=== PATIENT | female | born 1990 | race Caucasian/White ===

== ENCOUNTER 2017-08-15 10:12 | Emergency (ER) | payer OTHER ==
[2017-08-15 10:48] LABS: Urine Blood TRACE (NEG); Urine Glucose NEGATIVE (NEG); Urine Protein NEGATIVE (NEG)
[2017-08-15] MEDS ORDERED: NA CHLORIDE 0.9% 1,000 ML ONE (10:49)
[2017-08-15 10:51] LABS: Absolute Lymphocytes (CBC) 2.3 K/uL (0.7-4.9); Absolute Monocytes 0.6 K/uL (0.1-1.3); Absolute Neutrophil 8.7 K/uL (1.8-8.0); Basophils % 0.6 % (0-1.3); Eosinophils % 0.6 % (0-4.4); Hematocrit 40.7 % (36.0-45.0); Lymphocytes % 19.5 % (15.3-44.8); MCH 27.3 pg (27.0-35.0); MCV 81.9 fL (80-100); MPV 8.6 fL (7.6-11.3); RBC Red Blood Cell Count 4.97 M/uL (3.86-4.86)
[2017-08-15 11:17] LABS: Urine Bacteria <20 /HPF (<20); Urine Culture Reflex Order NOT NEEDED; Urine RBC <5 /HPF (NONE SEEN)
[2017-08-15 11:39] LABS: Bicarbonate 23 mEq/L (21-31); Potassium 3.6 mEq/L (3.6-5.0); Sodium Level 133 mEq/L (135-145)
[2017-08-15 11:47] LABS: BUN Blood Urea Nitrogen 11 mg/dL (6-20); Glucose Level 70 mg/dL (65-120)
--- NOTE | 2017-08-15 12:53 | RAD REPORT ---
EXAM DESCRIPTION: US - Transvaginal OB - 08/15/2017 12:46 pm CLINICAL HISTORY: Pelvic pain, vaginal bleeding. COMPARISON: None. FINDINGS: A single gestational sac is seen within the uterus. Decidual reaction is present. Mean sac diameter is 24 mm correlate is 7 weeks 2 days gestational age. No yolk sac or pole seen. Several small subchorionic bleeds are present around the sac. Both ovaries are normal in size, shape and echotexture. Normal Doppler blood flow is seen bilaterally . IMPRESSION: Gestational sac is seen within the uterus without evidence of yolk sac or pole.The findings favor blighted ovum. However, it is recommended the patient undergo a followup ultrasound 7 days for confirmation. Correlation with serial HCG levels would also be helpful.
--- NOTE | 2017-08-15 13:00 | ER ---
Nurse's Notes [facility] Name: Bree Farnsworth Age: 26 yrs Sex: Female : 1990 Arrival Date: 08/15/2017 Time: 10:15 Bed 16 Private MD: Diagnosis: Threatened Presentation: 08/15 10:16 Presenting complaint: Patient states: Abd cramping and spotting since this morning, pt la1 of Dr. Fernandez, LMP 06/10/2017. Transition of care: patient was not received from another setting of care. Onset of symptoms was August 15, 2017. Care prior to arrival: None. 10:16 Method Of Arrival: Ambulatory la1 10:16 Acuity: CLAUDIA 3 la1 Triage Assessment: 10:45 General: Appears in no apparent distress. Behavior is calm, cooperative. Pain: ae1 Complains of pain in suprapubic area, right lower quadrant and left lower quadrant. Pain: Quality of pain is described as crampy. EENT: No signs and/or symptoms were reported regarding the EENT system. Neuro: Level of Consciousness is awake, alert, obeys commands, Oriented to person, place, time, situation. Cardiovascular: Heart tones S1 S2 present Patient's skin is warm and dry. Respiratory: Airway is patent Respiratory effort is even, unlabored, Respiratory pattern is regular, symmetrical, Breath sounds are clear bilaterally. GI: Abdomen is round Bowel sounds present X 4 quads. GI: Reports lower abdominal pain, nausea. : No signs and/or symptoms were reported regarding the genitourinary system. : Reports vaginal bleeding that is bright red, spotty. Derm: Skin is pink, warm \T\ dry. Musculoskeletal: No signs and/or symptoms reported regarding the musculoskeletal system. FINISHER SPECIAL STOCKS: 10:17 LMP 06/10/2017 la1 10:18 3, Full Term 2, Living 2, LMP 06/10/2017, Verified, EDC 03/17/2018, rh1 Gestational age from LMP: 9 weeks 3 days Historical: - Allergies: 10:17 No Known Allergies; la1 - PMHx: 10:17 None; la1 - Immunization history:: Adult Immunizations up to date. - Social history:: Smoking status: Patient/guardian denies using tobacco. Screenin:44 Abuse screen: Denies threats or abuse. Nutritional screening: No deficits noted. ae1 Tuberculosis screening: No symptoms or risk factors identified. Fall Risk None identified. Assessment: 11:20 Reassessment: Patient appears in no apparent distress at this time. No changes from ae1 previously documented assessment. See full triage assessment. Patient updated on wait time for lab results. 12:02 Reassessment: communication technician at bedside. ae1 13:17 GI: Abd is soft. ae1 Vital Signs: 10:17 BP 134 / 83; Pulse 101; Resp 16; Temp 98.7(O); Pulse Ox 100% on R/A; Weight 77.11 kg; la1 Height 5 ft. 3 in. (160.02 cm); 11:01 BP 112 / 69; Pulse 77; Resp 15; Pulse Ox 100% on R/A; mh5 12:03 BP 111 / 75; Pulse 80; Resp 17; Pulse Ox 100% on R/A; ae1 10:17 Body Mass Index 30.11 (77.11 kg, 160.02 cm) la1 ED Course: 10:15 Patient arrived in ED. mr 10:16 Esme Pickard, BIA is PHCP. rh1 10:16 Man Escalante MD is Attending Physician. rh1 10:17 Triage completed. la1 10:18 Arm band placed on right wrist. la1 10:26 Loco Knight, CORY is Primary Nurse. ae1 10:29 Urine collected: clean catch specimen, clear. mh5 10:32 Urine Microscopic Only Sent. mh5 10:43 Inserted saline lock: 20 gauge in left antecubital area, using aseptic technique. Blood ae1 collected. 10:44 Placed in gown. Bed in low position. Call light in reach. Side rails up X 1. Pulse ox ae1 on. NIBP on. Warm blanket given. 12:39 Note: us completed. done bedside/portable. aa4 12:46 US Transvaginal Ob In Process Unspecified. EDMS 12:59 Rylan Fournier MD is Referral Physician. rh1 13:16 No provider procedures requiring assistance completed. IV discontinued, intact, ae1 bleeding controlled, No redness/swelling at site. Pressure dressing applied. Administered Medications: 10:55 Drug: NS 0.9% 1000 ml Route: IV; Rate: 1000 ml; Site: left antecubital; ae1 11:46 Follow up: IV Status: Completed infusion ae1 Outcome: 12:59 Discharge ordered by . rh1 13:16 Discharged to home ambulatory, with significant other. ae1 13:16 Condition: stable 13:16 Discharge instructions given to patient, Instructed on discharge instructions, follow up and referral plans. Demonstrated understanding of instructions. 13:18 Patient left the ED. ae1 Signatures: Dispatcher [employer] Maral Wolff RobleroKimmie navarro aa4 Bo Patterson RN RN la1 Esme Pickard NP REFUGE WORKER 1 Loco Knight RN RN ae1 Maral Clay [facility] Corrections: (The following items were deleted from the chart) 11:21 10:47 GI: Abd is soft ae1 ae1
--- NOTE | 2017-08-15 13:01 | EDPHYS ---
Physician Documentation [facility] Name: Bree Farnsworth Age: 26 yrs Sex: Female : 1990 Arrival Date: 08/15/2017 Time: 10:15 Bed 16 Private MD: ED Physician Man Escalante HPI: 08/15 10:18 This 26 yrs old Female presents to ER via Ambulatory with complaints of rh1 Abdominal Pain, 9 Wks . 10:18 The patient presents to the emergency department with abdominal pain, of the left upper rh1 quadrant and left lower quadrant, that started this morning, described as constant, sharp, vaginal bleeding, described as spotting. The estimated gestational age is 9 weeks. course: care: private OB physician, Dr. Fournier, Ultrasound: the patient has not had an ultrasound. Associated signs and symptoms: Pertinent positives: abdominal pain, vaginal bleeding, Pertinent negatives: chest pain, dysuria, fever, frequency, shortness of breath, vaginal discharge, vomiting. The patient has not experienced similar symptoms in the past. Pt. reports she awoke this am with left sided abdominal pain primarily lower left, with vaginal spotting with wiping.. 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 - Social history:: Smoking status: Patient/guardian denies using tobacco. ROS: 10:18 Constitutional: Negative for fever, chills rh1 10:18 Cardiovascular: Negative for chest pain, edema. 10:18 Respiratory: Negative for cough, shortness of breath. 10:18 Abdomen/GI: Positive for abdominal pain, Negative for vomiting, diarrhea. 10:18 Back: Negative for decreased range of motion, pain at rest, pain with movement, radiated pain. 10:18 : Positive for vaginal bleeding, Negative for urinary symptoms, small amounts. 10:18 Skin: Negative for rash. 10:18 Neuro: Negative for altered mental status, dizziness, headache. 10:18 All other systems are negative. Exam: 10:18 Constitutional: This is a well developed, well nourished patient who is awake, alert, rh1 and in no acute distress. Head/Face: Normocephalic, atraumatic. Neck: Trachea midline, and no cervical lymphadenopathy. Supple, full range of motion without nuchal rigidity. No Meningismus. Chest/axilla: Normal chest wall appearance and motion. Nontender with no deformity. No lesions are appreciated. Cardiovascular: Regular rate and rhythm with a normal S1 and S2. No gallops, murmurs, or rubs. No JVD. No pulse deficits. Respiratory: Lungs have equal breath sounds bilaterally, clear to auscultation. No rales, rhonchi or wheezes noted. No increased work of breathing. 10:18 Back: No spinal tenderness. No costovertebral tenderness. Full range of motion. Skin: Warm, dry with normal turgor. Normal color with no rashes, no lesions, and no evidence of cellulitis. 10:18 Abdomen/GI: Inspection: abdomen appears normal, bruising, is not seen, distension, is not seen, Bowel sounds: normal, in all quadrants, active, all quadrants, Palpation: soft, in all quadrants, moderate abdominal tenderness, in the left upper quadrant and left lower quadrant, rebound tenderness, is not appreciated, involuntary guarding, is not appreciated, Indicators: McBurney's point is not tender, Gordon's sign is negative, Rovsing's sign is negative, Liver: no appreciated palpable abnormalities. 10:18 Neuro: Orientation: is normal, to person, place \T\ time. Mentation: is normal, lucid, able to follow commands, Motor: is normal, moves all fours, Sensation: is normal, no obvious gross deficits, Gait: is steady, at a normal pace, without difficulty. Vital Signs: 10:17 BP 134 / 83; Pulse 101; Resp 16; Temp 98.7(O); Pulse Ox 100% on R/A; Weight 77.11 kg; la1 Height 5 ft. 3 in. (160.02 cm); 11:01 BP 112 / 69; Pulse 77; Resp 15; Pulse Ox 100% on R/A; mh5 12:03 BP 111 / 75; Pulse 80; Resp 17; Pulse Ox 100% on R/A; ae1 10:17 Body Mass Index 30.11 (77.11 kg, 160.02 cm) la1 MDM: 10:18 Patient medically screened. rh1 12:28 Data reviewed: vital signs, nurses notes, lab test result(s), radiologic studies, rh1 ultrasound, and as a result, I will discharge patient. Data interpreted: Pulse oximetry: on room air is 100 %. Interpretation: normal. Counseling: I had a detailed discussion with the patient and/or guardian regarding: the historical points, exam findings, and any diagnostic results supporting the discharge/admit diagnosis, lab results, radiology results, the need for outpatient follow up, an OB/Gyne specialist, to return to the emergency department if symptoms worsen or persist or if there are any questions or concerns that arise at home. 08/15 10:27 Order name: Quantitative Hcg; Complete Time: 12:02 08/15 10:27 Order name: Abo/rh Typing; Complete Time: 11:18 08/15 10:27 Order name: Basic Metabolic Panel; Complete Time: 12:02 08/15 10:27 Order name: CBC with Diff; Complete Time: 11:18 08/15 10:27 Order name: Urine Microscopic Only; Complete Time: 11:18 08/15 10:39 Order name: Urine Dipstick--Ancillary (enter results); Complete Time: 10:49 ag 08/15 10:27 Order name: Urine Test (obtain specimen); Complete Time: 10:32 08/15 10:27 Order name: IV Saline Lock; Complete Time: 10:43 08/15 10:27 Order name: Labs collected and sent; Complete Time: 10:43 08/15 10:27 Order name: NPO; Complete Time: 10:43 08/15 10:27 Order name: Urine Dipstick-Ancillary (obtain specimen); Complete Time: 10:32 08/15 10:27 Order name: US Transvaginal Ob; Complete Time: 12:55 08/15 10:39 Order name: Urine --Ancillary (enter results); Complete Time: 10:49 ag Administered Medications: 10:55 Drug: NS 0.9% 1000 ml Route: IV; Rate: 1000 ml; Site: left antecubital; ae1 11:46 Follow up: IV Status: Completed infusion ae1 Disposition: 15:33 Co-signature as Attending Physician, Man Escalante MD I agree with the assessment and wa plan of care. Disposition: 08/15/17 12:59 Discharged to Home. Impression: Threatened . - Condition is Stable. - Discharge Instructions: Threatened Miscarriage, Pelvic Rest. - Medication Reconciliation Form, Thank You Letter, Antibiotic Education, Prescription Opioid Use form. - Follow up: Rylan Fournier MD; When: 1 - 2 days; Reason: Further diagnostic work-up, Recheck today's complaints, Continuance of care, Re-evaluation by your physician. Follow up: Emergency Department; When: As needed; Reason: Fever > 102 F, If symptoms return, Trouble breathing, Worsening of condition. - Problem is new. - Symptoms are unchanged. - Notes: 1. Follow up with Dr. Fournier for repeat US and Hcg. Signatures: Dispatcher [employer] EDMS Bo Patterson RN RN la1 Esme Pickard NP ONLINE FACILITATOR rh1 Loco Knight RN RN ae1 Man Escalante MD MD [place] Corrections: (The following items were deleted from the chart) 10:40 10:18 Pt. reports she awoke this am with left sided abdominal pain, with vaginal rh1 spotting with wiping.. rh1
== END 2017-08-15 13:18 | disposition home or self-care (01) ==
LOC: ER 10:12
DX: O20.0 Threatened abortion (principal); Z3A.09 9 weeks gestation of pregnancy
CPT/HCPCS: 36415; 76817; 80048; 81003; 81015; 81025; 84702; 85025; 86900; 86901; 96360; 99284; J7030

== ENCOUNTER 2017-08-27 10:26 | Day surgery (SDC) | payer OTHER ==
[2017-08-27 09:14] LABS: Absolute Lymphocytes (CBC) 2.2 K/uL (0.7-4.9); Absolute Monocytes 0.8 K/uL (0.1-1.3); Absolute Neutrophil 8.8 K/uL (1.8-8.0); Basophils % 0.4 % (0-1.3); Eosinophils % 1.1 % (0-4.4); Hematocrit 40.2 % (36.0-45.0); Lymphocytes % 18.7 % (15.3-44.8); MCH 27.9 pg (27.0-35.0); MCV 82.3 fL (80-100); MPV 8.9 fL (7.6-11.3); Monocytes % 6.5 % (3.3-12.3); RBC Red Blood Cell Count 4.89 M/uL (3.86-4.86)
[2017-08-27 09:18] LABS: Protime INR 1.04
[2017-08-27 09:42] LABS: Urine Appearance CLEAR; Urine Bilirubin NEGATIVE (NEG); Urine Blood 2+ (NEG); Urine Color YELLOW; Urine Glucose NEGATIVE (NEG); Urine Protein NEGATIVE (NEG); Urine Specific Gravity >=1.030 (1.005-1.030); Urine Urobilinogen 0.2 mg/dL (0.2-1.0)
[2017-08-27 09:48] LABS: Urine Microscopic Reflex ORDER UMIC
[~2017-08-27 10:26] MED LIST: OXYTOCIN/LR 20 UNIT/1,000 ML BAG IV SCH
[2017-08-27 10:35] LABS: Urine Amorphous Sediment 1+ /HPF (NONE SEEN); Urine Bacteria <20 /HPF (<20); Urine Culture Reflex Order REFLEXED; Urine Mucus 1+ /HPF (NONE SEEN)
[2017-08-27] MEDS ORDERED: CEFAZOLIN/SWI 1gm 1 GM/10 ML SYR ONE (11:35)
[2017-08-27] MEDS ORDERED: Ringers Lactate 0 ML IV ONE (11:35)
[2017-08-27] MEDS ORDERED: OXYTOCIN 10 UNIT/ML ML IV ONE (12:08)
[2017-08-27] MEDS ORDERED: SILVER NITRATE 1 APPL TOP ONE (12:09)
[2017-08-27] MEDS ORDERED: METHYLERGONOVINE 0.2MG/ML AMP IM ONE (12:10)
[2017-08-27] MEDS ORDERED: PROPOFOL 200 MG/20 ML VIAL IV ONE (12:20)
[2017-08-27] MEDS ORDERED: MIDAZOLAM HCL 2 MG/2 ML INJ ONE (12:21)
[2017-08-27] MEDS ORDERED: LIDOCAINE 1% MPF 5 ML VIAL ONE (12:21)
[2017-08-27] MEDS ORDERED: FENTANYL CITR 100 MCG/2 ML ONE (12:22)
[2017-08-27] MEDS ORDERED: ONDANSETRON 4 MG/2 ML VIAL ONE (12:22)
[2017-08-27] MEDS ORDERED: KETOROLAC 30 MG/ML INJ ONE (13:41)
--- NOTE | 2017-08-28 00:25 | OP ---
Surgeon: Rylan Fournier MD A 26-year-old female, first trimester, missed AB, Rh positive, therefore no RhoGAM needed. Full preo perative counseling concerning procedure and possible complications including infection, blood loss, anesthetic complications, injury to bladder, bowel, ureter, postoperative complications, clots in leg s, and pneumonia. The patient knows fully well this does not constitute all the possible problems th at could occur during or following surgery. She was also offered expectant management and in fact bennett s been waiting for 2-3 weeks for spontaneous AB to take place and it has not occurred. General anest hesia endotracheal intubation. Time-out performed. The laminaria tent and packs placed the evening prior were removed. Thorough prep with Betadine was performed. The patient had been given 1 g of An cef prior to the procedure. IV drip Pitocin. Ring clamp was placed on the anterior cervical lip. T he largest dilator was admitted easily. At this point, a 10 mm curved suction curette was used to ev acuate the obviously necrotic intrauterine contents. A suction curettement was performed, followed b y sharp curettement, a second suction curettement and a second sharp curettement. Mild hypotonus was noted. 0.2 mg of Methergine IM. Total blood loss during the procedure 100 cc approximately. Uteru s contracted down well. Silver nitrate was used at 1 spot on the cervix for mild bleeding. No furth er significant bleeding was seen and the procedure was discontinued. The patient was sent to the rec overy room in good condition. Final Diagnoses: First trimester, missed , suction curettage for uterine evacuation, general anesthesia. SERGO/SAVANNAH Voice ID: [id number] Report ID: [id number]
--- NOTE | 2017-08-28 00:31 | DS ---
Date of Discharge: 08/27/2017 The patient is 26-year-old, who underwent first trimester suction curettage and sharp curettement for missed . Rh positive, therefore no RhoGAM needed. General anesthesia, endotracheal intubat ion. 100 cc estimated blood loss. At the time of surgery, the patient was given 0.2 mg of Methergin e as well as IV drip Pitocin. She will be observed for the next 1-1/2 to 2 hours, then dismissed. S he has doxycycline at home to be taken twice a day for 3 days. Cytotec to be taken 100 mcg 1 every 6 hours for 6 doses. She is to report any temperature elevation of 100 degrees or greater, severe dianne n, heavy bleeding, or any other type of abnormalities, to follow up with me next week in the office a nd if she has any problems over the weekend, she knows that I will be out of town and she should cont act my office if it is during the day and they will give her instructions or go to the emergency room if there are any problems over the weekend. Final Diagnoses: First trimester, missed , suction curettage for uterine evacuation. SERGO/SAVANNAH Voice ID: [id number] Report ID: [id number]
--- NOTE | 2017-08-28 11:27 | PREOPHP ---
Date of Admission: 08/27/2017 History: A 26-year-old 3, para 2, first trimester missed . The patient has had 3 ul trasounds, none showing any progress, and no heart beat, and quantitative hCGs has been progressively dropping. She has been given the option of expectant management, but wishes to proceed with suction curettage for uterine evacuation. No family history is contributory. She has had her gallbladder r emoved. She has no allergies. She is known on no medicines at this point. Social History: Does not smoke. Physical Examination: HEENT: Clear. Pupils equal, round, reactive to light and accommodation. Conjunctivae well perfused . No oral, lingual, or buccal lesions. Chest: Clear. Lungs: Clear. Heart: Without murmurs, thrills, heaves, or rubs. Breasts: Not examined. Abdomen: Clear. The uterus is 9-10 weeks size. Soft. Nontender. Both adnexa clear. Extremities: Clear without edema, cyanosis, or clubbing. Cervix cleaned with Betadine, laminaria tent inserted and packing placed. She is Rh positive, theref ore we will not need RhoGAM. We will proceed with suction, curettage, evacuation of the uterus tomorrow. We will phone in for dox ycycline and Cytotec to be taken in the postop time. SERGO/SAVANNAH Voice ID: [id number]
== END 2017-08-27 14:40 | disposition home or self-care (01) ==
LOC: OR 10:26
PROVIDERS: ATTEND Specialist
PROC: 10D17ZZ Extraction of Products of Conception, Retained, Via Natural or Artificial Opening (ICD-10-PCS; principal; 2017-08-27 12:30)
DX: O02.1 Missed abortion (principal)
CPT/HCPCS: 36415; 81003; 81015; 85025; 85610; 85730; 86850; 86900; 86901; 87077; 87086; 87088; 87186; 88305; J0690; J2210; J2250; J2405; J2590; J3010

== ENCOUNTER 2018-03-02 10:51 | Emergency (ER) | payer OTHER ==
[2018-03-02] MEDS ORDERED: ONDANSETRON 4 MG/2 ML VIAL ONE (12:02)
[2018-03-02] MEDS ORDERED: NA CHLORIDE 0.9% 1,000 ML ONE (12:02)
[2018-03-02 12:27] LABS: Absolute Lymphocytes (CBC) 2.1 K/uL (0.7-4.9); Absolute Monocytes 0.6 K/uL (0.1-1.3); Absolute Neutrophil 8.2 K/uL (1.8-8.0); Basophils % 0.3 % (0-1.3); Eosinophils % 0.5 % (0-4.4); Hematocrit 39.4 % (36.0-45.0); Lymphocytes % 18.7 % (15.3-44.8); MCH 28.3 pg (27.0-35.0); MCV 81.6 fL (80-100); MPV 9.2 fL (7.6-11.3); Monocytes % 5.4 % (3.3-12.3); RBC Red Blood Cell Count 4.83 M/uL (3.86-4.86)
[2018-03-02 12:57] LABS: ALT/SGPT 18 U/L (12-78); AST/SGOT 10 U/L (15-37); Albumin 3.7 g/dL (3.4-5.0); Alkaline Phosphatase 92 U/L (45-117); BUN Blood Urea Nitrogen 8 mg/dL (7-18); Bicarbonate 24 mmol/L (21-32); Bilirubin Direct 0.3 mg/dL (0-0.2); Bilirubin Total 1.2 mg/dL (0.2-1.0); Glucose Level 79 mg/dL (74-106); HCG, Quantitative 102956 mIU/mL (1-3); Lipase 109 U/L (73-393); Potassium 3.8 mmol/L (3.5-5.1); Protein, Total 7.7 g/dL (6.4-8.2); Sodium Level 137 mmol/L (136-145)
[2018-03-02 13:35] LABS: Urine Blood TRACE (NEG); Urine Glucose NEGATIVE (NEG); Urine Protein NEGATIVE (NEG); Urine Specific Gravity 1.015 (1.005-1.030)
--- NOTE | 2018-03-02 13:52 | EDPHYS ---
Physician Documentation [facility] Name: Bree Farnsworth Age: 27 yrs Sex: Female : 1990 Arrival Date: 03/02/2018 Time: 10:52 Bed 15 Private MD: ED Physician Alli Farooq HPI: 03/02 18:12 This 27 yrs old Female presents to ER via Ambulatory with complaints of gs Vomiting/Diarrhea. 18:12 The patient presents to the emergency department with nausea, diarrhea. Onset: The gs symptoms/episode began/occurred 2 day(s) ago. Possible causes: unknown. The symptoms are aggravated by nothing. The symptoms are alleviated by nothing. Associated signs and symptoms: Pertinent negatives: dysuria, fever, GI bleeding. Severity of symptoms: At their worst the symptoms were moderate in the emergency department the symptoms are unchanged. The patient has not recently seen a physician. 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 - Social history:: Smoking status: Patient/guardian denies using tobacco. - Ebola Screening: : No symptoms or risks identified at this time. ROS: 18:12 All other systems are negative. gs Exam: 18:12 Head/Face: Normocephalic, atraumatic. Eyes: Pupils equal round and reactive to light, gs extra-ocular motions intact. Lids and lashes normal. Conjunctiva and sclera are non-icteric and not injected. Cornea within normal limits. Periorbital areas with no swelling, redness, or edema. ENT: Nares patent. No nasal discharge, no septal abnormalities noted. Tympanic membranes are normal and external auditory canals are clear. Oropharynx with no redness, swelling, or masses, exudates, or evidence of obstruction, uvula midline. Mucous membranes moist. Neck: Trachea midline, no thyromegaly or masses palpated, and no cervical lymphadenopathy. Supple, full range of motion without nuchal rigidity, or vertebral point tenderness. No Meningismus. Chest/axilla: Normal chest wall appearance and motion. Nontender with no deformity. No lesions are appreciated. Cardiovascular: Regular rate and rhythm with a normal S1 and S2. No gallops, murmurs, or rubs. Normal PMI, no JVD. No pulse deficits. Respiratory: Lungs have equal breath sounds bilaterally, clear to auscultation and percussion. No rales, rhonchi or wheezes noted. No increased work of breathing, no retractions or nasal flaring. Abdomen/GI: Soft, non-tender, with normal bowel sounds. No distension or tympany. No guarding or rebound. No evidence of tenderness throughout. Back: No spinal tenderness. No costovertebral tenderness. Full range of motion. MS/ Extremity: Pulses equal, no cyanosis. Neurovascular intact. Full, normal range of motion. Neuro: Awake and alert, GCS 15, oriented to person, place, time, and situation. Cranial nerves II-XII grossly intact. Motor strength 5/5 in all extremities. Sensory grossly intact. Cerebellar exam normal. Normal gait. 18:12 Constitutional: The patient appears alert, awake. 18:12 Skin: rash can be described as nonspecific. Vital Signs: 11:05 BP 124 / 78; Pulse 86; Resp 18; Temp 97.8; Pulse Ox 100% on R/A; Weight 75.75 kg; ph Height 5 ft. 3 in. (160.02 cm); Pain 7/10; 12:00 BP 122 / 76; Pulse 81; Resp 15; Pulse Ox 100% on R/A; hb 13:30 BP 126 / 64; Pulse 86; Resp 16; Pulse Ox 100% on R/A; hb 14:08 BP 119 / 78; Pulse 80; Resp 16; Temp 98.0; Pulse Ox 99% on R/A; Pain 0/10; ls4 11:05 Body Mass Index 29.58 (75.75 kg, 160.02 cm) ph MDM: 11:51 Patient medically screened. gs 18:12 Differential diagnosis: viral gastroenteritis, gastroenteritis. Data reviewed: vital gs signs, nurses notes. Counseling: I had a detailed discussion with the patient and/or guardian regarding: the historical points, exam findings, and any diagnostic results supporting the discharge/admit diagnosis, the need for outpatient follow up. Response to treatment: the patient's symptoms have markedly improved after treatment, patient is well hydrated. and as a result, I will discharge patient. 03/02 11:51 Order name: Basic Metabolic Panel; Complete Time: 13:42 gs 03/02 11:51 Order name: CBC with Diff; Complete Time: 12:50 gs 03/02 11:51 Order name: Hepatic Function; Complete Time: 13:42 gs 03/02 11:51 Order name: Lipase; Complete Time: 13:42 gs 03/02 11:51 Order name: Quantitative Hcg; Complete Time: 13:42 gs 03/02 11:52 Order name: Urine Dipstick--Ancillary (enter results); Complete Time: 13:42 bd 03/02 11:51 Order name: IV Saline Lock; Complete Time: 12:19 gs 03/02 11:51 Order name: Labs collected and sent; Complete Time: 12:19 gs 03/02 11:52 Order name: Urine --Ancillary (enter results); Complete Time: 13:42 bd Administered Medications: 12:10 Drug: NS 0.9% 1000 ml Route: IV; Rate: 1 bolus; Site: left antecubital; ls4 14:09 Follow up: IV Status: Completed infusion; IV Intake: 1000ml ls4 12:10 Drug: Zofran 4 mg Route: IVP; Site: left antecubital; ls4 12:40 Follow up: Response: No adverse reaction ls4 Disposition: 03/02/18 13:51 Discharged to Home. Impression: Vomiting, Diarrhea, unspecified, related conditions, unspecified, first trimester. - Condition is Stable. - Discharge Instructions: Diarrhea, Adult, Nausea and Vomiting, Adult, First Trimester of . - Prescriptions for Vitamin 27- 0.8 mg Oral Tablet - take 1 tablet by ORAL route once daily; 30 tablet. Zofran 4 mg Oral Tablet - take 1 tablet by ORAL route every 12 hours As needed; 6 tablet. - Medication Reconciliation Form, Thank You Letter, Antibiotic Education, Prescription Opioid Use form. - Follow up: Private Physician; When: 2 - 3 days; Reason: Re-evaluation by your physician. Signatures: Dispatcher [employer] Eva Antonio RN RN Jeanette Juarez RN RN hb Starr, Gregory, MD MD gs Stewart, Lisa, RN RN ls4 Corrections: (The following items were deleted from the chart) 14:17 13:51 03/02/2018 13:51 Discharged to Home. Impression: Vomiting; Diarrhea, unspecified; ls4 related conditions, unspecified, first trimester. Condition is Stable. Forms are Medication Reconciliation Form, Thank You Letter, Antibiotic Education, Prescription Opioid Use. Follow up: Private Physician; When: 2 - 3 days; Reason: Re-evaluation by your physician. gs
--- NOTE | 2018-03-02 13:52 | ER ---
Nurse's Notes [facility] Name: Bree Farnsworth Age: 27 yrs Sex: Female : 1990 Arrival Date: 03/02/2018 Time: 10:52 Bed 15 Private MD: Diagnosis: Vomiting;Diarrhea, unspecified; related conditions, unspecified, first trimester Presentation: 03/02 11:01 Presenting complaint: Patient states: R side pain, N/V/D since Friday, and fine, red ph rash to pedro arms since this morning, denies fever or urinary symptoms. Transition of care: patient was not received from another setting of care. Onset of symptoms was March 02, 2018. Risk Assessment: Do you want to hurt yourself or someone else? Patient reports no desire to harm self or others. Initial Sepsis Screen: Does the patient meet any 2 criteria?. Care prior to arrival: None. 11:01 Method Of Arrival: Ambulatory ph 11:01 Acuity: CLAUDIA 3 ph 14:16 Initial Sepsis Screen: Does the patient have a suspected source of infection? Yes:. 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 - Social history:: Smoking status: Patient/guardian denies using tobacco. - Ebola Screening: : No symptoms or risks identified at this time. Screenin:10 Abuse screen: Denies threats or abuse. Nutritional screening: No deficits noted. ls4 Tuberculosis screening: No symptoms or risk factors identified. Fall Risk None identified. Assessment: 11:30 General: Appears in no apparent distress. Behavior is calm, cooperative. Pain: Denies hb pain. Neuro: Level of Consciousness is awake, alert, obeys commands, Oriented to person, place, time, situation. Cardiovascular: Capillary refill < 3 seconds Patient's skin is warm and dry. Respiratory: Airway is patent Trachea midline Respiratory effort is even, unlabored, Respiratory pattern is regular, symmetrical, Breath sounds are clear bilaterally. GI: Abdomen is non-distended, Bowel sounds present X 4 quads. Abd is soft and non tender X 4 quads. Reports diarrhea, nausea, vomiting. : No signs and/or symptoms were reported regarding the genitourinary system. EENT: No signs and/or symptoms were reported regarding the EENT system. Derm: No signs and/or symptoms reported regarding the dermatologic system. Skin is intact, is healthy with good turgor, Skin is pink, warm \T\ dry. Musculoskeletal: No signs and/or symptoms reported regarding the musculoskeletal system. 12:23 General: Appears in no apparent distress. comfortable, Behavior is calm, cooperative. ls4 Pain: Denies pain. Neuro: No deficits noted. Cardiovascular: No deficits noted. Respiratory: No deficits noted. GI: No deficits noted. Abdomen is non-distended, Bowel sounds present X 4 quads. Reports vomiting, since 3 days. : No deficits noted. 13:28 Reassessment: Patient appears in no apparent distress at this time. No changes from hb previously documented assessment. Patient and/or family updated on plan of care and expected duration. Pain level reassessed. Patient is alert, oriented x 3, equal unlabored respirations, skin warm/dry/pink. Vital Signs: 11:05 BP 124 / 78; Pulse 86; Resp 18; Temp 97.8; Pulse Ox 100% on R/A; Weight 75.75 kg; ph Height 5 ft. 3 in. (160.02 cm); Pain 7/10; 12:00 BP 122 / 76; Pulse 81; Resp 15; Pulse Ox 100% on R/A; hb 13:30 BP 126 / 64; Pulse 86; Resp 16; Pulse Ox 100% on R/A; hb 14:08 BP 119 / 78; Pulse 80; Resp 16; Temp 98.0; Pulse Ox 99% on R/A; Pain 0/10; ls4 11:05 Body Mass Index 29.58 (75.75 kg, 160.02 cm) ph ED Course: 10:52 Patient arrived in ED. as 11:04 Triage completed. ph 11:05 Arm band placed on Patient placed in waiting room, Patient notified of wait time. ph 11:10 Patient has correct armband on for positive identification. Placed in gown. Bed in low ls4 position. Side rails up X2. 11:41 Alli Farooq MD is Attending Physician. gs 12:10 Inserted saline lock: 18 gauge in left antecubital area, using aseptic technique. Blood ls4 collected. 12:10 Initial lab(s) drawn, by me, sent to lab. Urine collected: clean catch specimen. ls4 12:14 Jeanette Juarez, RN is Primary Nurse. 14:10 IV discontinued, intact, bleeding controlled, No redness/swelling at site. Pressure ls4 dressing applied. 14:14 No provider procedures requiring assistance completed. ls4 Administered Medications: 12:10 Drug: NS 0.9% 1000 ml Route: IV; Rate: 1 bolus; Site: left antecubital; ls4 14:09 Follow up: IV Status: Completed infusion; IV Intake: 1000ml ls4 12:10 Drug: Zofran 4 mg Route: IVP; Site: left antecubital; ls4 12:40 Follow up: Response: No adverse reaction ls4 Intake: 14:09 IV: 1000ml; Total: 1000ml. ls4 Outcome: 13:51 Discharge ordered by . 14:14 Discharged to home ambulatory. ls4 14:14 Condition: good 14:14 Discharge instructions given to patient, family, Instructed on discharge instructions, follow up and referral plans. no drinking with medication, no driving heavy equipment, medication usage, safety practices, Demonstrated understanding of instructions, follow-up care, medications, Prescriptions given X 2. 14:17 Patient left the ED. ls4 Signatures: Barbara Clay Patricia, RN RN Jeanette Juarez, RN RN Alli Farooq MD MD Debra Reyes RN RN ls4
== END 2018-03-02 14:17 | disposition home or self-care (01) ==
LOC: ER 10:51
DX: O21.9 Vomiting of pregnancy, unspecified (principal); Z3A.00 Weeks of gestation of pregnancy not specified; O26.899 Other specified pregnancy related conditions, unspecified trimester; R19.7 Diarrhea, unspecified
CPT/HCPCS: 36415; 80048; 80076; 81003; 81025; 83690; 84702; 85025; 96361; 96374; 99284; J2405; J7030

== ENCOUNTER 2018-03-07 12:49 | Emergency (ER) | payer OTHER ==
[2018-03-07 13:28] LABS: Urine Blood NEGATIVE (NEG); Urine Glucose NEGATIVE (NEG); Urine Protein NEGATIVE (NEG)
[2018-03-07 14:16] LABS: Absolute Lymphocytes (CBC) 2.1 K/uL (0.7-4.9); Absolute Monocytes 0.8 K/uL (0.1-1.3); Absolute Neutrophil 9.6 K/uL (1.8-8.0); Basophils % 0.3 % (0-1.3); Eosinophils % 0.8 % (0-4.4); Hematocrit 38.7 % (36.0-45.0); Lymphocytes % 16.8 % (15.3-44.8); MCH 28.5 pg (27.0-35.0); MCV 81.9 fL (80-100); MPV 9.5 fL (7.6-11.3); Monocytes % 6.6 % (3.3-12.3); RBC Red Blood Cell Count 4.73 M/uL (3.86-4.86)
[2018-03-07 14:45] LABS: Potassium 3.8 mmol/L (3.5-5.1)
--- NOTE | 2018-03-07 15:05 | RAD REPORT ---
EXAM DESCRIPTION: US - Renal Ultrasound-Complete - 03/07/2018 2:48 pm CLINICAL HISTORY: . Abdominal COMPARISON: None. FINDINGS: The right kidney measures 11 cm with a normal echotexture. The left kidney measures 11 cm with a normal echotexture. Hydronephrosis is not seen. Bladder volume 290 cc IMPRESSION: Unremarkable renal ultrasound.
--- NOTE | 2018-03-07 15:09 | RAD REPORT ---
EXAM DESCRIPTION: US - Transvaginal OB - 03/07/2018 2:49 pm CLINICAL HISTORY: with vaginal bleeding FINDINGS: The uterus measures 11 x 6 x 7 centimeters. A gestational sac is present within the endom etrium. Within this is a yolk sac and pole with a crown-rump length 2.1 centimeters. Cardiac ac tivity 162 beats per minute 18 millimeter subchorionic bleed is seen Evaluation of the right and left adnexa is unremarkable. No significant free fluid is seen. IMPRESSION: Single live intrauterine with an estimated gestational age 8 weeks 3 days WALI 10/14/2018 Small subchorionic bleed
--- NOTE | 2018-03-07 15:47 | EDPHYS ---
Physician Documentation [facility] Name: Bree Farnsworth Age: 27 yrs Sex: Female : 1990 Arrival Date: 03/07/2018 Time: 12:51 Bed 17 Private MD: MART SALAZAR ED Physician Quincy Hsu HPI: 03/07 13:14 This 27 yrs old Female presents to ER via Ambulatory with complaints of rh1 Vaginal Bleeding, + Preg <12wks. 13:14 The patient complains of pain in the right mid back. The pain radiates to the posterior rh1 aspect of right lateral abdomen, anterior aspect of right lateral abdomen and right upper quadrant. Onset: The symptoms/episode began/occurred last night. Modifying factors: The symptoms are alleviated by nothing. the symptoms are aggravated by palpation/percussion. Associated signs and symptoms: Pertinent positives: blood with wiping, Pertinent negatives: diarrhea, dysuria, fever, nausea, vomiting. Severity of pain: At its worst the pain was moderate in the emergency department the pain is unchanged. The patient has not experienced similar symptoms in the past. The patient has been recently seen at the [facility] Emergency Department. She began with right flank and abdominal pain last night, that has been getting worse throughout the day today. Pain radiates from right flank into abdomen. She had small amount of blood on tissue with wiping this am, is 4 week . Denies any urinary symptoms, no fever, no N/V/D. She was seen here on 03/02 for N/V/D and reports those symptoms have resolved. She had a follow up appointment with Dr. Fournier, denies previous US.. 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 - Social history:: Smoking status: Patient/guardian denies using tobacco. - Ebola Screening: : No symptoms or risks identified at this time. - : The history from the nurse's notes was reviewed. ROS: 13:14 Constitutional: Negative for fever, chills rh1 13:14 Cardiovascular: Negative for chest pain, palpitations. 13:14 Respiratory: Negative for cough, shortness of breath, wheezing. 13:14 Abdomen/GI: Positive for abdominal pain, Negative for nausea, vomiting, and diarrhea. 13:14 Back: Positive for flank pain, radiated pain, Negative for decreased range of motion. 13:14 : Positive for vaginal bleeding, Negative for urinary frequency, small amounts, burning with urination, vaginal discharge, vaginal itching. 13:14 MS/extremity: Negative for decreased range of motion, pain, paresthesias. 13:14 Neuro: Negative for altered mental status, dizziness, numbness, syncope, near syncope, tingling. 13:14 All other systems are negative. Exam: 13:14 Constitutional: This is a well developed, well nourished patient who is awake, alert, rh1 and in no acute distress. Head/Face: Normocephalic, atraumatic. Neck: Trachea midline, and no cervical lymphadenopathy. Supple, full range of motion without nuchal rigidity. No Meningismus. Chest/axilla: Normal chest wall appearance and motion. Nontender with no deformity. No lesions are appreciated. Cardiovascular: Regular rate and rhythm with a normal S1 and S2. No gallops, murmurs, or rubs. No JVD. No pulse deficits. Respiratory: Lungs have equal breath sounds bilaterally, clear to auscultation. No rales, rhonchi or wheezes noted. No increased work of breathing. 13:14 Skin: Warm, dry with normal turgor. Normal color with no rashes, no lesions, and no evidence of cellulitis. MS/ Extremity: Pulses equal, no cyanosis. Neurovascular intact. Full, normal range of motion. 13:14 Abdomen/GI: Inspection: abdomen appears normal, bruising, is not seen, distension, is not seen, Bowel sounds: normal, in all quadrants, active, all quadrants, Palpation: soft, in all quadrants, moderate abdominal tenderness, in the posterior aspect of right lateral abdomen, anterior aspect of right lateral abdomen, right upper quadrant and right lower quadrant, rebound tenderness, is not appreciated, involuntary guarding, is not appreciated, Indicators: McBurney's point is not tender, Gordon's sign is negative, Rovsing's sign is negative. 13:14 Back: CVA tenderness, that is mild, is noted on the right. 13:14 Neuro: Orientation: is normal, to person, place \T\ time. Mentation: is normal, lucid, able to follow commands, Motor: is normal, moves all fours, strength is 5/5 in all extremities, Sensation: is normal, no obvious gross deficits, numbness, is not appreciated, tingling, is not appreciated, Gait: is steady, at a normal pace, without difficulty. 13:39 : Pelvic Exam: External exam: is normal, no appreciated Bartholin's cyst, no rh1 erythema, not excoriated, no lesions, no ulcerations, Speculum exam: no bleeding is noted, no cervicitis, os that is closed, no tissue in cervix is seen, bimanual exam reveals no cervical motion tenderness, no uterine tenderness, no adnexal tenderness on left, right adnexal tenderness, discharge, white, the nurse was present for the exam. 15:42 Constitutional: This is a well developed, well nourished patient who is awake, alert, rh1 and in no acute distress. 15:42 Abdomen/GI: Inspection: abdomen appears normal, distension, is not seen, Palpation: soft, in all quadrants, nontender, in the suprapubic area and right lower quadrant, mild abdominal tenderness, in the anterior aspect of right lateral abdomen, rebound tenderness, is not appreciated, involuntary guarding, is not appreciated, Indicators: McBurney's point is not tender, Rovsing's sign is negative. Vital Signs: 12:55 BP 138 / 72; Pulse 82; Resp 16; Temp 97.9; Pulse Ox 98% on R/A; Weight 66.22 kg; Height la1 5 ft. 7 in. (170.18 cm); 13:26 BP 125 / 79; Pulse 78; Resp 18; Pulse Ox 99% on R/A; Pain 0/10; em 14:16 BP 125 / 94; Pulse 90; Resp 16; Pulse Ox 99% on R/A; em 15:23 BP 125 / 95; Pulse 77; Pulse Ox 99% ; ds4 16:09 BP 124 / 76; Pulse 77; Resp 17; Pulse Ox 99% on R/A; Pain 0/10; em 12:55 Body Mass Index 22.87 (66.22 kg, 170.18 cm) la1 MDM: 13:14 Patient medically screened. rh1 15:43 Data reviewed: vital signs, nurses notes, old medical records, lab test result(s), rh1 radiologic studies, ultrasound, and as a result, I will discharge patient. Data interpreted: Pulse oximetry: on room air is 99 %. Interpretation: normal. Counseling: I had a detailed discussion with the patient and/or guardian regarding: the historical points, exam findings, and any diagnostic results supporting the discharge/admit diagnosis, lab results, radiology results, the need for outpatient follow up, an OB/Gyne specialist, to return to the emergency department if symptoms worsen or persist or if there are any questions or concerns that arise at home, Overall pain has improved, abd. non - tender at this time, UA without evidence of hematuria or infection, US with IUP. Discussed to return to ER with continued abdominal pain, N/V, fever/chills, urinary symptoms. Special discussion: Based on the patient's Hx, exam, and Dx evaluation, there is no indication for emergent surgery or inpatient Tx. It is understood by the patient/guardian that if the Sx's persist or worsen they need to return immediately for re-evaluation. ED course: Reports pain improved, intermittent will have right flank pain, denies any continued abdominal pain. 03/07 13:13 Order name: Urine Dipstick--Ancillary (enter results); Complete Time: 13:35 4 03/07 13:13 Order name: Urine --Ancillary (enter results); Complete Time: 13:35 ds4 03/07 13:37 Order name: Quantitative Hcg; Complete Time: 14:54 1 03/07 13:37 Order name: Abo/rh Typing; Complete Time: 15:14 1 03/07 13:37 Order name: Basic Metabolic Panel; Complete Time: 14:54 1 03/07 13:37 Order name: CBC with Diff; Complete Time: 14:34 1 03/07 13:14 Order name: Pelvic Exam Setup; Complete Time: 13:23 [facility] 03/07 13:37 Order name: IV Saline Lock; Complete Time: 13:40 1 03/07 13:37 Order name: Labs collected and sent; Complete Time: 13:54 rh1 03/07 13:37 Order name: NPO; Complete Time: 13:41 rh1 03/07 13:37 Order name: Urine Dipstick-Ancillary (obtain specimen); Complete Time: 13:41 rh1 03/07 13:37 Order name: US Rp Exam Complete; Complete Time: 15:14 rh1 03/07 13:37 Order name: US Transvaginal Ob; Complete Time: 15:14 rh1 Administered Medications: No medications were administered Disposition: 16:51 Co-signature as Attending Physician, Quincy Hsu MD I agree with the assessment and kdr plan of care. Disposition: 03/07/18 15:46 Discharged to Home. Impression: right flank pain, Other abdominal pain, 8 weeks gestation of . - Condition is Stable. - Discharge Instructions: Abdominal Pain, Adult, Flank Pain, Adult, First Trimester of . - Medication Reconciliation Form, Thank You Letter, Antibiotic Education, Prescription Opioid Use form. - Follow up: MART SALAZAR; When: 1 - 2 days; Reason: Recheck today's complaints, Continuance of care, Re-evaluation by your physician. Follow up: Rylan Fournier MD; When: 1 - 2 days; Reason: Further diagnostic work-up, Recheck today's complaints, Continuance of care. Follow up: Emergency Department; When: As needed; Reason: Fever > 102 F, If symptoms return, Trouble breathing, Worsening of condition. - Problem is new. - Symptoms have improved. Signatures: Dispatcher [employer] EDNE Quincy Hsu MD MD kdr Munoz, Edgar, PROMOTIONS REPRESENTATIVE PROMOTIONS REPRESENTATIVE Bo Whitney RN RN la1 Esme Pickard, STEAMFITTER SUPERVISOR STEAMFITTER SUPERVISOR rh1 Corrections: (The following items were deleted from the chart) 13:48 13:39 : Pelvic Exam: External exam: is normal, no appreciated Bartholin's cyst, no rh1 erythema, not excoriated, no lesions, no ulcerations, Speculum exam: no bleeding is noted, no cervicitis, os that is closed, no tissue in cervix is seen, bimanual exam reveals no cervical motion tenderness, no uterine tenderness, no adnexal tenderness on left, right adnexal tenderness, discharge, white, the nurse was present for the exam, rh1 13:48 13:14 She began with right flank and abdominal pain last night, that has been getting rh1 worse throughout the day today. She had small amount of blood on tissue with wiping this am, is 4 week . Denies any urinary symptoms, no fever, no N/V/D.. rh1 13:49 13:14 The history from the nurse's notes was reviewed. rh1 rh1 13:49 13:14 She began with right flank and abdominal pain last night, that has been getting rh1 worse throughout the day today. Pain radiates from right flank into abdomen. She had small amount of blood on tissue with wiping this am, is 4 week . Denies any urinary symptoms, no fever, no N/V/D.. rh1 15:49 15:43 Counseling: I had a detailed discussion with the patient and/or guardian rh1 regarding: the historical points, exam findings, and any diagnostic results supporting the discharge/admit diagnosis, lab results, radiology results, the need for outpatient follow up, an OB/Gyne specialist, to return to the emergency department if symptoms worsen or persist or if there are any questions or concerns that arise at home, Discussed to return to ER with continued abdominal pain, N/V, fever/chills, urinary symptoms, rh1 16:11 15:46 03/07/2018 15:46 Discharged to Home. Impression: right flank pain; Other em abdominal pain; 8 weeks gestation of . Condition is Stable. Forms are Medication Reconciliation Form, Thank You Letter, Antibiotic Education, Prescription Opioid Use. Follow up: MART SALAZAR; When: 1 - 2 days; Reason: Recheck today's complaints, Continuance of care, Re-evaluation by your physician. Follow up: Rylan Fournier; When: 1 - 2 days; Reason: Further diagnostic work-up, Recheck today's complaints, Continuance of care. Follow up: Emergency Department; When: As needed; Reason: Fever > 102 F, If symptoms return, Trouble breathing, Worsening of condition. Problem is new. Symptoms have improved. rh1
--- NOTE | 2018-03-07 15:47 | ER ---
Nurse's Notes [facility] Name: Bree Farnsworth Age: 27 yrs Sex: Female : 1990 Arrival Date: 03/07/2018 Time: 12:51 Bed 17 Private MD: MART SALAZAR Diagnosis: right flank pain;Other abdominal pain;8 weeks gestation of Presentation: 03/07 12:54 Presenting complaint: Patient states: I am about 4 weeks and have been la1 spotting x2 since last night with right sided abd cramping. Transition of care: patient was not received from another setting of care. Onset of symptoms was March 07, 2018. Risk Assessment: Do you want to hurt yourself or someone else? Patient reports no desire to harm self or others. Initial Sepsis Screen: Does the patient meet any 2 criteria? No. Patient's initial sepsis screen is negative. Does the patient have a suspected source of infection? No. Patient's initial sepsis screen is negative. Care prior to arrival: None. 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 - Social history:: Smoking status: Patient/guardian denies using tobacco. - Ebola Screening: : No symptoms or risks identified at this time. - : The history from the nurse's notes was reviewed. Screenin:26 Abuse screen: Denies threats or abuse. Nutritional screening: No deficits noted. em Tuberculosis screening: No symptoms or risk factors identified. Fall Risk None identified. Assessment: 13:26 General: Appears in no apparent distress. Behavior is calm, cooperative, Denies fever. em Pain: Complains of pain in right lower quadrant Pain currently is 0 out of 10 on a pain scale. at worst was 10 out of 10 on a pain scale. Is intermittent. Neuro: Level of Consciousness is awake, alert, obeys commands, Oriented to person, place, time, situation. Cardiovascular: Capillary refill < 3 seconds Patient's skin is warm and dry. Respiratory: Airway is patent Respiratory effort is even, unlabored, Respiratory pattern is regular, symmetrical. GI: Abdomen is flat, Bowel sounds present X 4 quads. Abd is soft in right upper quadrant and right lower quadrant Reports nausea, Patient currently denies vomiting. : Reports vaginal bleeding that is Denies burning with urination, discharge. EENT: No signs and/or symptoms were reported regarding the EENT system. Derm: Skin is intact, Skin is pink, warm \T\ dry. Musculoskeletal: Range of motion: intact in all extremities. 14:45 Reassessment: Patient appears in no apparent distress at this time. Patient and/or em family updated on plan of care and expected duration. Pain level reassessed. Patient is alert, oriented x 3, equal unlabored respirations, skin warm/dry/pink. 15:25 Reassessment: Patient appears in no apparent distress at this time. Patient and/or em family updated on plan of care and expected duration. Pain level reassessed. Patient is alert, oriented x 3, equal unlabored respirations, skin warm/dry/pink. 16:10 Reassessment: Patient appears in no apparent distress at this time. Patient and/or em family updated on plan of care and expected duration. Pain level reassessed. Patient is alert, oriented x 3, equal unlabored respirations, skin warm/dry/pink. Patient denies pain at this time. 16:15 Reassessment: I agree with above assessments. la1 Vital Signs: 12:55 BP 138 / 72; Pulse 82; Resp 16; Temp 97.9; Pulse Ox 98% on R/A; Weight 66.22 kg; Height la1 5 ft. 7 in. (170.18 cm); 13:26 BP 125 / 79; Pulse 78; Resp 18; Pulse Ox 99% on R/A; Pain 0/10; em 14:16 BP 125 / 94; Pulse 90; Resp 16; Pulse Ox 99% on R/A; em 15:23 BP 125 / 95; Pulse 77; Pulse Ox 99% ; ds4 16:09 BP 124 / 76; Pulse 77; Resp 17; Pulse Ox 99% on R/A; Pain 0/10; em 12:55 Body Mass Index 22.87 (66.22 kg, 170.18 cm) la1 ED Course: 12:51 Patient arrived in ED. sb2 12:52 MART SALAZAR is Private Physician. sb2 12:55 Triage completed. la1 12:55 Arm band placed on left wrist. la1 13:01 Esme Pickard NP is PHCP. rh1 13:01 Quincy Hsu MD is Attending Physician. rh1 13:15 Derrell Burnette LVN is Primary Nurse. em 13:26 Patient has correct armband on for positive identification. Placed in gown. Bed in low em position. Call light in reach. Adult w/ patient. 13:39 Radiology exam delayed due to test not completed at this time. sg3 13:54 Quantitative Hcg Sent. ds4 13:54 Abo/rh Typing Sent. ds4 13:54 Basic Metabolic Panel Sent. ds4 13:54 CBC with Diff Sent. ds4 13:54 Inserted saline lock: 20 gauge in left antecubital area, using aseptic technique. Blood ds4 collected. 14:49 US Rp Exam Complete In Process Unspecified. EDMS 14:49 US Transvaginal Ob In Process Unspecified. EDMS 14:50 Ultrasound completed. Patient tolerated well. sg3 15:45 MART SALAZAR is Referral Physician. rh1 15:45 Rylan Fournier MD is Referral Physician. rh1 16:10 No provider procedures requiring assistance completed. IV discontinued, intact, em bleeding controlled, No redness/swelling at site. Pressure dressing applied. Administered Medications: No medications were administered Outcome: 15:46 Discharge ordered by MD. rh1 16:10 Discharged to home ambulatory, with family. em 16:10 Condition: good 16:10 Discharge instructions given to patient, Instructed on discharge instructions, follow up and referral plans. Demonstrated understanding of instructions, follow-up care. 16:11 Patient left the ED. em Signatures: Dispatcher [employer] EDMS Derrell Burnette LVN TINNING EQUIPMENT TENDER em Vel Luu ds4 Bo Patterson RN RN la1 Esme Pickard NP RURAL SERVICE ENGINEER rh1 Keke Foote sg3 Nita Wilkins sb2 Corrections: (The following items were deleted from the chart) 13:49 13:14 The history from the nurse's notes was reviewed. rh1 rh1
== END 2018-03-07 16:11 | disposition home or self-care (01) ==
LOC: ER 12:49
DX: R10.9 Unspecified abdominal pain (principal); Z3A.01 Less than 8 weeks gestation of pregnancy
CPT/HCPCS: 36415; 76770; 76817; 80048; 81003; 81025; 84702; 85025; 86900; 86901; 99284

== ENCOUNTER 2018-08-11 20:31 | Emergency (ER) | payer OTHER ==
--- OUTSIDE RECORDS SUMMARY | 2018-08-11 20:34 | XMS REPORT ---
:1990 [facility] Address [address] Gardiner [address] [place] [id number] Care Team Providers Name Role Phone Unavailable Unavailable Unavailable Problems This patient has no known problems. Allergies, Adverse Reactions, Alerts This patient has no known allergies or adverse reactions. Medications This patient has no known medications.
--- NOTE | 2018-08-11 22:03 | ER ---
Nurse's Notes [facility] Name: Bree Farnsworth Age: 27 yrs Sex: Female : 1990 Arrival Date: 08/11/2018 Time: 20:32 Bed 27 Private MD: Isabelle Lange C Diagnosis: Cough Presentation: 08/11 20:55 Presenting complaint: Patient states: "I was having bad pains in my right side and jd3 lower back. I was also having a cough and Dr. Fournier wanted me to make sure I didn't have pneumonia. I am also 30 weeks .". Transition of care: patient was not received from another setting of care. Onset of symptoms was August 09, 2018. Risk Assessment: Do you want to hurt yourself or someone else? Patient reports no desire to harm self or others. Initial Sepsis Screen: Does the patient meet any 2 criteria? No. Patient's initial sepsis screen is negative. Does the patient have a suspected source of infection? No. Patient's initial sepsis screen is negative. Care prior to arrival: None. 20:55 Method Of Arrival: Ambulatory jd3 20:55 Acuity: CLAUDIA 3 jd3 [facility] ATTENDANT: 20:58 LMP N/A - currently jd3 Historical: - Allergies: 20:58 No Known Allergies; jd3 - Home Meds: 20:58 Vitamin Oral [Active]; jd3 - PMHx: 20:58 None; jd3 - PSHx: 20:58 Cholecystectomy; jd3 - Immunization history:: Adult Immunizations up to date. - Social history:: Smoking status: Patient/guardian denies using tobacco. - Ebola Screening: : Patient negative for fever greater than or equal to 101.5 degrees Fahrenheit, and additional compatible Ebola Virus Disease symptoms. Screenin:09 Abuse screen: Denies threats or abuse. Denies injuries from another. Nutritional ed1 screening: No deficits noted. Tuberculosis screening: No symptoms or risk factors identified. Fall Risk None identified. Assessment: 21:09 General: Appears in no apparent distress. Behavior is calm, cooperative. Pain: ed1 Complains of pain in low back area Pain does not radiate. Pain currently is 4 out of 10 on a pain scale. Quality of pain is described as aching, Pain began about 1 week ago Is continuous. Neuro: Level of Consciousness is awake, alert, obeys commands, Oriented to person, place, time, situation. Cardiovascular: Denies chest pain, Heart tones S1 S2 present. Respiratory: Reports cough that is dry, hacking, persistent. GI: Abdomen is round Bowel sounds present X 4 quads. Abd is soft and non tender X 4 quads. Patient currently denies diarrhea, nausea, vomiting. : Denies burning with urination, cramping vaginal bleeding. EENT: No signs and/or symptoms were reported regarding the EENT system. Derm: Skin is intact, is healthy with good turgor, Skin is pink, warm \\T\\ dry. Musculoskeletal: Circulation, motion, and sensation intact. Range of motion: intact in all extremities. 22:02 Reassessment: Pt refused chest x-ray. States "I am just going to follow up with my ed1 doctor tomorrow.". Vital Signs: 20:58 BP 124 / 79; Pulse 100; Resp 16 S; Temp 98.9(TE); Pulse Ox 100% on R/A; Weight 79.83 kg jd3 (R); Height 5 ft. 3 in. (160.02 cm) (R); Pain 4/10; 20:58 Body Mass Index 31.18 (79.83 kg, 160.02 cm) jd3 ED Course: 20:32 Patient arrived in ED. am2 20:32 Isabelle Lange FNP is Private Physician. am2 20:39 Elisha Cooper FNP-Nancy is [facility]. kb 20:39 Jonny Segura MD is Attending Physician. kb 20:57 Triage completed. jd3 20:59 Arm band placed on. jd3 21:09 Shayna Barreto, CORY is Primary Nurse. ed1 21:09 Patient has correct armband on for positive identification. Placed in gown. Bed in low ed1 position. Call light in reach. Side rails up X 1. Pulse ox on. NIBP on. 22:08 No provider procedures requiring assistance completed. Patient did not have IV access ed1 during this emergency room visit. Administered Medications: No medications were administered Outcome: 22:02 Discharge ordered by . daniel 22:08 Discharged to home ambulatory. ed1 22:08 Condition: good 22:08 Discharge instructions given to patient, Instructed on discharge instructions, follow up and referral plans. Demonstrated understanding of instructions, follow-up care. 22:08 Patient left the ED. ed1 Signatures: Elisha Cooper, EDE IGNACIO-Shayna Duran RN RN ed1 Kimmie Britt am2 Alex Villalobos RN RN jd3
--- NOTE | 2018-08-11 22:03 | EDPHYS ---
Physician Documentation [facility] Name: Bree Farnsworth Age: 27 yrs Sex: Female : 1990 Arrival Date: 08/11/2018 Time: 20:32 Bed 27 Private MD: Isabelle Lange C ED Physician Jonny Segura HPI: 08/11 22:09 This 27 yrs old Female presents to ER via Ambulatory with complaints of Flank kb Pain, Cough. 22:09 The patient or guardian reports cough, that is intermittent, described as mild, kb described as moderate, with no sputum. Onset: The symptoms/episode began/occurred 1 week(s) ago. Severity of symptoms: At their worst the symptoms were moderate, in the emergency department the symptoms are unchanged. Modifying factors: The symptoms are alleviated by nothing, the symptoms are aggravated by nothing. Associated signs and symptoms: The patient has no apparent associated signs or symptoms. The patient has not experienced similar symptoms in the past. The patient has not recently seen a physician. 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 - Social history:: Smoking status: Patient/guardian denies using tobacco. - Ebola Screening: : Patient negative for fever greater than or equal to 101.5 degrees Fahrenheit, and additional compatible Ebola Virus Disease symptoms. ROS: 22:08 Constitutional: Negative for fever, chills, and weight loss, ENT: Negative for injury, kb pain, and discharge, Neck: Negative for injury, pain, and swelling, Cardiovascular: Negative for chest pain, palpitations, and edema, Abdomen/GI: Negative for abdominal pain, nausea, vomiting, diarrhea, and constipation, Back: Negative for injury and pain, : Negative for injury, bleeding, discharge, and swelling, MS/Extremity: Negative for injury and deformity, Skin: Negative for injury, rash, and discoloration, Neuro: Negative for headache, weakness, numbness, tingling, and seizure. 22:08 Respiratory: Positive for cough, Negative for dyspnea on exertion, hemoptysis, orthopnea, pleurisy, shortness of breath, sputum production, wheezing. Exam: 22:08 Constitutional: This is a well developed, well nourished patient who is awake, alert, kb and in no acute distress. Head/Face: Normocephalic, atraumatic. Neck: Trachea midline, no thyromegaly or masses palpated, and no cervical lymphadenopathy. Supple, full range of motion without nuchal rigidity, or vertebral point tenderness. No Meningismus. Chest/axilla: Normal chest wall appearance and motion. Nontender with no deformity. No lesions are appreciated. Cardiovascular: Regular rate and rhythm with a normal S1 and S2. No gallops, murmurs, or rubs. Normal PMI, no JVD. No pulse deficits. Respiratory: Lungs have equal breath sounds bilaterally, clear to auscultation and percussion. No rales, rhonchi or wheezes noted. No increased work of breathing, no retractions or nasal flaring. Abdomen/GI: Soft, non-tender, with normal bowel sounds. No distension or tympany. No guarding or rebound. No evidence of tenderness throughout. Skin: Warm, dry with normal turgor. Normal color with no rashes, no lesions, and no evidence of cellulitis. MS/ Extremity: Pulses equal, no cyanosis. Neurovascular intact. Full, normal range of motion. Neuro: Awake and alert, GCS 15, oriented to person, place, time, and situation. Cranial nerves II-XII grossly intact. Motor strength 5/5 in all extremities. Sensory grossly intact. Cerebellar exam normal. Normal gait. 22:08 ENT: External ear(s): are unremarkable, Ear canal(s): are normal, TM's: fluid levels, bilaterally, Nose: is normal, Mouth: is normal. Vital Signs: 20:58 BP 124 / 79; Pulse 100; Resp 16 S; Temp 98.9(TE); Pulse Ox 100% on R/A; Weight 79.83 kg jd3 (R); Height 5 ft. 3 in. (160.02 cm) (R); Pain 4/10; 20:58 Body Mass Index 31.18 (79.83 kg, 160.02 cm) jd3 MDM: 21:02 Patient medically screened. kb 22:01 Data reviewed: vital signs, nurses notes. Data interpreted: Pulse oximetry: on room air kb is 100 %. Interpretation: normal. Counseling: I had a detailed discussion with the patient and/or guardian regarding: the historical points, exam findings, and any diagnostic results supporting the discharge/admit diagnosis, the need for outpatient follow up, a family practitioner, to return to the emergency department if symptoms worsen or persist or if there are any questions or concerns that arise at home. ED course: Pt does not want to have x-ray. Ready to go home. 22:10 ED course: urine obtained and tested in L\T\D. Negative for UTI. kb Administered Medications: No medications were administered Disposition: 08/12 08:53 Co-signature as Attending Physician, Jonny Segura MD I agree with the assessment and miguel plan of care. Disposition: 08/11/18 22:02 Discharged to Home. Impression: Cough. - Condition is Stable. - Discharge Instructions: Cough, Adult, [id number]. - Medication Reconciliation Form, Thank You Letter, Antibiotic Education, Prescription Opioid Use form. - Follow up: Emergency Department; When: As needed; Reason: Worsening of condition. Follow up: Private Physician; When: 2 - 3 days; Reason: Recheck today's complaints, Continuance of care, Re-evaluation by your physician. Signatures: Dispatcher [employer] EDElisha Vickers, HORSEBACK RIDING INSTRUCTOR-C HORSEBACK RIDING INSTRUCTOR-Jonny Lyons MD MD cha Riggs, Erika, RN RN ed1 Alex Villalobos RN RN jd3 Corrections: (The following items were deleted from the chart) 08/11 22:08 22:02 08/11/2018 22:02 Discharged to Home. Impression: Cough. Condition is Stable. ed1 Forms are Medication Reconciliation Form, Thank You Letter, Antibiotic Education, Prescription Opioid Use. Follow up: Emergency Department; When: As needed; Reason: Worsening of condition. Follow up: Private Physician; When: 2 - 3 days; Reason: Recheck today's complaints, Continuance of care, Re-evaluation by your physician. kb
== END 2018-08-11 22:08 | disposition home or self-care (01) ==
LOC: ER 20:31
DX: R05 Cough (principal)
CPT/HCPCS: 99283

== ENCOUNTER 2018-10-06 02:01 | Inpatient (IN) | payer OTHER ==
--- OUTSIDE RECORDS SUMMARY | 2018-10-06 03:23 | XMS REPORT ---
:1990 [facility] Address [address] Gardiner [address] [place] [id number] Care Team Providers Name Role Phone Unavailable Unavailable Unavailable Problems This patient has no known problems. Allergies, Adverse Reactions, Alerts This patient has no known allergies or adverse reactions. Medications This patient has no known medications.
[2018-10-06] MEDS ORDERED: METHYLERGONOVINE 0.2MG/ML AMP IM PRN (03:38)
[2018-10-06] MEDS ORDERED: MIDAZOLAM HCL 2 MG/2 ML INJ IV PRN (03:38)
[2018-10-06] MEDS ORDERED: BUTORPHANOL 1 MG/ML INJ IV PRN (03:38)
[2018-10-06] MEDS ORDERED: CARBOPROST TROME 250 MCG/ML IM PRN (03:38)
[2018-10-06] MEDS ORDERED: Ringers Lactate 1,000 ML IV PRN (03:38)
[2018-10-06] MEDS ORDERED: PROMETHAZINE 25 MG/ML VIAL IM PRN (03:38)
[2018-10-06] MEDS ORDERED: MEPERIDINE HCL 25 MG/0.5 ML IV PRN (03:38)
[2018-10-06] MEDS ORDERED: FENTANYL CITR 100 MCG/2 ML IV ONE (03:41)
[2018-10-06] MEDS ORDERED: ROPIVACAINE HCL 100 ML IV PRN (03:41)
[2018-10-06] MEDS ORDERED: ROPIVACAINE HCL 0.2% 20ML AMP IV ONE (03:42)
[2018-10-06] MEDS ORDERED: Ringers Lactate 1,000 ML IV SCH (04:00)
[2018-10-06] MEDS ORDERED: OXYTOCIN/LR 20 UNIT/1,000 ML BAG IV SCH ×2 (04:00→08:00)
[2018-10-06 04:08] LABS: RPR Titer ND
[2018-10-06 04:14] LABS: Absolute Lymphocytes (CBC) 2.6 K/uL (0.7-4.9); Absolute Monocytes 0.8 K/uL (0.1-1.3); Absolute Neutrophil 10.5 K/uL (1.8-8.0); Basophils % 0.3 % (0-1.3); Eosinophils % 0.5 % (0-4.4); Hematocrit 31.8 % (36.0-45.0); Lymphocytes % 18.7 % (15.3-44.8); MPV 8.8 fL (7.6-11.3); Monocytes % 5.7 % (3.3-12.3); RBC Red Blood Cell Count 4.22 M/uL (3.86-4.86)
[2018-10-06 04:32] LABS: Urine Appearance CLOUDY; Urine Bilirubin NEGATIVE (NEG); Urine Blood 3+ (NEG); Urine Color YELLOW; Urine Glucose NEGATIVE (NEG); Urine Protein NEGATIVE (NEG)
[2018-10-06 04:34] LABS: Urine Microscopic Reflex ORDER UMIC
[2018-10-06 05:16] LABS: Urine Bacteria 20-50 /HPF (<20); Urine Culture Reflex Order REFLEXED
[2018-10-06] MEDS ORDERED: Oxycodone HCl/Acetaminophen 1 TAB TAB PO PRN ×2 (07:36)
[2018-10-06] MEDS ORDERED: BISACODYL 10 MG RECTAL SUPP RECT PRN (07:36)
[2018-10-06] MEDS ORDERED: ACETAMINOPHEN 500 MG TAB PO PRN (07:36)
[2018-10-06] MEDS ORDERED: DIPHENHYDRAMINE 25 MG TAB/CAP PO PRN (07:36)
[2018-10-06] MEDS ORDERED: DOCUSATE NA/SENNA CONC 1 TAB PO PRN (07:36)
--- NOTE | 2018-10-06 08:01 | PREOPHP ---
Date of Admission: 10/06/2018 A 27-year-old female, 4, para 2, at 39 weeks and 2 days, for induction today, but c sarthak in active labor. Noted to be 6 to 6.5 cm on admission. Membranes intact, bart regularly. She is Rh positive, immune to Rubella. Negative beta strep screen. Was admitted. At 7 cm to 8 cm , requested and received epidural anesthesia. She is quite comfortable at this point. Vital signs a re all stable. Baby though does not have significant variability. This was not mentioned on initial report but had ruptured membranes, which were nice and clear. Placed scalp electrode and we should see what the strip looks like. The patient at this point is 100% effaced, 0 to +1 station. I think delivery is imminent, so we should not have to wait too long for the baby. Full admission talk given . SERGO/SAVANNAH Voice ID: [id number]
[2018-10-06] MEDS: IBUPROFEN 200 MG TAB PO PRN ×2 (14:29→21:34)
--- NOTE | 2018-10-06 14:53 | DS ---
Hospital Course: A 27-year-old female, 4, para 2, AB1, 39 weeks 2 days, scheduled for induct ion. Came in active labor, 6-7 cm on admission, received epidural anesthesia at her request. Second stage, approximately 10 minutes or less. Spontaneous vaginal delivery of an estimated 6 pounds plus , female, Apgars 9 and 9. Second-degree laceration over previous laceration sites, repaired with 2-0 chromic. Schultze delivery of the placenta, which inspected and noted to be intact and normal. Les s than 300 cc blood loss. Rh positive, immune to Rubella. Negative beta-strep screen. Tolerated al l procedures well. Final Diagnoses: Term intrauterine , 39 weeks 2 days, spontaneous labor, vaginal delivery, epidural anesthesia. SERGO/SAVANNAH Voice ID: [id number] Report ID: [id number]
--- NOTE | 2018-10-06 15:40 | PN ---
After membrane rupture, scalp electrode was placed. FHTs still do not show extreme variability, but better than before. Fluid was very clear and normal looking. Full discussion with the family. I do not think this indicates any kind of problem at this point. Anticipate delivery relatively so on. SERGO/SAVANNAH Voice ID: [id number] Report ID: [id number]
[2018-10-06 21:10] LABS: RPR (Rapid Plasma Reagin) NON-REACT (NON-REACT)
[2018-10-07 03:38] VITALS: BMI 26.2
[2018-10-07 07:51] VITALS: BP 116/73; TEMP 97.6
--- NOTE | 2018-10-07 18:41 | DS ---
Date of Discharge: 10/07/2018 Hospital Course: A 27-year-old multiparous female, 39 weeks and 2 days. Delivered uneventfully of a 7-pound 4-ounce female. Apgars 9 and 9. Small first-degree laceration repaired with 2-0 chromic. Epidural anesthesia. Schultze delivery of the placenta. A 300 cc or less blood loss. Beta strep ne gative. Rh positive, immune to Rubella. ; afebrile, ambulating and voiding. Lochia is no rmal. No post epidural problems. Will be dismissed later today to report back to my office in [address] [place] [id number] for followup, to report any temperature elevation of 100 degrees or greater, severe pain, heavy bl eeding, or any other type of abnormalities. No post epidural problems. She has had her Tdap immuniz ation. Given tramadol for analgesia, although she may like to take Motrin instead. Final Diagnoses: Intrauterine gestation, 39 weeks 2 days, vaginal delivery, epidural anesthesia. SERGO/SAVANNAH Voice ID: [id number] Report ID: [id number]
[2018-10-09 02:53] LABS: HBsAG Nonreactive (Nonreactive)
--- NOTE | 2018-10-09 08:32 | OP ---
Surgeon: Rylan Fournier MD 27-year-old, multiparous female, 39 weeks 2 days, came in for delivery. First stage of labor, uneven tful. Patient requested and received epidural anesthesia. Second stage of 30 minutes or less. Spon taneous vaginal delivery of 7 pound 4 ounce female. Apgars 9 and 9. Small first-degree laceration, repaired with 2-0 chromic. Schultze delivery of the placenta. 300 cc blood loss. Rh positive, immu ne to Rubella. Negative beta strep screen. Tolerated all procedures well. Final Diagnoses: Term intrauterine , 39 weeks 2 days, vaginal delivery, epidural anesthesia . SERGO/SAVANNAH Voice ID: [id number] Report ID: [id number]
== END 2018-10-07 10:55 | disposition home or self-care (01) | DRG 807 ==
LOC: 2ND-WC 03:21
PROVIDERS: ADMIT Specialist; ATTEND Specialist
PROC: 10E0XZZ Delivery of Products of Conception, External Approach (ICD-10-PCS; principal; 2018-10-06)
PROC: 0HQ9XZZ Repair Perineum Skin, External Approach (ICD-10-PCS; 2018-10-06)
DX: O70.0 First degree perineal laceration during delivery (principal); Z37.0 Single live birth; Z3A.39 39 weeks gestation of pregnancy
CPT/HCPCS: 36415; 81003; 81015; 85025; 86592; 86901; 87086; 87088; 87340; J2590; J2795; J3010

== ENCOUNTER 2020-03-29 15:03 | Emergency (ER) | payer OTHER, SELFPAY ==
--- OUTSIDE RECORDS SUMMARY | 2020-03-29 15:06 | XMS REPORT | Continuity of Care Document ---
:1990 Author Organization [facility] t Address [address] [place] [address] Dr. Gardiner [address] [place] [id number] Care Team Providers Name Role Phone Unavailable Unavailable Unavailable Problems This patient has no known problems. Allergies, Adverse Reactions, Alerts This patient has no known allergies or adverse reactions. Medications This patient has no known medications. Procedures This patient has no known procedures. Results This patient has no known results.
[2020-03-29 15:59] LABS: Absolute Lymphocytes (CBC) 1.4 K/uL (0.7-4.9); Basophils % 0.6 % (0-1.3); Hematocrit 36.3 % (36.0-45.0); Lymphocytes % 28.3 % (15.3-44.8); MPV 9.2 fL (7.6-11.3); RBC Red Blood Cell Count 4.87 M/uL (3.86-4.86)
[2020-03-29 16:20] LABS: Potassium 3.7 mmol/L (3.5-5.1)
[2020-03-29 16:38] LABS: Urine Blood NEGATIVE (NEG); Urine Glucose NEGATIVE (NEG); Urine Protein NEGATIVE (NEG); Urine pH 7.5 (5.0-7.0)
--- NOTE | 2020-03-29 17:00 | RAD REPORT ---
EXAM DESCRIPTION: RAD - Chest Single View - 03/29/2020 4:50 pm CLINICAL HISTORY: COUGH COMPARISON: September 2016 TECHNIQUE: AP portable chest image was obtained 03/29/2020 4:50 pm . FINDINGS: Lungs are clear. Heart and vasculature are normal. No measurable pleural effusion and no p neumothorax. No acute bony abnormality seen. No acute aortic findings suspected. IMPRESSION: No acute cardiopulmonary process. No significant interval change
--- NOTE | 2020-03-29 17:05 | RAD REPORT ---
EXAM DESCRIPTION: CT - Abdomen Pelvis W Contrast - 03/29/2020 4:46 pm CLINICAL HISTORY: ABD PAIN COMPARISON: Abdomen Pelvis W Contrast dated 09/19/2016 TECHNIQUE: Biphasic, helical CT imaging of the abdomen and pelvis was performed following 100 ml non -ionic IV contrast. No oral contrast. All CT scans are performed using dose optimization technique as appropriate and may include automated exposure control or mA/KV adjustment according to patient size. FINDINGS: No suspicious findings in the lung bases. Liver attenuation is borderline fatty infiltrated. Focal liver lesion. Portal vein abnormality identi fied. Spleen and pancreas show no suspicious findings. Cholecystectomy clips are present. No biliary tree dilatation. Symmetric renal function is seen with no hydronephrosis or suspicious renal mass. No obstructing or n onobstructing calculi. No pyelonephritis or acute parenchymal process. No bladder abnormalities. No a drenal abnormalities. No dilated bowel loops or bowel wall thickening. Retrocecal appendix is normal. No active GI process seen. No free air, free fluid or inflammatory stranding. No hernia, mass or bulky lymphadenopathy. Uterus and ovaries show no emergent findings. There is a 15-18 mm involuting right ovarian cyst or fo llicle. No suspicious bony findings. IMPRESSION: As detailed above, CT study shows no acute or emergent finding. No worrisome change from 2017.
[2020-03-29] MEDS ORDERED: KETOROLAC 30 MG/ML INJ ONE (17:37)
--- NOTE | 2020-03-29 17:43 | EDPHYS ---
Physician Documentation [facility] Name: Bree Farnsworth Age: 29 yrs Sex: Female : 1990 Arrival Date: 03/29/2020 Time: 15:06 Bed 2 Private MD: ED Physician Mickey Palacios HPI: 03/29 16:56 This 29 yrs old Female presents to ER via Ambulatory with complaints of Chest kb Pain, Back Pain, Abdominal Pain. 16:56 The patient complains of pain in the left flank. The pain radiates to the left upper kb quadrant and left lower quadrant. Onset: The symptoms/episode began/occurred 4 day(s) ago, and became worse this morning. Modifying factors: The symptoms are alleviated by nothing. the symptoms are aggravated by palpation/percussion. Associated signs and symptoms: Pertinent positives: diarrhea, fever, Pertinent negatives: dizziness, dysuria, urinary frequency, headache, hematuria, nausea, pain radiating to the lower extremities, vomiting. Severity of pain: At its worst the pain was moderate in the emergency department the pain is unchanged. The patient has not experienced similar symptoms in the past. The patient has not recently seen a physician. Pt reports left flank pain that radiates to left abd. Also reports low grade fever of 100, cough, chest pain with cough and deep breath, diarrhea.. 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 - Social history:: Smoking status: Patient denies any tobacco usage or history of. ROS: 16:26 MS/Extremity: Negative for injury and deformity, Skin: Negative for injury, rash, and kb discoloration, Neuro: Negative for headache, weakness, numbness, tingling, and seizure. 16:26 Constitutional: Positive for fever. 16:26 Cardiovascular: Positive for chest pain, with cough. 16:26 Respiratory: Positive for cough. 16:26 Abdomen/GI: Positive for abdominal pain, diarrhea. 16:26 : Positive for flank pain. Exam: 15:25 Constitutional: This is a well developed, well nourished patient who is awake, alert, kb and in no acute distress. Head/Face: Normocephalic, atraumatic. Cardiovascular: Regular rate and rhythm with a normal S1 and S2. No gallops, murmurs, or rubs. Normal PMI, no JVD. No pulse deficits. Respiratory: Lungs have equal breath sounds bilaterally, clear to auscultation and percussion. No rales, rhonchi or wheezes noted. No increased work of breathing, no retractions or nasal flaring. Skin: Warm, dry with normal turgor. Normal color with no rashes, no lesions, and no evidence of cellulitis. MS/ Extremity: Pulses equal, no cyanosis. Neurovascular intact. Full, normal range of motion. Neuro: Awake and alert, GCS 15, oriented to person, place, time, and situation. Cranial nerves II-XII grossly intact. Motor strength 5/5 in all extremities. Sensory grossly intact. Cerebellar exam normal. Normal gait. 15:25 Chest/axilla: Inspection: normal, Palpation: tenderness, that is moderate, of the anterior aspect of left upper chest, that totally reproduces the patient's complaints. 15:25 Abdomen/GI: Inspection: abdomen appears normal, Bowel sounds: normal, in all quadrants, Palpation: soft, in all quadrants, mild abdominal tenderness, in the left upper quadrant, moderate abdominal tenderness, in the left lower quadrant. 15:25 Back: CVA tenderness, that is moderate, is noted on the left. Vital Signs: 15:09 BP 127 / 70; Pulse 93; Resp 18; Temp 98.3; Pulse Ox 100% ; Weight 71.67 kg; Height 5 ll1 ft. 3 in. (160.02 cm); Pain 8/10; 15:30 BP 112 / 79; Pulse 87; Resp 19; Pulse Ox 100% ; bp 16:30 BP 103 / 60; Pulse 85; Resp 20; Pulse Ox 100% ; bp 17:27 BP 109 / 65; Pulse 82; Resp 15; Temp 98.5; Pulse Ox 100% ; bp 15:09 Body Mass Index 27.99 (71.67 kg, 160.02 cm) ll1 MDM: 15:15 Patient medically screened. kb 16:24 Data reviewed: vital signs, nurses notes. Data interpreted: Pulse oximetry: on room air kb is 100 %. Interpretation: normal. 17:13 Counseling: I had a detailed discussion with the patient and/or guardian regarding: the kb historical points, exam findings, and any diagnostic results supporting the discharge/admit diagnosis, lab results, radiology results, the need for outpatient follow up, a family practitioner, to return to the emergency department if symptoms worsen or persist or if there are any questions or concerns that arise at home. 03/29 15:21 Order name: Basic Metabolic Panel; Complete Time: 16:22 kb 03/29 15:21 Order name: CBC with Diff; Complete Time: 16:01 kb 03/29 15:55 Order name: Flu; Complete Time: 17:13 kb 03/29 16:30 Order name: Urine Dipstick--Ancillary (enter results); Complete Time: 16:40 sp 03/29 16:30 Order name: Test Urine - POC; Complete Time: 16:40 sp 03/29 16:32 Order name: COVID-19 sv 03/29 15:21 Order name: IV Saline Lock; Complete Time: 16:32 kb 03/29 15:21 Order name: Labs collected and sent; Complete Time: 16:32 kb 03/29 15:21 Order name: Chest Single View XRAY; Complete Time: 17:04 kb 03/29 15:21 Order name: EKG; Complete Time: 15:23 kb 03/29 15:21 Order name: EKG - Nurse/Tech; Complete Time: 15:47 kb 03/29 15:21 Order name: CT Abd/Pelvis - IV Contrast Only; Complete Time: 17:07 kb 03/29 15:21 Order name: Urine Dipstick-Ancillary (obtain specimen); Complete Time: 16:32 kb Administered Medications: 17:20 Drug: TORadol 30 mg Route: IVP; Site: left antecubital; bp Disposition: 03/29/20 17:42 Discharged to Home. Impression: Lower abdominal pain, unspecified, Acute upper respiratory infection, unspecified. - Condition is Stable. - Discharge Instructions: Viral Respiratory Infection, Ugqu-Hh-Kvgs, Flank Pain, Nein-ol-Upio, COVID-19. - Prescriptions for Diclofenac Sodium 75 mg Oral Tablet, Delayed Release (E.C.) - take 1 tablet by ORAL route 2 times per day As needed; 30 tablet. - Medication Reconciliation Form, Thank You Letter, Antibiotic Education, Prescription Opioid Use form. - Follow up: Emergency Department; When: As needed; Reason: Worsening of condition. Follow up: Private Physician; When: 2 - 3 days; Reason: Recheck today's complaints, Continuance of care, Re-evaluation by your physician. Addendum: 03/31/2020 11:05 Co-signature as Attending Physician, Mickey Palacios MD. m a2 Signatures: Dispatcher [employer] EDMS Elisha Cooper, SANDEE-C PILE DRIVING SUPERVISOR-Jesus Miller, RN RN bp Mickey Palacios MD MD ma2 Hannah Chamberlain RN RN vg1 Nidhi Louise RN RN ll1 Corrections: (The following items were deleted from the chart) 03/29 16:58 16:26 Abdomen/GI: Positive for abdominal pain, daniel sanchez 18:06 17:42 03/29/2020 17:42 Discharged to Home. Impression: Lower abdominal pain, vg1 unspecified; Acute upper respiratory infection, unspecified. Condition is Stable. Forms are Medication Reconciliation Form, Thank You Letter, Antibiotic Education, Prescription Opioid Use. Follow up: Emergency Department; When: As needed; Reason: Worsening of condition. Follow up: Private Physician; When: 2 - 3 days; Reason: Recheck today's complaints, Continuance of care, Re-evaluation by your physician. kb
--- NOTE | 2020-03-29 17:43 | ER ---
Nurse's Notes [facility] Name: Bree Farnsworth Age: 29 yrs Sex: Female : 1990 Arrival Date: 03/29/2020 Time: 15:06 Bed 2 Private MD: Diagnosis: Lower abdominal pain, unspecified;Acute upper respiratory infection, unspecified Presentation: 03/29 15:09 Chief complaint: Patient states: Low back pain for 2 days. Today pain wraps around into ll1 lower abdomen and chest. + slight cough and SOB. 4 diarrhea stools today. No fever. Coronavirus screen: Client denies travel out of the [place] in the last 14 days. cough unrelated to allergies, diarrhea, shortness of breath, Client presents with at least one sign or symptom that may indicate coronavirus-19. Standard/surgical mask placed on the client. Ebola Screen: Patient denies travel to an Ebola-affected area in the 21 days before illness onset. Initial Sepsis Screen: Does the patient meet any 2 criteria? HR > 90 bpm. No. Patient's initial sepsis screen is negative. Does the patient have a suspected source of infection? No. Patient's initial sepsis screen is negative. Risk Assessment: Do you want to hurt yourself or someone else? Patient reports no desire to harm self or others. Onset of symptoms was March 28, 2020. 15:09 Method Of Arrival: Ambulatory 1 15:09 Acuity: CLAUDIA 3 ll1 Triage Assessment: 15:10 General: Appears in no apparent distress. uncomfortable, Behavior is cooperative, bp appropriate for age, anxious. Pain: Complains of pain in back. EENT: No deficits noted. Neuro: No deficits noted. Cardiovascular: Rhythm is sinus rhythm. Respiratory: No deficits noted. GI: Reports upper abdominal pain. : No signs and/or symptoms were reported regarding the genitourinary system. Derm: No deficits noted. Musculoskeletal: No deficits noted. 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 - Social history:: Smoking status: Patient denies any tobacco usage or history of. Screenin:30 Abuse screen: Denies threats or abuse. Nutritional screening: No deficits noted. vg1 Tuberculosis screening: No symptoms or risk factors identified. Fall Risk No fall in past 12 months (0 pts). No secondary diagnosis (0 pts). IV access (20 points). Ambulatory Aid- None/Bed Rest/Nurse Assist (0 pts). Gait- Normal/Bed Rest/Wheelchair (0 pts) Mental Status- Overestimates/Forgets Limitations (15 pts.). Total [place] Fall Scale indicates No Risk (0-24 pts). Assessment: 15:30 General: Appears in no apparent distress. Behavior is calm, cooperative. Pain: vg1 Complains of pain in Chest pain, back pain, and ABD pain Pain currently is 8 out of 10 on a pain scale. Pain began this morning. Neuro: Level of Consciousness is awake, alert, obeys commands, Oriented to person, place, time, situation. Cardiovascular: Capillary refill < 3 seconds Patient's skin is warm and dry. Respiratory: Reports cough that is non-productive, Airway is patent Respiratory effort is even, unlabored, Respiratory pattern is regular, symmetrical. GI: Reports diarrhea, since this morning. : No signs and/or symptoms were reported regarding the genitourinary system. EENT: No signs and/or symptoms were reported regarding the EENT system. Derm: Skin is pink, warm \T\ dry. Musculoskeletal: Range of motion: intact in all extremities. 16:30 Reassessment: No changes from previously documented assessment. Patient and/or family bp updated on plan of care and expected duration. Pain level reassessed. Patient is alert, oriented x 3, equal unlabored respirations, skin warm/dry/pink. 17:30 Reassessment: Patient appears in no apparent distress at this time. No changes from vg1 previously documented assessment. Patient and/or family updated on plan of care and expected duration. Pain level reassessed. Vital Signs: 15:09 BP 127 / 70; Pulse 93; Resp 18; Temp 98.3; Pulse Ox 100% ; Weight 71.67 kg; Height 5 ll1 ft. 3 in. (160.02 cm); Pain 8/10; 15:30 BP 112 / 79; Pulse 87; Resp 19; Pulse Ox 100% ; bp 16:30 BP 103 / 60; Pulse 85; Resp 20; Pulse Ox 100% ; bp 17:27 BP 109 / 65; Pulse 82; Resp 15; Temp 98.5; Pulse Ox 100% ; bp 15:09 Body Mass Index 27.99 (71.67 kg, 160.02 cm) ll1 ED Course: 15:06 Patient arrived in ED. as 15:09 Elisha Cooper FNP-C is PHCP. daniel 15:09 Mickey Palacios MD is Attending Physician. kb 15:11 Triage completed. ll1 15:12 Arm band placed on Patient placed in an exam room, on a stretcher. ll1 15:26 Hannah Chamberlain, RN is Primary Nurse. vg1 15:30 Patient has correct armband on for positive identification. Placed in gown. Bed in low vg1 position. Call light in reach. Side rails up X 1. client services account manager on. Pulse ox on. NIBP on. 15:44 Initial lab(s) drawn, by nh, sent to lab. Inserted saline lock: 20 gauge in left vg1 antecubital area, using aseptic technique. 16:26 Radiology exam delayed due to test not completed at this time. 2 16:33 COVID-19 Sent. sv 16:46 Chest Single View XRAY In Process Unspecified. EDMS 16:46 CT Abd/Pelvis - IV Contrast Only In Process Unspecified. EDMS 18:00 No provider procedures requiring assistance completed. IV discontinued, intact, vg1 bleeding controlled, No redness/swelling at site. Pressure dressing applied. Patient maintains SpO2 saturation greater than 95% on room air. Administered Medications: 17:20 Drug: TORadol 30 mg Route: IVP; Site: left antecubital; bp Outcome: 17:42 Discharge ordered by . kb 18:00 Discharged to home ambulatory. vg1 18:00 Condition: stable 18:00 Discharge instructions given to patient, Instructed on discharge instructions, follow up and referral plans. medication usage, Demonstrated understanding of instructions, follow-up care, medications, Prescriptions given X 1. 18:06 Patient left the ED. 1 Signatures: Dispatcher [employer] EDMO Elisha Cooper FNP-C FNP-Ckb Verde, Stephanie, RN RN sv Martinez, Amelia as McGuire, Victoria 2 Jesus Sin RN RN bp Garcia, Victoria, RN RN vg1 Nidhi Louise RN RN ll1 Corrections: (The following items were deleted from the chart) 15:51 15:50 Dr Carrasquillo at bedside. vg1 vg1
[2020-03-29 21:36] VITALS: O2SAT 100
[2020-03-29 21:47] VITALS: BP 109/65; TEMP 98.5
== END 2020-03-29 18:06 | disposition home or self-care (01) ==
LOC: ER 15:03
DX: U07.1 COVID-19 (principal); J06.9 Acute upper respiratory infection, unspecified
CPT/HCPCS: 36415; 71045; 74177; 80048; 81003; 81025; 85025; 87804; 93005; 96374; 99285; Q9967; U0002

== ENCOUNTER 2020-06-19 10:08 | Emergency (ER) | payer SELFPAY ==
--- NOTE | 2020-06-19 11:19 | RAD REPORT ---
EXAM DESCRIPTION: RAD - Wrist Right 3 View - 06/19/2020 11:06 am CLINICAL HISTORY: PAIN, fall COMPARISON: No comparisons FINDINGS: Sagittally oriented lucent lines are present in the distal radius near the articulation wi th the distal ulna. There is a faint transverse lucent line in the metaphyseal portion as well. No di straction or angulation deformity. Distal ulna is intact. Carpal bones are intact and no metacarpal f racture seen. No foreign body or other soft tissue abnormality. IMPRESSION: Distal right radius fracture without distraction or angulation component.
--- NOTE | 2020-06-19 11:24 | EDPHYS ---
Physician Documentation [facility] Name: Bree Farnsworth Age: 29 yrs Sex: Female : 1990 Arrival Date: 06/19/2020 Time: 10:11 Bed 2 Private MD: ED Physician Jorge Tran HPI: 06/19 10:49 This 29 yrs old Female presents to ER via Ambulatory with complaints of Fall jr8 Injury, Wrist Injury, Hand Injury. 10:49 Details of fall: The patient fell from an upright position, while standing. Onset: The jr8 symptoms/episode began/occurred acutely, just prior to arrival, today. Associated injuries: The patient sustained right wrist. Severity of symptoms: At their worst the symptoms were mild, in the emergency department the symptoms are unchanged. The patient has not experienced similar symptoms in the past. The patient has not recently seen a physician. Patient stated that she slipped on ice outside landing on an out stretched hand on right side. Pain with swelling since incident . POST CLOSER: 10:31 LMP 06/05/2020 aa5 Historical: - Allergies: 10:30 No Known Allergies; aa5 - PMHx: 10:30 None; aa5 - PSHx: 10:30 Cholecystectomy; aa5 - Immunization history:: Adult Immunizations unknown. - Social history:: Smoking status: Patient denies any tobacco usage or history of. ROS: 10:49 Constitutional: Negative for fever, chills, and weight loss. jr8 10:49 MS/extremity: Positive for decreased range of motion, ecchymosis, pain, swelling, tenderness, of the right wrist. 10:49 All other systems are negative. Exam: 10:49 Constitutional: This is a well developed, well nourished patient who is awake, alert, jr8 and in no acute distress. Head/Face: Normocephalic, atraumatic. Neck: Trachea midline, no thyromegaly or masses palpated, and no cervical lymphadenopathy. Supple, full range of motion without nuchal rigidity, or vertebral point tenderness. No Meningismus. Cardiovascular: Regular rate and rhythm with a normal S1 and S2. No gallops, murmurs, or rubs. Normal PMI, no JVD. No pulse deficits. Respiratory: Lungs have equal breath sounds bilaterally, clear to auscultation and percussion. No rales, rhonchi or wheezes noted. No increased work of breathing, no retractions or nasal flaring. Abdomen/GI: Soft, non-tender, with normal bowel sounds. No distension or tympany. No guarding or rebound. No evidence of tenderness throughout. Back: No spinal tenderness. No costovertebral tenderness. Full range of motion. Skin: Warm, dry with normal turgor. Normal color with no rashes, no lesions, and no evidence of cellulitis. Neuro: Awake and alert, GCS 15, oriented to person, place, time, and situation. Cranial nerves II-XII grossly intact. Motor strength 5/5 in all extremities. Sensory grossly intact. Cerebellar exam normal. Normal gait. 10:49 Musculoskeletal/extremity: Extremities: grossly normal except: noted in the right wrist: Patient has swelling with tenderness to the dorsal radial prominence. Pain with ROM with flexion and extension. Decreased passive motion secondary to pain, Pulses: noted to be 2+ in the right radial artery and left radial artery, Sensation intact. Vital Signs: 10:29 BP 111 / 69; Pulse 75; Resp 16; Temp 97.6; Pulse Ox 100% ; sv 10:31 Weight 66.22 kg (R); Height 5 ft. 4 in. (162.56 cm) (R); Pain 8/10; aa5 11:22 BP 121 / 75; Pulse 82; Resp 16; Temp 97.8; Pulse Ox 100% ; sv 10:31 Body Mass Index 25.06 (66.22 kg, 162.56 cm) aa5 [place] Coma Score: 10:29 Eye Response: spontaneous(4). Verbal Response: oriented(5). Motor Response: obeys sv commands(6). Total: 15. Trauma Score (Adult): 10:29 Eye Response: spontaneous(1); Verbal Response: oriented(1); Motor Response: obeys sv commands(2); Systolic BP: > 89 mm Hg(4); Respiratory Rate: 10 to 29 per min(4); [place] Score: 15; Trauma Score: 12 Procedures: 11:21 Splinting: Splint applied to right wrist using Orthoglass splint, applied by tech. bagley Examined by me, post splint application: neurovascular intact, 2+ distal pulses palpable, brisk capillary refill noted, Patient tolerated well. MDM: 10:41 Patient medically screened. jr8 11:21 Data reviewed: vital signs, nurses notes, radiologic studies, plain films. Data jr8 interpreted: Pulse oximetry: on room air is 100 %. Interpretation: normal. Counseling: I had a detailed discussion with the patient and/or guardian regarding: the historical points, exam findings, and any diagnostic results supporting the discharge/admit diagnosis, radiology results, the need for outpatient follow up, a orthopedic surgeon, to return to the emergency department if symptoms worsen or persist or if there are any questions or concerns that arise at home. 06/19 10:42 Order name: Wrist Right 3 View XRAY; Complete Time: 11:20 sv 06/19 11:38 Order name: Sugar Tong Forearm Splint; Complete Time: 11:38 mh5 06/19 11:39 Order name: Sling; Complete Time: 11:39 mh5 Administered Medications: No medications were administered Disposition: 06/19/20 11:22 Discharged to Home. Impression: Right distal radius fracture . - Condition is Stable. - Discharge Instructions: Wrist Fracture Treated With Immobilization. - Prescriptions for Ibuprofen 800 mg Oral Tablet - take 1 tablet by ORAL route every 8 hours As needed take with food; 30 tablet. - Medication Reconciliation Form, Thank You Letter, Antibiotic Education, Prescription Opioid Use form. - Follow up: Joaquin Williamson MD; When: 5 - 6 days; Reason: Recheck today's complaints, Continuance of care, Re-evaluation by your physician. - Problem is new. - Symptoms have improved. Addendum: 06/23/2020 19:25 Co-signature as Attending Physician, Jorge Tran MD I agree with the assessment and t w4 plan of care. Signatures: Dispatcher [employer] Ayaka Landaverde RN RN sv Calderon, Audri, RN RN aa5 Yakov Gray PA PA [facility] Maral Clay [facility] Jorge Tran MD MD tw4 Corrections: (The following items were deleted from the chart) 06/19 11:57 11:22 06/19/2020 11:22 Discharged to Home. Impression: Right distal radius fracture . sv Condition is Stable. Forms are Medication Reconciliation Form, Thank You Letter, Antibiotic Education, Prescription Opioid Use. Follow up: Joaquin Williamson; When: 5 - 6 days; Reason: Recheck today's complaints, Continuance of care, Re-evaluation by your physician. Problem is new. Symptoms have improved. jr8
--- NOTE | 2020-06-19 11:24 | ER ---
Nurse's Notes [facility] Name: Bree Farnsworth Age: 29 yrs Sex: Female : 1990 Arrival Date: 06/19/2020 Time: 10:11 Bed 2 Private MD: Diagnosis: Right distal radius fracture Presentation: 06/19 10:28 Chief complaint: Patient states: slipped and fell onto right wrist. Pt c/o right wrist aa5 pain. 10:28 Onset of symptoms was June 19, 2020. aa5 10:28 Acuity: CLAUDIA 4 aa5 10:28 Method Of Arrival: Ambulatory aa5 11:24 Coronavirus screen: Client denies travel out of the [place] in the last 14 days. At this sv time, the client does not indicate any symptoms associated with coronavirus-19. Ebola Screen: No symptoms or risks identified at this time. Initial Sepsis Screen: Does the patient meet any 2 criteria? No. Patient's initial sepsis screen is negative. Does the patient have a suspected source of infection? No. Patient's initial sepsis screen is negative. Risk Assessment: Do you want to hurt yourself or someone else? Patient reports no desire to harm self or others. Triage Assessment: 10:29 General: Appears in no apparent distress. uncomfortable, well developed, Behavior is sv calm, cooperative, appropriate for age. Pain: Complains of pain in right wrist and right hand Pain currently is 8 out of 10 on a pain scale. Quality of pain is described as tender, throbbing, Is continuous, Aggravated by increased activity. Neuro: Level of Consciousness is awake, alert, obeys commands, Oriented to person, place, time, situation, Moves all extremities. Full function Gait is steady. Respiratory: Airway is patent Respiratory effort is even, unlabored, Respiratory pattern is regular, symmetrical. Derm: Skin is intact, Skin is pink, warm \T\ dry. Musculoskeletal: Circulation, motion, and sensation intact. Range of motion: limited in right wrist Swelling present in dorsum of right hand and dorsal aspect of right wrist. 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 - Social history:: Smoking status: Patient denies any tobacco usage or history of. Screenin:29 Abuse screen: Denies threats or abuse. Denies injuries from another. Nutritional sv screening: No deficits noted. Tuberculosis screening: No symptoms or risk factors identified. Fall Risk None identified. Assessment: 10:42 Reassessment: Received VO from Yakov PAULINO for xray. sv 11:24 Reassessment: Pt needs a sugar tong splint placed prior to discharge. sv 11:57 Reassessment: Patient appears in no apparent distress at this time. Patient and/or sv family updated on plan of care and expected duration. Pain level reassessed. Patient is alert, oriented x 3, equal unlabored respirations, skin warm/dry/pink. Patient states feeling better. Patient states symptoms have improved. Vital Signs: 10:29 BP 111 / 69; Pulse 75; Resp 16; Temp 97.6; Pulse Ox 100% ; sv 10:31 Weight 66.22 kg (R); Height 5 ft. 4 in. (162.56 cm) (R); Pain 8/10; aa5 11:22 BP 121 / 75; Pulse 82; Resp 16; Temp 97.8; Pulse Ox 100% ; sv 10:31 Body Mass Index 25.06 (66.22 kg, 162.56 cm) aa5 Mod[place] Coma Score: 10:29 Eye Response: spontaneous(4). Verbal Response: oriented(5). Motor Response: obeys sv commands(6). Total: 15. Trauma Score (Adult): 10:29 Eye Response: spontaneous(1); Verbal Response: oriented(1); Motor Response: obeys sv commands(2); Systolic BP: > 89 mm Hg(4); Respiratory Rate: 10 to 29 per min(4); Catherine Score: 15; Trauma Score: 12 ED Course: 10:11 Patient arrived in ED. mr 10:28 Arm band placed on. aa5 10:29 Ayaka Higuera RN is Primary Nurse. sv 10:29 Patient has correct armband on for positive identification. Bed in low position. Call sv light in reach. Pulse ox on. NIBP on. Door closed. Warm blanket given. Head of bed elevated. 10:30 Triage completed. aa5 10:41 Yakov Gray PA is PHCP. jr8 10:41 Jorge Tran MD is Attending Physician. jr8 10:43 Nurse Practitioner and/or Physician Material Planner to see patient. sv 10:52 X-ray(s) taken. sv 10:53 Wrist Right 3 View XRAY Sent. sv 11:06 Wrist Right 3 View XRAY In Process Unspecified. EDMS 11:20 Orthoglass splint: Sugar tong splint applied on left arm. 5 11:22 Joaquin Williamson MD is Referral Physician. jr8 11:40 Sling applied to right arm. mh5 11:57 No provider procedures requiring assistance completed. Patient did not have IV access sv during this emergency room visit. Administered Medications: No medications were administered Intake: 10:29 PO: 0ml; Total: 0ml. sv Output: 10:29 Urine: 0ml; Total: 0ml. sv Outcome: 11:22 Discharge ordered by MD. jr8 11:57 Patient left the ED. sv 11:57 Discharged to home ambulatory. sv 11:57 Condition: stable 11:57 Discharge instructions given to patient, Instructed on discharge instructions, follow up and referral plans. medication usage, splint care Demonstrated understanding of instructions, follow-up care, medications, splint care, Prescriptions given X 1. Signatures: Dispatcher [employer] Ayaka Landaverde, Jana Green RN mr CooperMary, RN RN aaYakov Benjamin PA PA Maral Noriega [facility]
[2020-06-19 12:01] VITALS: O2SAT 100
[2020-06-19 12:03] VITALS: BP 121/75; TEMP 97.8
== END 2020-06-19 11:57 | disposition home or self-care (01) ==
LOC: ER 10:08
PROC: 2W3CX1Z Immobilization of Right Lower Arm using Splint (ICD-10-PCS; principal; 2020-06-19)
DX: S52.591A Other fractures of lower end of right radius, initial encounter for closed fracture (principal); W00.0XXA Fall on same level due to ice and snow, initial encounter; Y93.89 Activity, other specified; Y92.89 Other specified places as the place of occurrence of the external cause
CPT/HCPCS: 99284

== ENCOUNTER 2020-08-21 23:43 | Inpatient (IN) | payer OTHER, SELFPAY ==
--- OUTSIDE RECORDS SUMMARY | 2020-08-21 23:46 | XMS REPORT | Continuity of Care Document ---
:[address] [facility] t Address [address] [place] [id number] Care Team Providers Name Role Phone Latosha Silva Attending Clinician Doctor Unassigned, Name Attending Clinician Unavailable Donald IGNACIO Attending Clinician Problems This patient has no known problems. Allergies, Adverse Reactions, Alerts This patient has no known allergies or adverse reactions. Medications This patient has no known medications. Procedures This patient has no known procedures. Encounters Start End Encounter Admission Attending Care Care Encounter Source Date/Time Date/Time Type Type Clinicians Facility Department ID 2020-08-21 2020-08-21 Emergency [facility] [id number] 16:53:00 18:31:[address] [id number] [place] [id number] [place] [id number] 2020-08-21 2020-08-21 Orders Doctor JODI [id number] 00:00:00 00:00:00 Only UnassignedTOM [id number] Baron [facility] [id number] 2020-04-03 2020-04-03 Emergency [facility] [id number] 16:07:00 19:36:[address] [id number] [place] [id number] [place] [id number] Results This patient has no known results.
[2020-08-22 00:30] LABS: Basophils % 0.5 % (0-1.3); Hematocrit 35.6 % (36.0-45.0); Lymphocytes % 28.4 % (15.3-44.8)
[2020-08-22 00:45] LABS: ALT/SGPT 19 U/L (12-78); AST/SGOT 16 U/L (15-37); Albumin 4.2 g/dL (3.4-5.0); Alkaline Phosphatase 96 U/L (45-117); BUN Blood Urea Nitrogen 10 mg/dL (7-18); Bicarbonate 23 mmol/L (21-32); Bilirubin Direct 0.4 mg/dL (0-0.2); Glucose Level 99 mg/dL (74-106); Magnesium 2.3 mg/dL (1.8-2.4); NT PRO-BNP 24 pg/mL (<125); Potassium 3.4 mmol/L (3.5-5.1); Protein, Total 7.8 g/dL (6.4-8.2); Sodium Level 140 mmol/L (136-145); Troponin (Emerg Dept Use Only) < 0.02 ng/mL (0.0-0.045)
[2020-08-22] MEDS ORDERED: NA CHLORIDE 0.9% 1,000 ML ONE ×2 (01:31→08:36)
[2020-08-22] MEDS ORDERED: POTASSIUM 25 MEQ EFFERV TAB ONE (01:31)
[2020-08-22] MEDS ORDERED: ASPIRIN 81 MG CHEWABLE TABLET ONE (02:03)
--- NOTE | 2020-08-22 02:03 | ER ---
Nurse's Notes [facility] Name: Bree Farnsworth Age: 29 yrs Sex: Female : 1990 Arrival Date: 08/21/2020 Time: 23:45 Bed 7 Private MD: Diagnosis: Chest pain, unspecified;Dyspnea;Urinary tract infection, site not specified;Hypokalemia;Oncovirus as the cause of diseases classified elsewhere-Covid 19 positive Presentation: 08/21 23:55 Chief complaint: Patient states: i have chest pain since 6 pm tonight, sore throat mg2 feels like my throat is closing up and my whole face is numb with tingling sensation. Coronavirus screen: Client denies travel out of the [place] in the last 14 days. At this time, the client does not indicate any symptoms associated with coronavirus-19. Ebola Screen: No symptoms or risks identified at this time. Initial Sepsis Screen: Does the patient meet any 2 criteria? No. Patient's initial sepsis screen is negative. Does the patient have a suspected source of infection? No. Patient's initial sepsis screen is negative. Risk Assessment: Do you want to hurt yourself or someone else? Patient reports no desire to harm self or others. Onset of symptoms was August 21, 2020. 23:55 Acuity: CLAUDIA 3 mg2 Triage Assessment: 08/22 00:08 General: Appears in no apparent distress. comfortable, Behavior is calm, cooperative. mg2 Pain: Complains of pain in chest Pain radiates to neck. EENT: Reports keeos on swallowing saliva. Neuro: Level of Consciousness is awake, alert, obeys commands, Oriented to person, place, time, situation. Cardiovascular: Capillary refill < 3 seconds Patient's skin is warm and dry. Respiratory: Reports shortness of breath Airway is patent Onset: The symptoms/episode began/occurred gradually, the patient has mild shortness of breath. GI: No signs and/or symptoms were reported involving the gastrointestinal system. : No signs and/or symptoms were reported regarding the genitourinary system. Derm: No deficits noted. Musculoskeletal: Circulation, motion, and sensation intact. Capillary refill. Historical: - Allergies: 08/21 23:58 No Known Allergies; mg2 - PMHx: 23:58 None; mg2 - PSHx: 23:58 Cholecystectomy; mg2 - Immunization history:: Client reports receiving the 1st dose of the Covid vaccine, Flu vaccine is up to date. - Social history:: Smoking status: Patient denies any tobacco usage or history of. Screenin/20 00:10 Abuse screen: Denies threats or abuse. Denies injuries from another. Nutritional mg2 screening: No deficits noted. Tuberculosis screening: No symptoms or risk factors identified. Fall Risk IV access (20 points). Assessment: 00:09 General: see triage note. mg2 00:10 Cardiovascular: Rhythm is sinus rhythm. Respiratory: Airway is compromised Respiratory mg2 effort is even, unlabored, Breath sounds are clear. 02:28 Reassessment: Patient appears in no apparent distress at this time. Patient and/or family updated on plan of care and expected duration. Pain level reassessed. Patient is alert, oriented x 3, equal unlabored respirations, skin warm/dry/pink. Explained POC need for admit. Vital Signs: 08/21 23:55 BP 127 / 78; Pulse 108; Resp 18; Temp 97.9; Pulse Ox 100% on R/A; Weight 71.21 kg; mg2 Height 5 ft. 5 in. (165.10 cm); 08/22 01:11 BP 110 / 76; Pulse 97; Resp 18; Pulse Ox 100% on R/A; mg2 02:29 BP 115 / 83; Pulse 87; Resp 18; Pulse Ox 100% on R/A; 08/21 23:55 Body Mass Index 26.13 (71.21 kg, 165.10 cm) mg2 ED Course: 08/21 23:45 Patient arrived in ED. cf2 23:48 Twan Marin, RN is Primary Nurse. mg2 23:57 Triage completed. mg2 23:58 Arm band placed on. mg2 08/22 00:08 Jonny Segura MD is Attending Physician. miguel 00:10 Patient has correct armband on for positive identification. security monitor on. Pulse mg2 ox on. NIBP on. Door closed. Warm blanket given. 00:10 No provider procedures requiring assistance completed. EKG done, by ED staff, reviewed mg2 by Jonny Segura MD. 00:18 Inserted saline lock: 20 gauge in left antecubital area, using aseptic technique. Blood mg2 collected. 00:23 XRAY Chest (1 view) In Process Unspecified. EDMS 02:02 Mickey Gomes MD is Hospitalizing Provider. miguel 02:54 CT Chest For PE Angio In Process Unspecified. EDMS 03:51 Notified ED physician of a critical lab result(s). pt is COVID positive. Dr Colton henderson notified. 07:40 Primary Nurse role handed off by Twan Marin RN bd Administered Medications: 00:18 Drug: NS 0.9% 1000 ml Route: IV; Rate: 125 ml/hr; Site: left antecubital; mg2 01:17 Drug: Potassium Effervescent Tablet 25 mEq Route: PO; mg2 03:57 Follow up: Response: No adverse reaction mg2 01:48 Drug: Aspirin Chewable Tablet 324 mg Route: PO; 03:57 Follow up: Response: No adverse reaction mg2 02:19 Drug: Lovenox (enoxaparin) 70 mg Route: Sub-Q; Site: right lower abdomen; 03:57 Follow up: Response: No adverse reaction mg2 02:37 Drug: Rocephin - (cefTRIAXone) 1 grams Route: IVPB; Infused Over: 30 mins; Site: left mg2 antecubital; 03:57 Follow up: Response: No adverse reaction; IV Status: Completed infusion mg2 04:48 Drug: Decadron - Dexamethasone 10 mg Route: IVP; Site: left antecubital; Outcome: 02:02 Decision to Hospitalize by Provider. miguel 11:15 Patient left the ED. sv Signatures: Dispatcher [employer] EDMS Roxanna Mock Stephanie, RN RN sv Anderson, Corey, MD MD cha Ballard, Brenda, RN Janis Malhotra RN RN Twan Marin RN RN [facility] Kwasi Roblero 2
--- NOTE | 2020-08-22 02:03 | EDPHYS ---
Physician Documentation [facility] Name: Bree Farnsworth Age: 29 yrs Sex: Female : 1990 Arrival Date: 08/21/2020 Time: 23:45 Bed 7 Private MD: ED Physician Jonny Segura HPI: 08/22 00:38 This 29 yrs old Female presents to ER via Unassigned with complaints of miguel Breathing Difficulty, FEELS LIKE THROAT IS CLOSING, FACIAL NUMBNESS. 00:38 The patient has shortness of breath at rest. Onset: The symptoms/episode began/occurred miguel yesterday, last night. Duration: The symptoms are continuous, and are unchanged since they started. The patient's shortness of breath is aggravated by nothing, is alleviated by nothing. Associated signs and symptoms: The patient has no apparent associated signs or symptoms. Severity of symptoms: At their worst the symptoms were mild in the emergency department the symptoms are unchanged. The patient has not experienced similar symptoms in the past. Historical: - Allergies: 08/21 23:58 No Known Allergies; mg2 - PMHx: 23:58 None; mg2 - PSHx: 23:58 Cholecystectomy; mg2 - Immunization history:: Client reports receiving the 1st dose of the Covid vaccine, Flu vaccine is up to date. - Social history:: Smoking status: Patient denies any tobacco usage or history of. ROS: 08/22 00:39 Constitutional: Negative for fever, chills, and weight loss, Eyes: Negative for injury, miguel pain, redness, and discharge, ENT: Negative for injury, pain, and discharge, Neck: Negative for injury, pain, and swelling, Abdomen/GI: Negative for abdominal pain, nausea, vomiting, diarrhea, and constipation, Back: Negative for injury and pain, : Negative for injury, bleeding, discharge, and swelling, MS/Extremity: Negative for injury and deformity, Skin: Negative for injury, rash, and discoloration, Neuro: Negative for headache, weakness, numbness, tingling, and seizure, Psych: Negative for depression, anxiety, suicide ideation, homicidal ideation, and hallucinations, Allergy/Immunology: Negative for hives, rash, and allergies, Endocrine: Negative for neck swelling, polydipsia, polyuria, polyphagia, and marked weight changes, Hematologic/Lymphatic: Negative for swollen nodes, abnormal bleeding, and unusual bruising. Cardiovascular: Positive for chest pain, with cough. Respiratory: Positive for cough, shortness of breath, at rest. Exam: 00:39 Constitutional: This is a well developed, well nourished patient who is awake, alert, miguel and in no acute distress. Head/Face: Normocephalic, atraumatic. Eyes: Pupils equal round and reactive to light, extra-ocular motions intact. Lids and lashes normal. Conjunctiva and sclera are non-icteric and not injected. Cornea within normal limits. Periorbital areas with no swelling, redness, or edema. ENT: Nares patent. No nasal discharge, no septal abnormalities noted. Tympanic membranes are normal and external auditory canals are clear. Oropharynx with no redness, swelling, or masses, exudates, or evidence of obstruction, uvula midline. Mucous membranes moist. Neck: Trachea midline, no thyromegaly or masses palpated, and no cervical lymphadenopathy. Supple, full range of motion without nuchal rigidity, or vertebral point tenderness. No Meningismus. Chest/axilla: Normal chest wall appearance and motion. Nontender with no deformity. No lesions are appreciated. Abdomen/GI: Soft, non-tender, with normal bowel sounds. No distension or tympany. No guarding or rebound. No evidence of tenderness throughout. Back: No spinal tenderness. No costovertebral tenderness. Full range of motion. Skin: Warm, dry with normal turgor. Normal color with no rashes, no lesions, and no evidence of cellulitis. MS/ Extremity: Pulses equal, no cyanosis. Neurovascular intact. Full, normal range of motion. Neuro: Awake and alert, GCS 15, oriented to person, place, time, and situation. Cranial nerves II-XII grossly intact. Motor strength 5/5 in all extremities. Sensory grossly intact. Cerebellar exam normal. Normal gait. Psych: Awake, alert, with orientation to person, place and time. Behavior, mood, and affect are within normal limits. 00:39 Cardiovascular: Rate: tachycardic, Rhythm: regular, Pulses: Pulses are 4+ in bilateral radial, brachial, femoral, popliteal, posterior tibial and and dorsalis pedis arteries.. Heart sounds: normal, normal S1and S2, no S3 or S4, no murmur, no rub, no gallop, Edema: is not appreciated, JVD: is not appreciated. 00:39 Musculoskeletal/extremity: DVT Exam: No signs of deep vein thrombosis. no pain, no swelling, no tenderness, negative Homans' sign noted on exam, no appreciated bluish discoloration, no erythema, no increased warmth. 00:42 ECG was reviewed by the Attending Physician. miguel 02:49 ECG was reviewed by the Attending Physician. [facility] Vital Signs: 08/21 23:55 BP 127 / 78; Pulse 108; Resp 18; Temp 97.9; Pulse Ox 100% on R/A; Weight 71.21 kg; mg2 Height 5 ft. 5 in. (165.10 cm); 08/22 01:11 BP 110 / 76; Pulse 97; Resp 18; Pulse Ox 100% on R/A; mg2 02:29 BP 115 / 83; Pulse 87; Resp 18; Pulse Ox 100% on R/A; wh 08/21 23:55 Body Mass Index 26.13 (71.21 kg, 165.10 cm) mg2 MDM: 00:11 Patient medically screened. miguel 00:43 Differential diagnosis: Anemia Anxiety Reaction Bronchitis CHF exacerbation, Myocardial miguel Infarction pneumonia, pulmonary edema, Pulmonary Embolism reactive airway disease, Unstable Angina. Antibiotic administration: Not indicated, the patient does not have an appreciated infiltrate. The patient's Wells Deep Vein Thrombosis Score was calculated as follows: Heart Rate >100 BPM (1.5 Pts) Total Score: 0-2 Pts- Low Risk. The patient's pulmonary embolism risk score was calculated as follows: Total Score: 0-2 points. This patient was found to be at low risk for a pulmonary embolism by using the Well's assessment criteria. Immunization status:. Data reviewed: vital signs, nurses notes, lab test result(s), EKG, radiologic studies, plain films. Data interpreted: ekg monitor tech: rate is 108 beats/min, rhythm is regular, Pulse oximetry: on room air is 100 %. Test interpretation: by ED physician or midlevel provider: ECG, plain radiologic studies. Counseling: I had a detailed discussion with the patient and/or guardian regarding: the historical points, exam findings, and any diagnostic results supporting the discharge/admit diagnosis, lab results, radiology results, the need for outpatient follow up. 08/22 00:09 Order name: Basic Metabolic Panel; Complete Time: 01:04 [facility] 08/22 00:09 Order name: CBC with Diff; Complete Time: 00:42 [facility] 08/22 00:09 Order name: LFT's; Complete Time: 01:04 [facility] 08/22 00:09 Order name: Magnesium; Complete Time: 01:04 [facility] 08/22 00:09 Order name: NT PRO-BNP; Complete Time: 01:04 [facility] 08/22 00:09 Order name: Troponin (emerg Dept Use Only); Complete Time: 01:04 [facility] 08/22 00:09 Order name: D-Dimer; Complete Time: 00:42 [facility] 08/22 01:31 Order name: Troponin (emerg Dept Use Only): 2 am [facility] 08/22 02:10 Order name: Urine Culture [facility] 08/22 02:10 Order name: Urine Dipstick-Ancillary [facility] 08/22 02:11 Order name: Urine --Ancillary (enter results) [facility] 08/22 03:47 Order name: Urine Culture [facility] 08/22 03:50 Order name: SARS-COV-2 RT PCR; Complete Time: 04:30 [facility] 08/22 00:09 Order name: XRAY Chest (1 view) [facility] 08/22 01:26 Order name: CT Chest For PE Angio [facility] 08/22 04:30 Order name: Ferritin [facility] 08/22 04:30 Order name: CRP [facility] 08/22 05:04 Order name: C-Reactive Protein [facility] 08/22 05:04 Order name: Ferritin [facility] 08/22 08:22 Order name: Troponin I [facility] 08/22 08:22 Order name: T4 Free [facility] 08/22 08:22 Order name: Thyroid Stimulating Hormone [facility] 08/22 08:22 Order name: Transferrin Sat/Iron Binding [facility] 08/22 00:09 Order name: EKG; Complete Time: 00:11 [facility] 08/22 00:09 Order name: Cardiac monitoring; Complete Time: 00:17 [facility] 08/22 00:09 Order name: EKG - Nurse/Tech; Complete Time: 00:17 [facility] 08/22 00:09 Order name: IV Saline Lock; Complete Time: 00:17 [facility] 08/22 00:09 Order name: Labs collected and sent; Complete Time: 00:17 [facility] 08/22 00:09 Order name: O2 Per Protocol; Complete Time: 00:17 [facility] 08/22 00:09 Order name: O2 Sat Monitoring; Complete Time: 00:18 [facility] 08/22 00:09 Order name: Urine Dipstick-Ancillary (obtain specimen); Complete Time: 02:10 [facility] 08/22 00:09 Order name: Urine Test (obtain specimen); Complete Time: 02:10 [facility] 08/22 00:41 Order name: EKG; Complete Time: 00:42 [facility] 08/22 00:41 Order name: EKG - Nurse/Tech; Complete Time: 01:05 [facility] EC:42 Rate is 92 beats/min. Rhythm is regular. QRS [place] is Normal. [place] interval is normal. QRS miguel interval is normal. QT interval is normal. No Q waves. T waves are Normal. ST Segment is depressed in leads II, III, aVF. Clinical impression: NSR w/ Non-specific ST/T Changes. Interpreted by me. Reviewed by me. 02:49 Rate is 99 beats/min. Rhythm is regular. QRS [place] is Normal. [place] interval is normal. QRS miguel interval is normal. QT interval is normal. No Q waves. T waves are Normal. ST Segment is depressed in leads II, III, aVF, V4, V5, V6. Administered Medications: 00:18 Drug: NS 0.9% 1000 ml Route: IV; Rate: 125 ml/hr; Site: left antecubital; mg2 01:17 Drug: Potassium Effervescent Tablet 25 mEq Route: PO; mg2 03:57 Follow up: Response: No adverse reaction mg2 01:48 Drug: Aspirin Chewable Tablet 324 mg Route: PO; wh 03:57 Follow up: Response: No adverse reaction mg2 02:19 Drug: Lovenox (enoxaparin) 70 mg Route: Sub-Q; Site: right lower abdomen; 03:57 Follow up: Response: No adverse reaction mg2 02:37 Drug: Rocephin - (cefTRIAXone) 1 grams Route: IVPB; Infused Over: 30 mins; Site: left mg2 antecubital; 03:57 Follow up: Response: No adverse reaction; IV Status: Completed infusion mg2 04:48 Drug: Decadron - Dexamethasone 10 mg Route: IVP; Site: left antecubital; Disposition: 08/22/20 02:02 Hospitalization ordered by Mickey Gomes for Observation. Preliminary diagnosis are Chest pain, unspecified, Dyspnea, Urinary tract infection, site not specified, Hypokalemia, Oncovirus as the cause of diseases classified elsewhere - Covid 19 positive. - Bed requested for [facility] ER HOLD. - Status is Observation. sv - Condition is Fair. - Problem is new. - Symptoms have improved. Signatures: Dispatcher [employer] EDNV Ayaka Higuera RN RN sv Anderson, Corey, MD MD cha Lasagna, Tonya, RN RN tl1 Janis Jeronimo RN RN Twan Marin RN RN mg2 Corrections: (The following items were deleted from the chart) 02:10 02:02 Hospitalization Ordered by Mickey Gomes MD for Observation. Preliminary miguel diagnosis is Chest pain, unspecified; Dyspnea. Bed requested for Telemetry/MedSurg (observation). Status is Observation. Condition is Fair. Problem is new. Symptoms have improved. miguel 02:29 02:04 CORONAVIRUS+MR.LAB.BRZ ordered. [facility] EDMS 03:27 02:10 08/22/2020 02:02 Hospitalization Ordered by Mickey Gomes MD for Observation. miguel Preliminary diagnosis is Chest pain, unspecified; Dyspnea; Urinary tract infection, site not specified. Bed requested for Telemetry/MedSurg (observation). Status is Observation. Condition is Fair. Problem is new. Symptoms have improved. miguel 04:31 03:27 08/22/2020 02:02 Hospitalization Ordered by Mickey Gomes MD for Observation. miguel Preliminary diagnosis is Chest pain, unspecified; Dyspnea; Urinary tract infection, site not specified; Hypokalemia. Bed requested for Telemetry/MedSurg (observation). Status is Observation. Condition is Fair. Problem is new. Symptoms have improved. miguel 05:07 04:31 08/22/2020 02:02 Hospitalization Ordered by Mickey Gomes MD for Observation. tl1 Preliminary diagnosis is Chest pain, unspecified; Dyspnea; Urinary tract infection, site not specified; Hypokalemia; Oncovirus as the cause of diseases classified elsewhere - Covid 19 positive. Bed requested for Telemetry/MedSurg (observation). Status is Observation. Condition is Fair. Problem is new. Symptoms have improved. miguel 11:15 05:07 08/22/2020 02:02 Hospitalization Ordered by Mickey Gomes MD for Observation. sv Preliminary diagnosis is Chest pain, unspecified; Dyspnea; Urinary tract infection, site not specified; Hypokalemia; Oncovirus as the cause of diseases classified elsewhere - Covid 19 positive. Bed requested for [facility] ER HOLD. Status is Observation. Condition is Fair. Problem is new. Symptoms have improved. tl1
[2020-08-22 02:10] LABS: Urine Blood 3+ (Negative); Urine Glucose Negative (Negative); Urine Protein Negative (Negative); Urine pH 6.5 (5.0-7.0)
[2020-08-22 02:24] LABS: Troponin (Emerg Dept Use Only) < 0.02 ng/mL (0.0-0.045)
[2020-08-22] MEDS ORDERED: ENOXAPARIN 80 MG/0.8 ML SQ ONE (02:31)
[2020-08-22] MEDS ORDERED: CEFTRIAXONE/SWI 1gm 1 GM/10 ML SYR ONE (02:53)
--- NOTE | 2020-08-22 04:56 | P.HP ---
Certification for Inpatient Patient admitted to: Observation With expected LOS: <2 Midnights Patient will require the following post-hospital care: None Practitioner: I am a practitioner with admitting privileges, knowledge of patient current condition, hospital course, and medical plan of care. Services: Services provided to patient in accordance with Admission requirements found in Title 42 Section 412.3 of the Code of Federal Regulations Patient History Date of Service: 08/22/20 Primary Care Provider: Nazario Reason for admission: chest tightness History of Present Illness: Ms. Farnsworth is a 29 yo F who presents with chest tightness beginning at 6pm last night. She says the chest tightness was accompanied by SOB, pain with deep breaths, and facial numbness. She reports her throat felt tight and it became difficult to breathe. Symptoms worse with laying flat. She reports no new foods, no known allergies. She reports belching, vomiting, dizziness, polyuria. Denies pruritus, cough, nausea, chills, night sweats, dysuria, nocturia. K 3.4. GFR 74. CRP 10.4. urine with 1+ ketones, 1+ leukocyte esterase. COVID +. CT Chest wnl. Allergies No Known Allergies Allergy (Verified 08/27/17 07:57) Home Medications: Vit,Calc76/Iron/Folic [Prenatabs Rx Tablet] 1 each PO DAILY 08/27/17 Tramadol HCl [Ultram] 50 mg PO Q6HR #15 tablet 10/07/18 - Past Medical/Surgical History Has patient received pneumonia vaccine in the past: No Diabetic: No Past Medical History: Patient denies medical history -: NVD 05/2007 -: NVD 11/2011 -: Gallbladder removal 2016 -: DNC 08/2017 - Social History Smoking Status: Never smoker Alcohol use: No CD- Drugs: No Caffeine use: Yes Place of Residence: Home Review of Systems General: Unremarkable Eyes: Unremarkable ENT: Unremarkable Respiratory: Shortness of Breath, As per HPI Cardiovascular: Chest Pain, As per HPI Gastrointestinal: Vomiting, As per HPI Genitourinary: Unremarkable Musculoskeletal: Unremarkable Integumentary: Unremarkable Neurological: Numbness, As per HPI Lymphatics: Unremarkable Physical Examination - Physical Exam General: Alert, In no apparent distress, Oriented x3, Cooperative, Other (belching, stomach upset) HEENT: Atraumatic, Normocephalic, PERRLA, Mucous membr. moist/pink, EOMI, Sclerae nonicteric Neck: Supple, 2+ carotid pulse no bruit, JVD not distended, No Thyromegaly, No LAD Respiratory: Clear to auscultation bilaterally, Normal air movement Cardiovascular: No edema, Normal pulses, Regular rate/rhythm, Normal S1 S2, No gallops, No rubs, No murmurs Capillary refill: <2 Seconds Gastrointestinal: Normal bowel sounds, Soft and benign, Non-distended, No ascites, No tenderness, No masses, No rebound, No guarding Musculoskeletal: No clubbing, No swelling, No contractures, No erythema, No tenderness, No warmth Integumentary: No rashes, No breakdown, No significant lesion, No tenderness/swelling, No erythema, No warmth, No cyanosis Neurological: Normal speech, Normal strength at 5/5 x4 extr, Normal tone, Sensation intact, Cranial nerves 3-12 intact, Normal affect Lymphatics: No axilla or inguinal lymphadenopathy - Studies Laboratory Data (last 24 hrs) 08/22/20 00:10: WBC 10.40, Hgb 12.0, Hct 35.6 L, Plt Count 284 08/22/20 00:10: Sodium 140, Potassium 3.4 L, BUN 10, Creatinine 0.90, Glucose 99, Magnesium 2.3, Total Bilirubin 2.0 H, AST 16, ALT 19, Alkaline Phosphatase 96 Assessment and Plan - Problems (Diagnosis) (1) COVID-19 Current Visit: Yes Status: Acute (2) Chest pain Current Visit: Yes Status: Acute Qualifiers: Chest pain type: unspecified Qualified Code(s): R07.9 - Chest pain, unspecified (3) Throat tightness Current Visit: Yes Status: Acute - Plan found to be incidentally COVID+, symptoms could be related to this trend troponins and EKG, lipid panel and TSH/T4 pending given benadryl for possible allergic reaction, given pepcid for possible GERD continue with IVF urine sherine and urine culture pending, UDS pending iron panel pending potassium replacement Discharge Plan: Home Plan to discharge in: 24 Hours - Advance Directives Does patient have a Living Will: No Does patient have a Durable POA for Healthcare: No - Code Status/Comfort Care Code Status Assessed: Yes (full code) Critical Care: No Time Spent Managing Pts Care (In Minutes): 70
[2020-08-22] MEDS ORDERED: dexAMETHasone 10 MG/ML VIAL ONE (05:01)
[2020-08-22 06:39] VITALS: BMI 26.1
[2020-08-22] MEDS ORDERED: NA CHLORIDE 0.9% 1,000 ML IV SCH (06:41)
[2020-08-22] MEDS ORDERED: ACETAMINOPHEN 500 MG TAB PO PRN (06:41)
[2020-08-22] MEDS ORDERED: ONDANSETRON 4 MG/2 ML VIAL IV PRN (06:41)
[2020-08-22] MEDS ORDERED: DIPHENHYDRAMINE 25 MG TAB/CAP PO ONE (06:41)
--- NOTE | 2020-08-22 08:15 | RAD REPORT ---
EXAM DESCRIPTION: RAD - Chest Single View - 08/22/2020 12:23 am CLINICAL HISTORY: CHEST PAIN COMPARISON: Portable March 2020 TECHNIQUE: AP portable chest image was obtained 08/22/2020 12:23 am . FINDINGS: Lungs are clear. Interstitial pattern matches comparison. Heart and vasculature are normal . No measurable pleural effusion and no pneumothorax. No acute bony abnormality seen. No acute aortic findings suspected. IMPRESSION: No acute cardiopulmonary process. No significant change from comparison study.
[2020-08-22 08:21] LABS: Transferrin 321 mg/dL (200-360); Troponin I < 0.02 ng/mL (0.0-0.045)
[2020-08-22] MEDS ORDERED: FAMOTIDINE 20 MG TAB ONE (08:36)
[2020-08-22] MEDS ORDERED: ENOXAPARIN 40 MG/0.4 ML SQ ONE (08:36)
[2020-08-22] MEDS ORDERED: ENOXAPARIN 40 MG/0.4 ML SQ SCH (09:00)
[2020-08-22] MEDS ORDERED: FAMOTIDINE 20 MG TAB PO SCH (09:00)
[2020-08-22 09:08] VITALS: BP 137/70; TEMP 98.8
--- NOTE | 2020-08-22 09:33 | P.DS ---
Admission Date: 08/22/20 Discharge Date: 08/22/20 Primary Care Provider: Fabio Salazar NP Disposition: ROUTINE DISCHARGE Discharge Condition: GOOD Reason for Admission: chest tightness Consultations: none Procedures: COVID: Positive CT Scan: No acute pulmonary embolism. Medical problem list: Dyspnea secondary to COVID-19 pneumonia without hypoxia Mild hyperbilirubinemia Brief History of Present Illness: 29-year-old female patient with history of Covid in the distant past. She has not received her Covid vaccine. Patient was seen in the emergency room. CT scan unremarkable. Ferritin level unremarkable. CRP slightly elevated. Patient was admitted for further evaluation and treatment. Hospital Course: Patient presented in the emergency room dyspnea and chest tightness. Patient with history of Covid pneumonia in the past. Patient was found to be positive for Covid. Inflammatory markers not significantly elevated. D-dimer negative. White count within normal range. CT scan shows no evidence of pulmonary embolism. Patient was admitted for further observation and treatment. Patient has improved. No significant shortness of breath at this time. Patient does not smoke. Patient has not received her COVID-19 vaccine. Patient appropriate for discharge. No need for further inpatient treatment. At discharge patient will continue with prednisone 20 mg 1 pill twice daily for 7 days then 1 pill once daily for 7 days. Patient will also be provided albuterol inhaler 2 puffs 3 times a day as needed for shortness of breath. Patient will continue with vitamin supplementation including vitamin C 500 mg 3 times a day, vitamin D 2000 units daily, thiamine 100 mg 1 pill twice daily, and zinc 220 mg daily. Patient will continue with CDC guidelines on isolation. Patient will continue with incentive spirometer at home, proning, handwashing, facemask use, and social distancing. Patient may buy a pulse oximeter and monitor her oxygen saturations. Maintain oxygen above 93%. Recommend follow-up with her PCP in 1 week to follow-up hospitalization. If symptoms persist or worsen recommend to follow-up with her PCP or come to the emergency room. Total bilirubin slightly. This has been elevated in the past. No evidence of right upper quadrant abdominal pain. Recommend to recheck labCMP in 1 week to monitor her progress. If this remains elevated consider right upper quadrant abdominal ultrasound as an outpatient to further evaluate. This can be done with the help of her PCP. Vital Signs/Physical Exam: Temp Pulse Resp BP Pulse Ox 98.8 F 103 H 18 137/70 100 08/22/20 08:00 08/22/20 08:00 08/22/20 08:00 08/22/20 08:00 08/22/20 08:00 General: Alert, In no apparent distress, Oriented x3, Cooperative HEENT: Atraumatic Neck: Supple Respiratory: Clear to auscultation bilaterally Cardiovascular: Normal pulses, Regular rate/rhythm Gastrointestinal: Normal bowel sounds, No tenderness, No masses, No rebound, No guarding Musculoskeletal: No erythema, No tenderness, No warmth Integumentary: No tenderness/swelling Neurological: Normal speech, Normal strength at 5/5 x4 extr, Normal tone, Normal affect Laboratory Data at Discharge: WBC 10.40 K/uL (4.3-10.9) 08/22/20 00:10 Hgb 12.0 g/dL (12.0-15.0) 08/22/20 00:10 Hct 35.6 % (36.0-45.0) L 08/22/20 00:10 Plt Count 284 K/uL (152-406) 08/22/20 00:10 Sodium 140 mmol/L (136-145) 08/22/20 00:10 Potassium 3.4 mmol/L (3.5-5.1) L 08/22/20 00:10 BUN 10 mg/dL (7-18) 08/22/20 00:10 Creatinine 0.90 mg/dL (0.55-1.3) 08/22/20 00:10 Glucose 99 mg/dL (74-106) 08/22/20 00:10 Magnesium 2.3 mg/dL (1.8-2.4) 08/22/20 00:10 Total Bilirubin 2.0 mg/dL (0.2-1.0) H 08/22/20 00:10 AST 16 U/L (15-37) 08/22/20 00:10 ALT 19 U/L (12-78) 08/22/20 00:10 Alkaline Phosphatase 96 U/L (45-117) 08/22/20 00:10 Troponin I < 0.02 ng/mL (0.0-0.045) 08/22/20 07:39 Home Medications: Vit,Calc76/Iron/Folic [Prenatabs Rx Tablet] 1 each PO DAILY 08/27/17 Albuterol Inhaler [Ventolin Inhaler*] 2 puff IH TID PRN #1 hfa.aer.ad 08/22/20 Ascorbic Acid [Vitamin C] 500 mg PO TID #90 tablet.er 08/22/20 Cholecalciferol (Vitamin D3) [Vitamin D 1000 Iu Tab] 2,000 unit PO DAILY #60 tab 08/22/20 Thiamine HCl 100 mg PO BID #60 tablet 08/22/20 Zinc Sulfate [Zinc Sulfate*] 220 mg PO DAILY #90 cap 08/22/20 predniSONE [Prednisone*] 20 mg PO SEECOM #21 tab 08/22/20 New Medications: predniSONE [Prednisone*] 20 mg PO SEECOM #21 tab Thiamine HCl 100 mg PO BID #60 tablet Albuterol Inhaler [Ventolin Inhaler*] 2 puff IH TID PRN #1 hfa.aer.ad PRN Reason: Shortness Of Breath Ascorbic Acid [Vitamin C] 500 mg PO TID #90 tablet.er Cholecalciferol (Vitamin D3) [Vitamin D 1000 Iu Tab] 2,000 unit PO DAILY #60 tab Zinc Sulfate [Zinc Sulfate*] 220 mg PO DAILY #90 cap Physician Discharge Instructions: Patient presented in the emergency room dyspnea and chest tightness. Patient with history of Covid pneumonia in the past. Patient was found to be positive for Covid. Inflammatory markers not significantly elevated. D-dimer negative. White count within normal range. CT scan shows no evidence of pulmonary embolism. Patient was admitted for further observation and treatment. Patient has improved. No significant shortness of breath at this time. Patient does not smoke. Patient has not received her COVID-19 vaccine. Patient appropriate for discharge. No need for further inpatient treatment. At discharge patient will continue with prednisone 20 mg 1 pill twice daily for 7 days then 1 pill once daily for 7 days. Patient will also be provided albuterol inhaler 2 puffs 3 times a day as needed for shortness of breath. Patient will continue with vitamin supplementation including vitamin C 500 mg 3 times a day, vitamin D 2000 units daily, thiamine 100 mg 1 pill twice daily, and zinc 220 mg daily. Patient will continue with CDC guidelines on isolation. Patient will continue with incentive spirometer at home, proning, handwashing, facemask use, and social distancing. Patient may buy a pulse oximeter and monitor her oxygen saturations. Maintain oxygen above 93%. Recommend follow-up with her PCP in 1 week to follow-up hospitalization. If symptoms persist or worsen recommend to follow-up with her PCP or come to the emergency room. Total bilirubin slightly. This has been elevated in the past. No evidence of right upper quadrant abdominal pain. Recommend to recheck labCMP in 1 week to monitor her progress. If this remains elevated consider right upper quadrant abdominal ultrasound as an outpatient to further evaluate. This can be done with the help of her PCP. Diet: AHA Activity: Ad homero Followup: MART SALAZAR [Primary Care Provider] - Time spent managing pt's care (in minutes): 55
[2020-08-22 10:01] VITALS: O2SAT 99
--- NOTE | 2020-08-22 12:13 | EKG ---
Test Date: 2020-08-22 Test Time: 01:01:06 Cartography Technician: MEASUREMENT RESULTS: Intervals: Rate: 99 OR: 166 QRSD: 82 QT: 376 QTc: 482 [place]: P: 77 OR: 166 QRS: 84 T: -38 INTERPRETIVE STATEMENTS: Normal sinus rhythm Cannot rule out Anterior infarct, age undetermined T wave abnormality, consider inferior ischemia Abnormal ECG Compared to ECG 08/22/2020 00:04:56 Myocardial infarct finding now present T-wave abnormality still present Possible ischemia still present Electronically Signed On 08-22-20 12:13:15 CDT by Rod Castorena
--- NOTE | 2020-08-22 12:14 | EKG ---
Test Date: 2020-08-22 Test Time: 00:04:56 Civil Engineer In Training: MEASUREMENT RESULTS: Intervals: Rate: 92 ME: 154 QRSD: 82 QT: 386 QTc: 477 [place]: P: 73 ME: 154 QRS: 84 T: 264 INTERPRETIVE STATEMENTS: Normal sinus rhythm T wave abnormality, consider inferior ischemia Abnormal ECG Compared to ECG 03/29/2020 15:19:35 T-wave abnormality now present Possible ischemia now present Electronically Signed On 08-22-20 12:13:17 CDT by Rod Castorena
--- NOTE | 2020-08-22 14:40 | RAD REPORT ---
EXAM DESCRIPTION: CT - Chest For Pe Angio - 08/22/2020 7:04 am CLINICAL HISTORY: The patient is 29 years old and is Female; Chest pain;Dyspnea TECHNIQUE: Axial computed tomographic angiography images of the chest with intravenous contrast. S agittal and coronal reformatted images were created and reviewed. This CT exam was performed using one or more of the following dose reduction techniques: automated exposure control, adjustment of t he mA and/or kV according to patient size, and/or use of iterative reconstruction technique. MIP reconstructed images were created and reviewed. COMPARISON: No relevant prior studies available. FINDINGS: ARTIFACTS: The exam is suboptimal secondary to motion artifact. PULMONARY ARTERIES: There are no obvious filling defects identified within the pulmonary arteries to suggest pulmonary embolism. AORTA: No acute findings. No thoracic aortic aneurysm. LUNGS: Unremarkable. No mass. No consolidation. PLEURAL SPACE: Unremarkable. No significant effusion. No pneumothorax. HEART: Unremarkable. No cardiomegaly. No significant pericardial effusion. No evidence of R V dysfunction. BONES/JOINTS: No acute fracture. No dislocation. SOFT TISSUES: Unremarkable. LYMPH NODES: Unremarkable. No enlarged lymph nodes. IMPRESSION: No evidence of pulmonary embolism. Electronically signed by: Linn Mancera MD 08/22/2020 3:36 AM CDT Due to temporary technical issues with the PACS/Fluency reporting system, reports are being signed by the in house radiologists without review as a courtesy to insure prompt reporting. The interpreting radiologist is fully responsible for the content of the report.
== END 2020-08-22 11:20 | disposition home or self-care (01) | DRG 177 ==
LOC: ER 23:43 → ERHOLD 08-22 04:52 → OBSVTOIN 08-22 08:06 → INTOOBSV 08-22 08:06
PROVIDERS: ADMIT Hospitalist; ATTEND Hospitalist
DX: U07.1 COVID-19 (principal); J12.82 Pneumonia due to coronavirus disease 2019; Z90.49 Acquired absence of other specified parts of digestive tract; Z79.899 Other long term (current) drug therapy; Z79.52 Long term (current) use of systemic steroids
CPT/HCPCS: 36415; 71045; 71275; 80048; 80076; 81003; 81025; 82728; 83540; 83735; 83880; 84439; 84443; 84466; 84484; 85025; 85379; 86140; 87086; 87088; 93005; 94760; 96365; 96372; 96375; 99284; J0696; J1100; J1650; J7030; Q9967; U0003

== ENCOUNTER 2020-10-09 11:06 | Day surgery (SDC) | payer OTHER ==
[2020-10-09] MEDS ORDERED: Ringers Lactate 1,000 ML IV ONE (11:35)
[2020-10-09 11:36] LABS: Specific Gravity 1.015 (1.005-1.030)
[2020-10-09] MEDS ORDERED: propofoL 200 MG/20 ML VIAL IV ONE ×2 (14:00→14:01)
[2020-10-09] MEDS ORDERED: MIDAZOLAM HCL 2 MG/2 ML INJ ONE (14:01)
[2020-10-09] MEDS ORDERED: LIDOCAINE 1% MPF 5 ML VIAL ONE (14:01)
--- NOTE | 2020-10-09 14:08 | ENDO RPT ---
[address], [address] EGD PROCEDURE REPORT EXAM DATE: 10/09/2020 PATIENT NAME: Bree Farnsworth MR#: [id number] BIRTHDATE: 1990 ATTENDING: Henrry Payan DR STATUS: outpatient REFINING ENGINEER: Lori MENA, Zee Thomas RN, and Jaylyn Jacobs CST INDICATIONS: The patient is a 30 yr old Female here for an EGD due to bloating and epigastric pain PROCEDURE PERFORMED: EGD with biopsy for H. pylori MEDICATIONS: Per Anesthesia. TOPICAL ANESTHETIC: none CONSENT: The patient understands the risks and benefits of the procedure and understands that these risks include, but are not limited to: sedation, allergic reaction, infection, perforation and/or bleeding. Alternative means of evaluation and treatment include, among others: physical exam, x-rays, and/or surgical intervention. The patient elects to proceed with this endoscopic procedure. DESCRIPTION OF PROCEDURE: During intra-op preparation period all mechanical medical equipment was checked for proper function. Hand hygiene and appropriate measures for infection prevention was taken. Procedure, possible complications, and alternatives including but not limited to the possibility of bleeding, perforation, tear, infection, sepsis, need for surgery, need for blood transfusion, and anesthesia related complications were explained to the patient. After the risks, benefits and alternatives of the procedure were thoroughly explained, Informed consent was verified, confirmed and timeout was successfully executed by the treatment team. The patient was placed in the left lateral position. The patient was anesthetized with topical anesthesia. Through the anesthetized oropharyngeal area, the scope was passed without any difficulty. The EC-3890Li ([id number]) and [id number] ([id number]) endoscope was introduced through the mouth and advanced to the second portion of the duodenum. Retroflexed views revealed a small hiatal hernia. The gastroscope was then slowly withdrawn and removed. Multiple erosions were found in the fundus. A biopsy for H. pylori was taken. Mild gastritis was found at the pylorus. A biopsy for H. pylori was taken. ADVERSE EVENTS: There were no complications. IMPRESSIONS: 1. Multiple erosions were found in the fundus 2. Mild gastritis was found at the pylorus RECOMMENDATIONS: 1. acid suppression therapy 2. anti-reflux regimen 3. await biopsy results 4. follow-up: office 2 week(s) 5. avoid NSAIDS 6. follow-up of helicobacter pylori status, treat if indicated REPEAT EXAM: Henrry Payan DR eSigned: Henrry Payan DR 10/09/2020 2:08 PM cc: CPT CODES: ICD9 CODES: PATIENT NAME: Bree FarnsworthVick MR#: [id number]
--- NOTE | 2020-10-09 14:10 | ENDO RPT ---
[address], [address] COLONOSCOPY PROCEDURE REPORT EXAM DATE: 10/09/2020 PATIENT NAME: Bree Farnsworth MR #: [id number] BIRTHDATE: 1990 ATTENDING: Henrry Payan DR STATUS: outpatient CARGO INSPECTOR: Zee Thomas RN, Lori MENA, and Jaylyn Jacobs CST INDICATIONS: The patient is a 30 yr old Female here for a colonoscopy due to abdominal pain and rectal bleeding PROCEDURE PERFORMED: Colonoscopy MEDICATIONS: Per Anesthesia. ESTIMATED BLOOD LOSS: None CONSENT: The patient understands the risks and benefits of the procedure and understands that these risks include, but are not limited to: sedation, allergic reaction, infection, perforation and/or bleeding. Alternative means of evaluation and treatment include, among others: physical exam, x-rays, and/or surgical intervention. The patient elects to proceed with this endoscopic procedure. DESCRIPTION OF PROCEDURE: During intra-op preparation period all mechanical medical equipment was checked for proper function. Hand hygiene and appropriate measures for infection prevention was taken. Procedure, possible complications, alternatives including, but not limited to possibility of bleeding, perforation, tear, infection, sepsis, need for surgery, need for blood transfusion, were explained to the patient. After the risks, benefits and alternatives of the procedure were thoroughly explained, Informed consent was verified, confirmed and timeout was successfully executed by the treatment team. The patient was placed in the left lateral position. A digital rectal exam was performed and revealed internal hemorrhoids. After appropriate level of anesthesia, the scope was passed. The EC-[id number] ([id number]) and [id number] ([id number]) endoscope was introduced through the anus and advanced to the cecum. The quality of the prep was inadequate. The instrument was then slowly withdrawn as the colon was fully examined. Scope withdrawal time was 5 minutes. Inadequate prep COLON FINDINGS: Inadequate prep. Retroflexed views revealed no abnormalities. The scope was then completely withdrawn from the patient and the procedure terminated. ADVERSE EVENTS: There were no complications. IMPRESSIONS: Inadequate prep RECOMMENDATIONS: follow-up: office 2 week(s) RECALL: Return in 2 week(s) for Colonoscopy. Inadequate prep Henrry Payan DR eSigned: Henrry Payan DR 10/09/2020 2:10 PM cc: CPT CODES: ICD9 CODES:
[2020-10-09 14:57] VITALS: BP 115/66; TEMP 98.1; O2SAT 100
== END 2020-10-09 14:54 | disposition home or self-care (01) ==
LOC: OR 11:06
PROVIDERS: ATTEND Surgery
PROC: 0DB68ZX Excision of Stomach, Via Natural or Artificial Opening Endoscopic, Diagnostic (ICD-10-PCS; 2020-10-09)
PROC: 0DB48ZX Excision of Esophagogastric Junction, Via Natural or Artificial Opening Endoscopic, Diagnostic (ICD-10-PCS; 2020-10-09)
PROC: 0DB98ZX Excision of Duodenum, Via Natural or Artificial Opening Endoscopic, Diagnostic (ICD-10-PCS; principal; 2020-10-09 13:00)
PROC: 0DB78ZX Excision of Stomach, Pylorus, Via Natural or Artificial Opening Endoscopic, Diagnostic (ICD-10-PCS; 2020-10-09 13:00)
DX: K20.90 Esophagitis, unspecified without bleeding (principal); K62.5 Hemorrhage of anus and rectum; K29.80 Duodenitis without bleeding; K29.50 Unspecified chronic gastritis without bleeding; K29.70 Gastritis, unspecified, without bleeding; R14.0 Abdominal distension (gaseous); R10.13 Epigastric pain; K64.8 Other hemorrhoids; K44.9 Diaphragmatic hernia without obstruction or gangrene
CPT/HCPCS: 88312; 81025; 88305; 43239; U0003; J2704 ×2; J2250; J7120

== ENCOUNTER 2020-10-20 06:37 | Day surgery (SDC) | payer OTHER ==
[2020-10-20] MEDS: Ringers Lactate 1,000 ML IV ONE ×2 (07:00→08:02)
[2020-10-20 07:58] LABS: Specific Gravity >= 1.030 (1.005-1.030)
[2020-10-20] MEDS ORDERED: LIDOCAINE 1% MPF 5 ML VIAL ONE (08:21)
[2020-10-20] MEDS ORDERED: propofoL 200 MG/20 ML VIAL IV ONE (08:21)
--- NOTE | 2020-10-20 08:31 | ENDO RPT ---
[address], [address] COLONOSCOPY PROCEDURE REPORT EXAM DATE: 10/20/2020 PATIENT NAME: Bree Farnsworth MR #: [id number] BIRTHDATE: 1990 ATTENDING: Henrry Payan DR STATUS: outpatient SUPERINTENDENT POWER: Zee Thomas RN and Jaylyn Jacobs CST INDICATIONS: The patient is a 30 yr old Female here for a colonoscopy due to abdominal pain PROCEDURE PERFORMED: Screening Colonoscopy and Colonoscopy MEDICATIONS: Per Anesthesia. ESTIMATED BLOOD LOSS: None CONSENT: The patient understands the risks and benefits of the procedure and understands that these risks include, but are not limited to: sedation, allergic reaction, infection, perforation and/or bleeding. Alternative means of evaluation and treatment include, among others: physical exam, x-rays, and/or surgical intervention. The patient elects to proceed with this endoscopic procedure. DESCRIPTION OF PROCEDURE: During intra-op preparation period all mechanical medical equipment was checked for proper function. Hand hygiene and appropriate measures for infection prevention was taken. Procedure, possible complications, alternatives including, but not limited to possibility of bleeding, perforation, tear, infection, sepsis, need for surgery, need for blood transfusion, were explained to the patient. After the risks, benefits and alternatives of the procedure were thoroughly explained, Informed consent was verified, confirmed and timeout was successfully executed by the treatment team. The patient was placed in the left lateral position. A digital rectal exam was performed and revealed internal hemorrhoids. After appropriate level of anesthesia, the scope was passed. The EC-[id number] ([id number]) endoscope was introduced through the anus and advanced to the cecum, which was identified by both the appendix and ileocecal valve. The quality of the prep was fair. The instrument was then slowly withdrawn as the colon was fully examined. Scope withdrawal time was 7 minutes. COLON FINDINGS: A normal appearing cecum, ileocecal valve, and appendiceal orifice were identified. the ascending, transverse, descending, sigmoid colon, and rectum appeared unremarkable. Retroflexed views revealed no abnormalities. The scope was then completely withdrawn from the patient and the procedure terminated. ADVERSE EVENTS: There were no complications. IMPRESSIONS: A normal appearing cecum, ileocecal valve, and appendiceal orifice were identified. the ascending, transverse, descending, sigmoid colon, and rectum appeared unremarkable RECOMMENDATIONS: 1. follow-up: office 2 week(s) 2. Monitor for any evidence of rectal bleeding. 3. fiber rich diet 4. avoid NSAIDS for 2 weeks 5. yearly hemoccult starting in 4 years 6. hemorrhoidal hygiene RECALL: Return in 10 year(s) for Colonoscopy. Henrry Payan DR eSigned: Henrry Payan DR 10/20/2020 8:31 AM cc: CPT CODES: ICD9 CODES: PATIENT NAME: Bree Farnsworth MR#: [id number]
[2020-10-20 08:55] VITALS: TEMP 97; O2SAT 100
[2020-10-20 09:03] VITALS: BP 112/70
== END 2020-10-20 08:57 | disposition home or self-care (01) ==
LOC: OR 06:37
PROVIDERS: ATTEND Surgery
PROC: 0DJD8ZZ Inspection of Lower Intestinal Tract, Via Natural or Artificial Opening Endoscopic (ICD-10-PCS; principal; 2020-10-20 08:00)
DX: R10.9 Unspecified abdominal pain (principal); K21.9 Gastro-esophageal reflux disease without esophagitis; R10.13 Epigastric pain; D64.9 Anemia, unspecified; K52.9 Noninfective gastroenteritis and colitis, unspecified; K64.8 Other hemorrhoids
CPT/HCPCS: 81025; 45378; J2704; J7120

== ENCOUNTER 2021-06-02 09:22 | Emergency (ER) | payer OTHER ==
--- OUTSIDE RECORDS SUMMARY | 2021-06-02 09:25 | XMS REPORT | Continuity of Care Document ---
:1990 Author Organization [facility] t Address [address] [place] [address] Care Team Providers Name Role Phone Nancy SALAZAR Primary Care Physician Unavailable Only, Adult [facility] Test Attending Clinician Unavailable Eduard Hickman Attending Clinician Eduard PARKER Attending Clinician Unavailable Doctor Unassigned, Name Attending Clinician Unavailable Latosha Silva Attending Clinician Donald IGNACIO Attending Clinician Payers Payer Name Policy Type Policy Number Effective Date Expiration Date [facility] [id number] 2017 [facility] MEDICAID 00:00:00 Problems Condition Condition Condition Status Onset Resolution Last Treating Co mments Source Name Details Category Date Date Treatment Clinician Date Multigravi Multigravi Disease Active U nivers da, da, 3-16 ity of [place] [facility] Obesity in Obesity in Disease Active U nivers , , 3-16 it y of antepartum antepartum 00:[place]: [place] [facility] High risk High risk Disease Active Uni vers , , 3-16 [place] of [place] [facility] Allergies, Adverse Reactions, Alerts Allergy Allergy Status Severity Reaction(s) Onset Inactive Treating Comm ents Source Name Type Date Date Clinician NO KNOWN Drug Active Univers ALLERGIE Class ity of S [facility] Social History Social Habit Start Date Stop Date Quantity Comments Source Exposure to Not sure [facility] SARS-CoV-2 [place] [facility] (event) Branch Alcohol intake 2020-08-21 2020-08-21 Current University 00:00:00 00:00:00 non-drinker of [facility] alcohol Branch (finding) Tobacco use and 2017-07-18 2017-07-18 Never used Universit y of exposure 00:00:00 00:00:00 [facility] Sex Assigned At [birth year] Universit y of 00:00:00 00:00:00 [facility] Smoking Status Start Date Stop Date Source Never smoker [facility] xas [facility] Medications Ordered Filled Start Stop Current Ordering Indication Dosage Frequency Signature Comments Components Source Medication Medication Date Date Medication? Clinician (SIG) Name Name diphenhydrA No 50mg 50 mg, Uni vers MINE 08-21 Intramuscu ity of (BENADRYL) 23:30: 22:28 lar, ONCE, [place] injection 00 :00 1 dose, Medical 50 mg [facility] 08/21/20 at 1830, STAT albuterol 2019-05 2020- No 2{puff} 2 Puff, U nivers (VENTOLIN) 06-05 Inhalation it y of inhaler 2 00:45: 23:41 , ONCE, 1 [place] Puff 00 :00 dose, [facility] 04/03/20 Branch at 1845, DEB
Is this order for a patient with suspected or confirmed COVID-19 infection? Yes ketorolac 2019-05- No 30mg 30 mg, Unive rs (TORADOL) 06-05 Slow IV ity of injection 00:30: 23:31 Push, [place] 30 mg 00 :00 ONCE, 1 Medical dose, [facility] 04/03/20 at 1830, DEB
Fa culty member approving Restricted medication : EMERGENCY ROOM, aspirin 2019-05- No 325mg 325 mg, Unive rs tablet 325 06-03 Oral, ity of mg 22:30: 23:09 ONCE, 1 [place] 00 :00 dose, [facility] 04/03/20 Branch at 1630, STAT albuterol 2019-05 Yes [id number] 2{puff} Inhale 2 Univers 90 1-30 Puffs ity of mcg/actuati 00:00: every 4 [place] as on inhaler 00 (four) Medical hours as Branch needed for Wheezing or Shortness of Breath. benzonatate 2019-05 Yes [id number] 100mg Take 1 Univers 100 mg 1-30 capsule by ity of capsule 00:00: mouth 3 [place] 00 (three) Medical times Branch daily as needed for Cough. acetaminoph 2019-05 Yes [id number] 1{tbl} Take 1 Un angelo en-codeine 1-30 tablet by ity of 300-30 mg 00:00: mouth [place] tablet 00 every 6 Medical (six) Branch hours as needed for Pain (scale 1-3). Indication s: acute pain albuterol 2019-05 Yes [id number] 2{puff} Inhale 2 Univers 90 1-30 Puffs ity of mcg/actuati 00:00: every 4 [place] as on inhaler 00 (four) Medical hours as Branch needed for Wheezing or Shortness of Breath. benzonatate 2019-05 Yes [id number] 100mg Take 1 Univers 100 mg 1-30 capsule by ity of capsule 00:00: mouth 3 [place] 00 (three) Medical times Branch daily as needed for Cough. acetaminoph 2019-05 Yes [id number] 1{tbl} Take 1 Un angelo en-codeine 1-30 tablet by ity of 300-30 mg 00:00: mouth [place] tablet 00 every 6 Medical (six) Branch hours as needed for Pain (scale 1-3). Indication s: acute pain albuterol 2019-05 Yes [id number] 2{puff} Inhale 2 Univers 90 1-30 Puffs ity of mcg/actuati 00:00: every 4 [place] as on inhaler 00 (four) Medical hours as Branch needed for Wheezing or Shortness of Breath. benzonatate 2019-05 Yes [id number] 100mg Take 1 Univers 100 mg 1-30 capsule by ity of capsule 00:00: mouth 3 [place] 00 (three) Medical times Branch daily as needed for Cough. acetaminoph 2019-05 Yes [id number] 1{tbl} Take 1 Un angelo en-codeine 1-30 tablet by ity of 300-30 mg 00:00: mouth [place] tablet 00 every 6 Medical (six) Branch hours as needed for Pain (scale 1-3). Indication s: acute pain albuterol 2019-05 Yes [id number] 2{puff} Inhale 2 Univers 90 1-30 Puffs ity of mcg/actuati 00:00: every 4 [place] on inhaler 00 (four) Medical hours as Branch needed for Wheezing or Shortness of Breath. benzonatate 2019-05 Yes [id number] 100mg Take 1 Univers 100 mg 1-30 capsule by ity of capsule 00:00: mouth 3 [place] 00 (three) Medical times Branch daily as needed for Cough. acetaminoph 2019-05 Yes [id number] 1{tbl} Take 1 Un angelo en-codeine 1-30 tablet by ity of 300-30 mg 00:00: mouth [place] tablet 00 every 6 Medical (six) Branch hours as needed for Pain (scale 1-3). Indication s: acute pain albuterol 2019-05 Yes [id number] 2{puff} Inhale 2 Univers 90 1-30 Puffs ity of mcg/actuati 00:00: every 4 [place] as on inhaler 00 (four) Medical hours as Branch needed for Wheezing or Shortness of Breath. benzonatate 2019-05 Yes [id number] 100mg Take 1 Univers 100 mg 1-30 capsule by ity of capsule 00:00: mouth 3 [place] 00 (three) Medical times Branch daily as needed for Cough. acetaminoph 2019-05 Yes [id number] 1{tbl} Take 1 Un angelo en-codeine 1-30 tablet by ity of 300-30 mg 00:00: mouth [place] tablet 00 every 6 Medical (six) Branch hours as needed for Pain (scale 1-3). Indication s: acute pain albuterol 2019-05- No [id number] 2{puff} Inhale 2 Univers 90 1-30 11-30 Puffs ity of mcg/actuati 00:00: 00:00 every 4 [place] inhaler 00 :00 (four) Medical hours as Branch needed for Wheezing or Shortness of Breath. acetaminoph 2019-05- No [id number] 1{tbl} Take 1 U nivers en-codeine 1-30 11-30 tablet by ity of 300-30 mg 00:00: 00:00 mouth [place] tablet 00 :00 every 6 Medical (six) Branch hours as needed for Pain (scale 1-3) for up to 7 days. Indication s: acute pain albuterol 2019-05- No [id number] 2{puff} Inhale 2 Univers 90 1-30 11-30 Puffs ity of mcg/actuati 00:00: 00:00 every 4 [place] inhaler 00 :00 (four) Medical hours as Branch needed for Wheezing or Shortness of Breath. albuterol 2019-05- No [id number] 2{puff} Inhale 2 Univers 90 1-30 11-30 Puffs ity of mcg/actuati 00:00: 00:00 every 4 [place] inhaler 00 :00 (four) Medical hours as Branch needed for Wheezing or Shortness of Breath. albuterol 2019-05- No [id number] 2{puff} Inhale 2 Univers 90 1-30 11-30 Puffs ity of mcg/actuati 00:00: 00:00 every 4 [place] inhaler 00 :00 (four) Medical hours as Branch needed for Wheezing or Shortness of Breath. predniSONE Yes Take one Uni vers 20 mg 9-24 tablet by ity of tablet 00:00: mouth [place] 00 daily till Medical all gone Branch butalbital- Yes 1{tbl} Take 1 Un angelo acetaminoph 9-24 tablet by ity of en-caff 00:00: mouth [place] 50-325-40 00 every 6 Medical mg tablet (six) Branch hours as needed for Headache (Headache) . predniSONE Yes Take one Uni vers 20 mg 9-24 tablet by ity of tablet 00:00: mouth [place] 00 daily till Medical all gone Branch butalbital- Yes 1{tbl} Take 1 Un angelo acetaminoph 9-24 tablet by ity of en-caff 00:00: mouth [place] 50-325-40 00 every 6 Medical mg tablet (six) Branch hours as needed for Headache (Headache) . predniSONE Yes Take one Uni vers 20 mg 9-24 tablet by ity of tablet 00:00: mouth [place] 00 daily till Medical all gone Branch butalbital- Yes 1{tbl} Take 1 Un angelo acetaminoph 9-24 tablet by ity of en-caff 00:00: mouth [place] 50-325-40 00 every 6 Medical mg tablet (six) Branch hours as needed for Headache (Headache) . predniSONE Yes Take one Uni vers 20 mg 9-24 tablet by ity of tablet 00:00: mouth [place] 00 daily till Medical all gone Branch butalbital- Yes 1{tbl} Take 1 Un angelo acetaminoph 9-24 tablet by ity of en-caff 00:00: mouth [place] 50-325-40 00 every 6 Medical mg tablet (six) Branch hours as needed for Headache (Headache) . predniSONE Yes Take one Uni vers 20 mg 9-24 tablet by ity of tablet 00:00: mouth [place] 00 daily till Medical all gone Branch butalbital- Yes 1{tbl} Take 1 Un angelo acetaminoph 9-24 tablet by ity of en-caff 00:00: mouth [place] 50-325-40 00 every 6 Medical mg tablet (six) Branch hours as needed for Headache (Headache) . Yes [id number] 1{packe Take 1 Univers vit 4-20 t} Packet by ity of 33-iron-fol 00:00: mouth [place] ic-dha 00 daily. Medical (SELECT-OB Branch + DHA) 29 mg iron-1 mg -250 mg combo pack Yes [id number] 1{packe Take 1 Univers vit 4-20 t} Packet by ity of 33-iron-fol 00:00: mouth [place] ic-dha daily. Medical (SELECT-OB Branch + DHA) 29 mg iron-1 mg -250 mg combo pack Yes [id number] 1{packe Take 1 Univers vit 4-20 t} Packet by ity of 33-iron-fol 00:00: mouth [place] ic-dha daily. Medical (SELECT-OB Branch + DHA) 29 mg iron-1 mg -250 mg combo pack Yes [id number] 1{packe Take 1 Univers vit 4-20 t} Packet by ity of 33-iron-fol 00:00: mouth [place] ic-dha 00 daily. Medical (SELECT-OB Branch + DHA) 29 mg iron-1 mg -250 mg combo pack Yes [id number] 1{packe Take 1 Univers vit 4-20 t} Packet by ity of 33-iron-fol 00:00: mouth [place] ic-dha 00 daily. Medical (SELECT-OB Branch + DHA) 29 mg iron-1 mg -250 mg combo pack Vital Signs Vital Name Observation Time Observation Value Comments Source Systolic blood 2020-08-21 23:25:00 128 mm[Hg] Univer sity of pressure [place] [facility] Diastolic blood 2020-08-21 23:25:00 80 mm[Hg] Unive rsity of pressure [place] [facility] Heart rate 2020-08-21 23:25:00 88 /min Universi ty of [place] [facility] Respiratory rate 2020-08-21 23:25:00 18 /min Univ ersity of [place] [facility] Oxygen saturation in 2020-08-21 23:25:00 100 /min University of Arterial blood by [place] Syrmo estrellita Pulse oximetry Branch Body temperature 2020-08-21 21:51:00 36.61 Brenda Univ ersity of [place] [facility] Body weight 2020-08-21 21:51:00 71.215 kg Universi ty of [facility] Branch BMI 2020-08-21 21:51:00 27.81 kg/m2 Universi ty of [place] [facility] Systolic blood 2020-08-21 23:25:00 128 mm[Hg] Univer sity of pressure [place] [facility] Diastolic blood 2020-08-21 23:25:00 80 mm[Hg] Unive rsity of pressure [place] [facility] Heart rate 2020-08-21 23:25:00 88 /min Universi ty of [place] [facility] Respiratory rate 2020-08-21 23:25:00 18 /min Univ ersity of [place] [facility] Oxygen saturation in 2020-08-21 23:25:00 100 /min University of Arterial blood by [place] Syrmo estrellita Pulse oximetry Branch Body temperature 2020-08-21 21:51:00 36.61 Brenda Univ ersity of [place] [facility] Body weight 2020-08-21 21:51:00 71.215 kg Universi ty of [place] [facility] BMI 2020-08-21 21:51:00 27.81 kg/m2 Universi ty of [facility] Branch Systolic blood 2020-04-04 01:01:00 114 mm[Hg] Univer sity of pressure [place] [facility] Diastolic blood 2020-04-04 01:01:00 79 mm[Hg] Unive rsity of pressure [place] [facility] Heart rate 2020-04-04 01:01:00 80 /min Universi ty of [facility] Respiratory rate 2020-04-04 01:01:00 18 /min Univ ersity of [facility] Oxygen saturation in 2020-04-04 01:01:00 99 /min University of Arterial blood by [facility] Pulse oximetry Branch Body temperature 2020-04-03 22:14:00 36.44 Brenda Univ ersity of [facility] Body weight 2020-04-03 22:14:00 67.132 kg Universi ty of [facility] BMI 2020-04-03 22:14:00 26.22 kg/m2 Universi ty of [facility] Systolic blood 2020-04-04 01:01:00 114 mm[Hg] Univer sity of pressure [facility] Diastolic blood 2020-04-04 01:01:00 79 mm[Hg] Unive rsity of pressure [facility] Heart rate 2020-04-04 01:01:00 80 /min Universi ty of [facility] Respiratory rate 2020-04-04 01:01:00 18 /min Univ ersity of [facility] Oxygen saturation in 2020-04-04 01:01:00 99 /min University of Arterial blood by [facility] Pulse oximetry Branch Body temperature 2020-04-03 22:14:00 36.44 Brenda [facility] [place] [facility] ersity of [facility] Body weight 2020-04-03 22:14:00 67.132 kg Universi ty [facility] BMI 2020-04-03 22:14:00 26.22 kg/m2 Universi [facility] Procedures Procedure Date / Time Performed Performing Clinician [facility] e NOTICE OF PRIVACY 2021-05-04 20:29:05 Doctor Unassigned, No Univ ersity [facility] Medical Branch NOTICE OF PRIVACY 2020-08-21 21:44:50 Doctor Unassigned, No Univ ersity [facility] CONSENT/REFUSAL FOR 2020-08-21 21:44:32 [facility]igned, [facility] Medical [place] TREATMENT XR CHEST 1 VW 2020-04-04 00:41:21 Stephanie Bennett [facility] TEST, SERUM 2020-04-03 22:56:[address] [facility] TROPONIN I 2020-04-03 22:56:00 Stephanie Bennett [facility] HEPATIC FUNCTION PANEL 2020-04-03 22:56:00 [id number] (ALB,T.PRO,BILI T,BU/BC,ALT,AST,ALK PHOS) BASIC METABOLIC PANEL 2020-04-03 22:56:00 BennettStephanie herrera [facility] (NA, K, CL, CO2, Medical Branch GLUCOSE, BUN, CREATININE, CA) CBC WITH DIFF 2020-04-03 22:56:00 [facility] D-DIMER 2020-04-03 22:56:00 [facility] URINALYSIS 2020-04-03 22:56:00 [facility] N-TERMINAL PRO-BNP 2020-04-03 22:56:00 [facility] Encounters Start End Encounter Admission Attending Care Care Encounter Source Date/Time Date/Time Type Type Clinicians Facility Department ID 2021-03-04 Emergency [facility] [id number] Univers 13:55:32 ity [facility] 2021-03-03 Emergency [facility] [id number] [facility] 2021-05-04 Laboratory Only, Gal Adult Uc Test [facility] [id number] Univers 14:30:00 14:45:00 Only David Parker [facility] [id number] ity of PEDIATRIC 4.2.7.2.686 Te [facility] [id number] [address] 2021-05-04 2021-05-04 Outpatient R JOHN [facility] [id number] Univers 14:30:00 14:30:00 [facility] 2021-05-04 2021-05-04 Outpatient R [facility] [id number] Univers 13:30:00 13:30:00 [id number] ity [facility] 2021-05-04 2021-05-04 Orders Doctor ZAPATA [id number] Univers 00:00:00 00:00:00 Only UnassignedTOM [id number] ity of [facility] 4.2.7.2.686 [place] as [id number] [place] [address] Branch 2020-08-21 2020-08-21 Emergency [facility] [id number] 16:53:00 18:31:00 Taina R Juliaetta [id number] [place] 4.2.7.2.686 [place] [id number] 2020-08-21 2020-08-21 Emergency [place], [facility] [id number] [facility] 16:53:00 18:31:00 Taina R Juliaetta 350.1.13.10 i ty of [place] 4.2.7.2.686 [facility] [id number] [place] [address] Branch 2020-08-21 2020-08-21 Orders Doctor JODI 1.2.840.114 [id number] 00:00:00 00:00:00 Only Unassigned, TOM 350.1.13.10 [facility] 4.2.7.2.686 [id number] 2020-08-21 2020-08-21 Orders Doctor JODI [id number] Univers 00:00:00 00:00:00 Only Unassigned, TOM 350.1.13.10 ity of [facility] 4.2.7.2.686 [place] as [id number] [place] [address] Branch 2020-04-03 2020-04-[address] [facility], [facility] 1.2.840.114 [id number] 16:07:00 19:36:00 Stephanie Juliaetta 350.1.13.10 [place] 4.2.7.2.686 [place] [id number] 2020-04-03 2020-04-[address] [facility], [facility] [id number] Univers 16:07:00 19:36:00 Stephanie Juliaetta 350.1.13.10 i ty of [place] 4.2.7.2.686 [facility] [id number] [address] Results Test Description Test Time Test Comments Results Result [facility] e Comments Chest 1 View No acute University o f [address] [facility] ica 00:51:13 abnormality. Branch Preliminary Report Dictated by Resident: Ambrose Cevallos MD., have reviewed this study and agree with theabove report.XR CHEST 1 VW HISTORY: COVID, SOB COMPARISON: None TECHNIQUE: AP radiograph of the chest was performed. FINDINGS: The lungs are clear. No focal consolidation, pneumothorax or pleuraleffusion is seen. The cardiomediastinal silhouette is normal. No acute osseous abnormality. [facility], Radiant Results Inft User - 04/03/2020 6:52 PM CSTXR CHEST 1 VWHISTORY: COVID, SOB COMPARISON: NoneTECHNIQUE: AP radiograph of the chest was performed.FINDINGS:Th e lungs are clear. No focal consolidation, pneumothorax or pleuraleffusion is seen.The cardiomediastinal silhouette is normal.No acute osseous abnormality.IMPRESSIO NNo acute cardiopulmonary abnormality. Preliminary Report Dictated by Resident: Ambrose Lenz MD., have reviewed this study and agree with theabove report. Test, Serum 2020-04-04 00:07:00 Test Item Value Reference Range Interpretation Comme nts PREG SERUM (test code = 4051431671) Negative LOLITA (test code = LOLITA) Less than 10 IU/L. ?If low titer or ectopic is suspected, resubmit specimen in 48-72 hours. [facility] Center[facility] [id number] 23:31:00 Test Item Value Reference Range Interpretation Comments TROPONIN I (test <0.012 See_Comment [Automated code = 1612821412) message] The system which generated this result transmitted reference range : <=0.034 ng/mL. The reference range was not used to interpr et this result as normal/abnormal . LOLITA (test code = Equal or Less than LOLITA) 0.034 ng/ml---Normal ?Note: Cardiac troponin begins to rise 3-4 hours after the onset of ischemia. Repeat in 4-6 hours if the sample was drawn within 3-4 hours of the onset of the symptom and found normal. Between 0.035 and 0.120 ng/mL--- Borderline. Questionable myocardial injury or necrosis ? ?Note: Serial measurement may be necessary to confirm or exclude the diagnosis of myocardial injury or necrosis; Clinical correlation (symptoms, EKGs, imaging studies, and others) required; Repeat in 4-6 hours if clinically indicated. ? Equal or Higher than 0.121 ng/mL---Abnormal. Myocardial Injury or Necrosis Likely ? Biotin has been reported to cause a negative bias, interpret results relative to patient's use of biotin. ? Lab Interpretation Normal (test code = 79774-7) [facility] Center[facility]inalysis2020-11-30 23:30:00 Test Item Value Reference Range Interpretation Comments APPEARANCE (test code = Clear Clear 0057386143) COLOR (test code = Yellow Yellow 7663141556) PH (test code = 4.8-8.0 1281247749) SP GRAVITY (test code = 1.003-1.030 8701183529) GLU U QUAL (test code = Negative Negative 3888237415) BLOOD (test code = Negative Negative 1787686412) KETONES (test code = Negative Negative 1913437476) PROTEIN (test code = Negative Negative 2887-8) UROBILIN (test code = 0.2 mg/dL See_Comment [Auto mated message] 0574800853) The system [employer] generated this result transmit felipe reference range : 0-1.0 mg/dL. Th e reference range was not used to interpret this result as normal/abnormal . BILIRUBIN (test code = Negative Negative 3260278076) NITRITE (test code = Negative Negative 5834282851) LEUK MIKE (test code = Negative Negative 4980849196) RBC/HPF (test code = <1 See_Comment [Autom ated message] 4873026391) The system [employer] generated this result transmit felipe reference range : 0 - 3 HPF. The refe rence range was not u sed to interpret th is result as normal/abnormal . WBC/HPF (test code = See_Comment [Autom ated message] 5468529652) The system [employer] generated this result transmit felipe reference range : 0 - 5 HPF. The refe rence range was not u sed to interpret th is result as normal/abnormal . BACTERIA (test code = Negative Negative 3741175449) MUCOUS (test code = Slight Negative LPF A 0804500570) SQ EPITH (test code = HPF 2588705233) Lab Interpretation (test Abnormal code = 10719-6) [facility] Center[facility]MINAL [id number] 23:28:00 Test Item Value Reference Range Interpretation Comments NT-proBNP (test code 28 pg/mL See_Comment [Autom ated = 6655236509) message] The system which generated this result transmitted reference range : <=125. The reference range was not used to interpret this result as normal/abnormal . LOLITA (test code = LOLITA) Biotin has been reported to cause a negative bias, interpret results relative to patient's use of biotin. Lab Interpretation Normal (test code = 57730-0) [facility] [id number] 23:26:00 Test Item Value Reference Interpretation Comments Range D-DIMER (test code = <0.27 See_Comment [Autom ated 9687694722) message] The system which generated this result transmitted reference range : <0.41 ?g/mL (FEU). The reference range was not used to interpret this result as normal/abnormal . LOLITA (test code = This test may be LOLITA) used in conjunction with a clinical pretest probability (PTP) assessment model to exclude venous thromboembolism (VTE) in patients suspected of deep venous thrombosis (DVT) and pulmonary embolism (PE) A D-Dimer value less than 0.50 ?g/ml (FEU) has a negative predicative value of 96 to 100% (95% CI)and 97 to 100% (95% CI) as an aid in the diagnosis of deep vein thrombosis (DVT) and pulmonary embolism when there is low or moderate pretest probability of PE or DVT. D-Dimer values are expressed in initial fibrinogen equivalent units (FEU)" The assay results should be used with other information, including the clinical context, in forming a diagnosis. Lab Interpretation Normal (test code = 44756-2) [facility] Center[facility] Metabolic Panel (NA, K, CL, CO2, GLUCOSE, BUN, CREATININE, CA)2020-04-03 23:20:00 Test Item Value Reference Range Interpretation Comments NA (test code = 139 mmol/L 135-145 4360197425) K (test code = 3.9 mmol/L 3.5-5 9502902501) CL (test code = 103 mmol/L 98-108 5057571810) CO2 TOTAL (test code = 28 mmol/L 23-31 6989895582) AGAP (test code = 2-16 9077036013) BUN (test code = 12 mg/dL 7-23 0560731662) GLUCOSE (test code = 109 mg/dL 70-110 9276116227) CREATININE (test code 0.64 mg/dL 0.5-1.04 = 5440665266) CALCIUM (test code = 9.3 mg/dL 8.6-10.6 2814013804) eGFR Calculation mL/min/1.73m2 (Non-) (test code = 9099895999) eGFR Calculation mL/min/1.73m2 () (test code = 6189056329) LOLITA (test code = LOLITA) Association of Glomerular Filtration Rate (GFR) and Staging of Kidney Disease* + -+ + ---+| GFR (mL/min/1.73 m2) ?| With Kidney Damage ?| ?Without Kidney Damage+ -------+ ------+ ---------+| ?>90 ?| ?Stage one ?| ? Normal ?+ --+ -+ ----+| ?60-89 ?| ?Stage two ?| ? Decreased GFR ? + -+ + ---+| ?30-59 ?| ?Stage three ?| ? Stage three ? + -+ + ---+| ?15-29 ?| ?Stage four ? | ? Stage four ?+ --+ -+ ----+| ?<15 (or dialysis) ? ?| ?Stage five ? | ? Stage five ?+ --+ -+ ----+ *Each stage assumes the associated GFR level has been in effect for at least three months. ?Stages 1 to 5, with or without kidney disease, indicate chronic kidney disease. Notes: Determination of stages one and two (with eGFR >59mL/min/1.73 m2) requires estimation of kidney damage for at least three months as defined by structural or functional abnormalities of the kidney, manifested by either:Pathological abnormalities or Markers of kidney damage (including abnormalities in the composition of the blood or urine or abnormalities in imaging tests). [facility] (ALB, T.PRO, BILI T, BU/BC, ALT, AST, ALK PHOS)2020-04-03 23:19:00 Test Item Value Reference Range Interpretation Comments TOTAL BILI (test code = 7688777926) 0.7 mg/dL 0.1-1.1 BILI UNCON (test code = 2985892872) 0.7 mg/dL 0.1-1.1 BILI CONJ (test code = 7989561841) 0.0 mg/dL 0-0.3 T PROTEIN (test code = 3581868757) 7.7 g/dL 6.3-8.2 ALBUMIN (test code = 7747551683) 4.5 g/dL 3.5-5 ALK PHOS (test code = 9901082499) 67 U/L 34-122 ALTv (test code = 1742-6) 18 U/L 5-35 AST(SGOT) (test code = 6698859106) 21 U/L 13-40 Lab Interpretation (test code = Normal 49063-2) [facility] [id number] 23:15:00 Test Item Value Reference Range Interpretation Comments WBC (test code = See_Comment [Automated 9890-2) message] The sy stem which generated this result transmitted reference range : 4.30 - 11.10 10*3/?L. The reference range was not used to interpret this result as normal/abnormal . RBC (test code = See_Comment [Automated 189-8) message] The sy stem which generated this result transmitted reference range : 3.93 - 5.25 10*6/?L. The reference range was not used to interpret this result as normal/abnormal . HGB (test code = 11.9 g/dL 11.6-15 718-7) HCT (test code = 37.6 % 35.7-45.2 4544-3) MCV (test code = 75.2 fL 80.6-95.5 L 787-2) MCH (test code = 23.8 pg 25.9-32.8 L 785-6) MCHC (test code = 31.6 g/dL 31.6-35.1 786-4) RDW-SD (test code = 40.0 fL 39-49.9 28123-6) RDW-CV (test code = 14.6 % 12-15.5 788-0) PLT (test code = See_Comment [Automated 777-3) message] The sy stem which generated this result transmitted reference range : 166 - 358 10*3/ ?L. The reference r nini was not used to interpret this result as normal/abnormal . MPV (test code = 10.9 fL 9.5-12.9 68001-8) NRBC/100 WBC (test See_Comment [Automat ed code = 6068397707) message] The system which generated this result transmitted reference range : 0.0 - 10.0 /100 WBCs. The refer ence range was not u sed to interpret th is result as normal/abnormal . NRBC x10^3 (test code <0.01 See_Comment [Auto mated = 7877807975) message] The s ystem which generated this result transmitted reference range : 10*3/?L. The reference range was not used to interpret this result as normal/abnormal . GRAN MAT (NEUT) % 58.2 % (test code = 770-8) IMM GRAN % (test code 0.40 % = 9055146178) LYMPH % (test code = 33.4 % 736-9) MONO % (test code = 6.3 % 5905-5) EOS % (test code = 1.3 % 713-8) BASO % (test code = 0.4 % 706-2) GRAN MAT x10^3(ANC) 4.82 10*3/uL 1.88-7.09 (test code = 8826350795) IMM GRAN x10^3 (test 0.03 10*3/uL 0-0.06 code = 4299778650) LYMPH x10^3 (test code 2.76 10*3/uL 1.32-3.29 = 731-0) MONO x10^3 (test code 0.52 10*3/uL 0.33-0.92 = 742-7) EOS x10^3 (test code = 0.11 10*3/uL 0.03-0.39 711-2) BASO x10^3 (test code 0.03 10*3/uL 0.01-0.07 = 704-7) Lab Interpretation Abnormal (test code = 81465-9) [facility]
[2021-06-02 09:45] LABS: Urine Blood 3+ (Negative); Urine Glucose Negative (Negative); Urine Protein 2+ (Negative); Urine pH 6.5 (5.0-7.0)
--- NOTE | 2021-06-02 10:14 | RAD REPORT ---
EXAM DESCRIPTION: CT - Stone Protocol - 06/02/2021 9:51 am CLINICAL HISTORY: Abdominal pain. Flank pain COMPARISON: 2019 TECHNIQUE: Computed axial tomography of the abdomen pelvis was obtained without oral or IV contrast. Lack of IV and oral contrast limits evaluation of solid organs, bowel, and vessels. Coronal reformat felipe images were obtained and reviewed. All CT scans are performed using dose optimization technique as appropriate and may include automated exposure control or mA/KV adjustment according to patient size. FINDINGS: 1 millimeter calculus right kidney. No hydronephrosis A left renal calculus is not seen. An ureteral calculus is not noted. A bladder calculus is not prese nt. The liver, spleen, pancreas and adrenals appear grossly normal There is no evidence of diverticulitis. The appendix appears normal No adnexal mass IMPRESSION: 1 millimeter nonobstructing right renal calculus
[2021-06-02] MEDS ORDERED: KETOROLAC 30 MG/ML INJ ONE (10:22)
[2021-06-02 10:46] LABS: Urine Bacteria 20-50 /HPF (<20); Urine RBC 20-50 /HPF (NONE SEEN)
--- NOTE | 2021-06-02 10:52 | ER ---
Nurse's Notes [facility] Name: Bree Farnsworth Age: 30 yrs Sex: Female : 1990 Arrival Date: 06/02/2021 Time: 09:23 Bed 12 Private MD: Diagnosis: UTI/ Urinary tract infection, site not specified Presentation: 06/02 09:30 Chief complaint: Patient states: yesterday had RLQ pain that radiated to the right side vg1 of flank; denies NVD or burning upon urination. Coronavirus screen: Vaccine status: Patient reports receiving the 2nd dose of the covid vaccine. Client denies travel out of the [place] in the last 14 days. Ebola Screen: Patient negative for fever greater than or equal to 101.5 degrees Fahrenheit, and additional compatible Ebola Virus Disease symptoms. Initial Sepsis Screen: Does the patient meet any 2 criteria? Yes Does the patient have a suspected source of infection? No. Patient's initial sepsis screen is negative. Risk Assessment: Do you want to hurt yourself or someone else? Patient reports no desire to harm self or others. Onset of symptoms was December 30, 2021. 09:30 Method Of Arrival: Ambulatory vg1 09:30 Acuity: CLAUDIA 4 vg1 Triage Assessment: 09:32 General: Appears uncomfortable, Behavior is calm, cooperative. Pain: Complains of pain vg1 in posterior aspect of right lateral abdomen and right lower quadrant Pain currently is 8 out of 10 on a pain scale. GI: Patient currently denies diarrhea, nausea, vomiting. : Denies burning with urination. 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 - Social history:: Smoking status: Patient denies any tobacco usage or history of. Screenin:11 Abuse screen: Denies threats or abuse. Nutritional screening: No deficits noted. ll1 Tuberculosis screening: No symptoms or risk factors identified. Fall Risk Total Otero Fall Scale indicates No Risk (0-24 pts). Assessment: 10:30 Reassessment: No changes from previously documented assessment. Patient and/or family ll1 updated on plan of care and expected duration. Pain level reassessed. Patient is alert, oriented x 3, equal unlabored respirations, skin warm/dry/pink. 11:11 Reassessment: No changes from previously documented assessment. Patient and/or family ll1 updated on plan of care and expected duration. Pain level reassessed. Patient is alert, oriented x 3, equal unlabored respirations, skin warm/dry/pink. Vital Signs: 09:30 BP 123 / 75; Pulse 90; Resp 16; Temp 98.2; Pulse Ox 98% ; Weight 66.22 kg; Height 5 ft. vg1 3 in. (160.02 cm); Pain 8/10; 11:10 BP 129 / 67; Pulse 86; Resp 16; ll1 09:30 Body Mass Index 25.86 (66.22 kg, 160.02 cm) vg1 ED Course: 09:23 Patient arrived in ED. rg4 09:26 Elisha Cooper FNP-C is [facility]. kb 09:26 Jonny Segura MD is Attending Physician. kb 09:32 Triage completed. vg1 09:32 Arm band placed on. vg1 09:32 Patient has correct armband on for positive identification. Call light in reach. Side ll1 rails up X 1. Cardiac monitoring not applicable on this patient. 09:34 Nidhi Louise, RN is Primary Nurse. ll1 09:46 Urine Microscopic Only Sent. ll1 09:50 CT Stone Protocol In Process Unspecified. EDMS 11:11 No provider procedures requiring assistance completed. Patient did not have IV access ll1 during this emergency room visit. Administered Medications: 10:23 Drug: Ketorolac 30 mg Route: IM; Site: left deltoid; vg1 11:10 Follow up: Response: No adverse reaction ll1 Outcome: 10:52 Discharge ordered by . kb 11:11 Discharged to home ambulatory. ll1 11:11 Condition: stable 11:11 Discharge instructions given to patient, Instructed on discharge instructions, follow up and referral plans. medication usage, Demonstrated understanding of instructions, follow-up care, medications, Prescriptions given X 2. 11:12 Patient left the ED. ll1 Addendum: 06/05/2021 09:18 Addendum: Culture Results: Positive urine culture. No further action required. Bacteria s s sensitive to prescribed antibiotic. Signatures: Dispatcher [employer] Elisha Cotter, MANAGER POST-C MANAGER POST-Brandi Beasley, RN RN ss Aleyda Chamberlain4 Hannha Chamberlain RN RN vg1 Nidhi Louise, RN RN ll1
--- NOTE | 2021-06-02 10:52 | EDPHYS ---
Physician Documentation [facility] Name: Bree Farnsworth Age: 30 yrs Sex: Female : 1990 Arrival Date: 06/02/2021 Time: 09:23 Bed 12 Private MD: ED Physician Jonny Segura HPI: 06/02 10:17 This 30 yrs old Female presents to ER via Ambulatory with complaints of Low Back Pain, kb Flank Pain. 10:17 The patient has not experienced similar symptoms in the past. kb 10:17 The patient complains of pain in the right flank. The pain radiates to the right lower kb quadrant. Severity of pain: At its worst the pain was moderate in the emergency department the pain is unchanged. The patient has not recently seen a physician. 10:17 Onset: The symptoms/episode began/occurred yesterday. Modifying factors: The symptoms kb are alleviated by nothing. the symptoms are aggravated by nothing. Associated signs and symptoms: The patient has no apparent associated signs or symptoms. 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 - Social history:: Smoking status: Patient denies any tobacco usage or history of. ROS: 10:16 Constitutional: Negative for fever, chills, and weight loss. kb 10:16 Back: Positive for flank pain, on the right. 10:16 All other systems are negative. Exam: 10:16 Constitutional: This is a well developed, well nourished patient who is awake, alert, kb and in no acute distress. Head/Face: Normocephalic, atraumatic. ENT: Moist Mucous membranes Cardiovascular: Regular rate and rhythm with a normal S1 and S2. No gallops, murmurs, or rubs. No pulse deficits. Respiratory: Respirations even and unlabored. No increased work of breathing. Talking in full sentences Skin: Warm, dry with normal turgor. Normal color. MS/ Extremity: Pulses equal, no cyanosis. Neurovascular intact. Full, normal range of motion. Neuro: Awake and alert, GCS 15, oriented to person, place, time, and situation. Moves all extremities. Normal gait. 10:16 Abdomen/GI: Inspection: abdomen appears normal, Bowel sounds: normal, Palpation: soft, in all quadrants, mild abdominal tenderness, in the right lower quadrant. 10:16 Back: CVA tenderness, that is moderate, is noted on the right. Vital Signs: 09:30 BP 123 / 75; Pulse 90; Resp 16; Temp 98.2; Pulse Ox 98% ; Weight 66.22 kg; Height 5 ft. vg1 3 in. (160.02 cm); Pain 8/10; 11:10 BP 129 / 67; Pulse 86; Resp 16; ll1 09:30 Body Mass Index 25.86 (66.22 kg, 160.02 cm) vg1 MDM: 09:28 Patient medically screened. kb 10:16 Data reviewed: vital signs, nurses notes. Data interpreted: Pulse oximetry: on room air kb is 98 %. Interpretation: normal. Counseling: I had a detailed discussion with the patient and/or guardian regarding: the historical points, exam findings, and any diagnostic results supporting the discharge/admit diagnosis, lab results, radiology results, the need for outpatient follow up, a family practitioner, to return to the emergency department if symptoms worsen or persist or if there are any questions or concerns that arise at home. 06/02 09:32 Order name: Urine Microscopic Only; Complete Time: 10:47 kb 06/02 09:45 Order name: Urine Dipstick-Ancillary; Complete Time: 09:46 EDAK 06/02 09:32 Order name: CT Stone Protocol; Complete Time: 10:15 kb 06/02 09:50 Order name: Urine --Ancillary (enter results); Complete Time: 10:47 eb 06/02 10:48 Order name: Urine Culture EDAK 06/02 09:32 Order name: Urine Dipstick-Ancillary (obtain specimen); Complete Time: 09:46 kb 06/02 09:32 Order name: Urine Test (obtain specimen); Complete Time: 09:46 kb Administered Medications: 10:23 Drug: Ketorolac 30 mg Route: IM; Site: left deltoid; vg1 11:10 Follow up: Response: No adverse reaction ll1 Disposition Summary: 06/02/21 10:52 Discharge Ordered Location: Home kb Condition: Stable kb Diagnosis - UTI/ Urinary tract infection, site not specified kb Followup: kb - With: Emergency Department - When: As needed - Reason: Worsening of condition Followup: kb - With: Private Physician - When: 2 - 3 days - Reason: Recheck today's complaints, Continuance of care, Re-evaluation by your physician Discharge Instructions: - Discharge Summary Sheet kb - Urinary Tract Infection, Adult, [id number] kb Forms: - Medication Reconciliation Form kb - Thank You Letter kb - Antibiotic Education kb - Prescription Opioid Use kb - Work release form eb Prescriptions: - Macrobid 100 mg Oral Capsule - take 1 capsule by ORAL route every 12 hours for 10 days; 20 capsule; Refills: kb 0, Product Selection Permitted - Diclofenac Sodium 75 mg Oral tablet,delayed release (DR/EC) - take 1 tablet by ORAL route 2 times per day As needed; 30 tablet; Refills: 0, kb Product Selection Permitted Addendum: 06/03/2021 13:21 Co-signature as Attending Physician, Jonny Segura MD I agree with the assessment and c bennett plan of care. Signatures: Dispatcher [employer] Elisha Cotter, CRATER AND PACKER-C CRATER [employer] PACKER-Jonny Lyons MD MD cha Garcia, Victoria, RN RN vg1 Nidhi Louise RN ll1
[2021-06-02 11:15] VITALS: TEMP 98.2; O2SAT 98
[2021-06-02 11:17] VITALS: BP 129/67
== END 2021-06-02 11:12 | disposition home or self-care (01) ==
LOC: ER 09:22
DX: N39.0 Urinary tract infection, site not specified (principal)
CPT/HCPCS: 74176; 76377; 81003; 81015; 81025; 87077; 87086; 87088; 87186; 96372; 99284

== ENCOUNTER 2021-06-04 17:08 | Emergency (ER) | payer OTHER ==
--- OUTSIDE RECORDS SUMMARY | 2021-06-04 17:12 | XMS REPORT | Continuity of Care Document ---
:1990 Author Organization [facility] t Address [address] [place] [address] Care Team Providers Name Role Phone Nancy SALAZAR Primary Care Physician Unavailable Only, Adult [facility] Test Attending Clinician Unavailable Eduard Hickman Attending Clinician Eduard PARKER Attending Clinician Unavailable Doctor Unassigned, Name Attending Clinician Unavailable Latosha Silva Attending Clinician Doanld IGNACIO Attending Clinician Payers Payer Name Policy Type Policy Number Effective Date Expiration Date [facility] [id number] 2017 CHOICE MEDICAID 00:00:00 Problems Condition Condition Condition Status Onset Resolution Last Treating Co mments Source Name Details Category Date Date Treatment Clinician Date Multigravi Multigravi Disease Active 2018 U nivers da, da, 3-16 [place] [facility] Obesity in Obesity in Disease Active 2017- U nivers , , 3-16 it y of [place] [facility] [place] High risk High risk Disease Active Uni vers , , 3-16 it y of ante[place] ante[place] Allergies, Adverse Reactions, Alerts Allergy Allergy Status Severity Reaction(s) Onset Inactive Treating Comm ents Source Name Type Date Date Clinician NO KNOWN Drug Active Univers ALLERGIE Class ity of S [facility] Social History Social Habit Start Date Stop Date Quantity Comments Source Exposure to Not sure University SARS-CoV-2 [place] Medical (event) Branch Alcohol intake 2020-08-21 2020-08-21 Current University of 00:00:00 00:00:00 non-drinker of [facility] alcohol Branch (finding) Tobacco use and 2017-07-18 2017-07-18 Never used Universit y of exposure 00:00:00 00:00:00 [facility] Sex Assigned At [birth year] Universit y of 00:00:00 00:00:00 [facility] Smoking Status Start Date Stop Date Source Never smoker [facility] [place] [facility] [place] Medications Ordered Filled Start Stop Current Ordering Indication Dosage Frequency Signature Comments Components Source Medication Medication Date Date Medication? Clinician (SIG) Name Name diphenhydrA No 50mg 50 mg, Uni vers MINE 08-21 Intramuscu ity of (BENADRYL) 23:30: 22:28 lar, ONCE, [place] injection 00 :00 1 dose, Medical 50 mg [facility] 08/21/20 at 1830, STAT albuterol 2019-05- No 2{puff} 2 Puff, U nivers (VENTOLIN) 06-05 Inhalation it y of inhaler 2 00:45: 23:41 , ONCE, 1 [place] Puff 00 :00 dose, [facility] 04/03/20 Branch at 1845, DEB
Is this order for a patient with suspected or confirmed COVID-19 infection? Yes ketorolac 2019-05- No 30mg 30 mg, Unive rs (TORADOL) 06-05 Slow IV ity of injection 00:30: 23:31 Push, [place] 30 mg 00 :00 ONCE, 1 Medical dose, [facility] 04/03/20 at 1830, DEB
Fa culty member approving Restricted medication : EMERGENCY ROOM, aspirin 2019-05- No 325mg 325 mg, Unive rs tablet 325 06-03 Oral, ity of mg 22:30: 23:09 ONCE, 1 [place] 00 :00 dose, [facility] 04/03/20 Branch at 1630, STAT albuterol 2019-05 Yes [id number] 2{puff} Inhale 2 Univers 90 1-30 Puffs ity of mcg/actuati 00:00: every 4 [place] as on inhaler 00 (four) Medical hours as Branch needed for Wheezing or Shortness of Breath. benzonatate 2019-05 Yes [id number] 100mg Take 1 Univers 100 mg 1-30 [...] Indication s: acute pain albuterol 2019-05 Yes [id number] 2{puff} Inhale 2 Univers 90 1-30 Puffs ity of mcg/actuati 00:00: every 4 [place] on inhaler 00 (four) Medical hours as Branch needed for Wheezing or Shortness of Breath. benzonatate 2019-05 Yes [id number] 100mg Take 1 Univers 100 mg 1-30 [...] Indication s: acute pain albuterol 2019-05 Yes [id number] 2{puff} Inhale 2 Univers 90 1-30 Puffs ity of mcg/actuati 00:00: every 4 [place] on inhaler 00 (four) Medical hours as Branch needed for Wheezing or Shortness of Breath. benzonatate 2019-05 Yes [id number] 100mg Take 1 Univers 100 mg 1-30 [...] Indication s: acute pain albuterol 2019-05 Yes [id number] 2{puff} Inhale 2 Univers 90 1-30 Puffs ity of mcg/actuati 00:00: every 4 [place] on inhaler 00 (four) Medical hours as Branch needed for Wheezing or Shortness of Breath. benzonatate 2019-05 Yes [id number] 100mg Take 1 Univers 100 mg 1-30 [...] Indication s: acute pain albuterol 2019-05 Yes [id number] 2{puff} Inhale 2 Univers 90 1-30 Puffs ity of mcg/actuati 00:00: every 4 [place] on inhaler 00 (four) Medical hours as Branch needed for Wheezing or Shortness of Breath. benzonatate 2019-05 Yes [id number] 100mg Take 1 Univers 100 mg 1-30 [...] 1-3). Indication s: acute pain albuterol 2019-05 2020- No [id number] 2{puff} Inhale 2 Univers 90 1-30 11-30 Puffs ity of mcg/actuati 00:00: 00:00 every 4 [place] inhaler 00 :00 (four) Medical hours as Branch needed for Wheezing or Shortness of Breath. acetaminoph 2019-05 2020- No [id number] 1{tbl} Take 1 U nivers en-codeine 1-30 11-30 tablet by ity of 300-30 mg 00:00: 00:00 mouth [place] tablet 00 :00 every 6 Medical (six) Branch hours as needed for Pain (scale 1-3) for up to 7 days. Indication s: acute pain albuterol 2019-05- No [id number] 2{puff} Inhale 2 Univers 90 1-30 11-30 Puffs ity of mcg/actuati 00:00: 00:00 every 4 [place] inhaler 00 :00 (four) Medical hours as Branch needed for Wheezing or Shortness of Breath. albuterol 2019-05- No [id number] 2{puff} Inhale 2 Univers 90 1-30 11-30 Puffs ity of mcg/actuati 00:00: 00:00 every 4 [place] inhaler 00 :00 (four) Medical hours as Branch needed for Wheezing or Shortness of Breath. albuterol 2019-05- No [id number] 2{puff} Inhale 2 Univers 90 1-30 11-30 [...] as needed for Headache (Headache) . predniSONE 2018-0 Yes Take one Uni vers 20 mg [...] as needed for Headache (Headache) . Yes [id number] 1{packe Take 1 Univers vit 4-20 t} Packet by ity of 33-iron-fol 00:00: mouth [place] ic-dha daily. Medical (SELECT-OB Branch + DHA) 29 mg iron-1 mg -250 mg combo pack Yes [id number] 1{packe Take 1 Univers vit 4-20 t} Packet by ity of 33-iron-fol 00:00: mouth [place] ic-dha daily. Medical (SELECT-OB Branch + DHA) 29 mg iron-1 mg -250 mg combo pack Yes [id number] 1{packe Take 1 Univers vit 4-20 t} Packet by ity of 33-iron-fol 00:00: mouth [place] ic-dha daily. Medical (SELECT-OB Branch + DHA) 29 mg iron-1 mg -250 mg combo pack Yes [id number] 1{packe Take 1 Univers vit 4-20 t} Packet by ity of 33-iron-fol 00:00: mouth [place] ic-dha 00 daily. Medical (SELECT-OB Branch + DHA) 29 mg iron-1 mg -250 mg combo pack Yes [id number] 1{packe Take 1 Univers vit 4-20 t} Packet by ity of 33-iron-fol 00:00: mouth [place] ic-dha daily. Medical (SELECT-OB Branch + DHA) 29 mg iron-1 mg -250 mg combo pack Vital Signs Vital Name Observation Time Observation Value Comments Source Systolic blood 2020-08-21 23:25:00 128 mm[Hg] Univer sity of pressure [place] [facility] Diastolic blood 2020-08-21 23:25:00 80 mm[Hg] Unive rsity of pressure [place] [facility] Heart rate 2020-08-21 23:25:00 88 /min Universi ty of [place] [facility] Respiratory rate 2020-08-21 23:25:00 18 /min Univ ersity of [place] [facility] Oxygen saturation in 2020-08-21 23:25:00 100 /min University of Arterial blood by [place] [email or web address] estrellita Pulse oximetry Branch Body temperature 2020-08-21 21:51:00 36.61 Brenda Univ ersity of [place] [facility] Body weight 2020-08-21 21:51:00 71.215 kg Universi ty of [place] [facility] BMI 2020-08-21 21:51:00 27.81 kg/m2 Universi ty of [place] [facility] Systolic blood 2020-08-21 23:25:00 128 mm[Hg] Univer sity of pressure [place] [facility] Diastolic blood 2020-08-21 23:25:00 80 mm[Hg] Unive rsity of pressure [place] [facility] Heart rate 2020-08-21 23:25:00 88 /min Universi ty of [place] [facility] Respiratory rate 2020-08-21 23:25:00 18 /min Univ ersity of [place] [facility] Oxygen saturation in 2020-08-21 23:25:00 100 /min University of Arterial blood by [place] [email or web address] [place]ita Pulse oximetry Branch Body temperature 2020-08-21 21:51:00 36.61 Brenda Univ ersity of [place] [facility] Body weight 2020-08-21 21:51:00 71.215 kg Universi ty of [place] [facility] BMI 2020-08-21 21:51:00 27.81 kg/m2 Universi ty of [place] [facility] Systolic blood 2020-04-04 01:01:00 114 mm[Hg] Univer sity of pressure [place] [facility] Diastolic blood 2020-04-04 01:01:00 79 mm[Hg] Unive rsity of pressure [place] [facility] Heart rate 2020-04-04 01:01:00 80 /min Universi ty of [place] [facility] Respiratory rate 2020-04-04 01:01:00 18 /min Univ ersity of [facility] Oxygen saturation in 2020-04-04 01:01:00 99 /min University of Arterial blood by [facility] estrellita Pulse oximetry Branch Body temperature 2020-04-03 22:14:00 36.44 Brenda Univ ersity of [facility] Body weight 2020-04-03 22:14:00 67.132 kg Universi ty of [facility] BMI 2020-04-03 22:14:00 26.22 kg/m2 Universi ty of [facility] Systolic blood 2020-04-04 01:01:00 114 mm[Hg] Univer sity of pressure [facility] Diastolic blood 2020-04-04 01:01:00 79 mm[Hg] Unive rsity of pressure [facility] Heart rate 2020-04-04 01:01:00 80 /min Universi ty [facility] Respiratory rate 2020-04-04 01:01:00 18 /min Univ ersity of [facility] Oxygen saturation in 2020-04-04 01:01:00 99 /min University of Arterial blood by [facility] Pulse oximetry Branch Body temperature 2020-04-03 22:14:00 36.44 Brenda Univ ersity of [facility] Body weight 2020-04-03 22:14:00 67.132 kg Universi ty [facility] BMI 2020-04-03 22:14:00 26.22 kg/m2 [facility] Procedures Procedure Date / Time Performed Performing Clinician Sour e NOTICE OF PRIVACY 2021-05-04 20:29:05 Doctor Unassigned, No Univ ersity [facility] Medical Branch NOTICE OF PRIVACY 2020-08-21 21:44:50 Doctor Unassigned, No Univ ersity of [facility] CONSENT/REFUSAL FOR 2020-08-21 21:44:32 Doctor Unassigned, No [facility] AND Name Medical Branch TREATMENT XR CHEST 1 VW 2020-04-04 00:41:21 Stephanie Bennett [facility] TEST, SERUM 2020-04-03 22:56:00 Stephanie Bennett [facility] TROPONIN I 2020-04-03 22:56:00 Stephanie Bennett [facility] HEPATIC FUNCTION PANEL 2020-04-03 22:56:00 [id number] (ALB,T.PRO,BILI T,BU/BC,ALT,AST,ALK PHOS) BASIC METABOLIC PANEL 2020-04-03 22:56:00 Stephanie Bennett [facility] (NA, K, CL, CO2, Medical Branch GLUCOSE, BUN, CREATININE, CA) CBC WITH DIFF 2020-04-03 22:56:00 Bennett, [facility] D-DIMER 2020-04-03 22:56:00 Bennett, [facility] URINALYSIS 2020-04-03 22:56:00 [facility] N-TERMINAL PRO-BNP 2020-04-03 22:56:00 BennettStephanie herrera [facility] Encounters Start End Encounter Admission Attending Care Care Encounter Source Date/Time Date/Time Type Type Clinicians Facility Department ID 2021-03-04 Emergency [facility] [id number] Univers 13:55:32 ity [facility] 2021-03-03 Emergency [facility] [id number] [facility] 2021-05-04 Laboratory Only, Gal Adult Uc Test [facility] [id number] Univers 14:30:00 14:45:00 Only David Parker [facility] [id number] ity of PEDI[place] [phone] [address] 2021-05-04 2021-05-04 Outpatient R JOHN [facility] [id number] Univers 14:30:00 14:30:00 [facility] 2021-05-04 2021-05-04 Outpatient R [facility] [id number] Univers 13:30:00 13:30:00 [id number] [facility] 2021-05-04 2021-05-04 Orders Doctor JODI 1.2.840.114 [id number] Univers 00:00:00 00:00:00 Only Unassigned, TOM 350.1.13.10 ity of [place] [facility] 4.2.7.2.686 [place] [phone] [place] [address] Branch 2020-08-21 2020-08-21 Emergency [place], [facility] [id number] 16:53:00 18:31:[address] [id number] [place] 4.2.7.2.686 [place] [id number] [id number] 2020-08-21 2020-08-21 Emergency [place], [facility] [id number] Univers 16:53:00 18:31:00 Taina R Ariana 350.1.13.10 i ty of [place] 4[place]2.[place] [phone] [place] [address] Branch 2020-08-21 2020-08-21 Orders Doctor JODI 1.2.840.114 [id number] 00:00:00 00:00:00 Only Unassigned, TOM [id number] [place] [facility] 4.2.7.2.686 [phone] [id number] 2020-08-21 2020-08-21 Orders Doctor JODI 1.2.840.114 [id number] Univers 00:00:00 00:00:00 Only Unassigned, TOM 350.1.13.10 ity of [place] [facility] 4.2.7.2.686 [place] [id number] [place] [address] Branch 2020-04-03 2020-04-03 Emergency [facility], [facility] 1.2.840.114 [id number] 16:07:00 19:36:00 Stephanie Clute 350.1.13.10 [place] 4.2.7.2.[phone] [facility] 2020-04-03 2020-04-03 Emergency Bennett, [facility] [id number] Univers 16:07:00 19:36:00 Stephanie [place] 350.1.13.10 i ty [place] [phone] [address] Results Test Description Test Time Test Comments Results Result Sour e Comments Chest 1 View No acute University o f 1 cardiopulmonary [place] Med ical 00:51:13 abnormality. Branch Preliminary Report Dictated by [...] Comme nts PREG SERUM (test code = 8587789049) Negative LOLITA (test code = LOLITA) Less than 10 IU/L. ?If low titer or ectopic is suspected, resubmit specimen in 48-72 hours. [facility] [id number] 23:31:00 Test Item Value Reference Range Interpretation Comments TROPONIN I (test <0.012 See_Comment [Automated code = 9366809979) message] The system which generated this result [...] ? Lab Interpretation Normal (test code = 18873-3) [facility]ysis2020-11-30 23:30:00 Test Item Value Reference Range Interpretation Comments APPEARANCE (test code = Clear Clear 0103990326) COLOR (test code = Yellow Yellow 2248871829) PH (test code = 4.8-8.0 9295842666) SP GRAVITY (test code = 1.003-1.030 8289221225) GLU U QUAL (test code = Negative Negative 3082495603) BLOOD (test code = Negative Negative 9423141197) KETONES (test code = Negative Negative 5795283044) PROTEIN (test code = Negative Negative 2887-8) UROBILIN (test code = 0.2 mg/dL See_Comment [Auto mated message] 6167525704) The system Pazien generated this result transmit felipe reference range : 0-1.0 mg/dL. Th e reference range was not used to interpret this result as normal/abnormal . BILIRUBIN (test code = Negative Negative 1149725936) NITRITE (test code = Negative Negative 9608061148) LEUK MIKE (test code = Negative Negative 3832847997) RBC/HPF (test code = <1 See_Comment [Autom ated message] 9659344091) The system Pazien generated this result transmit felipe reference range : 0 - 3 HPF. The refe rence range was not u sed to interpret th is result as normal/abnormal . WBC/HPF (test code = See_Comment [Autom ated message] 8478811084) The system Pazien generated this result transmit felipe reference range : 0 - 5 HPF. The refe rence range was not u sed to interpret th is result as normal/abnormal . BACTERIA (test code = Negative Negative 3457699097) MUCOUS (test code = Slight Negative LPF A 0680344823) SQ EPITH (test code = HPF 3604662963) Lab Interpretation (test Abnormal code = 02378-8) [facility] [id number] 23:28:00 Test Item Value Reference Range Interpretation Comments NT-proBNP (test code 28 pg/mL See_Comment [Autom ated = 2486227839) message] The system which generated this result transmitted reference range : <=125. The reference range was not used to interpret this result as normal/abnormal . LOLITA (test code = LOLITA) Biotin has been reported to cause a negative bias, interpret results relative to patient's use of biotin. Lab Interpretation Normal (test code = 48636-8) [facility][id number] 23:26:00 Test Item Value Reference Interpretation Comments Range D-DIMER (test code = <0.27 See_Comment [Autom ated 0829901839) message] The system which generated this result [...] diagnosis. Lab Interpretation Normal (test code = 37360-3) [facility] (NA, K, CL, CO2, GLUCOSE, BUN, CREATININE, CA)2020-04-03 23:20:00 Test Item Value Reference Range Interpretation Comments NA (test code = 139 mmol/L 135-145 7840545503) K (test code = 3.9 mmol/L 3.5-5 3557709516) CL (test code = 103 mmol/L 98-108 2860638262) CO2 TOTAL (test code = 28 mmol/L 23-31 1127146485) AGAP (test code = 2-16 4092596158) BUN (test code = 12 mg/dL 7-23 8703207862) GLUCOSE (test code = 109 mg/dL 70-110 2882064656) CREATININE (test code 0.64 mg/dL 0.5-1.04 = 1656790233) CALCIUM (test code = 9.3 mg/dL 8.6-10.6 6818994033) eGFR Calculation mL/min/1.73m2 (Non-) (test code = 9505315847) eGFR Calculation mL/min/1.73m2 () (test code = 5030061728) LOLITA (test code = LOLITA) Association of [...] or urine or abnormalities in imaging tests). [facility] (ALB, T.PRO, BILI T, BU/BC, ALT, AST, ALK PHOS)2020-04-03 23:19:00 Test Item Value Reference Range Interpretation Comments TOTAL BILI (test code = 4931420275) 0.7 mg/dL 0.1-1.1 BILI UNCON (test code = 4307581839) 0.7 mg/dL 0.1-1.1 BILI CONJ (test code = 9625411303) 0.0 mg/dL 0-0.3 T PROTEIN (test code = 8825188756) 7.7 g/dL 6.3-8.2 ALBUMIN (test code = 4558883627) 4.5 g/dL 3.5-5 ALK PHOS (test code = 6671282384) 67 U/L 34-122 ALTv (test code = 1742-6) 18 U/L 5-35 AST(SGOT) (test code = 7253808047) 21 U/L 13-40 Lab Interpretation (test code = Normal 68282-2) [facility] with [id number] 23:15:00 Test Item Value Reference Range Interpretation Comments WBC (test code = See_Comment [Automated 1490-2) message] The sy stem which generated this result transmitted reference range : 4.30 - 11.10 10*3/?L. The reference range was not used to interpret this result as normal/abnormal . RBC (test code = See_Comment [Automated 024-8) message] The sy stem which generated this [...] RDW-SD (test code = 40.0 fL 39-49.9 21869-3) RDW-CV (test code = 14.6 % 12-15.5 788-0) PLT (test code = See_Comment [Automated 777-3) message] The sy stem which generated this result transmitted reference range : 166 - 358 10*3/ ?L. The reference r nini was not used to interpret this result as normal/abnormal . MPV (test code = 10.9 fL 9.5-12.9 88902-6) NRBC/100 WBC (test See_Comment [Automat ed code = 0368051438) message] The system which generated this result transmitted reference range : 0.0 - 10.0 /100 WBCs. The refer ence range was not u sed to interpret th is result as normal/abnormal . NRBC x10^3 (test code <0.01 See_Comment [Auto mated = 3391278672) message] The s ystem which generated this result transmitted reference range : 10*3/?L. The reference range was not used to interpret this result as normal/abnormal . GRAN MAT (NEUT) % 58.2 % (test code = 770-8) IMM GRAN % (test code 0.40 % = 3312818562) LYMPH % (test code = 33.4 % 736-9) MONO % (test code = 6.3 % 5905-5) EOS % (test code = 1.3 % 713-8) BASO % (test code = 0.4 % 706-2) GRAN MAT x10^3(ANC) 4.82 10*3/uL 1.88-7.09 (test code = 6713760831) IMM GRAN x10^3 (test 0.03 10*3/uL 0-0.06 code = 9005989705) LYMPH x10^3 (test code 2.76 10*3/uL 1.32-3.29 = 731-0) MONO x10^3 (test code 0.52 10*3/uL 0.33-0.92 = 742-7) EOS x10^3 (test code = 0.11 10*3/uL 0.03-0.39 711-2) BASO x10^3 (test code 0.03 10*3/uL 0.01-0.07 = 704-7) Lab Interpretation Abnormal (test code = 10972-2) [facility]
[2021-06-04] MEDS ORDERED: KETOROLAC 30 MG/ML INJ ONE (18:00)
[2021-06-04] MEDS ORDERED: ONDANSETRON 4 MG/2 ML VIAL ONE (18:00)
[2021-06-04] MEDS ORDERED: NA CHLORIDE 0.9% 1,000 ML ONE (18:00)
[2021-06-04 18:05] LABS: Urine Blood 2+ (Negative); Urine Glucose Negative (Negative); Urine Protein 1+ (Negative); Urine pH 5.5 (5.0-7.0)
[2021-06-04] MEDS ORDERED: PIPERACIL/TAZO 3.375 GM VIAL IV ONE (18:18)
[2021-06-04] MEDS ORDERED: NA CHLORIDE 0.9% 100 ML ONE (18:18)
[2021-06-04 18:19] LABS: Absolute Lymphocytes (CBC) 2.5 K/uL (0.7-4.9); Hematocrit 40.1 % (36.0-45.0); Lymphocytes % 22.8 % (15.3-44.8); MPV 8.5 fL (7.6-11.3); RBC Red Blood Cell Count 4.88 M/uL (3.86-4.86)
[2021-06-04 18:29] LABS: Urine Bacteria <20 /HPF (<20)
[2021-06-04 18:37] LABS: Albumin 3.7 g/dL (3.4-5.0); Bilirubin Direct 0.3 mg/dL (0-0.2); Bilirubin Total 1.1 mg/dL (0.2-1.0); Potassium 3.5 mmol/L (3.5-5.1); Protein, Total 8.3 g/dL (6.4-8.2)
--- NOTE | 2021-06-04 19:05 | RAD REPORT ---
EXAM DESCRIPTION: US - Renal Ultrasound-Complete - 06/04/2021 7:00 pm CLINICAL HISTORY: flank pain COMPARISON: [place] Protocol dated 06/02/2021 FINDINGS: Both kidneys are normal in size, shape and echotexture. The right kidney measures 11.3 cm. No hydronephrosis, focal mass or perinephric fluid. The left kidney measures 11.2 cm. No hydronephrosis, focal mass or perinephric fluid. IMPRESSION: Unremarkable renal sonogram. No hydronephrosis.
--- NOTE | 2021-06-04 19:44 | ER ---
Nurse's Notes [facility] Name: Bree Farnsworth Age: 30 yrs Sex: Female : 1990 Arrival Date: 06/04/2021 Time: 17:11 Bed 10 Private MD: Diagnosis: Pyelonephritis acute Presentation: 06/04 17:34 Chief complaint: Patient states: uti with worsening s/s. seen 3 days ago and given meds [facility] but states pain to back and lower abd is worse. Coronavirus screen: Vaccine status: Patient reports receiving the 2nd dose of the covid vaccine. Ebola Screen: Patient denies exposure to infectious person. Patient denies travel to an Ebola-affected area in the 21 days before illness onset. Initial Sepsis Screen: Does the patient meet any 2 criteria? No. Patient's initial sepsis screen is negative. Does the patient have a suspected source of infection? No. Patient's initial sepsis screen is negative. Risk Assessment: Do you want to hurt yourself or someone else? Patient reports no desire to harm self or others. Onset of symptoms was June 01, 2021. 17:34 Method Of Arrival: Ambulatory [facility] 17:34 Acuity: CLAUDIA 3 [facility] Triage Assessment: 17:37 General: Appears uncomfortable, well groomed, well developed, well nourished, Behavior [facility] is calm, cooperative. Pain: Denies pain. Complains of pain in left mid back and right mid back Pain radiates to right lower quadrant and left lower quadrant Pain currently is 9 out of 10 on a pain scale. Quality of pain is described as aching, sharp. Musculoskeletal: No deficits noted. Historical: - Allergies: 17:36 No Known Allergies; [facility] - PMHx: 17:36 None; [facility] - Immunization history:: Adult Immunizations up to date, Client reports receiving the 2nd dose of the Covid vaccine. - Social history:: Smoking status: Patient denies any tobacco usage or history of. Screenin:59 Abuse screen: Denies threats or abuse. Denies injuries from another. Nutritional ld1 screening: No deficits noted. Tuberculosis screening: No symptoms or risk factors identified. Fall Risk None identified. Vital Signs: 17:34 BP 132 / 67; Pulse 81; Resp 17; Temp 98.2(O); Pulse Ox 100% ; Weight 66.68 kg; Height 5 [facility] ft. 3 in. (160.02 cm); 17:34 Body Mass Index 26.04 (66.68 kg, 160.02 cm) [facility] ED Course: 17:11 Patient arrived in ED. as 17:36 Triage completed. [facility] 17:43 Jonny Martins PA is PHCP. cp 17:43 Mingo Bullard MD is Attending Physician. cp 18:04 Urine Microscopic Only Sent. ld1 18:31 Brooke Márquez, CORY is Primary Nurse. ld1 18:31 Blood Culture Adult (2) Sent. ld1 18:31 Lactate Sent. ld1 18:31 Procalcitonin Sent. ld1 18:31 Urine Culture Sent. ld1 19:00 US Rp Exam Complete In Process Unspecified. EDMS 19:59 No provider procedures requiring assistance completed. IV discontinued, intact, ld1 bleeding controlled, No redness/swelling at site. 19:59 Arm band placed on left wrist. ld1 Administered Medications: 18:09 Drug: NS 0.9% 1000 ml Route: IV; Rate: 1 bolus; Site: left antecubital; ld1 18:10 Drug: Zofran (Ondansetron) 4 mg Route: IVP; Site: left antecubital; ld1 18:10 Follow up: Response: No adverse reaction ld1 18:10 Drug: Ketorolac 15 mg Route: IVP; Site: left antecubital; ld1 18:10 Follow up: Response: No adverse reaction ld1 18:31 Drug: Zosyn (piperacillin-tazobactam) 3.375 grams Route: IVPB; Infused Over: 60 mins; ld1 Site: left antecubital; Outcome: 19:44 Discharge ordered by . cp 20:00 Discharged to home ambulatory. ld1 20:00 Condition: stable 20:00 Discharge instructions given to patient, Instructed on discharge instructions, follow up and referral plans. medication usage, Demonstrated understanding of instructions, follow-up care, medications, Prescriptions given X 3. 20:00 Patient left the ED. ld1 Signatures: Dispatcher [employer] EDMS Barbara Clay as Jonny Martins PA PA cp Dibbern, Lauren, CORY RAY ld1 Claudia Cole RN RN [facility] Corrections: (The following items were deleted from the chart) 20:00 20:00 PSHx: Cholecystectomy; ld1 ld1
--- NOTE | 2021-06-04 19:45 | EDPHYS ---
Physician Documentation [facility] Name: Bree Farnsworth Age: 30 yrs Sex: Female : 1990 Arrival Date: 06/04/2021 Time: 17:11 Bed 10 Private MD: ED Physician Mingo Bullard HPI: 06/04 18:00 This 30 yrs old Female presents to ER via Ambulatory with complaints of Back Pain, cp Urinary Problem. 18:00 Patient returns to the emergency department with complaints of increasing right lower cp back pain and right flank pain. Patient reports she was seen 2 days ago in the emergency department and prescribed an antibiotic for UTI. Patient reports she was told she had a stone in her kidney. Patient complains of low-grade fever, nausea and vomiting. Review of the records show that patient had a CT stone protocol that showed a right kidney stone but negative ureter stone. Patient was discharged on oral Macrobid.. Historical: - Allergies: 17:36 No Known Allergies; [facility] - PMHx: 17:36 None; [facility] - Immunization history:: Adult Immunizations up to date, Client reports receiving the 2nd dose of the Covid vaccine. - Social history:: Smoking status: Patient denies any tobacco usage or history of. ROS: 18:05 Constitutional: Negative for fever, poor PO intake. cp 18:05 Eyes: Negative for injury, pain, redness, and discharge. cp 18:05 Cardiovascular: Negative for chest pain, palpitations. 18:05 Respiratory: Negative for cough, shortness of breath, wheezing. 18:05 Abdomen/GI: Positive for nausea and vomiting. 18:05 Back: Positive for flank pain, on the right. 18:05 : Positive for urinary symptoms. 18:05 Neuro: Positive for headache, Negative for altered mental status, weakness. 18:05 All other systems are negative. Exam: 18:15 Constitutional: The patient appears in no acute distress, alert, awake, non-toxic, well cp developed, well nourished, uncomfortable. 18:15 Head/Face: Normocephalic, atraumatic. cp 18:15 Eyes: Periorbital structures: appear normal, Conjunctiva: normal, no exudate, no injection, Sclera: no appreciated abnormality, Lids and lashes: appear normal, bilaterally. 18:15 ENT: External ear(s): are unremarkable, Nose: is normal, Mouth: is normal, Posterior pharynx: Airway: no evidence of obstruction, patent. 18:15 Neck: ROM/movement: is normal, is supple, no meningismus, no nuchal rigidity. 18:15 Chest/axilla: Inspection: normal. 18:15 Cardiovascular: Rate: normal, Rhythm: regular. 18:15 Respiratory: the patient does not display signs of respiratory distress, Respirations: normal, no use of accessory muscles, no retractions, labored breathing, is not present, Breath sounds: are clear throughout, no decreased breath sounds, no stridor, no wheezing. 18:15 Abdomen/GI: Inspection: abdomen appears normal, Bowel sounds: active, all quadrants, Palpation: soft, in all quadrants, moderate abdominal tenderness, in the posterior aspect of right lateral abdomen and anterior aspect of right lateral abdomen, rebound tenderness, is not appreciated, involuntary guarding, is not appreciated. 18:15 Neuro: Orientation: is normal, Mentation: is normal, Motor: moves all fours, strength is normal, Gait: is steady, at a normal pace, without difficulty. Vital Signs: 17:34 BP 132 / 67; Pulse 81; Resp 17; Temp 98.2(O); Pulse Ox 100% ; Weight 66.68 kg; Height 5 jh6 ft. 3 in. (160.02 cm); 17:34 Body Mass Index 26.04 (66.68 kg, 160.02 cm) jh6 MDM: 17:45 Patient medically screened. cp 18:05 Differential diagnosis: Pyelonephritis ureteral stone, sepsis, dehydration. cp 19:44 Data reviewed: vital signs, nurses notes, lab test result(s), radiologic studies, cp ultrasound. 19:44 Counseling: I had a detailed discussion with the patient and/or guardian regarding: the cp historical points, exam findings, and any diagnostic results supporting the discharge/admit diagnosis, lab results, radiology results, to return to the emergency department if symptoms worsen or persist or if there are any questions or concerns that arise at home. Response to treatment: the patient's symptoms have markedly improved after treatment. ED course: VSS. Pain and nausea improved with meds. Will discharge to home for continued monitoring. Will start patient on oral Bactrim. 06/04 17:55 Order name: Urine Microscopic Only; Complete Time: 19:33 cp 06/04 19:33 Interpretation: Normal except: UWBC 5-10; URBC 5-10. cp 06/04 17:55 Order name: Basic Metabolic Panel; Complete Time: 19:33 cp 06/04 19:33 Interpretation: Normal except: GFR 74. cp 06/04 17:55 Order name: CBC with Diff; Complete Time: 19:33 cp 06/04 19:33 Interpretation: Normal except: WBC 11.00; RBC 4.88; MCV 82.2. cp 06/04 17:55 Order name: Hepatic Function; Complete Time: 19:33 cp 06/04 19:34 Interpretation: Normal except: AST 11; BILIT 1.1; BILID 0.3; TP 8.3; GLOB 4.6; A/G 0.8. cp 06/04 17:55 Order name: Lipase; Complete Time: 19:33 cp 06/04 18:04 Order name: Urine --Ancillary (enter results); Complete Time: 19:33 06/04 18:04 Order name: Urine Dipstick-Ancillary; Complete Time: 18:07 [facility] 06/04 18:07 Interpretation: Normal except: UBLD 2+; UPROT 1+; UESTR 1+. cp 06/04 18:07 Order name: US Rp Exam Complete; Complete Time: 19:33 06/04 18:10 Order name: Procalcitonin; Complete Time: 19:33 cp 06/04 18:10 Order name: Lactate; Complete Time: 19:33 cp 06/04 18:10 Order name: Blood Culture Adult (2) 06/04 18:30 Order name: Urine Culture [facility] 06/04 17:55 Order name: Urine Test (obtain specimen); Complete Time: 18:04 cp 06/04 17:55 Order name: Urine Dipstick-Ancillary (obtain specimen); Complete Time: 18:04 cp 06/04 17:55 Order name: IV Saline Lock; Complete Time: 18:09 06/04 17:55 Order name: Labs collected and sent; Complete Time: 18:09 cp 06/04 19:38 Order name: PO challenge; Complete Time: 19:39 cp Administered Medications: 18:09 Drug: NS 0.9% 1000 ml Route: IV; Rate: 1 bolus; Site: left antecubital; ld1 18:10 Drug: Zofran (Ondansetron) 4 mg Route: IVP; Site: left antecubital; ld1 18:10 Follow up: Response: No adverse reaction ld1 18:10 Drug: Ketorolac 15 mg Route: IVP; Site: left antecubital; ld1 18:10 Follow up: Response: No adverse reaction ld1 18:31 Drug: Zosyn (piperacillin-tazobactam) 3.375 grams Route: IVPB; Infused Over: 60 mins; ld1 Site: left antecubital; Disposition: 06/05 18:22 Co-signature as Attending Physician, Mingo Bullard MD I agree with the assessment and rn plan of care. Attestation: The patient's history, exam findings, diagnostics, and a summary of any interventions or procedures was reviewed in detail with Jonny PAULINO. Disposition Summary: 06/04/21 19:44 Discharge Ordered Location: Home cp Problem: an ongoing problem cp Symptoms: have improved cp Condition: Stable cp Diagnosis - Pyelonephritis acute cp Followup: cp - With: Private Physician - When: 2 - 3 days - Reason: Worsening of condition Discharge Instructions: - Discharge Summary Sheet cp - Pyelonephritis, Adult cp Forms: - Medication Reconciliation Form cp - Thank You Letter cp - Antibiotic Education cp - Prescription Opioid Use cp Prescriptions: - Ibuprofen 800 mg Oral Tablet - take 1 tablet by ORAL route every 8 hours As needed take with food; 30 tablet; cp Refills: 0, Product Selection Permitted - Zofran 4 mg Oral Tablet - take 1 tablet by ORAL route every 12 hours As needed; 20 tablet; Refills: 0, cp Product Selection Permitted - Bactrim DS 800-160 mg Oral Tablet - take 1 tablet by ORAL route every 12 hours for 10 days; 20 tablet; Refills: 0, cp Product Selection Permitted Signatures: Dispatcher [employer] EDMingo Grey MD MD rn Page, Corey, PA PA cp Brooke Márquez RN RN ld1 Claudia Cole RN RN jh6 Corrections: (The following items were deleted from the chart) 06/04 20:00 20:00 PSHx: Cholecystectomy; ld1 ld1
[2021-06-04 20:12] VITALS: BP 132/67; TEMP 98.2; O2SAT 100
== END 2021-06-04 20:00 | disposition home or self-care (01) ==
LOC: ER 17:08
DX: N10 Acute pyelonephritis (principal)
CPT/HCPCS: 87040 ×2; 87088; 85025; 87086; 80048; 36415; 81025; 80076; 83605; 83690; 84145; 76770; J2543; J7030; J2405; 81003; 81015; 96374; 96375; 99284

== ENCOUNTER 2021-09-07 21:30 | Emergency (ER) | payer OTHER ==
--- OUTSIDE RECORDS SUMMARY | 2021-09-07 21:35 | XMS REPORT | Continuity of Care Document ---
:1990 Author Organization [facility] t Address [facility] [place] [address] Care Team Providers Name Role Phone Nancy SALAZAR Primary Care Physician Unavailable Only, Adult [facility]c Test Attending Clinician Unavailable Eduard Hickman Attending Clinician Eduard PARKER Attending Clinician Unavailable Doctor Unassigned, Name Attending Clinician Unavailable Latosha Silva Attending Clinician Donald IGNACIO Attending Clinician Payers Payer Name Policy Type Policy Number Effective Date Expiration Date [facility] [id number] 2017 [facility] MEDICAID 00:00:00 Problems Condition Condition Condition Status Onset Resolution Last Treating Co mments Source Name Details Category Date Date Treatment Clinician Date Multigravi Multigravi Disease Active N PI:183 da, da, 3-16 [id number] antepartum antepartum 00:00: 00 Obesity in Obesity in Disease Active N PI:183 , , 3-16 13 83088 antepartum antepartum 00:00: 00 High risk High risk Disease Active NPI :183 , , 3-16 13 07981 antepartum antepartum 00:00: 00 Allergies, Adverse Reactions, Alerts Allergy Allergy Status Severity Reaction(s) Onset Inactive Treating Comm ents Source Name Type Date Date Clinician NO KNOWN Drug Active NPI:183 ALLERGIE Class [id number] S Social History Social Habit Start Date Stop Date Quantity Comments Source Exposure to Not sure NPI:[id number] SARS-CoV-2 (event) Alcohol intake 2020-08-21 2020-08-21 Current NPI:[id number] 00:00:00 00:00:00 non-drinker of alcohol (finding) Tobacco use and 2017-07-18 2017-07-18 Never used NPI:[id number] exposure 00:00:00 00:00:00 Sex [birth year] NPI:[id number] 00:00:00 00:00:00 Smoking Status Start Date Stop Date Source Never smoker Medications Ordered Filled Start Stop Current Ordering Indication Dosage Frequency Signature Comments Components Source Medication Medication Date Date Medication? Clinician (SIG) Name Name diphenhydrA No 50mg 50 mg, NPI :183 MINE 08-21 Intramuscu [id number] (BENADRYL) 23:30: 22:28 lar, ONCE, injection 00 :00 1 dose, 50 mg Fri08/21/20 at 1830, STAT albuterol 2019-05 2020- No 2{puff} 2 Puff, N PI:183 (VENTOLIN) 06-05 Inhalation 13 89019 inhaler 2 00:45: 23:41 , ONCE, 1 Puff 00 :00 dose, Fri04/03/20 at 1845, DEB
Is this order for a patient with suspected or confirmed COVID-19 infection? Yes ketorolac 2019-05- No 30mg 30 mg, NPI:1 83 (TORADOL) 06-05 Slow IV [id number] 1 injection 00:30: 23:31 Push, 30 mg 00 :00 ONCE, 1 dose, 04/03/20 at 1830, DEB
Fa culty member approving Restricted medication : EMERGENCY ROOM, aspirin 2019-05- No 325mg 325 mg, NPI:1 83 tablet 325 06-03 Oral, [id number] mg 22:30: 23:09 ONCE, 1 00 :00 dose, 04/03/20 at 1630, STAT albuterol 2019-05 Yes [id number] 2{puff} Inhale 2 NPI:183 90 1-30 Puffs 3201011 mcg/actuati 00:00: every 4 on inhaler 00 (four) hours as needed for Wheezing or Shortness of Breath. benzonatate 2019-05 Yes [id number] 100mg Take 1 NPI:183 100 mg 1-30 capsule by [id number] capsule 00:00: mouth 3 00 (three) times daily as needed for Cough. acetaminoph 2019-05 Yes 4647 1{tbl} Take 1 [employer] I:183 en-codeine 1-30 tablet by 1318 781 300-30 mg 00:00: mouth tablet 00 every 6 (six) hours as needed for Pain (scale 1-3). Indication s: acute pain albuterol 2019-05 Yes [id number] 2{puff} Inhale 2 NPI:183 90 1-30 Puffs [id number] mcg/actuati 00:00: every 4 on inhaler 00 (four) hours as needed for Wheezing or Shortness of Breath. benzonatate 2019-05 Yes [id number] 100mg Take 1 NPI:183 100 mg 1-30 capsule by [id number] capsule 00:00: mouth 3 00 (three) times daily as needed for Cough. acetaminoph 2019-05 Yes 4647 1{tbl} Take 1 [employer] I:183 en-codeine 1-30 tablet by 1318 781 300-30 mg 00:00: mouth tablet 00 every 6 (six) hours as needed for Pain (scale 1-3). Indication s: acute pain albuterol 2019-05 Yes [id number] 2{puff} Inhale 2 NPI:183 90 1-30 Puffs [id number] mcg/actuati 00:00: every 4 on inhaler 00 (four) hours as needed for Wheezing or Shortness of Breath. benzonatate 2019-05 Yes [id number] 100mg Take 1 NPI:183 100 mg 1-30 capsule by [id number] capsule 00:00: mouth 3 00 (three) times daily as needed for Cough. acetaminoph 2019-05 Yes 4647 1{tbl} Take 1 [employer] I:183 en-codeine 1-30 tablet by 1318 781 300-30 mg 00:00: mouth tablet 00 every 6 (six) hours as needed for Pain (scale 1-3). Indication s: acute pain albuterol 2019-05 Yes [id number] 2{puff} Inhale 2 NPI:183 90 1-30 Puffs [id number] mcg/actuati 00:00: every 4 on inhaler 00 (four) hours as needed for Wheezing or Shortness of Breath. benzonatate 2019-05 Yes [id number] 100mg Take 1 NPI:183 100 mg 1-30 capsule by [id number] capsule 00:00: mouth 3 00 (three) times daily as needed for Cough. acetaminoph 2019-05 Yes 4647 1{tbl} Take 1 [employer] I:183 en-codeine 1-30 tablet by 1318 781 300-30 mg 00:00: mouth tablet 00 every 6 (six) hours as needed for Pain (scale 1-3). Indication s: acute pain albuterol 2019-05 Yes [id number] 2{puff} Inhale 2 NPI:183 90 1-30 Puffs [id number] mcg/actuati 00:00: every 4 on inhaler 00 (four) hours as needed for Wheezing or Shortness of Breath. benzonatate 2019-05 Yes [id number] 100mg Take 1 NPI:183 100 mg 1-30 capsule by [id number] capsule 00:00: mouth 3 00 (three) times daily as needed for Cough. acetaminoph 2019-05 Yes 4647 1{tbl} Take 1 [employer] I:183 en-codeine 1-30 tablet by 1318 781 300-30 mg 00:00: mouth tablet 00 every 6 (six) hours as needed for Pain (scale 1-3). Indication s: acute pain albuterol 2019-05 2020- No [id number] 2{puff} Inhale 2 NPI:183 90 1-30 11-30 Puffs [id number] mcg/actuati 00:00: 00:00 every 4 on inhaler 00 :00 (four) hours as needed for Wheezing or Shortness of Breath. acetaminoph 2019-05 2020- No 4647 1{tbl} Take 1 N PI:183 en-codeine 1-30 11-30 tablet by 131 8781 300-30 mg 00:00: 00:00 mouth tablet 00 :00 every 6 (six) hours as needed for Pain (scale 1-3) for up to 7 days. Indication s: acute pain albuterol 2019-05 2020- No [id number] 2{puff} Inhale 2 NPI:183 90 1-30 11-30 Puffs [id number] mcg/actuati 00:00: 00:00 every 4 on inhaler 00 :00 (four) hours as needed for Wheezing or Shortness of Breath. albuterol 2019-05- No [id number] 2{puff} Inhale 2 NPI:183 90 1-30 11-30 Puffs [id number] mcg/actuati 00:00: 00:00 every 4 on inhaler 00 :00 (four) hours as needed for Wheezing or Shortness of Breath. albuterol 2019-05- No [id number] 2{puff} Inhale 2 NPI:183 90 1-30 11-30 Puffs [id number] mcg/actuati 00:00: 00:00 every 4 on inhaler 00 :00 (four) hours as needed for Wheezing or Shortness of Breath. predniSONE Yes Take one NPI :183 20 mg 9-24 tablet by [id number] tablet 00:00: mouth 00 daily till all gone butalbital- 2018-0 Yes 1{tbl} Take 1 [employer] I:183 acetaminoph 9-24 tablet by 131 8781 en-caff 00:00: mouth 50-325-40 00 every 6 mg tablet (six) hours as needed for Headache (Headache) . predniSONE 2017- Yes Take one NPI :183 20 mg 9-24 tablet by [id number] tablet 00:00: mouth 00 daily till all gone butalbital- 2018-0 Yes 1{tbl} Take 1 [employer] I:183 acetaminoph 9-24 tablet by 131 8781 en-caff 00:00: mouth 50-325-40 00 every 6 mg tablet (six) hours as needed for Headache (Headache) . predniSONE 2017-0 Yes Take one NPI :183 20 mg 9-24 tablet by [id number] tablet 00:00: mouth 00 daily till all gone butalbital- 2018-0 Yes 1{tbl} Take 1 [employer] I:183 acetaminoph 9-24 tablet by 131 8781 en-caff 00:00: mouth 50-325-40 00 every 6 mg tablet (six) hours as needed for Headache (Headache) . predniSONE 2017-0 Yes Take one NPI :183 20 mg 9-24 tablet by [id number] tablet 00:00: mouth 00 daily till all gone butalbital- 2018-0 Yes 1{tbl} Take 1 [employer] I:183 acetaminoph 9-24 tablet by 131 8781 en-caff 00:00: mouth 50-325-40 00 every 6 mg tablet (six) hours as needed for Headache (Headache) . predniSONE Yes Take one NPI :183 20 mg 9-24 tablet by [id number] tablet 00:00: mouth 00 daily till all gone butalbital- Yes 1{tbl} Take 1 [employer] I:183 acetaminoph 9-24 tablet by 131 8781 en-caff 00:00: mouth 50-325-40 00 every 6 mg tablet (six) hours as needed for Headache (Headache) . Yes [id number] 1{packe Take 1 NPI:183 vit 4-20 t} Packet by [id number] 33-iron-fol 00:00: mouth ic-dha 00 daily. (SELECT-OB + DHA) 29 mg iron-1 mg -250 mg combo pack Yes [id number] 1{packe Take 1 NPI:183 vit 4-20 t} Packet by [id number] 33-iron-fol 00:00: mouth ic-dha 00 daily. (SELECT-OB + DHA) 29 mg iron-1 mg -250 mg combo pack Yes [id number] 1{packe Take 1 NPI:183 vit 4-20 t} Packet by [id number] 33-iron-fol 00:00: mouth ic-dha 00 daily. (SELECT-OB + DHA) 29 mg iron-1 mg -250 mg combo pack Yes [id number] 1{packe Take 1 NPI:183 vit 4-20 t} Packet by [id number] 33-iron-fol 00:00: mouth ic-dha 00 daily. (SELECT-OB + DHA) 29 mg iron-1 mg -250 mg combo pack Yes [id number] 1{packe Take 1 NPI:183 vit 4-20 t} Packet by [id number] 33-iron-fol 00:00: mouth ic-dha 00 daily. (SELECT-OB + DHA) 29 mg iron-1 mg -250 mg combo pack Vital Signs Vital Name Observation Time Observation Value Comments Source Systolic blood pressure 2020-08-21 23:25:00 128 mm[Hg] Diastolic blood 2020-08-21 23:25:00 80 mm[Hg] NPI:1 [id number] pressure Heart rate 2020-08-21 23:25:00 88 /min NPI:1831 [id number] Respiratory rate 2020-08-21 23:25:00 18 /min Oxygen saturation in 2020-08-21 23:25:00 100 /min Arterial blood by Pulse oximetry Body temperature 2020-08-21 21:51:00 36.61 Brenda Body weight 2020-08-21 21:51:00 71.215 kg NPI:1831 [id number] BMI 2020-08-21 21:51:00 27.81 kg/m2 NPI:1831 [id number] Systolic blood pressure 2020-08-21 23:25:00 128 mm[Hg] Diastolic blood 2020-08-21 23:25:00 80 mm[Hg] NPI:1 [id number] pressure Heart rate 2020-08-21 23:25:00 88 /min NPI:1831 527679 Respiratory rate 2020-08-21 23:25:00 18 /min Oxygen saturation in 2020-08-21 23:25:00 100 /min Arterial blood by Pulse oximetry Body temperature 2020-08-21 21:51:00 36.61 Brenda Body weight 2020-08-21 21:51:00 71.215 kg NPI:1831 237342 BMI 2020-08-21 21:51:00 27.81 kg/m2 NPI:1831 480022 Systolic blood pressure 2020-04-04 01:01:00 114 mm[Hg] Diastolic blood 2020-04-04 01:01:00 79 mm[Hg] NPI:1 [id number] pressure Heart rate 2020-04-04 01:01:00 80 /min NPI:1831 [id number] Respiratory rate 2020-04-04 01:01:00 18 /min Oxygen saturation in 2020-04-04 01:01:00 99 /min Arterial blood by Pulse oximetry Body temperature 2020-04-03 22:14:00 36.44 Brenda Body weight 2020-04-03 22:14:00 67.132 kg NPI:1831 [id number] BMI 2020-04-03 22:14:00 26.22 kg/m2 NPI:1831 [id number] Systolic blood pressure 2020-04-04 01:01:00 114 mm[Hg] Diastolic blood 2020-04-04 01:01:00 79 mm[Hg] NPI:1 [id number] pressure Heart rate 2020-04-04 01:01:00 80 /min NPI:1831 604105 Respiratory rate 2020-04-04 01:01:00 18 /min Oxygen saturation in 2020-04-04 01:01:00 99 /min Arterial blood by Pulse oximetry Body temperature 2020-04-03 22:14:00 36.44 Brenda Body weight 2020-04-03 22:14:00 67.132 kg NPI:1831 [id number] BMI 2020-04-03 22:14:00 26.22 kg/m2 NPI:1831 [id number] Procedures Procedure Date / Time Performed Performing Clinician [facility] marisol NOTICE OF PRIVACY 2021-05-04 20:29:05 Doctor Unassigned, No PRACTICES Name NOTICE OF PRIVACY 2020-08-21 21:44:50 Doctor Unassigned, No PRACTICES Name CONSENT/REFUSAL FOR 2020-08-21 21:44:32 Doctor Unassigned, No [employer] I:[id number] DIAGNOSIS AND TREATMENT Name XR CHEST 1 VW 2020-04-04 00:41:21 Stephanie Bennett NPI:[id number] TEST, SERUM 2020-04-03 22:56:00 Stephanie Bennett NPI:1 [id number] TROPONIN I 2020-04-03 22:56:00 Stephanie Bennett NPI:[id number] HEPATIC FUNCTION PANEL 2020-04-03 22:56:00 Stephanie Bennett ([id number]) (ALB,T.PRO,BILI T,BU/BC,ALT,AST,ALK PHOS) BASIC METABOLIC PANEL 2020-04-03 22:56:00 Stephanie Bennett NPI:1 [id number] (NA, K, CL, CO2, GLUCOSE, BUN, CREATININE, CA) CBC WITH DIFF 2020-04-03 22:56:00 Stephanie Bennett NPI:[id number] 781 D-DIMER 2020-04-03 22:56:00 Stephanie Bennett NPI:[id number] 781 URINALYSIS 2020-04-03 22:56:00 Stephanie Bennett NPI:[id number] 781 N-TERMINAL PRO-BNP 2020-04-03 22:56:00 Stephanie Bennett NPI:1831 [id number] Encounters Start End Encounter Admission Attending Care Care Encounter Source Date/Time Date/Time Type Type Clinicians Facility Department ID 2021-03-04 Emergency [facility] [id number] NPI:183 13:55:32 [id number] 8330-10-30 Emergency [facility] [id number] NPI:183 08:18:11 [id number] 4846-12-31 2021-05-04 Laboratory Only, Gal Adult Uc Test [facility] 1.2.840.114 [id number] NPI:183 14:30:00 14:45:00 Only David Parker 350.1.13.10 [id number] PEDIATRIC 4.2.7.2.686 [place] [id number] 2021-05-04 2021-05-04 Outpatient R [facility] [id number] NPI:183 14:30:00 14:30:00 DAVID [id number] 1 2021-05-04 2021-05-04 Outpatient R [facility] [id number] NPI:183 13:30:00 13:30:00 Critical access hospital [id number] 2021-05-04 2021-05-04 Orders Doctor JODI 1.2.840.114 [id number] NPI:183 00:00:00 00:00:00 Only Unassigned, TOM 350.1.13.10 [id number] [place] [facility] 4.2.7.2.686 [id number] 2020-08-21 2020-08-21 Emergency [facility] [id number] 16:53:00 18:31:00 Taina Latosha Ariana 350.1.13.10 [place] 4.2.7.2.686 [place] [address] [id number] 2020-08-21 2020-08-21 Emergency [facility] [id number] NPI:183 16:53:00 18:31:00 Taina R Ariana 350.1.13.10 1 [id number] [place] 4.2.7.2.686 [place] [address] [id number] 2020-08-21 2020-08-21 Orders Doctor JODI 1.2.840.114 [id number] 00:00:00 00:00:00 Only Unassigned, TOM 350.1.13.10 [place] [address] [id number] 2020-08-21 2020-08-21 Orders Doctor JODI 1.2.840.114 [id number] NPI:183 00:00:00 00:00:00 Only Unassigned, TOM 350.1.13.10 [id number] [place] [address] [id number] 2020-04-03 2020-04-03 [facility] 1.2.840.114 [id number] 16:07:00 19:36:00 Stephanie Ariana 350.1.13.10 [place] 4.2.7.2.686 [place] [address] [id number] 2020-04-03 2020-04-03 [facility] 1.2.840.114 [id number] NPI:183 16:07:00 19:36:00 Stephanie Garcíaton 350.1.13.10 1 [id number] [place] 4.2.7.2.686 [place] [address] [id number] Results Test Description Test Time Test Comments Results Result [facility] e Comments Chest 1 View No acute NPI:[id number] 1 cardiopulmonary 781 00:51:13 abnormality. Preliminary Report Dictated by Resident: Ambrose Cevallos ?MD Wilner., have reviewed this study and agree with [...] NoneTECHNIQUE: AP radiograph of the chest was performed.FINDINGS:The lungs are clear. No focal consolidation, pneumothorax or pleuraleffusion is seen.The cardiomediastinal silhouette is normal.No acute osseous abnormality.IMPRESSION No acute cardiopulmonary abnormality. Preliminary Report Dictated by Resident: Ambrose Lenz MD., have reviewed this study and agree with theabove report. Test, Serum 2020-04-04 00:07:00 Test Item Value Reference Range Interpretation Comme nts PREG SERUM (test code = 2076552394) Negative LOLITA (test code = LOLITA) Less than 10 IU/L. ?If low titer or ectopic is suspected, resubmit specimen in 48-72 hours. NPI:[id number] [id number] 23:31:00 Test Item Value Reference Range Interpretation Comments TROPONIN I (test <0.012 See_Comment [Automated code = 7809607360) message] The system which generated this result [...] ? Lab Interpretation Normal (test code = 60902-6) NPI:[id number] 23:30:00 Test Item Value Reference Range Interpretation Comments APPEARANCE (test code = Clear Clear 9865265012) COLOR (test code = Yellow Yellow 6168180264) PH (test code = 4.8-8.0 8437834293) SP GRAVITY (test code = 1.003-1.030 6933978635) GLU U QUAL (test code = Negative Negative 6065276245) BLOOD (test code = Negative Negative 2170940323) KETONES (test code = Negative Negative 0314559537) PROTEIN (test code = Negative Negative 2887-8) UROBILIN (test code = 0.2 mg/dL See_Comment [Auto mated message] 9576557608) The system [employer] generated this result transmit felipe reference range : 0-1.0 mg/dL. Th e reference range was not used to interpret this result as normal/abnormal . BILIRUBIN (test code = Negative Negative 0682467702) NITRITE (test code = Negative Negative 0655158988) LEUK MIKE (test code = Negative Negative 8753868990) RBC/HPF (test code = <1 See_Comment [Autom ated message] 6890700246) The system [employer] generated this result transmit felipe reference range : 0 - 3 HPF. The refe rence range was not u sed to interpret th is result as normal/abnormal . WBC/HPF (test code = See_Comment [Autom ated message] 0555199692) The system [employer] generated this result transmit felipe reference range : 0 - 5 HPF. The refe rence range was not u sed to interpret th is result as normal/abnormal . BACTERIA (test code = Negative Negative 3649090098) MUCOUS (test code = Slight Negative LPF A 9831903292) SQ EPITH (test code = HPF 5179810968) Lab Interpretation (test Abnormal code = 21305-5) NPI:[id number]-MKWJSMHO [id number]-[id number] 23:28:00 Test Item Value Reference Range Interpretation Comments NT-proBNP (test code 28 pg/mL See_Comment [Autom ated = 0595912082) message] The system which generated this result transmitted reference range : <=125. The reference range was not used to interpret this result as normal/abnormal . LOLITA (test code = LOLITA) Biotin has been reported to cause a negative bias, interpret results relative to patient's use of biotin. Lab Interpretation Normal (test code = 74215-6) NPI:[id number]-[id number] 23:26:00 Test Item Value Reference Interpretation Comments Range D-DIMER (test code = <0.27 See_Comment [Autom ated 5932324946) message] The system which generated this result [...] diagnosis. Lab Interpretation Normal (test code = 17210-7) NPI:[id number] Metabolic Panel (NA, K, CL, CO2, GLUCOSE, BUN, CREATININE, CA)2020-04-03 23:20:00 Test Item Value Reference Range Interpretation Comments NA (test code = 139 mmol/L 135-145 5638716932) K (test code = 3.9 mmol/L 3.5-5 3614237248) CL (test code = 103 mmol/L 98-108 9612970894) CO2 TOTAL (test code = 28 mmol/L 23-31 6670464436) AGAP (test code = 2-16 8163836658) BUN (test code = 12 mg/dL 7-23 0075681023) GLUCOSE (test code = 109 mg/dL 70-110 7482069917) CREATININE (test code 0.64 mg/dL 0.5-1.04 = 4689318842) CALCIUM (test code = 9.3 mg/dL 8.6-10.6 5806379358) eGFR Calculation mL/min/1.73m2 (Non-) (test code = 9836899061) eGFR Calculation mL/min/1.73m2 () (test code = 2328481581) LOLITA (test code = LOLITA) Association of [...] or urine or abnormalities in imaging tests). NPI:[id number] Function Panel (ALB, T.PRO, BILI T, BU/BC, ALT, AST, ALK PHOS)2020-04-03 23:19:00 Test Item Value Reference Range Interpretation Comments TOTAL BILI (test code = 8273226013) 0.7 mg/dL 0.1-1.1 BILI UNCON (test code = 4360557564) 0.7 mg/dL 0.1-1.1 BILI CONJ (test code = 9168746715) 0.0 mg/dL 0-0.3 T PROTEIN (test code = 9933362131) 7.7 g/dL 6.3-8.2 ALBUMIN (test code = 6868910211) 4.5 g/dL 3.5-5 ALK PHOS (test code = 0585919869) 67 U/L 34-122 ALTv (test code = 1742-6) 18 U/L 5-35 AST(SGOT) (test code = 4466351367) 21 U/L 13-40 Lab Interpretation (test code = Normal 97486-9) NPI:[id number] with Waoxvmtfzinm3792-46-00 23:15:00 Test Item Value Reference Range Interpretation Comments WBC (test code = See_Comment [Automated 1590-2) message] The sy stem which generated this result transmitted reference range : 4.30 - 11.10 10*3/?L. The reference range was not used to interpret this result as normal/abnormal . RBC (test code = See_Comment [Automated 019-8) message] The sy stem which generated this [...] RDW-SD (test code = 40.0 fL 39-49.9 21048-4) RDW-CV (test code = 14.6 % 12-15.5 788-0) PLT (test code = See_Comment [Automated 777-3) message] The sy stem which generated this result transmitted reference range : 166 - 358 10*3/ ?L. The reference r nini was not used to interpret this result as normal/abnormal . MPV (test code = 10.9 fL 9.5-12.9 19916-6) NRBC/100 WBC (test See_Comment [Automat ed code = 3490499725) message] The system which generated this result transmitted reference range : 0.0 - 10.0 /100 WBCs. The refer ence range was not u sed to interpret th is result as normal/abnormal . NRBC x10^3 (test code <0.01 See_Comment [Auto mated = 2118167389) message] The s ystem which generated this result transmitted reference range : 10*3/?L. The reference range was not used to interpret this result as normal/abnormal . GRAN MAT (NEUT) % 58.2 % (test code = 770-8) IMM GRAN % (test code 0.40 % = 0850544484) LYMPH % (test code = 33.4 % 736-9) MONO % (test code = 6.3 % 5905-5) EOS % (test code = 1.3 % 713-8) BASO % (test code = 0.4 % 706-2) GRAN MAT x10^3(ANC) 4.82 10*3/uL 1.88-7.09 (test code = 0608120142) IMM GRAN x10^3 (test 0.03 10*3/uL 0-0.06 code = 9305183566) LYMPH x10^3 (test code 2.76 10*3/uL 1.32-3.29 = 731-0) MONO x10^3 (test code 0.52 10*3/uL 0.33-0.92 = 742-7) EOS x10^3 (test code = 0.11 10*3/uL 0.03-0.39 711-2) BASO x10^3 (test code 0.03 10*3/uL 0.01-0.07 = 704-7) Lab Interpretation Abnormal (test code = 21009-8)
[2021-09-07 22:21] LABS: Absolute Lymphocytes (CBC) 2.2 K/uL (0.7-4.9); Hematocrit 38.3 % (36.0-45.0); Lymphocytes % 32.4 % (15.3-44.8); MPV 8.3 fL (7.6-11.3); RBC Red Blood Cell Count 4.76 M/uL (3.86-4.86)
[2021-09-07] MEDS ORDERED: ONDANSETRON 4 MG/2 ML VIAL ONE (22:36)
[2021-09-07] MEDS ORDERED: NA CHLORIDE 0.9% 1,000 ML ONE (22:36)
[2021-09-07] MEDS ORDERED: MORPHINE 2 MG/ML SYR ONE (22:36)
[2021-09-07 22:51] LABS: Urine Blood Trace-lysed (Negative); Urine Glucose Negative (Negative); Urine Protein 1+ (Negative)
[2021-09-07 22:56] LABS: BUN Blood Urea Nitrogen 12 mg/dL (7-18); Bicarbonate 26 mmol/L (21-32); Glucose Level 113 mg/dL (74-106); Potassium 3.4 mmol/L (3.5-5.1); Sodium Level 139 mmol/L (136-145); Troponin High Sensitivity < 3.0 pg/mL (<58.9)
[2021-09-07 23:08] LABS: Barbiturates NEGATIVE (NEGATIVE); Benzodiazepines NEGATIVE (NEGATIVE); Cocaine NEGATIVE (NEGATIVE); METHAMPHETAM POSITIVE (NEGATIVE); Methadone NEGATIVE (NEGATIVE); Opiates NEGATIVE (NEGATIVE); Phencyclidine NEGATIVE (NEGATIVE); THC Cannibis NEGATIVE (NEGATIVE)
[2021-09-07 23:32] LABS: SARS-COV-2 RT PCR NEGATIVE (NEGATIVE)
[2021-09-08] MEDS ORDERED: CEFTRIAXONE 1000 MG/VIAL ONE (00:38)
[2021-09-08] MEDS ORDERED: NA CHLORIDE 0.9% 50 ML ONE (00:38)
[2021-09-08 01:17] LABS: Magnesium 2.1 mg/dL (1.8-2.4); Thyroid Stimulating Hormone 1.64 uIU/mL (0.360-3.740)
[2021-09-08 01:28] LABS: Urine Bacteria 20-50 /HPF (<20); Urine Mucus 1+ /HPF (NONE SEEN); Urine Yeast FEW (NONE SEEN)
--- NOTE | 2021-09-08 02:05 | EDPHYS ---
[facility] Name: Bree Farnsworth Age: 30 yrs Sex: Female : 1990 Arrival Date: 09/07/2021 Time: 21:32 Bed 3 Private MD: ED Physician Tres Ibarra HPI: 09/07 22:24 This 30 yrs old Female presents to ER via Ambulatory with complaints of Chest Pain, mh7 Weakness, Numbness Of Face, Numbness Of Arm. 22:24 The patient or guardian reports chest pain that is located primarily in the substernal mh7 area. The pain radiates to both arms. Associated signs and symptoms: Pertinent positives: dizziness, shortness of breath, generalized fatigue/weakness, Pertinent negatives: abdominal pain, cough, diaphoresis, headache, lower extremity pain, lower extremity swelling, nausea, near syncope, palpitations, recent travel, syncope, vomiting. The chest pain is described as sharp. Duration: The patient or guardian reports multiple episodes, that are intermittent, that wax and wane, with no pattern. Modifying factors: The symptoms are alleviated by nothing. the symptoms are aggravated by nothing. Severity of pain: At its worst the pain was moderate today, in the emergency department the pain has improved moderately. 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 - Social history:: Smoking status: Patient denies any tobacco usage or history of. ROS: 22:24 Constitutional: Negative for fever, chills, and weight loss, Eyes: Negative for injury, mh7 pain, redness, and discharge, ENT: Negative for injury, pain, and discharge, Neck: Negative for injury, pain, and swelling, Abdomen/GI: Negative for abdominal pain, nausea, vomiting, diarrhea, and constipation, Back: Negative for injury and pain, : Negative for injury, bleeding, discharge, and swelling, MS/Extremity: Negative for injury and deformity, Skin: Negative for injury, rash, and discoloration, Psych: Negative for depression, anxiety, suicide ideation, homicidal ideation, and hallucinations, Allergy/Immunology: Negative for hives, rash, and allergies, Endocrine: Negative for neck swelling, polydipsia, polyuria, polyphagia, and marked weight changes, Hematologic/Lymphatic: Negative for swollen nodes, abnormal bleeding, and unusual bruising. Exam: 22:24 Constitutional: This is a well developed, well nourished patient who is awake, alert, mh7 and in no acute distress. Head/Face: Normocephalic, atraumatic. Eyes: Pupils equal round and reactive to light, extra-ocular motions intact. Lids and lashes normal. Conjunctiva and sclera are non-icteric and not injected. Cornea within normal limits. Periorbital areas with no swelling, redness, or edema. Neck: Trachea midline, no thyromegaly or masses palpated, and no cervical lymphadenopathy. Supple, full range of motion without nuchal rigidity, or vertebral point tenderness. No Meningismus. 22:24 Cardiovascular: Regular rate and rhythm with a normal S1 and S2. No gallops, murmurs, or rubs. Normal PMI, no JVD. No pulse deficits. Respiratory: Lungs have equal breath sounds bilaterally, clear to auscultation and percussion. No rales, rhonchi or wheezes noted. No increased work of breathing, no retractions or nasal flaring. Abdomen/GI: Soft, non-tender, with normal bowel sounds. No distension or tympany. No guarding or rebound. No evidence of tenderness throughout. Back: No spinal tenderness. No costovertebral tenderness. Full range of motion. Skin: Warm, dry with normal turgor. Normal color with no rashes, no lesions, and no evidence of cellulitis. MS/ Extremity: Pulses equal, no cyanosis. Neurovascular intact. Full, normal range of motion. Neuro: Awake and alert, GCS 15, oriented to person, place, time, and situation. Cranial nerves II-XII grossly intact. Motor strength 5/5 in all extremities. Sensory grossly intact. Cerebellar exam normal. Normal gait. Psych: Awake, alert, with orientation to person, place and time. Behavior, mood, and affect are within normal limits. 22:24 Chest/axilla: Inspection: normal, Palpation: tenderness, that is moderate, of the mid-sternal area, that totally reproduces the patient's complaints, Axilla: are normal, Lymph nodes: lymphadenopathy is not appreciated. Vital Signs: 21:44 BP 148 / 90; Pulse 105; Resp 20; Temp 98.2; Pulse Ox 100% on R/A; Weight 68.95 kg; ab2 Height 5 ft. 3 in. (160.02 cm); Pain 8/10; 22:09 BP 148 / 90; Pulse 92; Resp 20; Pulse Ox 100% ; tw5 05 00:35 Pain 5/10; tw5 00:39 BP 136 / 81; Pulse 88; Resp 18; Pulse Ox 100% on R/A; tw5 01:16 BP 139 / 66; Pulse 86; Resp 20; Pulse Ox 100% on R/A; sm5 09/07 21:44 Body Mass Index 26.93 (68.95 kg, 160.02 cm) ab2 MDM: 02:00 Differential diagnosis: acute myocardial infarction, acute pericarditis, anxiety, mh7 coronary artery disease chest wall pain, costochondritis, esophagitis, gastritis, gastroesophageal reflux disease (GERD), peptic ulcer disease, pericarditis, pleurisy, pneumonia, pneumothorax, pulmonary embolus. HEART Score: History: Slightly Suspicious (0), ECG: Non specific repolarization disturbance / LBTB / PM (1), Age: < or = 45 years (0), Risk Factors: No Risk Factors Known (0), Troponin: < or = 1 x Normal Limit (0), Total Score = 1. Data reviewed: vital signs, nurses notes, EMS record, lab test result(s), cardiac enzymes, CBC, electrolytes, urinalysis, urine drug screen, UPT: negative EKG, radiologic studies, plain films. Data interpreted: Pulse oximetry: on room air is 100 %. Interpretation: normal. Counseling: I had a detailed discussion with the patient and/or guardian regarding: the historical points, exam findings, and any diagnostic results supporting the discharge/admit diagnosis, the presence of at least one elevated blood pressure reading (>120/80) during this emergency department visit, lab results, radiology results, the need for outpatient follow up, to return to the emergency department if symptoms worsen or persist or if there are any questions or concerns that arise at home. Response to treatment: the patient's symptoms have resolved after treatment, the patient's blood pressure is in an acceptable range, mental status has returned to baseline, the patient no longer shows bradycardia, the patient is not short of breath, the patient is not tachycardic, the patient's pain is gone, the patient's temperature has normalized. 02:04 Patient medically screened. 09/07 21:52 Order name: Basic Metabolic Panel; Complete Time: 00:24 [facility] 09/07 21:52 Order name: CBC with Diff; Complete Time: 00:24 [facility] 09/07 21:52 Order name: Troponin HS; Complete Time: 00:24 [facility] 09/07 22:14 Order name: UDS; Complete Time: 00:24 [facility] 09/07 22:14 Order name: Magnesium; Complete Time: : [facility] 09/07 22:14 Order name: TSH; Complete Time: [facility] 09/07 22:23 Order name: Phosphorus; Complete Time: [facility] 09/07 22:23 Order name: D-Dimer; Complete Time: : [facility] 09/07 22:33 Order name: COVID-19/FLU A+B (Document "Date of Onset" if Symptomatic); Complete Time: [facility] 00:24 09/07 22:51 Order name: Urine Dipstick-Ancillary; Complete Time: 00:24 [facility] 09/07 22:52 Order name: Urine Microscopic Only; Complete Time: [facility] 09/07 22:53 Order name: Urine --Ancillary (enter results); Complete Time: 00:24 09/07 21:52 Order name: EKG; Complete Time: 21:53 [facility] 09/07 21:52 Order name: Cardiac monitoring; Complete Time: 22:07 [facility] 09/07 21:52 Order name: EKG - Nurse/Tech; Complete Time: 22:07 [facility] 09/07 21:52 Order name: IV Saline Lock; Complete Time: 22:13 [facility] 09/07 21:52 Order name: Labs collected and sent; Complete Time: 22:13 [facility] 09/07 21:52 Order name: O2 Per Protocol; Complete Time: 22:07 [facility] 09/07 21:52 Order name: O2 Sat Monitoring; Complete Time: 22:07 [facility] 09/07 22:13 Order name: Chest Single View XRAY [facility] 09/07 22:14 Order name: Urine Dipstick-Ancillary (obtain specimen); Complete Time: 23:39 [facility] 09/07 22:14 Order name: Urine Test (obtain specimen); Complete Time: 23:39 [facility] 09/08 00:30 Order name: CPK; Complete Time: 01:55 [facility] 09/08 01:31 Order name: Urine Culture EDMS Administered Medications: 09/07 22:47 Drug: NS 0.9% 1000 ml Route: IV; Rate: 1000 ml; Site: left antecubital; [facility] 09/08 00:38 Follow up: Response: No adverse reaction; IV Status: Completed infusion; IV Intake: tw5 1000ml 09/07 22:48 Drug: morphine 2 mg Route: IVP; Site: left antecubital; [facility] 09/08 00:35 Follow up: Pain 5/10 Adult; Response: No adverse reaction; Pain is decreased; RASS: 5 Alert and Calm (0) 09/07 22:48 Drug: Zofran (Ondansetron) 4 mg Route: IVP; Site: left antecubital; [facility] 09/08 00:35 Follow up: Response: No adverse reaction [facility] 00:38 Drug: Rocephin (cefTRIAXone) 1 grams Route: IV; Rate: per protocol; Site: left tw5 antecubital; 02:25 Follow up: Response: No adverse reaction; IV Status: Completed infusion; IV Intake: [id number] Disposition Summary: 09/08/21 02:04 Discharge Ordered Location: Home [facility] Problem: new [facility] Symptoms: have improved [facility] Condition: Stable [facility] Diagnosis - Chest pain, unspecified [facility] - Methamphetamine Use 7 - UTI/ Urinary tract infection, site not specified [facility] Followup: [facility] - With: Private Physician - When: 1 - 2 days - Reason: Worsening of condition, Recheck today's complaints, Continuance of care, Re-evaluation by your physician Discharge Instructions: - Discharge Summary Sheet 7 - Urinary Tract Infection, Adult, [id number] mh7 - Nonspecific Chest Pain, Adult, [id number] 7 - Methamphetamines Use Disorder [facility] Forms: - Medication Reconciliation Form [facility] - Thank You Letter [facility] - Antibiotic Education [facility] - Prescription Opioid Use [facility] Prescriptions: - Macrobid 100 mg Oral Capsule - take 1 capsule by ORAL route every 12 hours for 7 days; 14 capsule; Refills: 0, 7 Product Selection Permitted Signatures: Dispatcher [employer] Tres Camacho MD MD 7 Carmen Benitez 5 Keke Ivan RN RN 5 Tyrone Mckee 2 Corrections: (The following items were deleted from the chart) 00:38 09/07 22:14 PROTIME (+INR)+COAG.LAB.BRZ ordered. EDMS EDMS 09/08 00:38 09/07 22:14 PTT, ACTIVATED+COAG.LAB.BRZ ordered. EDMS EDMS
--- NOTE | 2021-09-08 02:05 | ER ---
Nurse's Notes [facility] Name: Bree Farnsworth Age: 30 yrs Sex: Female : 1990 Arrival Date: 09/07/2021 Time: 21:32 Bed 3 Private MD: Diagnosis: Chest pain, unspecified;Methamphetamine Use;UTI/ Urinary tract infection, site not specified Presentation: 09/07 21:44 Chief complaint: Patient states: "I started having chest pain around 10am and then ab2 later through the day I got dizzy and my fingers and face are numb and tingling.". Coronavirus screen: Vaccine status: Patient reports receiving the 2nd dose of the covid vaccine. Client denies travel out of the [place] in the last 14 days. Ebola Screen: Patient negative for fever greater than or equal to 101.5 degrees Fahrenheit, and additional compatible Ebola Virus Disease symptoms Patient denies exposure to infectious person. Patient denies travel to an Ebola-affected area in the 21 days before illness onset. No symptoms or risks identified at this time. Initial Sepsis Screen: Does the patient meet any 2 criteria? No. Patient's initial sepsis screen is negative. Does the patient have a suspected source of infection? No. Patient's initial sepsis screen is negative. Risk Assessment: Do you want to hurt yourself or someone else? Patient reports no desire to harm self or others. Onset of symptoms was September 07, 2021 at 10:00. 21:44 Method Of Arrival: Ambulatory ab2 21:44 Acuity: CLAUDIA 3 ab2 Triage Assessment: 21:46 General: Appears in no apparent distress. uncomfortable, Behavior is calm. Pain: ab2 Complains of pain in chest. Neuro: Level of Consciousness is awake, alert, obeys commands, Oriented to person, place, time, situation, Appropriate for age [place] are equal bilaterally Moves all extremities. Gait is steady, Speech is normal, Facial symmetry appears normal, Intact. Cardiovascular: Reports chest pain, shortness of breath, Heart tones S1 S2 present Patient's skin is warm and dry. Respiratory: Reports shortness of breath Airway is patent Respiratory effort is even, unlabored, Respiratory pattern is regular, symmetrical. GI: No deficits noted. : No deficits noted. Derm: Skin is intact, is healthy with good turgor. Musculoskeletal: No deficits noted. 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 - Social history:: Smoking status: Patient denies any tobacco usage or history of. Screenin:10 Abuse screen: Denies threats or abuse. Denies injuries from another. Nutritional tw5 screening: No deficits noted. Tuberculosis screening: No symptoms or risk factors identified. Fall Risk None identified. Assessment: 22:10 General: Reports "Chest pains, today I got really weak and dizzy and it feels like I tw5 have a lump in my chest.". Pain: Complains of pain in chest Pain does not radiate. Pain currently is 6 out of 10 on a pain scale. Pain began around 2 Pm today. Neuro: No deficits noted. [place] Agitation-Sedation Scale (RASS): 0 - Alert and Calm. Respiratory: Airway is patent Trachea midline Respiratory effort is even, unlabored, Denies shortness of breath at rest, "I am having trouble taking deep breaths.". 22:12 Cardiovascular: Capillary refill < 3 seconds is brisk in bilateral toes. tw5 22:12 Derm: Skin is intact, is healthy with good turgor, Skin is pink, warm \\T\\ dry. tw5 22:36 Reassessment: Patient appears in no apparent distress at this time. No changes from tw5 previously documented assessment. Patient and/or family updated on plan of care and expected duration. Pain level reassessed. Patient is alert, oriented x 3, equal unlabored respirations, skin warm/dry/pink. General: Appears in no apparent distress. Behavior is calm, cooperative, appropriate for age. 09/08 00:39 Reassessment: Patient appears in no apparent distress at this time. No changes from tw5 previously documented assessment. Patient and/or family updated on plan of care and expected duration. Pain level reassessed. Patient is alert, oriented x 3, equal unlabored respirations, skin warm/dry/pink. Pain: Pain currently is 5 out of 10 on a pain scale. 02:23 General: Behavior is agitated. tw5 Vital Signs: 09/07 21:44 BP 148 / 90; Pulse 105; Resp 20; Temp 98.2; Pulse Ox 100% on R/A; Weight 68.95 kg; ab2 Height 5 ft. 3 in. (160.02 cm); Pain 8/10; 22:09 BP 148 / 90; Pulse 92; Resp 20; Pulse Ox 100% ; tw5 09/08 00:35 Pain 5/10; tw5 00:39 BP 136 / 81; Pulse 88; Resp 18; Pulse Ox 100% on R/A; tw5 01:16 BP 139 / 66; Pulse 86; Resp 20; Pulse Ox 100% on R/A; sm5 09/07 21:44 Body Mass Index 26.93 (68.95 kg, 160.02 cm) ab2 ED Course: 09/07 21:32 Patient arrived in ED. ja2 21:41 Carmen Benitez is Primary Nurse. tw5 21:46 Triage completed. ab2 21:47 Arm band placed on right wrist. ab2 21:51 Tres Ibarra MD is Attending Physician. 7 22:10 Awaiting lab results. tw5 22:10 Patient has correct armband on for positive identification. Placed in gown. Bed in low tw5 position. Call light in reach. Side rails up X 1. nuclear monitoring technician on. Pulse ox on. NIBP on. Door closed. Noise minimized. Lights dimmed. Moved to private room. Verbal reassurance given. 22:10 Initial lab(s) drawn, by ED staff, sent to lab. Inserted saline lock: 20 gauge in left tw5 antecubital area, using aseptic technique. Blood collected. started by [employer]. Patient maintains SpO2 saturation greater than 95% on room air. 22:13 Basic Metabolic Panel Sent. tw5 22:13 CBC with Diff Sent. tw5 22:13 Troponin HS Sent. tw5 22:28 D-Dimer Sent. lp1 22:28 Phosphorus Sent. lp1 22:28 Magnesium Sent. lp1 22:28 TSH Sent. lp1 22:36 Assisted to bathroom. tw5 22:41 Chest Single View XRAY In Process Unspecified. EDMS 22:48 COVID-19/FLU A+B (Document "Date of Onset" if Symptomatic) Sent. sm5 22:59 Urine Microscopic Only Sent. [facility] 09/08 02:23 No provider procedures requiring assistance completed. IV discontinued, intact, tw5 bleeding controlled, No redness/swelling at site. Pressure dressing applied. Administered Medications: 09/07 22:47 Drug: NS 0.9% 1000 ml Route: IV; Rate: 1000 ml; Site: left antecubital; [facility] 09/08 00:38 Follow up: Response: No adverse reaction; IV Status: Completed infusion; IV Intake: tw5 1000ml 09/07 22:48 Drug: morphine 2 mg Route: IVP; Site: left antecubital; [facility] 09/08 00:35 Follow up: Pain 5/10 Adult; Response: No adverse reaction; Pain is decreased; RASS: 5 Alert and Calm (0) 09/07 22:48 Drug: Zofran (Ondansetron) 4 mg Route: IVP; Site: left antecubital; [facility] 09/08 00:35 Follow up: Response: No adverse reaction 5 00:38 Drug: Rocephin (cefTRIAXone) 1 grams Route: IV; Rate: per protocol; Site: left [facility] antecubital; 02:25 Follow up: Response: No adverse reaction; IV Status: Completed infusion; IV Intake: [id number] Intake: 00:38 IV: 1000ml; Total: 1000ml. 02:25 IV: 50ml; Total: 1050ml. Outcome: 02:04 Discharge ordered by . Nataliya 02:23 Discharged to home ambulatory. 02:23 Condition: good 02:23 Discharge instructions given to patient, Instructed on discharge instructions, follow up and referral plans. medication usage, quitting methamphetamine Prescriptions given X refused prescription " I am not taking shit from [facility]! I am going to another hospital. I dont do drugs!" 02:26 Patient left the ED. 5 Signatures: Dispatcher [employer] EDMS Ryann Davalos RN RN lp1 Tres Ibarra MD MD 7 Jaylyn Espino Tiffany tw5 Keke Ivan RN RN 5 Tyrone Mckee
[2021-09-08 02:34] VITALS: TEMP 98.2; O2SAT 100
[2021-09-08 03:03] VITALS: BP 139/66
--- NOTE | 2021-09-08 09:22 | EKG ---
Test Date: 2021-09-07 Test Time: 21:46:42 Gasoline Attendant: TIFFANY MEASUREMENT RESULTS: Intervals: Rate: 92 HI: 168 QRSD: 78 QT: 374 QTc: 462 [place]: P: 68 HI: 168 QRS: 77 T: -8 INTERPRETIVE STATEMENTS: Normal sinus rhythm Abnormal QRS-T angle, consider primary T wave abnormality Abnormal ECG Compared to ECG 08/22/2020 01:01:06 Myocardial infarct finding no longer present Possible ischemia no longer present T-wave abnormality still present Electronically Signed On 09-08-21 09:22:08 CDT by Rod Castorena
--- NOTE | 2021-09-10 14:35 | RAD REPORT ---
EXAM DESCRIPTION: RAD - Chest Single View - 09/07/2021 10:39 pm CLINICAL HISTORY: CHEST PAIN TECHNIQUE: Frontal view of the chest. COMPARISON: No relevant prior studies available. FINDINGS: Lungs: Unremarkable. No consolidation. Pleural space: Unremarkable. No pneumothorax. Heart: Unremarkable. No cardiomegaly. Mediastinum: Unremarkable. Bones/joints: Unremarkable. IMPRESSION: No acute disease. Electronically signed by: Anabela Meza MD 09/07/2021 11:16 PM CDT Due to temporary technical issues with the PACS/Fluency reporting system, reports are being signed by the in house radiologist without review as a courtesy to ensure prompt reporting. The interpreting r adiologist is fully responsible for the content of the report.
== END 2021-09-08 02:26 | disposition home or self-care (01) ==
LOC: ER 21:30
DX: R07.9 Chest pain, unspecified (principal); F15.90 Other stimulant use, unspecified, uncomplicated; N39.0 Urinary tract infection, site not specified; Z20.822 Contact with and (suspected) exposure to COVID-19
CPT/HCPCS: 96365; 96361; 93005; 87088; 85025; 87086; 80048; 36415; 83735; 82550; 81025; 84100; 85379; 84443; 84484; 0240U; 80307; 71045; 96375; 99285; 96366; J2270; J7030; J2405; 81003; 81015

== ENCOUNTER 2022-03-31 17:59 | Emergency (ER) | payer OTHER ==
--- OUTSIDE RECORDS SUMMARY | 2022-03-31 18:03 | XMS REPORT | Continuity of Care Document ---
:1990 Author Organization [facility] t Address [address] [place] [address] Care Team Providers Name Role Phone MATHEUS SALAZAR Primary Care Physician Unavailable Only, Gal Adult [facility] Test Attending Clinician Unavailable David Hickman Attending Clinician DAVID PARKER Attending Clinician Unavailable Doctor Unassigned, [place] Attending Clinician Unavailable Taina Silva Attending Clinician Stephanie Shahid Attending Clinician Payers Payer Name Policy Type Policy Number Effective Date Expiration Date Formerly [facility] [id number] 2017 [facility] MEDICAID 00:00:00 Problems Condition Condition Condition Status Onset Resolution Last Treating Co mments Source Name Details Category Date Date Treatment Clinician Date Multigravi Multigravi Disease Active 2018 U nivers da, da, 3-16 [place] [facility] Obesity in Obesity in Disease Active U nivers , , 3-16 [place] [facility] High risk High risk Disease Active 2018 Uni vers , , 3-16 [place] [facility] [place] Allergies, Adverse Reactions, Alerts Allergy Allergy Status Severity Reaction(s) Onset Inactive Treating Comm ents Source Name Type Date Date Clinician NO KNOWN Drug Active Univers ALLERGIE Class ity of S [facility] Social History Social Habit Start Date Stop Date Quantity Comments Source Exposure to Not sure [facility] SARS-CoV-2 [facility] (event) Branch Alcohol intake 2020-08-21 2020-08-21 Current University 00:00:00 00:00:00 non-drinker of [facility] alcohol Branch (finding) Tobacco use and 2017-07-18 2017-07-18 Never used Universit y of exposure 00:00:00 00:00:00 [facility] Sex Assigned At [birth year] Universit y of 00:00:00 00:00:00 [facility] Smoking Status Start Date Stop Date Source Never smoker [facility] Medications Ordered Filled Start Stop Current Ordering Indication Dosage Frequency Signature Comments Components Source Medication Medication Date Date Medication? Clinician (SIG) Name Name diphenhydrA 50mg 50 mg, Uni vers MINE 08-21 Intramuscu ity of (BENADRYL) 23:30: 22:28 lar, ONCE, [place] injection 00 :00 1 dose, Medical 50 mg [facility] 08/21/20 at 1830, STAT albuterol 2019-05 2020- No 2{puff} 2 Puff, U nivers (VENTOLIN) 06-05 Inhalation it y of inhaler 2 00:45: 23:41 , ONCE[place] Puff [place] :00 dose, [facility] 04/03/20 Branch at 1845, DEB
Is this order for a patient with suspected or confirmed COVID-19 infection? Yes ketorolac 2019-05 No 30mg 30 mg, Unive rs (TORADOL) 06-05 Slow IV ity of injection 00:30: 23:31 Push, [place] 30 mg 00 :00 ONCE, 1 Medical dose, [facility] 04/03/20 at 1830, DEB
Fa culty member approving Restricted medication : EMERGENCY ROOM, aspirin 2019-05- No 325mg 325 mg, Unive rs tablet 325 06-03 Oral, ity of mg 22:30: 23:09 ONCE, 1 [place] 00 :00 dose, [facility] 04/03/20 Branch at 1630, STAT albuterol 2019-05 Yes [id number] 2{puff} Inhale 2 Univers 90 1-30 Puffs ity of mcg/actuati 00:00: every 4 [place] as on inhaler 00 (four) Medical hours as Branch needed for Wheezing or Shortness of Breath. benzonatate 2019-05 Yes [id number] 100mg Take 1 Univers 100 mg 1-30 [...] Indication s: acute pain albuterol 2019-05 Yes [id number] 2{puff} Inhale 2 Univers 90 1-30 Puffs ity of mcg/actuati 00:00: every 4 [place] as on inhaler 00 (four) Medical hours as Branch needed for Wheezing or Shortness of Breath. benzonatate 2019-05 Yes [id number] 100mg Take 1 Univers 100 mg 1-30 capsule by ity of capsule 00:00: mouth 3 [place] (three) Medical times Branch daily as needed for Cough. acetaminoph 2019-05 Yes [id number] 1{tbl} Take 1 Un angelo en-codeine 1-30 tablet by ity of 300-30 mg 00:00: mouth [place] tablet 00 every 6 Medical (six) Branch hours as needed for Pain (scale 1-3). Indication s: acute pain albuterol 2019-05 Yes [id number] 2{puff} Inhale 2 Univers 90 1-30 Puffs ity of mcg/actuati 00:00: every 4 [place] as on inhaler 00 (four) Medical hours as Branch needed for Wheezing or Shortness of Breath. benzonatate 2019-05 Yes [id number] 100mg Take 1 Univers 100 mg 1-30 [...] Indication s: acute pain albuterol 2019-05 Yes [id number] 2{puff} Inhale 2 Univers 90 1-30 Puffs ity of mcg/actuati 00:00: every 4 [place] as on inhaler 00 (four) Medical hours as Branch needed for Wheezing or Shortness of Breath. benzonatate 2019-05 Yes [id number] 100mg Take 1 Univers 100 mg 1-30 [...] Indication s: acute pain albuterol 2019-05 Yes [id number] 2{puff} Inhale 2 Univers 90 1-30 Puffs ity of mcg/actuati 00:00: every 4 [place] on inhaler 00 (four) Medical hours as Branch needed for Wheezing or Shortness of Breath. benzonatate 2019-05 Yes [id number] 100mg Take 1 Univers 100 mg 1-30 [...] Indication s: acute pain albuterol 2019-05- No [id number] 2{puff} Inhale 2 Univers 90 1-30 11-30 [...] Indication s: acute pain albuterol 2019-05- No [id number] 2{puff} Inhale 2 Univers 90 1-30 11-30 Puffs ity of mcg/actuati 00:00: 00:00 [place] 4 [place] inhaler 00 :00 (four) Medical hours as Branch needed for Wheezing or Shortness of Breath. albuterol 2019-05- No [id number] 2{puff} Inhale 2 Univers 90 1-30 11-30 Puffs ity of mcg/actuati 00:00: 00:00 every 4 [place] inhaler 00 :00 (four) Medical hours as Branch needed for Wheezing or Shortness of Breath. albuterol 2019-05- No [id number] 2{puff} Inhale 2 Univers 90 1-30 11-30 [...] as needed for Headache (Headache) . Yes [id number] 1{packe Take 1 Univers vit 4-20 t} Packet by ity of 33-iron-fol 00:00: mouth [place] ic-dha 00 daily. Medical (SELECT-OB Branch + DHA) 29 mg iron-1 mg -250 mg combo pack Yes [id number] 1{packe Take 1 Univers vit 4-20 t} Packet by ity of 33-iron-fol 00:00: mouth [place] ic-dha 00 daily. Medical (SELECT-OB Branch + DHA) 29 mg iron-1 mg -250 mg combo pack Yes [id number] 1{packe Take 1 Univers vit 4-20 t} Packet by ity of 33-iron-fol 00:00: mouth [place] ic-dha 00 daily. Medical (SELECT-OB Branch + DHA) 29 mg iron-1 mg -250 mg combo pack Yes [id number] 1{packe Take 1 Univers vit 4-20 t} Packet by ity of 33-iron-fol 00:00: mouth [place] ic-dha 00 daily. Medical (SELECT-OB Branch + DHA) 29 mg iron-1 mg -250 mg combo pack Yes [id number] 1{packe Take 1 Univers vit 4-20 t} Packet by ity of 33-iron-fol 00:00: mouth [place] ic-dha 00 daily. Medical (SELECT-OB Branch + DHA) 29 mg iron-1 mg -250 mg combo pack Vital Signs Vital Name Observation Time Observation Value Comments Source Systolic blood 2020-08-21 23:25:00 128 mm[Hg] Univer sity of pressure [place] [facility] Diastolic blood 2020-08-21 23:25:00 80 mm[Hg] Unive rsity of pressure [place] [facility] Heart rate 2020-08-21 23:25:00 88 /min Universi ty of [place] [facility] Respiratory rate 2020-08-21 23:25:00 18 /min Univ ersity of [place] [facility] Oxygen saturation in 2020-08-21 23:25:00 100 /min University of Arterial blood by [place] [facility]i estrellita Pulse oximetry Branch Body temperature 2020-08-21 21:51:00 36.61 Brenda Univ ersity of [place] [facility] Body weight 2020-08-21 21:51:00 71.215 kg Universi ty of [place] [facility] BMI 2020-08-21 21:51:00 27.81 kg/m2 Universi ty of [place] [facility] Systolic blood 2020-08-21 23:25:00 128 mm[Hg] Univer sity of pressure [place] [facility] Diastolic blood 2020-08-21 23:25:00 80 mm[Hg] Unive rsity of pressure [place] [facility] Heart rate 2020-08-21 23:25:00 88 /min Universi ty of [place] [facility] Respiratory rate 2020-08-21 23:25:00 18 /min Univ ersity of [place] [facility] Oxygen saturation in 2020-08-21 23:25:00 100 /min University of Arterial blood by [facility] [place] [facility] estrellita Pulse oximetry Branch Body temperature 2020-08-21 21:51:00 36.61 Brenda Univ ersity of [place] [facility] Body weight 2020-08-21 21:51:00 71.215 kg Universi ty of [place] [facility] BMI 2020-08-21 21:51:00 27.81 kg/m2 Universi ty of [place] [facility] Systolic blood 2020-04-04 01:01:00 114 mm[Hg] Univer sity of pressure [place] [facility] Diastolic blood 2020-04-04 01:01:00 79 mm[Hg] Unive rsity of pressure [place] [facility] Heart rate 2020-04-04 01:01:00 80 /min Universi ty of [facility] Respiratory rate 2020-04-04 01:01:00 18 /min Univ ersity of [facility] Oxygen saturation in 2020-04-04 01:01:00 99 /min University of Arterial blood by [facility] Pulse oximetry Branch Body temperature 2020-04-03 22:14:00 36.44 Brenda Univ ersity of [facility] Body weight 2020-04-03 22:14:00 67.132 kg Universi ty of [facility] BMI 2020-04-03 22:14:00 26.22 kg/m2 Universi ty of [facility] Systolic blood 2020-04-04 01:01:00 114 mm[Hg] Univer sity of pressure [facility] Diastolic blood 2020-04-04 01:01:00 79 mm[Hg] Unive rsity of pressure [facility] Heart rate 2020-04-04 01:01:00 80 /min Universi ty of [facility] Respiratory rate 2020-04-04 01:01:00 18 /min Univ ersity of [facility] Oxygen saturation in 2020-04-04 01:01:00 99 /min University of Arterial blood by [facility] Pulse oximetry Branch Body temperature 2020-04-03 22:14:00 36.44 Brenda Univ ersity of [facility] Body weight 2020-04-03 22:14:00 67.132 kg Universi ty of [facility] BMI 2020-04-03 22:14:00 26.22 kg/m2 Universi ty [facility] Procedures Procedure Date / Time Performed Performing Clinician Sour e NOTICE OF PRIVACY 2021-05-04 20:29:05 Doctor Unassigned, No Univ ersity of [facility] Medical Branch NOTICE OF PRIVACY 2020-08-21 21:44:50 Doctor Unassigned, No Univ ersity of [facility] CONSENT/REFUSAL FOR 2020-08-21 21:44:32 [facility], [facility] Name Medical [place] TREATMENT XR CHEST 1 VW 2020-04-04 00:41:21 Stephanie Bennett [facility] TEST, SERUM 2020-04-03 22:56:00 [facility] TROPONIN I 2020-04-03 22:56:00 [facility] PANEL 2020-04-03 22:56:00 [facility] [place] [facility] ([id number]) [facility] (ALB,T.PRO,BILI T,BU/BC,ALT,AST,ALK PHOS) BASIC METABOLIC PANEL 2020-04-03 22:56:00 BennettStephanie herrera [facility] (NA, K, CL, CO2, Medical Branch GLUCOSE, BUN, CREATININE, CA) CBC WITH DIFF 2020-04-03 22:56:00 Bennett [facility] D-DIMER 2020-04-03 22:56:[address] [facility] [place] URINALYSIS 2020-04-03 22:56:[address] [facility] [place] N-TERMINAL PRO-BNP 2020-04-03 22:56:00 [facility] Encounters Start End Encounter Admission Attending Care Care Encounter Source Date/Time Date/Time Type Type Clinicians Facility Department ID 2021-03-04 Emergency [facility] [id number] Univers 13:55:32 ity [facility] 2021-03-03 Emergency [facility] [id number] Univers 08:18:11 ity [facility] 2021-05-04 2021-05-04 Laboratory Only, Gal Adult Uc Test [facility] [id number] Univers 14:30:00 14:45:00 Only David Parker [facility] [id number] ity of PEDIAT[place]IC [place].2.[place] [facility] [facility] [id number] [facility] 370 Branch 2021-05-04 2021-05-04 Outpatient R JOHN [facility] [id number] Univers 14:30:00 14:30:[address] [facility] ity [facility] 2021-05-04 2021-05-04 Orders Doctor JODI 1.2.840.114 [id number] Univers 00:00:00 00:00:00 Only Unassigned, TOM 350.1.13.10 ity of [place] [facility] 4.2.7.2.686 [place] as [id number] [facility] 009 Branch 2020-08-21 2020-08-21 Emergency [facility] [id number] 16:53:00 18:31:[address] 350.1.13.10 [employer] 4.2.7.2.686 [place] [id number] 2020-08-21 2020-08-21 Emergency [facility] [id number] [facility] 16:53:00 18:31:[address] 350.1.13.10 i ty of [employer] 4.2.7.2.686 [facility] [id number] [address] 2020-08-21 2020-08-21 Orders Doctor JODI 1.2.840.114 [id number] 00:00:00 00:00:00 Only Unassigned, TOM 350.1.13.10 [place] [facility] 4.2.7.2.68 [id number] 009 2020-08-21 2020-08-21 Orders Doctor JODI 1.2.840.114 [id number] [facility] 00:00:00 00:00:00 Only Unassigned, TOM 350.1.13.10 ity of [place] [facility] 4.2.7.2.686 [facility] [id number] [place] [address] Branch 2020-04-03 2020-04-03 Emergency [facility], [facility] 1.2.840.114 [id number] 16:07:00 19:36:[address] 350.1.13.10 [employer] 4.2.7.2.686 [place] [id number] [facility] 2020-04-03 2020-04-03 Emergency [facility], [facility] 1.2.840.114 [id number] [facility] 16:07:00 19:36:[address] 350[address]1.13.10 i ty of [employer] 4.[address] [place] [id number] Results Test Description Test Time Test Comments Results Result Sour e Comments Chest 1 View No acute University o f 1 cardiopulmonary [place] [facility] ica 00:51:13 abnormality. Branch Preliminary Report Dictated by Resident: Blake JoshuaAmbrose Marcus MD., have reviewed this study and agree [...] Comme nts PREG SERUM (test code = 5175403913) Negative LOLITA (test code = LOLITA) Less than 10 IU/L. ?If low titer or ectopic is suspected, resubmit specimen in 48-72 hours. [facility] [id number] 23:31:00 Test Item Value Reference Range Interpretation Comments TROPONIN I (test <0.012 See_Comment [Automated code = 6251166773) message] The system which generated this result [...] ? Lab Interpretation Normal (test code = 78220-2) [facility] 23:30[facility]00 Test Item Value Reference Range Interpretation Comments APPEARANCE (test code = Clear Clear 7651228725) COLOR (test code = Yellow Yellow 9340042160) PH (test code = 4.8-8.0 7510348700) SP GRAVITY (test code = 1.003-1.030 7270168364) GLU U QUAL (test code = Negative Negative 6338186774) BLOOD (test code = Negative Negative 3349306580) KETONES (test code = Negative Negative 9439805014) PROTEIN (test code = Negative Negative 2887-8) UROBILIN (test code = 0.2 mg/dL See_Comment [Auto mated message] 8397223928) The system [employer] generated this result transmit felipe reference range : 0-1.0 mg/dL. Th e reference range was not used to interpret this result as normal/abnormal . BILIRUBIN (test code = Negative Negative 9987357681) NITRITE (test code = Negative Negative 3386464678) LEUK MIKE (test code = Negative Negative 3730095973) RBC/HPF (test code = <1 See_Comment [Autom ated message] 3177900186) The system [employer] generated this result transmit felipe reference range : 0 - 3 HPF. The refe rence range was not u sed to interpret th is result as normal/abnormal . WBC/HPF (test code = See_Comment [Autom ated message] 8245000727) The system [employer] generated this result transmit felipe reference range : 0 - 5 HPF. The refe rence range was not u sed to interpret th is result as normal/abnormal . BACTERIA (test code = Negative Negative 4078028637) MUCOUS (test code = Slight Negative LPF A 1353645735) SQ EPITH (test code = HPF 9944284596) Lab Interpretation (test Abnormal code = 75676-7) [facility] [id number] 23:28:00 Test Item Value Reference Range Interpretation Comments NT-proBNP (test code 28 pg/mL See_Comment [Autom ated = 3584677874) message] The system which generated this result transmitted reference range : <=125. The reference range was not used to interpret this result as normal/abnormal . LOLITA (test code = LOLITA) Biotin has been reported to cause a negative bias, interpret results relative to patient's use of biotin. Lab Interpretation Normal (test code = 61617-6) [id number] 23:26:00 Test Item Value Reference Interpretation Comments Range D-DIMER (test code = <0.27 See_Comment [Autom ated 2503925703) message] The system which generated this result [...] diagnosis. Lab Interpretation Normal (test code = 03498-1) [facility] (NA, K, CL, CO2, GLUCOSE, BUN, CREATININE, CA)2020-04-03 23:20:00 Test Item Value Reference Range Interpretation Comments NA (test code = 139 mmol/L 135-145 4743686934) K (test code = 3.9 mmol/L 3.5-5 5863270892) CL (test code = 103 mmol/L 98-108 4130610439) CO2 TOTAL (test code = 28 mmol/L 23-31 8172534970) AGAP (test code = 2-16 4212095616) BUN (test code = 12 mg/dL 7-23 8155640865) GLUCOSE (test code = 109 mg/dL 70-110 7905973644) CREATININE (test code 0.64 mg/dL 0.5-1.04 = 2467109011) CALCIUM (test code = 9.3 mg/dL 8.6-10.6 6926770864) eGFR Calculation mL/min/1.73m2 (Non-) (test code = 7028416715) eGFR Calculation mL/min/1.73m2 () (test code = 0326301074) LOLITA (test code = LOLITA) Association of [...] or abnormalities in imaging tests). [facility] (ALB, T.PRO, BILI T, BU/BC, ALT, AST, ALK PHOS)2020-04-03 23:19:00 Test Item Value Reference Range Interpretation Comments TOTAL BILI (test code = 0657508661) 0.7 mg/dL 0.1-1.1 BILI UNCON (test code = 0559367780) 0.7 mg/dL 0.1-1.1 BILI CONJ (test code = 7142731676) 0.0 mg/dL 0-0.3 T PROTEIN (test code = 4136828456) 7.7 g/dL 6.3-8.2 ALBUMIN (test code = 8250602301) 4.5 g/dL 3.5-5 ALK PHOS (test code = 9900742431) 67 U/L 34-122 ALTv (test code = 1742-6) 18 U/L 5-35 AST(SGOT) (test code = 8645944520) 21 U/L 13-40 Lab Interpretation (test code = Normal 79767-8) [facility] with [id number] 23:15:00 Test Item Value Reference Range Interpretation Comments WBC (test code = See_Comment [Automated 1990-2) message] The sy stem which generated this result transmitted reference range : 4.30 - 11.10 10*3/?L. The reference range was not used to interpret this result as normal/abnormal . RBC (test code = See_Comment [Automated 263-8) message] The sy stem which generated this [...] RDW-SD (test code = 40.0 fL 39-49.9 23872-3) RDW-CV (test code = 14.6 % 12-15.5 788-0) PLT (test code = See_Comment [Automated 357-3) message] The sy stem which generated this result transmitted reference range : 166 - 358 10*3/ ?L. The reference r nini was not used to interpret this result as normal/abnormal . MPV (test code = 10.9 fL 9.5-12.9 87999-6) NRBC/100 WBC (test See_Comment [Automat ed code = 5771901473) message] The system which generated this result transmitted reference range : 0.0 - 10.0 /100 WBCs. The refer ence range was not u sed to interpret th is result as normal/abnormal . NRBC x10^3 (test code <0.01 See_Comment [Auto mated = 1814480107) message] The s ystem which generated this result transmitted reference range : 10*3/?L. The reference range was not used to interpret this result as normal/abnormal . GRAN MAT (NEUT) % 58.2 % (test code = 770-8) IMM GRAN % (test code 0.40 % = 3668968333) LYMPH % (test code = 33.4 % 736-9) MONO % (test code = 6.3 % 5905-5) EOS % (test code = 1.3 % 713-8) BASO % (test code = 0.4 % 706-2) GRAN MAT x10^3(ANC) 4.82 10*3/uL 1.88-7.09 (test code = 5877804558) IMM GRAN x10^3 (test 0.03 10*3/uL 0-0.06 code = 7067904014) LYMPH x10^3 (test code 2.76 10*3/uL 1.32-3.29 = 731-0) MONO x10^3 (test code 0.52 10*3/uL 0.33-0.92 = 742-7) EOS x10^3 (test code = 0.11 10*3/uL 0.03-0.39 711-2) BASO x10^3 (test code 0.03 10*3/uL 0.01-0.07 = 704-7) Lab Interpretation Abnormal (test code = 94671-3) [facility]
--- NOTE | 2022-03-31 19:49 | RAD REPORT ---
EXAM DESCRIPTION: USExtremity Venous Uni Ltd03/31/2022 7:23 pm CLINICAL HISTORY: Left arm pain COMPARISON: None FINDINGS: The left internal jugular,subclavian,cephalic, axillary, brachial, basilic, ulnar and ra dial veins are generally compressible and demonstrate augmentation. Doppler demonstrates good flow. Grayscale, color and spectral analysis performed on all vessels IMPRESSION: No evidence of thrombus within the veins of the left upper extremity
--- NOTE | 2022-03-31 19:55 | ER ---
Nurse's Notes [facility] Name: Bree Farnsworth Age: 31 yrs Sex: Female : 1990 Arrival Date: 03/31/2022 Time: 18:04 Bed 9 Private MD: MART SALAZAR Diagnosis: Paresthesia of skin Presentation: 03/31 18:13 Chief complaint: Patient states: Pt reports left forearm pain, tingling, swelling since kb3 this morning. Coronavirus screen: Vaccine status: Patient reports receiving the 2nd dose of the covid vaccine. Client denies travel out of the [place] in the last 14 days. Ebola Screen: Patient negative for fever greater than or equal to 101.5 degrees Fahrenheit, and additional compatible Ebola Virus Disease symptoms Patient denies exposure to infectious person. Patient denies travel to an Ebola-affected area in the 21 days before illness onset. Initial Sepsis Screen: Does the patient meet any 2 criteria? No. Patient's initial sepsis screen is negative. Does the patient have a suspected source of infection? No. Patient's initial sepsis screen is negative. Risk Assessment: Do you want to hurt yourself or someone else? Patient reports no desire to harm self or others. Onset of symptoms was March 31, 2022 at 08:00. 18:13 Method Of Arrival: Ambulatory kb3 18:13 Acuity: CLAUDIA 3 kb3 Triage Assessment: 18:15 General: Appears in no apparent distress. Behavior is calm, cooperative. Pain: kb3 Complains of pain in dorsal aspect of left forearm Pain does not radiate. Pain currently is 5 out of 10 on a pain scale. Quality of pain is described as burning, tingling, Pain began 1 day ago. 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 - Social history:: Smoking status: Patient denies any tobacco usage or history of. Screenin:09 Abuse screen: Denies threats or abuse. Denies injuries from another. Nutritional hb screening: No deficits noted. Tuberculosis screening: No symptoms or risk factors identified. Fall Risk None identified. Assessment: 19:09 General: Appears in no apparent distress. Behavior is calm, cooperative. Pain: Pain hb currently is 5 out of 10 on a pain scale. Neuro: Level of Consciousness is awake, alert, obeys commands, Oriented to person, place, time, situation. Cardiovascular: Patient's skin is warm and dry. Respiratory: Respiratory effort is even, unlabored, Respiratory pattern is regular, symmetrical. GI: No signs and/or symptoms were reported involving the gastrointestinal system. : No signs and/or symptoms were reported regarding the genitourinary system. EENT: No signs and/or symptoms were reported regarding the EENT system. Derm: Skin is pink, warm \T\ dry. Musculoskeletal: Reports left arm pain, swelling, and paresthesia. Vital Signs: 18:13 BP 127 / 88; Pulse 87; Resp 18; Temp 98.8; Pulse Ox 100% ; Weight 67.59 kg; Height 5 kb3 ft. 3 in. (160.02 cm); Pain 5/10; 18:13 Body Mass Index 26.39 (67.59 kg, 160.02 cm) kb3 ED Course: 18:04 Patient arrived in ED. am2 18:04 Giacomo Gonzalez DO is Attending Physician. ms3 18:04 MART SALAZAR is Private Physician. am2 18:15 Triage completed. kb3 18:15 Arm band placed on right wrist. kb3 19:07 Attending Physician role handed off by Giacomo Gonzalez DO ms3 19:07 Stiven Moya MD is Attending Physician. ms3 19:09 Jeanette Juarez RN is Primary Nurse. hb 19:09 Patient has correct armband on for positive identification. hb 19:25 US Extremity Venous Unilateral Ltd In Process Unspecified. EDMS Administered Medications: No medications were administered Medication: 19:09 VIS not applicable for this client. hb Outcome: 19:55 Discharge ordered by . rt 20:05 Patient left the ED. hb Signatures: Dispatcher [employer] EDMS Jeanette Juarez RN RN hb Kimmie Britt am2 Giacomo Gonzalez DO DO ms3 Melva Leigh RN RN [email or web address] Stiven Moya, MD rt
--- NOTE | 2022-03-31 19:55 | EDPHYS ---
Physician Documentation [facility] Name: Bree Farnsworth Age: 31 yrs Sex: Female : 1990 Arrival Date: 03/31/2022 Time: 18:04 Bed 9 Private MD: MART SALAZAR ED Physician Stiven Moya HPI: 03/31 18:16 This 31 yrs old Female presents to ER via Ambulatory with complaints of Numbness Of Arm ms3 - swelling/lump. 18:16 The patient or guardian complains of pain, swelling. The complaints affect the left ms3 tricep and palmar aspect of left forearm. Context: The problem was sustained at home, resulted from possibly from baby sleeping on her arm. Onset: The symptoms/episode began/occurred today. Treatment prior to arrival includes: no previous treatment. Modifying factors: The symptoms are alleviated by nothing. the symptoms are aggravated by nothing. Associated signs and symptoms: The patient has no apparent associated signs or symptoms. Severity of symptoms: At their worst the symptoms were moderate, in the emergency department the symptoms are unchanged, a " 5" out of "10". 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 - Social history:: Smoking status: Patient denies any tobacco usage or history of. ROS: 18:16 Constitutional: Negative for fever, and chills. Neck: Negative for injury, pain, and ms3 swelling, Cardiovascular: Negative for chest pain, and palpitations. Respiratory: Negative for shortness of breath, cough, wheezing, and pleuritic chest pain, Abdomen/GI: Negative for abdominal pain, nausea, vomiting, diarrhea, and constipation, Back: Negative for injury and pain. 18:16 MS/extremity: Positive for pain, swelling, tenderness, of the left arm. 18:16 All other systems are negative. Exam: 18:16 Constitutional: This is a well developed, well nourished patient who is awake, alert, ms3 and in no acute distress. Head/Face: Normocephalic, atraumatic. Neck: Trachea midline, no cervical lymphadenopathy. Supple, full range of motion without nuchal rigidity, or vertebral point tenderness. No Meningismus. Chest/axilla: Normal chest wall appearance and motion. Nontender with no deformity. Cardiovascular: Regular rate and rhythm with a normal S1 and S2. No gallops, murmurs, or rubs. Normal PMI, no JVD. No pulse deficits. Respiratory: Lungs have equal breath sounds bilaterally, clear to auscultation and percussion. No rales, rhonchi or wheezes noted. No increased work of breathing, no retractions or nasal flaring. Abdomen/GI: Soft, non-tender, with normal bowel sounds. No distension or tympany. No guarding or rebound. No evidence of tenderness throughout. Skin: Warm, dry with normal turgor. Normal color with no rashes, no lesions, and no evidence of cellulitis. 18:16 Musculoskeletal/extremity: Extremities: noted in the left arm: ecchymosis, pain, swelling, tenderness. Vital Signs: 18:13 BP 127 / 88; Pulse 87; Resp 18; Temp 98.8; Pulse Ox 100% ; Weight 67.59 kg; Height 5 kb3 ft. 3 in. (160.02 cm); Pain 5/10; 18:13 Body Mass Index 26.39 (67.59 kg, 160.02 cm) kb3 MDM: 18:13 Patient medically screened. ms3 18:16 Differential diagnosis: contusion, DVT. ms3 19:06 Transition of care: After a detail discussion of the patient's case, care is ms3 transferred to Stiven Moya MD. 19:56 Data reviewed: vital signs, nurses notes, radiologic studies. ED course: Patient rt presents to the ED with numbness to the left arm. It is not consistent with a CVA. Is most consistent with a paresthesia. Ultrasound of the arm reveals no evidence of a DVT. No neurovascular compromise. Is stable for outpatient care, return precautions discussed.. 03/31 18:16 Order name: Extremity Venous Unilateral Ltd; Complete Time: 19:52 ms3 Administered Medications: No medications were administered Disposition Summary: 03/31/22 19:55 Discharge Ordered Location: Home rt Problem: new rt Symptoms: are unchanged rt Condition: Stable rt Diagnosis - Paresthesia of skin rt Followup: rt - With: Private Physician - When: 2 - 3 days - Reason: Discharge Instructions: - Discharge Summary Sheet rt - Paresthesia rt Forms: - Medication Reconciliation Form rt - Thank You Letter rt - Antibiotic Education rt - Prescription Opioid Use rt Signatures: Dispatcher [employer] EDGiacomo Chong DO DO ms3 Melva Leigh RN RN kb3 Stiven Moya MD MD rt
[2022-03-31 20:22] VITALS: BP 127/88; TEMP 98.8; O2SAT 100
== END 2022-03-31 20:05 | disposition home or self-care (01) ==
LOC: ER 17:59
DX: R20.2 Paresthesia of skin (principal)
CPT/HCPCS: 93971; 99282

== ENCOUNTER → 2023-05-18 | Emergency (ER) | payer SELFPAY ==
[~2023-05-18] MED LIST changes: +ACETAMINOPHEN 500 MG TAB ONE; +FAMOTIDINE 20 MG TAB ONE; +NA CHLORIDE 0.9% 1,000 ML ONE; +ONDANSETRON 4 MG/2 ML VIAL ONE; -OXYTOCIN/LR 20 UNIT/1,000 ML BAG IV SCH; +PROMETHAZINE 25 MG TABLET ONE
--- OUTSIDE RECORDS SUMMARY | 2023-05-18 10:22 | XMS REPORT | Continuity of Care Document ---
Author Name Unknown Address [address] [facility] [address] [place] [address] [facility] Address [address] [facility] [address] [place] [address] Care Team Providers Care Knot Bumper Name Role Phone MATHEUS SALAZAR Primary Care Physician Unav demetri Only, Gal Adult Uc Test Attending Clinician David Lozoya Attending Clinician DAVID PARKER Attending Clinician Unavailable Doctor Unassigned, Beatty Attending Clinician U navailable Taina Silva Attending Clinician Stephanie Shahid Attending Clinician [phone] Payers Payer Name Policy Type Policy Number Effective Date Expirati on Date Source [facility] MEDICAID [id number] 2017 00:00:00 Problems Condition Name Condition Details Condition Category Status Onset Date Resolution Date Last Treatment Date Treating Clinician Comments Source Multigravi da, antepartum Multigravi da, antepartum Disease Active 07-18 00:00: 00 [facility] Obesity in , antepartum Obesity in , antepartum Disease Active 07-18 00:00: 00 [facility] High risk , antepartum High risk , antepartum Disease Active 07-18 00:00: 00 [facility] Allergies, Adverse Reactions, Alerts Allergy Name Allergy Type Status Severity Reaction(s) Onset Date Inactive Date Treating Clinician Comments Source NO KNOWN ALLERGIE S Drug Class Active [facility] Social History Social Habit Start Date Stop Date Quantity Comments Source Exposure to SARS-CoV-2 (event) Not sure [facility] Alcohol intake 2020-08-21 00:00:00 2020-08-21 00:00:00 Current non-drinker of alcohol (finding) [facility] Tobacco use and exposure 2017-07-18 00:00:00 2017-07-18 00:00:00 Never used [facility] Sex Assigned At 1990 00:00:00 1990 00:00:00 [facility] Smoking Status Start Date Stop Date Source Never smoker [facility] Medications Ordered Medication Name Filled Medication Name Start Date Stop Date Current Medication? Ordering Clinician Indication Dosage Frequency Signature (SIG) Comments Components Source diphenhydrA MINE (BENADRYL) injection 50 mg 08-21 23:30: 00 08-21 22:28 :00 No 50mg 50 mg, Intramuscu lar, ONCE, 1 dose, Fri08/21/20 at 1830, STAT [facility] albuterol (VENTOLIN) inhaler 2 Puff 2019-05 00:45: 00 04-03 23:41 :00 No 2{puff} 2 Puff, Inhalation , ONCE, 1 dose, Fri04/03/20 at 1845, DEB
Is this order for a patient with suspected or confirmed COVID-19 infection? Yes [facility] ketorolac (TORADOL) injection 30 mg 2019-05 00:30: 00 04-03 23:31 :00 No 30mg 30 mg, Slow IV Push, ONCE, 1 dose, Fri04/03/20 at 1830, DEB
Fa culty member approving Restricted medication : EMERGENCY ROOM, [facility] aspirin tablet 325 mg 2019-05 22:30: 00 04-03 23:09 :00 No 325mg 325 mg, Oral, ONCE, 1 dose, Fri04/03/20 at 1630, STAT [facility] acetaminoph en-codeine 300-30 mg tablet 2019-05 00:00: 00 Yes [id number] 1{tbl} Take 1 tablet by mouth every 6 (six) hours as needed for Pain (scale 1-3). Indication s: acute pain [facility] albuterol 90 mcg/actuati on inhaler 2019-05 00:00: 00 Yes [id number] 2{puff} Inhale 2 Puffs every 4 (four) hours as needed for Wheezing or Shortness of Breath. [facility] benzonatate 100 mg capsule 2019-05 00:00: 00 Yes [id number] 100mg Take 1 capsule by mouth 3 (three) times daily as needed for Cough. [facility] acetaminoph en-codeine 300-30 mg tablet 2019-05 00:00: 00 Yes [id number] 1{tbl} Take 1 tablet by mouth every 6 (six) hours as needed for Pain (scale 1-3). Indication s: acute pain [facility] albuterol 90 mcg/actuati on inhaler 2019-05 00:00: 00 Yes [id number] 2{puff} Inhale 2 Puffs every 4 (four) hours as needed for Wheezing or Shortness of Breath. [facility] benzonatate 100 mg capsule 2019-05 00:00: 00 Yes [id number] 100mg Take 1 capsule by mouth 3 (three) times daily as needed for Cough. [facility] acetaminoph en-codeine 300-30 mg tablet 2019-05 00:00: 00 Yes [id number] 1{tbl} Take 1 tablet by mouth every 6 (six) hours as needed for Pain (scale 1-3). Indication s: acute pain [facility] albuterol 90 mcg/actuati on inhaler 2019-05 00:00: 00 Yes [id number] 2{puff} Inhale 2 Puffs every 4 (four) hours as needed for Wheezing or Shortness of Breath. [facility] benzonatate 100 mg capsule 2019-05 00:00: 00 Yes [id number] 100mg Take 1 capsule by mouth 3 (three) times daily as needed for Cough. [facility] acetaminoph en-codeine 300-30 mg tablet 2019-05 00:00: 00 Yes [id number] 1{tbl} Take 1 tablet by mouth every 6 (six) hours as needed for Pain (scale 1-3). Indication s: acute pain [facility] albuterol 90 mcg/actuati on inhaler 2019-05 00:00: 00 Yes [id number] 2{puff} Inhale 2 Puffs every 4 (four) hours as needed for Wheezing or Shortness of Breath. [facility] benzonatate 100 mg capsule 2019-05 00:00: 00 Yes [id number] 100mg Take 1 capsule by mouth 3 (three) times daily as needed for Cough. [facility] acetaminoph en-codeine 300-30 mg tablet 2019-05 00:00: 00 Yes [id number] 1{tbl} Take 1 tablet by mouth every 6 (six) hours as needed for Pain (scale 1-3). Indication s: acute pain [facility] albuterol 90 mcg/actuati on inhaler 2019-05 00:00: 00 Yes [id number] 2{puff} Inhale 2 Puffs every 4 (four) hours as needed for Wheezing or Shortness of Breath. [facility] benzonatate 100 mg capsule 2019-05 00:00: 00 Yes [id number] 100mg Take 1 capsule by mouth 3 (three) times daily as needed for Cough. [facility] albuterol 90 mcg/actuati on inhaler 2019-05 00:00: 00 04-03 00:00 :00 No [id number] 2{puff} Inhale 2 Puffs every 4 (four) hours as needed for Wheezing or Shortness of Breath. [facility] acetaminoph en-codeine 300-30 mg tablet 2019-05 00:00: 00 04-03 00:00 :00 No [id number] 1{tbl} Take 1 tablet by mouth every 6 (six) hours as needed for Pain (scale 1-3) for up to 7 days. Indication s: acute pain [facility] albuterol 90 mcg/actuati on inhaler 2019-05 00:00: 04-03 00:00 :00 No [id number] 2{puff} Inhale 2 Puffs every 4 (four) hours as needed for Wheezing or Shortness of Breath. [facility] albuterol 90 mcg/actuati on inhaler 2019-05 00:00: 04-03 00:00 :00 No [id number] 2{puff} Inhale 2 Puffs every 4 (four) hours as needed for Wheezing or Shortness of Breath. [facility] albuterol 90 mcg/actuati on inhaler 2019-05 00:00: 04-03 00:00 :00 No [id number] 2{puff} Inhale 2 Puffs every 4 (four) hours as needed for Wheezing or Shortness of Breath. [facility] predniSONE 20 mg tablet 01-26 00:00: 00 Yes Take one tablet by mouth daily till all gone [facility] butalbital- acetaminoph en-caff 50-325-40 mg tablet 01-26 00:00: 00 Yes 1{tbl} Take 1 tablet by mouth every 6 (six) hours as needed for Headache (Headache) . [facility] predniSONE 20 mg tablet 01-26 00:00: 00 Yes Take one tablet by mouth daily till all gone [facility] butalbital- acetaminoph en-caff 50-325-40 mg tablet 01-26 00:00: 00 Yes 1{tbl} Take 1 tablet by mouth every 6 (six) hours as needed for Headache (Headache) . [facility] predniSONE 20 mg tablet 01-26 00:00: 00 Yes Take one tablet by mouth daily till all gone [facility] butalbital- acetaminoph en-caff 50-325-40 mg tablet 01-26 00:00: 00 Yes 1{tbl} Take 1 tablet by mouth every 6 (six) hours as needed for Headache (Headache) . [facility] predniSONE 20 mg tablet 01-26 00:00: 00 Yes Take one tablet by mouth daily till all gone [facility] butalbital- acetaminoph en-caff 50-325-40 mg tablet 01-26 00:00: 00 Yes 1{tbl} Take 1 tablet by mouth every 6 (six) hours as needed for Headache (Headache) . [facility] predniSONE 20 mg tablet 01-26 00:00: 00 Yes Take one tablet by mouth daily till all gone [facility] butalbital- acetaminoph en-caff 50-325-40 mg tablet 01-26 00:00: 00 Yes 1{tbl} Take 1 tablet by mouth every 6 (six) hours as needed for Headache (Headache) . [facility] vit 33-iron-fol ic-dha (SELECT-OB + DHA) 29 mg iron-1 mg -250 mg combo pack 08-22 00:00: 00 Yes [id number] 1{packe t} Take 1 Packet by mouth daily. [facility] vit 33-iron-fol ic-dha (SELECT-OB + DHA) 29 mg iron-1 mg -250 mg combo pack 08-22 00:00: 00 Yes [id number] 1{packe t} Take 1 Packet by mouth daily. [facility] vit 33-iron-fol ic-dha (SELECT-OB + DHA) 29 mg iron-1 mg -250 mg combo pack 08-22 00:00: 00 Yes [id number] 1{packe t} Take 1 Packet by mouth daily. [facility] vit 33-iron-fol ic-dha (SELECT-OB + DHA) 29 mg iron-1 mg -250 mg combo pack 08-22 00:00: 00 Yes [id number] 1{packe t} Take 1 Packet by mouth daily. [facility] vit 33-iron-fol ic-dha (SELECT-OB + DHA) 29 mg iron-1 mg -250 mg combo pack 08-22 00:00: 00 Yes [id number] 1{packe t} Take 1 Packet by mouth daily. [facility] Vital Signs Vital Name Observation Time Observation Value Comments S ource Systolic blood pressure 2020-08-21 23:25:00 128 mm[Hg] [facility] Diastolic blood pressure 2020-08-21 23:25:00 80 mm[Hg] [facility] Heart rate 2020-08-21 23:25:00 88 /min [facility] Respiratory rate 2020-08-21 23:25:00 18 /min [facility] Oxygen saturation in Arterial blood by Pulse oximetry 2020-08-21 23:25:00 100 /min [facility] Body temperature 2020-08-21 21:51:00 36.61 Brenda [facility] Body weight 2020-08-21 21:51:00 71.215 kg [facility] BMI 2020-08-21 21:51:00 27.81 kg/m2 [facility] Systolic blood pressure 2020-08-21 23:25:00 128 mm[Hg] [facility] Diastolic blood pressure 2020-08-21 23:25:00 80 mm[Hg] [facility] Heart rate 2020-08-21 23:25:00 88 /min [facility] Respiratory rate 2020-08-21 23:25:00 18 /min [facility] Oxygen saturation in Arterial blood by Pulse oximetry 2020-08-21 23:25:00 100 /min [facility] Body temperature 2020-08-21 21:51:00 36.61 Brenda [facility] Body weight 2020-08-21 21:51:00 71.215 kg [facility] BMI 2020-08-21 21:51:00 27.81 kg/m2 [facility] Systolic blood pressure 2020-04-04 01:01:00 114 mm[Hg] [facility] Diastolic blood pressure 2020-04-04 01:01:00 79 mm[Hg] [facility] Heart rate 2020-04-04 01:01:00 80 /min [facility] Respiratory rate 2020-04-04 01:01:00 18 /min [facility] Oxygen saturation in Arterial blood by Pulse oximetry 2020-04-04 01:01:00 99 /min [facility] Body temperature 2020-04-03 22:14:00 36.44 Brenda [facility] Body weight 2020-04-03 22:14:00 67.132 kg [facility] BMI 2020-04-03 22:14:00 26.22 kg/m2 [facility] Systolic blood pressure 2020-04-04 01:01:00 114 mm[Hg] [facility] Diastolic blood pressure 2020-04-04 01:01:00 79 mm[Hg] [facility] Heart rate 2020-04-04 01:01:00 80 /min [facility] Respiratory rate 2020-04-04 01:01:00 18 /min [facility] Oxygen saturation in Arterial blood by Pulse oximetry 2020-04-04 01:01:00 99 /min [facility] Body temperature 2020-04-03 22:14:00 36.44 Brenda [facility] Body weight 2020-04-03 22:14:00 67.132 kg [facility] BMI 2020-04-03 22:14:00 26.22 kg/m2 [facility] Procedures Procedure Date / Time Performed Performing Clinicia n Source NOTICE OF PRIVACY PRACTICES 2021-05-04 20:29:05 Doctor Unassigned, Beatty [facility] NOTICE OF PRIVACY PRACTICES 2020-08-21 21:44:50 Doctor Unassigned, Beatty [facility] CONSENT/REFUSAL FOR DIAGNOSIS AND TREATMENT 2020-08-21 21:44:32 Doctor Unassigned, Beatty [facility] XR CHEST 1 VW 2020-04-04 00:41:21 Stephanie Bennett [facility] TEST, SERUM 2020-04-03 22:56:00 Lavonne Bennett [facility] TROPONIN I 2020-04-03 22:56:00 Stephanie Bennett [facility] HEPATIC FUNCTION PANEL ([id number]) (ALB,T.PRO,BILI T,BU/BC,ALT,AST,ALK PHOS) 2020-04-03 22:56:00 Stephanie Bennett [facility] BASIC METABOLIC PANEL (NA, K, CL, CO2, GLUCOSE, BUN, CREATININE, CA) 2020-04-03 22:56:00 Stephanie Bennett [facility] CBC WITH DIFF 2020-04-03 22:56:00 [facility] 2020-04-03 22:56:00 Stephanie Bennett [facility] URINALYSIS 2020-04-03 22:56:00 Stephanie Bennett [facility] N-TERMINAL PRO-BNP 2020-04-03 22:56:00 Danielle Bennett [facility] Encounters Start Date/Time End Date/Time Encounter Type Admission Type Attending [facility] Facility Care Department Encounter ID Source 2021-03-04 13:55:32 Emergency [facility] [id number] [facility] 2021-03-03 08:18:11 Emergency [facility] [id number] [facility] 2023-01-10 07:57:34 2023-01-10 07:57:34 Outpatient [facility] [id number] Blake Cook 2022-11-15 13:56:01 2022-11-15 13:56:01 Outpatient [facility] [id number] Blake Cook 2021-05-04 14:30:00 2021-05-04 14:45:00 Laboratory Only Only, Gal Adult Uc Test David Parker ON LICENSE OF [facility] 1..840.114 350.1.13.10 4.2.7.2.686 [id number] [facility] 2021-05-04 14:30:00 2021-05-04 14:30:00 Outpatient DAVID MOSER [facility] [id number] [facility] 2021-05-04 00:00:00 2021-05-04 00:00:00 Orders Only Doctor Unassigned, Beatty [facility] 1.840.114 350.1.13.10 4.2.7.2.686 [id number] [facility] 2020-08-21 16:53:00 2020-08-21 18:31:00 Emergency Taina Mann [facility] 1.2.840.114 350.1.13.10 4.2.7.2.686 [id number] [facility] 2020-08-21 16:53:00 2020-08-21 18:31:00 Emergency MannTaina martinez [facility] 1.2.840.114 350.1.13.10 4.2.7.2.686 [id number] 2020-08-21 00:00:00 2020-08-21 00:00:00 Orders Only Doctor Unassigned, Beatty [facility] 1.2.840.114 350.1.13.10 4.2.7.2.686 [id number] [facility] 2020-08-21 00:00:00 2020-08-21 00:00:00 Orders Only Doctor Unassigned, Beatty [facility] 1.2.840.114 350.1.13.10 4.2.7.2.686 [id number] 2020-04-03 16:07:00 2020-04-03 19:36:00 Emergency [facility] 1.2.840.114 350.1.13.10 4.2.7.2.686 [id number] [facility] 2020-04-03 16:07:00 2020-04-03 19:36:00 Emergency [facility] 1.2.840.114 350.1.13.10 4.2.7.2.686 [id number] Results Test Description Test Time Test Comments Results Resul t Comments Source Chest 1 View 00:51:13 No acute cardiopulmonary abnormality. Preliminary Report Dictated [...] this study and agree with theabove report. [id number] 23:31:00* Test Item Value Reference Range Interpretation Comme nts TROPONIN I (test code = 4217423135) <0.012 See_Comment [Automated message] The system which generated this result transmitted reference range: <=0.034 ng/mL. The reference range was not used to interpret this result as normal/abnormal. LOLITA (test code = LOLITA) Equal or Less than 0.034 ng/ml---Normal ?Note: Cardiac troponin begins to [...] patient's use of biotin. ? Lab Interpretation (test code = 89283-3) Normal [facility] 23:30:00* Test Item Value Reference Range Interpretation Comme nts APPEARANCE (test code = 2913868623) Clear Clear COLOR (test code = 0380281356) Yellow Yellow PH (test code = 4853538300) 4.8-8.0 SP GRAVITY (test code = 2698677761) 1.003-1.030 GLU U QUAL (test code = 6278436962) Negative Negative BLOOD (test code = 7745523531) Negative Negative KETONES (test code = 2575476001) Negative Negative PROTEIN (test code = 2887-8) Negative Negative UROBILIN (test code = 2991486923) 0.2 mg/dL See_Comment [Automated DoseMea ge] The system which generated this result transmitted reference range: 0-1.0 mg/dL. The reference range was not used to interpret this result as normal/abnormal. BILIRUBIN (test code = 0524314928) Negative Negative NITRITE (test code = 6688391601) Negative Negative LEUK MIKE (test code = 1997017568) Negative Negative RBC/HPF (test code = 8856237365) <1 See_Comment [Automated DoseMea ge] The system which generated this result transmitted reference range: 0 - 3 HPF. The reference range was not used to interpret this result as normal/abnormal. WBC/HPF (test code = 8089187251) See_Comment [Automated DoseMea ge] The system which generated this result transmitted reference range: 0 - 5 HPF. The reference range was not used to interpret this result as normal/abnormal. BACTERIA (test code = 4369829496) Negative Negative MUCOUS (test code = 5670459204) Slight Negative LPF A SQ EPITH (test code = 9331675644) HPF Lab Interpretation (test code = 77652-2) Abnormal [facility] [id number] 23:28:00* Test Item Value Reference Range Interpretation Comme nts NT-proBNP (test code = 2583613175) 28 pg/mL See_Comment [Automated message] The system which generated this result transmitted reference range: <=125. The reference range was not used to interpret this result as normal/abnormal. LOLITA (test code = LOLITA) Biotin has been reported to cause a negative bias, interpret results relative to patient's use of biotin. Lab Interpretation (test code = 12862-0) Normal [facility]D-[id number] 23:26:00* Test Item Value Reference Range Interpretation Comments D-DIMER (test code = 9350258047) <0.27 See_Comment [Automated message] The system which generated this result transmitted reference range: <0.41 ?g/mL (FEU). The reference range was not used to interpret this result as normal/abnormal. LOLITA (test code = LOLITA) This test may be used in conjunction with a clinical pretest [...] context, in forming a diagnosis. Lab Interpretation (test code = 92389-0) Normal [facility] (NA, K, CL, CO2, GLUCOSE, BUN, CREATININE, CA)2020-04-03 23:20:00* Test Item Value Reference Range Interpretation Comme nts NA (test code = 6164172194) 139 mmol/L 135-145 K (test code = 8386153381) 3.9 mmol/L 3.5-5 CL (test code = 4814138033) 103 mmol/L 98-108 CO2 TOTAL (test code = 5909223675) 28 mmol/L 23-31 AGAP (test code = 0155294825) 2-16 BUN (test code = 7576804804) 12 mg/dL 7-23 GLUCOSE (test code = 9650122406) 109 mg/dL 70-110 CREATININE (test code = 0492147780) 0.64 mg/dL 0.5-1.04 CALCIUM (test code = 4331582668) 9.3 mg/dL 8.6-10.6 eGFR Calculation (Non-) (test code = 7724465045) mL/min/1.73m2 eGFR Calculation () (test code = 6297713138) mL/min/1.73m2 LOLITA (test code = LOLITA) Association of [...] or urine or abnormalities in imaging tests). [facility] (ALB, T.PRO, BILI T, BU/BC, ALT, AST, ALK PHOS)2020-04-03 23:19:00* Test Item Value Reference Range Interpretation Comme nts TOTAL BILI (test code = 1531058248) 0.7 mg/dL 0.1-1.1 BILI UNCON (test code = 1127579893) 0.7 mg/dL 0.1-1.1 BILI CONJ (test code = 2839534503) 0.0 mg/dL 0-0.3 T PROTEIN (test code = 1818193223) 7.7 g/dL 6.3-8.2 ALBUMIN (test code = 6311143790) 4.5 g/dL 3.5-5 ALK PHOS (test code = 1641887749) 67 U/L 34-122 ALTv (test code = 1742-6) 18 U/L 5-35 AST(SGOT) (test code = 2334148973) 21 U/L 13-40 Lab Interpretation (test cod e = 64917-9) Normal [facility] with [id number] 23:15:00* Test Item Value Reference Range Interpretation Comme nts WBC (test code = 6690-2) See_Comment [Automated messa ge] The system which generated this result transmitted reference range: 4.30 - 11.10 10*3/?L. The reference range was not used to interpret this result as normal/abnormal. RBC (test code = 789-8) See_Comment [Automated messa ge] The system which generated this result transmitted reference range: 3.93 - 5.25 10*6/?L. The reference range was not used to interpret this result as normal/abnormal. HGB (test code = 718-7) 11.9 g/dL 11.6-15 HCT (test code = 4544-3) 37.6 % 35.7-45.2 MCV (test code = 787-2) 75.2 fL 80.6-95.5 L MCH (test code = 785-6) 23.8 pg 25.9-32.8 L MCHC (test code = 786-4) 31.6 g/dL 31.6-35.1 RDW-SD (test code = 80300-3) 40.0 fL 39-49.9 RDW-CV (test code = 788-0) 14.6 % 12-15.5 PLT (test code = 777-3) See_Comment [Automated messa ge] The system which generated this result transmitted reference range: 166 - 358 10*3/?L. The reference range was not used to interpret this result as normal/abnormal. MPV (test code = 81929-3) 10.9 fL 9.5-12.9 NRBC/100 WBC (test code = 0138739486) See_Comment [Automated [employer] ssage] The system which generated this result transmitted reference range: 0.0 - 10.0 /100 WBCs. The reference range was not used to interpret this result as normal/abnormal. NRBC x10^3 (test code = 3563108557) <0.01 See_Comment [Automated messa ge] The system which generated this result transmitted reference range: 10*3/?L. The reference range was not used to interpret this result as normal/abnormal. GRAN MAT (NEUT) % (test code = 770-8) 58.2 % IMM GRAN % (test code = 9667449341) 0.40 % LYMPH % (test code = 736-9) 33.4 % MONO % (test code = 5905-5) 6.3 % EOS % (test code = 713-8) 1.3 % BASO % (test code = 706-2) 0.4 % GRAN MAT x10^3(ANC) (test code = 8425536309) 4.82 10*3/uL 1.88-7.09 IMM GRAN x10^3 (test code = 9099306473) 0.03 10*3/uL 0-0.06 LYMPH x10^3 (test code = 731-0) 2.76 10*3/uL 1.32-3.29 MONO x10^3 (test code = 742-7) 0.52 10*3/uL 0.33-0.92 EOS x10^3 (test code = 711-2) 0.11 10*3/uL 0.03-0.39 BASO x10^3 (test code = 704-7) 0.03 10*3/uL 0.01-0.07 Lab Interpretation (test code = 91203-4) Abnormal [facility]
[2023-05-18 10:56] LABS: SARS-CoV-2 Antigen Rapid Res Negative (Negative)
--- NOTE | 2023-05-18 11:36 | RAD REPORT ---
EXAM DESCRIPTION: Cinthia Single View05/18/2023 11:02 am CLINICAL HISTORY: Chest pain COMPARISON: 2021 FINDINGS: The lungs appear clear of acute infiltrate. The heart is normal size IMPRESSION: No acute abnormalities displayed
--- NOTE | 2023-05-18 11:52 | ER ---
Nurse's Notes [facility] Name: Bree Farnsworth Age: 32 yrs Sex: Female : 1990 Arrival Date: 05/18/2023 Time: 10:18 Bed 18 Private MD: MART SALAZAR Diagnosis: Acute bronchitis, unspecified Presentation: 05/18 10:30 Chief complaint: Nausea, body aches, malaise, and cough x 3 days, diarrhea 3 days ago hb that resolved yesterday. Family member has the flu. Coronavirus screen: At this time, the client does not indicate any symptoms associated with coronavirus-19. Ebola Screen: No symptoms or risks identified at this time. Initial Sepsis Screen: Does the patient meet any 2 criteria? HR > 90 bpm. No. Patient's initial sepsis screen is negative. Does the patient have a suspected source of infection? No. Patient's initial sepsis screen is negative. Risk Assessment: Do you want to hurt yourself or someone else? Patient reports no desire to harm self or others. Onset of symptoms was May 15, 2023. 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 - Social history:: Smoking status: Patient denies any tobacco usage or history of. Screenin:41 [facility] ED Fall Risk Assessment (Adult) History of falling in the last 3 months, kc6 including since admission No falls in past 3 months (0 pts) Confusion or Disorientation No (0 pts) Intoxicated or Sedated No (0 pts) Impaired Gait No (0 pts) Mobility Assist Device Used No (0 pt) Altered Elimination No (0 pt) Score/Fall Risk Level 0 - 2 = Low Risk. Abuse screen: Denies threats or abuse. Denies injuries from another. Nutritional screening: No deficits noted. Tuberculosis screening: No symptoms or risk factors identified. Assessment: 10:43 General: Appears in no apparent distress. comfortable, well groomed, well developed, kc6 Behavior is calm, cooperative, appropriate for age, Reports chills for fever for feeling ill for fatigue for. Pain: Complains of pain in back. Neuro: Level of Consciousness is awake, alert, obeys commands, Oriented to person, place, time, situation, Appropriate for age. Cardiovascular: Capillary refill < 3 seconds. Respiratory: Reports cough that is Airway is patent Trachea midline Respiratory effort is even, unlabored, Respiratory pattern is regular, symmetrical. GI: Reports diarrhea, nausea, Patient currently denies abdominal pain, vomiting. : No signs and/or symptoms were reported regarding the genitourinary system. EENT: Reports nasal congestion. Derm: No signs and/or symptoms reported regarding the dermatologic system. Skin is intact, is healthy with good turgor, Skin is pink, warm \T\ dry. Musculoskeletal: No signs and/or symptoms reported regarding the musculoskeletal system. Circulation, motion, and sensation intact. Capillary refill < 3 seconds, Range of motion: intact in all extremities. 11:43 Reassessment: Patient appears in no apparent distress at this time. No changes from kc6 previously documented assessment. Patient and/or family updated on plan of care and expected duration. Pain level reassessed. Patient is alert, oriented x 3, equal unlabored respirations, skin warm/dry/pink. Vital Signs: 10:30 BP 113 / 69; Pulse 93; Resp 21; Temp 99(O); Pulse Ox 99% on R/A; Weight 76.2 kg; Height hb 5 ft. 4 in. ; Pain 7/10; 12:15 BP 111 / 65; Pulse 93; Resp 16 S; Temp 98.5(O); Pulse Ox 97% on R/A; kc6 10:30 Body Mass Index 28.84 (76.20 kg, 162.56 cm) hb 10:30 Pain Scale: Adult hb ED Course: 10:20 Patient arrived in ED. rg4 10:21 None, None is Private Physician. rg4 10:21 MART SALAZAR is Private Physician. rg4 10:21 Chayito Cole FNP-C is [facility]. snw 10:21 Jonny Segura MD is Attending Physician. snw 10:29 Ronda Whittaker RN is Primary Nurse. kc6 10:32 Triage completed. hb 10:32 Arm band placed on. hb 10:41 Patient has correct armband on for positive identification. Bed in low position. Call kc6 light in reach. Side rails up X 1. Adult w/ patient. Client placed on continuous cardiac and pulse oximetry monitoring. NIBP monitoring applied. 10:41 Patient maintains SpO2 saturation greater than 95% on room air. kc6 11:04 Chest Single View XRAY In Process Unspecified. EDMS 11:51 MART SALAZAR is Referral Physician. snw 12:16 No provider procedures requiring assistance completed. Patient did not have IV access kc6 during this emergency room visit. Administered Medications: 10:40 Drug: Acetaminophen PO 1000 mg PO once Route: PO; kc6 12:05 Follow up: Response: No adverse reaction; Temperature is decreased kc6 10:41 Drug: Famotidine PO 20 mg PO once Route: PO; kc6 12:05 Follow up: Response: No adverse reaction kc6 10:41 Drug: Promethazine PO 25 mg PO once Route: PO; kc6 12:05 Follow up: Response: No adverse reaction kc6 Medication: 12:16 VIS not applicable for this client. kc6 Outcome: 11:52 Discharge ordered by MD. snw 12:16 Discharged to home ambulatory, with family, kc6 12:16 Condition: good 12:16 Discharge instructions given to patient, Instructed on discharge instructions, follow up and referral plans. medication usage, Demonstrated understanding of instructions, follow-up care, medications, Prescriptions given X 3, 12:16 Patient left the ED. kc6 Signatures: Dispatcher [employer] EDPR Chayito Cole, HOME HEALTH CARE WORKER-C HOME HEALTH CARE WORKER-Csnw Jeanette Juarez, CORY RN Aleyda Chamberlain4 Ronda Whittaker RN RN kc6 Corrections: (The following items were deleted from the chart) 10:33 10:32 Home Meds: quetiapine 200 mg Oral tablet once at bedtime; hb hb
--- NOTE | 2023-05-18 11:52 | EDPHYS ---
Physician Documentation [facility] Name: Bree Farnsworth Age: 32 yrs Sex: Female : 1990 Arrival Date: 05/18/2023 Time: 10:18 Bed 18 Private MD: MART SALAZAR ED Physician Jonny Segura HPI: 05/18 10:41 This 32 yrs old Female presents to ER via Ambulatory with complaints of Cough, Back snw Pain, Weakness. 10:41 The patient or guardian reports cough, described as moderate, flu symptoms, snw arthralgias, low-grade fever, myalgias. Onset: The symptoms/episode began/occurred suddenly, 3 day(s) ago, and became persistent. Severity of symptoms: At their worst the symptoms were moderate. Associated signs and symptoms: Pertinent positives: chest pain, diarrhea. The patient has not experienced similar symptoms in the past, but family has similar symptoms, son. The patient has not recently seen a physician. 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 - Social history:: Smoking status: Patient denies any tobacco usage or history of. ROS: 10:40 Eyes: Negative for injury, pain, redness, and discharge, ENT: Negative for injury, snw pain, and discharge, Neck: Negative for injury, pain, and swelling, Cardiovascular: Negative for palpitations and edema, + chest pain Back: Negative for injury and pain, 10:40 : Negative for injury, bleeding, discharge, and swelling, MS/Extremity: Negative for injury and deformity, Skin: Negative for injury, rash, and discoloration, Neuro: Negative for headache, weakness, numbness, tingling, and seizure, Psych: Negative for depression, anxiety, suicide ideation, homicidal ideation, and hallucinations, 10:40 Constitutional: Positive for body aches, fatigue, malaise, poor PO intake, 10:40 Respiratory: Positive for cough, with no reported sputum, 10:40 Abdomen/GI: Positive for diarrhea, 10:40 Back: Positive for radiated pain, of the left scapular area, right scapular area, left subscapular area, right subscapular area and thoracic area, Exam: 10:39 Head/Face: Normocephalic, atraumatic. Eyes: Pupils equal round and reactive to light, snw extra-ocular motions intact. Lids and lashes normal. Conjunctiva and sclera are non-icteric and not injected. Cornea within normal limits. Periorbital areas with no swelling, redness, or edema. ENT: Nares patent. No nasal discharge, no septal abnormalities noted. Tympanic membranes are normal and external auditory canals are clear. Oropharynx with no redness, swelling, or masses, exudates, or evidence of obstruction, uvula midline. Mucous membranes moist. Neck: Trachea midline, no thyromegaly or masses palpated, and no cervical lymphadenopathy. Supple, full range of motion without nuchal rigidity, or vertebral point tenderness. No Meningismus. Chest/axilla: Normal chest wall appearance and motion. Nontender with no deformity. No lesions are appreciated. Cardiovascular: Regular rate and rhythm with a normal S1 and S2. No gallops, murmurs, or rubs. Normal PMI, no JVD. No pulse deficits. Abdomen/GI: Soft, non-tender, with normal bowel sounds. No distension or tympany. No guarding or rebound. No evidence of tenderness throughout. Back: No spinal tenderness. No costovertebral tenderness. Full range of motion. Skin: Warm, dry with normal turgor. Normal color with no rashes, no lesions, and no evidence of cellulitis. MS/ Extremity: Pulses equal, no cyanosis. Neurovascular intact. Full, normal range of motion. Neuro: Awake and alert, GCS 15, oriented to person, place, time, and situation. Cranial nerves II-XII grossly intact. Motor strength 5/5 in all extremities. Sensory grossly intact. Cerebellar exam normal. Normal gait. Psych: Awake, alert, with orientation to person, place and time. Behavior, mood, and affect are within normal limits. 10:39 Constitutional: The patient appears alert, awake, anxious, pale, 10:39 Respiratory: the patient does not display signs of respiratory distress, Respirations: shallow respirations, tachypnea, Breath sounds: bronchial sounds, decreased breath sounds, Vital Signs: 10:30 BP 113 / 69; Pulse 93; Resp 21; Temp 99(O); Pulse Ox 99% on R/A; Weight 76.2 kg; Height hb 5 ft. 4 in. ; Pain 7/10; 12:15 BP 111 / 65; Pulse 93; Resp 16 S; Temp 98.5(O); Pulse Ox 97% on R/A; kc6 10:30 Body Mass Index 28.84 (76.20 kg, 162.56 cm) hb 10:30 Pain Scale: Adult hb MDM: 10:24 Patient medically screened. snw 13:53 Differential Diagnosis: Bronchitis Influenza Upper Respiratory Infection Sinusitis snw Pharyngitis Viral Syndrome. Data reviewed: vital signs, nurses notes, lab test result(s), Flu: negative. I considered the following discharge prescriptions or medication management in the emergency department Medications were administered in the Emergency Department. See MAR. Counseling: I had a detailed discussion with the patient and/or guardian regarding the historical points, exam findings, and any diagnostic results supporting the discharge/admit diagnosis, lab results, radiology results, the need for outpatient follow up, for definitive care, to return to the emergency department if symptoms worsen or persist or if there are any questions or concerns that arise at home. Special discussion: Based on the history and exam findings, there is no indication for further emergent testing or inpatient evaluation. I discussed with the patient/guardian the need to see the primary care provider for further evaluation of the symptoms. 05/18 10:31 Order name: Flu; Complete Time: 11:28 snw 05/18 10:31 Order name: SARS RAPID; Complete Time: 11:00 snw 05/18 10:31 Order name: Chest Single View XRAY; Complete Time: 11:38 snw Administered Medications: 10:40 Drug: Acetaminophen PO 1000 mg PO once Route: PO; kc6 12:05 Follow up: Response: No adverse reaction; Temperature is decreased kc6 10:41 Drug: Famotidine PO 20 mg PO once Route: PO; kc6 12:05 Follow up: Response: No adverse reaction kc6 10:41 Drug: Promethazine PO 25 mg PO once Route: PO; kc6 12:05 Follow up: Response: No adverse reaction kc6 Disposition Summary: 05/18/23 11:52 Discharge Ordered Notes: Location: Home snw Condition: Stable snw Diagnosis - Acute bronchitis, unspecified snw Followup: snw - With: Emergency Department - When: As needed - Reason: Worsening of condition Followup: snw - With: MART SALAZAR - When: 5 - 6 days - Reason: Recheck today's complaints, Continuance of care, Re-evaluation by your physician Discharge Instructions: - Discharge Summary Sheet snw - Acute Bronchitis, Adult snw - Viral Respiratory Infection snw - Rehydration, Adult snw Forms: - Work release form snw - Medication Reconciliation Form snw - Thank You Letter snw - Antibiotic Education snw - Prescription Opioid Use snw - Patient Portal Instructions snw - Leadership Thank You Letter snw Prescriptions: - Prednisone 20 mg Oral Tablet - take 2 tablets ORAL route once daily for 5 days; 10 tablet; Refills: 0, Product snw Selection Permitted - Pepcid 20 mg Oral Tablet - take 1 tablet ORAL route once daily; 20 tablet; Refills: 0, Product Selection snw Permitted - promethazine 25 mg Oral Tablet - take 1 tablet ORAL route every 6 hours As needed; 20 tablet; Refills: 0, snw Product Selection Permitted Signatures: Dispatcher [employer] EDMS Chayito Cole, NUCLEAR POWERPLANT SUPERVISOR-C NUCLEAR POWERPLANT SUPERVISOR-Csnw Jeanette Juarez RN RN Ronda Whittaker RN RN kc6 Corrections: (The following items were deleted from the chart) 10:33 10:32 Home Meds: quetiapine 200 mg Oral tablet once at bedtime; hb
[2023-05-18 12:25] VITALS: BP 111/65; TEMP 98.5; O2SAT 97
== END ==
LOC: ER 10:18
DX: J20.9 Acute bronchitis, unspecified (principal); Z11.52 Encounter for screening for COVID-19
CPT/HCPCS: 36415; 71045; 87804; 87811; 99284; Q0169

== ENCOUNTER → 2023-05-20 | Emergency (ER) | payer SELFPAY ==
--- OUTSIDE RECORDS SUMMARY | 2023-05-20 10:24 | XMS REPORT | Continuity of Care Document ---
Author Name Unknown Address [address] [facility] [address] [place] [address] [facility] Address [address] [facility] [address] [place] [address] Care Team Providers Care Reporter Anchor Name Role Phone MATHEUS SALAZAR Primary Care Physician Unav demetri Only, Gal Adult Uc Test Attending Clinician David Lozoya Attending Clinician DAVID PARKER Attending Clinician Unavailable Doctor Unassigned, [place] Attending Clinician U navailable Taina Silva Attending Clinician [phone] Stephanie Shahid Attending Clinician [phone] Payers Payer Name Policy Type Policy Number Effective Date Expirati on Date Source [facility] MEDICAID [id number] 2017 00:00:00 Problems Condition Name Condition Details Condition Category Status Onset Date Resolution Date Last Treatment Date Treating Clinician Comments Source Multigravi da, antepartum Multigravi da, antepartum Disease Active 07-18 00:00: 00 [facility] Obesity in , antepartum Obesity in , antepartum Disease Active 07-18 00:00: 00 [facility] High risk , antepartum High risk , antepartum Disease Active 07-18 00:00: 00 [facility] Allergies, Adverse Reactions, Alerts Allergy Name Allergy Type Status Severity Reaction(s) Onset Date Inactive Date Treating Clinician Comments Source NO KNOWN ALLERGIE S Drug Class Active [facility] Social History Social Habit Start Date Stop Date Quantity Comments Source Exposure to SARS-CoV-2 (event) Not sure [facility] Alcohol intake 2020-08-21 00:00:00 2020-08-21 00:00:00 Current non-drinker of alcohol (finding) [facility] Tobacco use and exposure 2017-07-18 00:00:00 2017-07-18 00:00:00 Never used [facility] Sex Assigned At 1990 00:00:00 1990 00:00:00 [facility] Smoking Status Start Date Stop Date Source Never smoker [facility]ations Ordered Medication Name Filled Medication Name Start Date Stop Date Current Medication? Ordering Clinician Indication Dosage Frequency Signature (SIG) Comments Components Source diphenhydrA MINE (BENADRYL) injection 50 mg 08-21 23:30: 00 08-21 22:28 :00 No 50mg 50 mg, Intramuscu lar, ONCE, 1 dose, Fri08/21/20 at 1830, STAT [facility] albuterol (VENTOLIN) inhaler 2 Puff 2019-05 00:45: 00 04-03 23:41 :00 No 2{puff} 2 Puff, Inhalation , ONCE, 1 dose, Fri04/03/20 at 1845, DEB
Is this order for a patient with suspected or confirmed COVID-19 infection? Yes [facility] ketorolac (TORADOL) injection 30 mg 2019-05 00:30: 00 04-03 23:31 :00 No 30mg 30 mg, Slow IV Push, ONCE, 1 dose, Fri04/03/20 at 1830, DEB
Fa culty member approving Restricted medication : EMERGENCY ROOM, [facility] aspirin tablet 325 mg 2019-05 22:30: 00 04-03 23:09 :00 No 325mg 325 mg, Oral, ONCE, 1 dose, Fri04/03/20 at 1630, STAT [facility] acetaminoph en-codeine 300-30 mg tablet 2019-05 00:00: 00 Yes [id number] 1{tbl} Take 1 tablet by mouth every 6 (six) hours as needed for Pain (scale 1-3). Indication s: acute pain [facility] albuterol 90 mcg/actuati on inhaler 2019-05 00:00: 00 Yes [id number] 2{puff} Inhale 2 Puffs every 4 (four) hours as needed for Wheezing or Shortness of Breath. [facility] benzonatate 100 mg capsule 2019-05 00:00: 00 Yes [id number] 100mg Take 1 capsule by mouth 3 (three) times daily as needed for Cough. [facility] acetaminoph en-codeine 300-30 mg tablet 2019-05 00:00: 00 Yes [id number] 1{tbl} Take 1 tablet by mouth every 6 (six) hours as needed for Pain (scale 1-3). Indication s: acute pain [facility] albuterol 90 mcg/actuati on inhaler 2019-05 00:00: 00 Yes [id number] 2{puff} Inhale 2 Puffs every 4 (four) hours as needed for Wheezing or Shortness of Breath. [facility] benzonatate 100 mg capsule 2019-05 00:00: 00 Yes [id number] 100mg Take 1 capsule by mouth 3 (three) times daily as needed for Cough. [facility]-codeine 300-30 mg tablet 2019-05 00:00: 00 Yes [id number] 1{tbl} Take 1 tablet by mouth every 6 (six) hours as needed for Pain (scale 1-3). Indication s: acute pain [facility] albuterol 90 mcg/actuati on inhaler 2019-05 00:00: 00 Yes [id number] 2{puff} Inhale 2 Puffs every 4 (four) hours as needed for Wheezing or Shortness of Breath. [facility] benzonatate 100 mg capsule 2019-05 00:00: 00 Yes [id number] 100mg Take 1 capsule by mouth 3 (three) times daily as needed for Cough. [facility] acetaminoph en-codeine 300-30 mg tablet 2019-05 00:00: 00 Yes [id number] 1{tbl} Take 1 tablet by mouth every 6 (six) hours as needed for Pain (scale 1-3). Indication s: acute pain [facility] albuterol 90 mcg/actuati on inhaler 2019-05 00:00: 00 Yes [id number] 2{puff} Inhale 2 Puffs every 4 (four) hours as needed for Wheezing or Shortness of Breath. [facility] benzonatate [facility] mg capsule 2019-05 00:00: 00 Yes [id number] 100mg Take 1 capsule by mouth 3 (three) times daily as needed for Cough. [facility] acetaminoph en-codeine 300-30 mg tablet 2019-05 00:00: 00 Yes [id number] 1{tbl} Take 1 tablet by mouth every 6 (six) hours as needed for Pain (scale 1-3). Indication s: acute pain [facility] albuterol 90 mcg/actuati on inhaler 2019-05 00:00: 00 Yes [id number] 2{puff} Inhale 2 Puffs every 4 (four) hours as needed for Wheezing or Shortness of Breath. [facility] benzonatate [facility] mg capsule 2019-05 00:00: 00 Yes [id number] 100mg Take 1 capsule by mouth 3 (three) times daily as needed for Cough. [facility] albuterol 90 mcg/actuati on inhaler 2019-05 00:00: 00 04-03 00:00 :00 No [id number] 2{puff} Inhale 2 Puffs every 4 (four) hours as needed for Wheezing or Shortness of Breath. [facility] acetaminoph en-codeine 300-30 mg tablet 2019-05 00:00: 00 04-03 00:00 :00 No [id number] 1{tbl} Take 1 tablet by mouth every 6 (six) hours as needed for Pain (scale 1-3) for up to 7 days. Indication s: acute pain [facility] albuterol 90 mcg/actuati on inhaler 2019-05 00:00: 04-03 00:00 :00 No [id number] 2{puff} Inhale 2 Puffs every 4 (four) hours as needed for Wheezing or Shortness of Breath. [facility] albuterol 90 mcg/actuati on inhaler 2019-05 00:00: 04-03 00:00 :00 No [id number] 2{puff} Inhale 2 Puffs every 4 (four) hours as needed for Wheezing or Shortness of Breath. [facility] albuterol 90 mcg/actuati on inhaler 2019-05 00:00: 04-03 00:00 :00 No [id number] 2{puff} Inhale 2 Puffs every 4 (four) hours as needed for Wheezing or Shortness of Breath. [facility] predniSONE 20 mg tablet 01-26 00:00: 00 Yes Take one tablet by mouth daily till all gone [facility] butalbital- acetaminoph en-caff 50-325-40 mg tablet 01-26 00:00: 00 Yes 1{tbl} Take 1 tablet by mouth every 6 (six) hours as needed for Headache (Headache) . [facility] predniSONE 20 mg tablet 01-26 00:00: 00 Yes Take one tablet by mouth daily till all gone [facility] butalbital- acetaminoph en-caff 50-325-40 mg tablet 01-26 00:00: 00 Yes 1{tbl} Take 1 tablet by mouth every 6 (six) hours as needed for Headache (Headache) . [facility] predniSONE 20 mg tablet 01-26 00:00: 00 Yes Take one tablet by mouth daily till all gone [facility] butalbital- acetaminoph en-caff 50-325-40 mg tablet 01-26 00:00: 00 Yes 1{tbl} Take 1 tablet by mouth every 6 (six) hours as needed for Headache (Headache) . [facility] predniSONE 20 mg tablet 01-26 00:00: 00 Yes Take one tablet by mouth daily till all gone [facility] butalbital- acetaminoph en-caff 50-325-40 mg tablet 01-26 00:00: 00 Yes 1{tbl} Take 1 tablet by mouth every 6 (six) hours as needed for Headache (Headache) . [facility] predniSONE 20 mg tablet 01-26 00:00: 00 Yes Take one tablet by mouth daily till all gone [facility] butalbital- acetaminoph en-caff 50-325-40 mg tablet 01-26 00:00: 00 Yes 1{tbl} Take 1 tablet by mouth every 6 (six) hours as needed for Headache (Headache) . [facility] vit 33-iron-fol ic-dha (SELECT-OB + DHA) 29 mg iron-1 mg -250 mg combo pack 08-22 00:00: 00 Yes [id number] 1{packe t} Take 1 Packet by mouth daily. [facility] vit 33-iron-fol ic-dha (SELECT-OB + DHA) 29 mg iron-1 mg -250 mg combo pack 08-22 00:00: 00 Yes [id number] 1{packe t} Take 1 Packet by mouth daily. [facility] vit 33-iron-fol ic-dha (SELECT-OB + DHA) 29 mg iron-1 mg -250 mg combo pack 08-22 00:00: 00 Yes [id number] 1{packe t} Take 1 Packet by mouth daily. [facility] vit 33-iron-fol ic-dha (SELECT-OB + DHA) 29 mg iron-1 mg -250 mg combo pack 08-22 00:00: 00 Yes [id number] 1{packe t} Take 1 Packet by mouth daily. [facility] vit 33-iron-fol ic-dha (SELECT-OB + DHA) 29 mg iron-1 mg -250 mg combo pack 08-22 00:00: 00 Yes [id number] 1{packe t} Take 1 Packet by mouth daily. [facility] Vital Signs Vital Name Observation Time Observation Value Comments S ource Systolic blood pressure 2020-08-21 23:25:00 128 mm[Hg] [facility] Diastolic blood pressure 2020-08-21 23:25:00 80 mm[Hg] [facility] Heart rate 2020-08-21 23:25:00 88 /min [facility] Respiratory rate 2020-08-21 23:25:00 18 /min [facility] Oxygen saturation in Arterial blood by Pulse oximetry 2020-08-21 23:25:00 100 /min [facility] Body temperature 2020-08-21 21:51:00 36.61 Brenda [facility] Body weight 2020-08-21 21:51:00 71.215 kg [facility] BMI 2020-08-21 21:51:00 27.81 kg/m2 [facility] Systolic blood pressure 2020-08-21 23:25:00 128 mm[Hg] [facility] Diastolic blood pressure 2020-08-21 23:25:00 80 mm[Hg] [facility] Heart rate 2020-08-21 23:25:00 88 /min [facility] Respiratory rate 2020-08-21 23:25:00 18 /min [facility] Oxygen saturation in Arterial blood by Pulse oximetry 2020-08-21 23:25:00 100 /min [facility] Body temperature 2020-08-21 21:51:00 36.61 Brenda [facility] Body weight 2020-08-21 21:51:00 71.215 kg [facility] BMI 2020-08-21 21:51:00 27.81 kg/m2 [facility] Systolic blood pressure 2020-04-04 01:01:00 114 mm[Hg] [facility] Diastolic blood pressure 2020-04-04 01:01:00 79 mm[Hg] [facility] Heart rate 2020-04-04 01:01:00 80 /min [facility] Respiratory rate 2020-04-04 01:01:00 18 /min [facility] Oxygen saturation in Arterial blood by Pulse oximetry 2020-04-04 01:01:00 99 /min [facility] Body temperature 2020-04-03 22:14:00 36.44 Brenda [facility] Body weight 2020-04-03 22:14:00 67.132 kg [facility] BMI 2020-04-03 22:14:00 26.22 kg/m2 [facility] Systolic blood pressure 2020-04-04 01:01:00 114 mm[Hg] [facility] Diastolic blood pressure 2020-04-04 01:01:00 79 mm[Hg] [facility] Heart rate 2020-04-04 01:01:00 80 /min [facility] Respiratory rate 2020-04-04 01:01:00 18 /min [facility] Oxygen saturation in Arterial blood by Pulse oximetry 2020-04-04 01:01:00 99 /min [facility] Body temperature 2020-04-03 22:14:00 36.44 Brenda [facility] Body weight 2020-04-03 22:14:00 67.132 kg [facility] BMI 2020-04-03 22:14:00 26.22 kg/m2 [facility] Procedures Procedure Date / Time Performed Performing Clinicia n Source NOTICE OF PRIVACY PRACTICES 2021-05-04 20:29:05 Doctor Unassigned, [place] [facility] NOTICE OF PRIVACY PRACTICES 2020-08-21 21:44:50 Doctor Unassigned, [place] [facility] CONSENT/REFUSAL FOR DIAGNOSIS AND TREATMENT 2020-08-21 21:44:32 Doctor Unassigned, [place] [facility] XR CHEST 1 VW 2020-04-04 00:41:21 [facility] TEST, SERUM 2020-04-03 22:56:00 Lavonne Bennett [facility] TROPONIN I 2020-04-03 22:56:00 Stephanie Bennett [facility] HEPATIC FUNCTION PANEL (29508) (ALB,T.PRO,BILI T,BU/BC,ALT,AST,ALK PHOS) 2020-04-03 22:56:00 Stephanie Bennett [facility] BASIC METABOLIC PANEL (NA, K, CL, CO2, GLUCOSE, BUN, CREATININE, CA) 2020-04-03 22:56:00 Stephanie Bennett [facility] CBC WITH DIFF 2020-04-03 22:56:00 [facility] 2020-04-03 22:56:00 Stephanie Bennett [facility] URINALYSIS 2020-04-03 22:56:00 Stephanie Bennett [facility] N-TERMINAL PRO-BNP 2020-04-03 22:56:00 Danielle Bennett [facility] Encounters Start Date/Time End Date/Time Encounter Type Admission Type Attending [facility] Care Facility Care Department Encounter ID Source 2021-03-04 13:55:32 Emergency [facility] [id number] [facility] 2021-03-03 08:18:11 Emergency [facility] [id number] [facility] 2023-01-10 07:57:34 2023-01-10 07:57:34 Outpatient [facility] [id number] Blake Cook 2022-11-15 13:56:01 2022-11-15 13:56:01 Outpatient [facility] [id number] Blake Cook 2021-05-04 14:30:00 2021-05-04 14:45:00 Laboratory Only Only, Gal Adult Uc Test David Parker ON LICENSE OF [facility] 1..840.114 350.1.13.10 4.2.7.2.686 [id number] [facility] 2021-05-04 14:30:00 2021-05-04 14:30:00 Outpatient DAVID MOSER [facility] [id number] [facility] 2021-05-04 00:00:00 2021-05-04 00:00:00 Orders Only Doctor Unassigned, [place] [facility] 1.840.114 350.1.13.10 4.2.7.2.686 [id number] [facility] 2020-08-21 16:53:00 2020-08-21 18:31:00 Emergency Taina Mann [facility] 1.2.840.114 350.1.13.10 4.2.7.2.686 [id number] [facility] 2020-08-21 16:53:00 2020-08-21 18:31:00 Emergency MannTaina martinez [facility] 1.2.840.114 350.1.13.10 4.2.7.2.686 [id number] 2020-08-21 00:00:00 2020-08-21 00:00:00 Orders Only Doctor Unassigned, [place] [facility] 1.2.840.114 350.1.13.10 4.2.7.2.686 [id number] [facility] 2020-08-21 00:00:00 2020-08-21 00:00:00 Orders Only Doctor Unassigned, [place] [facility] 1.2.840.114 350.1.13.10 4.2.7.2.686 [id number] 2020-04-03 16:07:00 2020-04-03 19:36:00 Emergency [facility] 1.2.840.114 350.1.13.10 4.2.7.2.686 [id number] [facility] 2020-04-03 16:07:00 2020-04-03 19:36:00 Emergency [facility] 1.2.840.114 350.1.13.10 4.2.7.2.686 [id number] Results Test Description Test Time Test Comments [...] [id number] 23:31:00* Test Item Value Reference Range Interpretation Comme nts TROPONIN I (test code = 1073032782) <0.012 See_Comment [Automated message] The system which [...] biotin. ? Lab Interpretation (test code = 50555-4) [facility] 23:30:00* Test Item Value Reference Range Interpretation Comme nts APPEARANCE (test code = 0912208925) Clear Clear COLOR (test code = 3325349018) Yellow Yellow PH (test code = 5998435422) 4.8-8.0 SP GRAVITY (test code = 9937931502) 1.003-1.030 GLU U QUAL (test code = 2915112520) Negative Negative BLOOD (test code = 4570351343) Negative Negative KETONES (test code = 6676072253) Negative Negative PROTEIN (test code = 2887-8) Negative Negative UROBILIN (test code = 5235106513) 0.2 mg/dL See_Comment [Automated [employer]] The system which generated this result transmitted reference range: 0-1.0 mg/dL. The reference range was not used to interpret this result as normal/abnormal. BILIRUBIN (test code = 2308850842) Negative Negative NITRITE (test code = 4875110647) Negative Negative LEUK MIKE (test code = 4896702984) Negative Negative RBC/HPF (test code = 5866909595) <1 See_Comment [Automated [employer]] The system which generated this result transmitted reference range: 0 - 3 HPF. The reference range was not used to interpret this result as normal/abnormal. WBC/HPF (test code = 0943131398) See_Comment [Automated [employer]] The system which generated this result transmitted reference range: 0 - 5 HPF. The reference range was not used to interpret this result as normal/abnormal. BACTERIA (test code = 4316741174) Negative Negative MUCOUS (test code = 1791255437) Slight Negative LPF A SQ EPITH (test code = 0035415584) HPF Lab Interpretation (test code = 66087-1) Abnormal [facility] [id number] 23:28:00* Test Item Value Reference Range Interpretation Comme nts NT-proBNP (test code = 2527782953) 28 pg/mL See_Comment [Automated message] The system which generated this result transmitted reference range: <=125. The reference range was not used to interpret this result as normal/abnormal. LOLITA (test code = LOLITA) Biotin has been reported to cause a negative bias, interpret results relative to patient's use of biotin. Lab Interpretation (test code = 34461-5) Normal [facility][id number] 23:26:00* Test Item Value Reference Range Interpretation Comments D-DIMER (test code = 0720581010) <0.27 See_Comment [Automated message] The system which [...] a diagnosis. Lab Interpretation (test code = 29869-7) Normal [facility] (NA, K, CL, CO2, GLUCOSE, BUN, CREATININE, CA)2020-04-03 23:20:00* Test Item Value Reference Range Interpretation Comme nts NA (test code = 4063568779) 139 mmol/L 135-145 K (test code = 2546186069) 3.9 mmol/L 3.5-5 CL (test code = 6485900976) 103 mmol/L 98-108 CO2 TOTAL (test code = 8487523461) 28 mmol/L 23-31 AGAP (test code = 4621483037) 2-16 BUN (test code = 2007933127) 12 mg/dL 7-23 GLUCOSE (test code = 1933265543) 109 mg/dL 70-110 CREATININE (test code = 7520450195) 0.64 mg/dL 0.5-1.04 CALCIUM (test code = 7935826211) 9.3 mg/dL 8.6-10.6 eGFR Calculation (Non-) (test code = 9787451704) mL/min/1.73m2 eGFR Calculation () (test code = 6267005772) mL/min/1.73m2 LOLITA (test code = LOLITA) Association [...] urine or abnormalities in imaging tests). [facility] (ALB, T.PRO, BILI T, BU/BC, ALT, AST, ALK PHOS)2020-04-03 23:19:00* Test Item Value Reference Range Interpretation Comme nts TOTAL BILI (test code = 8092915946) 0.7 mg/dL 0.1-1.1 BILI UNCON (test code = 0531806583) 0.7 mg/dL 0.1-1.1 BILI CONJ (test code = 8827887488) 0.0 mg/dL 0-0.3 T PROTEIN (test code = 8301971197) 7.7 g/dL 6.3-8.2 ALBUMIN (test code = 0292244254) 4.5 g/dL 3.5-5 ALK PHOS (test code = 1792787254) 67 U/L 34-122 ALTv (test code = 1742-6) 18 U/L 5-35 AST(SGOT) (test code = 2674892089) 21 U/L 13-40 Lab Interpretation (test cod e = 83150-5) Normal [facility] with [id number] 23:15:00* Test Item Value Reference Range Interpretation [...] 31.6 g/dL 31.6-35.1 RDW-SD (test code = 81694-8) 40.0 fL 39-49.9 RDW-CV (test code = 788-0) 14.6 % 12-15.5 PLT (test code = 777-3) See_Comment [Automated messa ge] The system which generated this result transmitted reference range: 166 - 358 10*3/?L. The reference range was not used to interpret this result as normal/abnormal. MPV (test code = 25497-7) 10.9 fL 9.5-12.9 NRBC/100 WBC (test code = 6629290747) See_Comment [Automated [employer] ssage] The system which generated this result transmitted reference range: 0.0 - 10.0 /100 WBCs. The reference range was not used to interpret this result as normal/abnormal. NRBC x10^3 (test code = 0624598162) <0.01 See_Comment [Automated messa ge] The system which generated this result transmitted reference range: 10*3/?L. The reference range was not used to interpret this result as normal/abnormal. GRAN MAT (NEUT) % (test code = 770-8) 58.2 % IMM GRAN % (test code = 5862887383) 0.40 % LYMPH % (test code = 736-9) 33.4 % MONO % (test code = 5905-5) 6.3 % EOS % (test code = 713-8) 1.3 % BASO % (test code = 706-2) 0.4 % GRAN MAT x10^3(ANC) (test code = 8273822651) 4.82 10*3/uL 1.88-7.09 IMM GRAN x10^3 (test code = 6779313776) 0.03 10*3/uL 0-0.06 LYMPH x10^3 (test code = 731-0) 2.76 10*3/uL 1.32-3.29 MONO x10^3 (test code = 742-7) 0.52 10*3/uL 0.33-0.92 EOS x10^3 (test code = 711-2) 0.11 10*3/uL 0.03-0.39 BASO x10^3 (test code = 704-7) 0.03 10*3/uL 0.01-0.07 Lab Interpretation (test code = 05288-0) Abnormal [facility]
[2023-05-20 11:03] LABS: Absolute Lymphocytes (CBC) 1.4 K/uL (0.7-4.9); Hematocrit 41.5 % (36.0-45.0); Lymphocytes % 29.6 % (15.3-44.8); MCV 81.6 fL (80-100); MPV 8.5 fL (7.6-11.3); Platelets 253 thou/uL (152-406); RBC Red Blood Cell Count 5.08 M/uL (3.86-4.86)
[2023-05-20 11:21] LABS: Potassium 3.2 mEq/L (3.5-5.1); Troponin High Sensitivity 3.4 pg/mL (<58.9)
--- NOTE | 2023-05-20 11:31 | RAD REPORT ---
EXAM DESCRIPTION: US - Extremity Venous Uni Ltd - 05/20/2023 11:20 am CLINICAL HISTORY: Pain;Swelling Leg swelling and edema. COMPARISON: <Comparisons> FINDINGS: Right lower extremity venous system was interrogated with Doppler technique. Normal flow, compressibility and augmentation was noted. There is no DVT present. IMPRESSION: No evidence of right lower extremity deep venous thrombosis.
--- NOTE | 2023-05-20 11:46 | RAD REPORT ---
EXAM DESCRIPTION: RAD - Chest Single View - 05/20/2023 11:39 am CLINICAL HISTORY: Chest pain;Cough Chest pain. COMPARISON: <Comparisons> FINDINGS: Portable technique limits examination quality. The lungs are grossly clear. The heart is normal in size. No displaced fractures. IMPRESSION: No acute intrathoracic process suspected.
--- NOTE | 2023-05-20 11:46 | RAD REPORT ---
EXAM DESCRIPTION: CT - Chest For Pe Angio - 05/20/2023 11:33 am CLINICAL HISTORY: Chest pain. Chest pain;Cough COMPARISON: Chest For Pe Angio dated 08/22/2020 TECHNIQUE: CT angiogram of the pulmonary arteries was performed with MIP. All CT scans are performed using dose optimization technique as appropriate and may include automated exposure control or mA/KV adjustment according to patient size. FINDINGS: No evidence of pulmonary thromboembolism. No acute aortic finding demonstrated. The lungs are clear. No significant pericardial or pleural fluid. No concerning bony finding. Small hiatal hernia. Cholecystectomy clips. IMPRESSION: No evidence of pulmonary thromboembolism. No acute lung findings.
--- NOTE | 2023-05-20 12:22 | ER ---
Nurse's Notes [facility] Name: Bree Farnsworth Age: 32 yrs Sex: Female : 1990 Arrival Date: 05/20/2023 Time: 10:20 Bed 14 Private MD: Diagnosis: Chest pain, unspecified;Cough Presentation: 05/20 10:28 Chief complaint: Patient states: was seen here Friday and was negative for flu and iw covid, still having chest pain , throat pain, has a lump on right leg with a bruise. + cough , vomiting and diarrhea. Coronavirus screen: Client presents with at least one sign or symptom that may indicate coronavirus-19. Ebola Screen: Patient negative for fever greater than or equal to 101.5 degrees Fahrenheit, and additional compatible Ebola Virus Disease symptoms Patient denies exposure to infectious person. Patient denies travel to an Ebola-affected area in the 21 days before illness onset. No symptoms or risks identified at this time. Initial Sepsis Screen: Does the patient meet any 2 criteria? No. Patient's initial sepsis screen is negative. Does the patient have a suspected source of infection? No. Patient's initial sepsis screen is negative. Risk Assessment: Do you want to hurt yourself or someone else? Patient reports no desire to harm self or others. Onset of symptoms was May 16, 2023. 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 - Social history:: Smoking status: Patient denies any tobacco usage or history of. - Family history:: not pertinent. - Hospitalizations: : No recent hospitalization is reported. Screenin:34 [facility] ED Fall Risk Assessment (Adult) History of falling in the last 3 months, ap3 including since admission No falls in past 3 months (0 pts). Abuse screen: Denies threats or abuse. Nutritional screening: No deficits noted. Tuberculosis screening: No symptoms or risk factors identified. Assessment: 10:45 Pain: Pain began gradually, Friday05/17/23. ap3 10:51 General: Appears uncomfortable, Behavior is calm, cooperative. Pain: Complains of pain mb9 in chest and throat Pain does not radiate. Quality of pain is described as throbbing. Neuro: Vidales Agitation-Sedation Scale (RASS): 0 - Alert and Calm Level of Consciousness is awake, alert, obeys commands, Oriented to person, place, time, situation, Appropriate for age. Cardiovascular: Reports chest pain, Heart tones S1 S2 present Patient's skin is warm and dry. Respiratory: Reports cough that is Airway is patent Respiratory effort is even, unlabored, Respiratory pattern is regular, symmetrical, Breath sounds are clear bilaterally. GI: Abdomen is flat, non-distended, Bowel sounds present X 4 quads. Abd is soft and non tender X 4 quads. Reports diarrhea, nausea, vomiting. : No signs and/or symptoms were reported regarding the genitourinary system. EENT: Throat is reddened. Derm: Skin is pink, warm \T\ dry. Musculoskeletal: Range of motion: intact in all extremities. 11:05 Reassessment: pt taken to ultrasound via wheelchair. mb9 12:32 Reassessment: No changes from previously documented assessment. Patient and/or family mb9 updated on plan of care and expected duration. Pain level reassessed. Patient is alert, oriented x 3, equal unlabored respirations, skin warm/dry/pink. Vital Signs: 10:28 BP 124 / 96; Pulse 111; Resp 16; Temp 98.7; Pulse Ox 100% on R/A; Weight 76.2 kg; iw Height 5 ft. 4 in. ; Pain 8/10; 10:51 Pulse 95; Resp 18; Pulse Ox 100% on R/A; mb9 12:02 BP 131 / 91; Pulse 97; Resp 18; Pulse Ox 100% on R/A; mb9 10:28 Body Mass Index 28.84 (76.20 kg, 162.56 cm) iw 10:28 Pain Scale: Adult iw ED Course: 10:25 Patient arrived in ED. mg5 10:25 Mingo Bullard MD is Attending Physician. rn 10:29 Triage completed. iw 10:30 Arm band placed on. iw 10:34 Patient has correct armband on for positive identification. Placed in gown. Bed in low ap3 position. Call light in reach. Side rails up X 1. 10:34 Patient maintains SpO2 saturation greater than 95% on room air. ap3 10:36 Jana Mae, RN is Primary Nurse. mb9 10:43 EKG done, by ED staff, reviewed by Mingo Bullard MD. ap3 10:45 monitoring tech on. Pulse ox on. NIBP on. ap3 10:50 Strep Sent. mb9 10:50 CBC with Diff Sent. mb9 10:50 Basic Metabolic Panel Sent. mb9 10:50 NT PRO-BNP Sent. mb9 10:50 Troponin HS Sent. mb9 10:50 Inserted saline lock: 20 gauge in left antecubital area, using aseptic technique. mb9 11:05 No provider procedures requiring assistance completed. mb9 11:21 Extremity Venous Uni Ltd US In Process Unspecified. EDMS 11:34 CT Chest For PE Angio In Process Unspecified. EDMS 11:41 XRAY Chest (1 view) In Process Unspecified. EDMS 12:20 IV discontinued, intact, bleeding controlled, No redness/swelling at site. Pressure mb9 dressing applied. Administered Medications: 10:50 Drug: NS 0.9% IV 1000 ml IV at 1000 ml once Route: IV; Rate: 1000 ml; Site: left mb9 antecubital; 12:21 Follow up: Response: No adverse reaction; IV Status: Completed infusion mb9 12:00 Drug: Ondansetron IVP 4 mg IVP once; over 2 minutes Route: IVP; Site: left antecubital; mb9 12:21 Follow up: Response: No adverse reaction mb9 Medication: 11:05 VIS not applicable for this client. mb9 Outcome: 12:21 Discharge ordered by . rn 12:32 Discharged to home ambulatory, mb9 12:32 Condition: stable 12:32 Discharge instructions given to patient, Instructed on discharge instructions, follow up and referral plans. Demonstrated understanding of instructions, follow-up care, medications, Prescriptions given X 1, 12:33 Patient left the ED. mb9 Signatures: Dispatcher [employer] EDDonna Heller RN RN iw Nieto, Roman, MD MD rn Prokisch, Amanda, RN RN ap3 Jana Mae, RN RN mb9 Talia Jason mg5
--- NOTE | 2023-05-20 12:22 | EDPHYS ---
Physician Documentation [facility] Name: Bree Farnsworth Age: 32 yrs Sex: Female : 1990 Arrival Date: 05/20/2023 Time: 10:20 Bed 14 Private MD: ED Physician Mingo Bullard HPI: 05/20 12:18 This 32 yrs old Female presents to ER via Ambulatory with complaints of Flu Symptoms, rn Chest Pain, Leg Pain. 12:18 The patient or guardian reports chest pain that is located primarily in the anterior rn chest wall. The pain does not radiate. Associated signs and symptoms: Pertinent positives: cough, Pertinent negatives: shortness of breath, syncope, vomiting. The chest pain is described as sharp, stabbing. Duration: The patient or guardian reports multiple episodes, that are intermittent. Modifying factors: The symptoms are alleviated by nothing. the symptoms are aggravated by cough, deep breath. Severity of pain: At its worst the pain was mild in the emergency department the pain is unchanged. The patient has experienced a previous episode. Patient reports chest pain and flulike symptoms for 1 week. Seen here and prescribed steroids and cough medication. Does not feel like she is any better actually feels worse. No chronic lung problems. Does not smoke. No family history of early cardiac problems. No trauma. No hemoptysis. No history of DVT or PE.. 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 - Social history:: Smoking status: Patient denies any tobacco usage or history of. - Family history:: not pertinent. - Hospitalizations: : No recent hospitalization is reported. ROS: 12:18 Constitutional: Negative for fever, chills, and weight loss, Eyes: Negative for injury, rn pain, redness, and discharge, Neck: Negative for injury, pain, and swelling, Cardiovascular: Positive for chest pain Respiratory: Positive for cough Abdomen/GI: Positive for nausea, negative for abdominal pain MS/Extremity: Negative for injury and deformity, Skin: Negative for injury, rash, and discoloration, Neuro: Negative for headache, weakness, numbness, tingling, and seizure, Exam: 12:18 Constitutional: This is a well developed, well nourished patient who is awake, alert, rn and in no acute distress. Head/Face: Normocephalic, atraumatic. ENT: No stridor Cardiovascular: Regular rate and rhythm. No pulse deficits. Respiratory: No increased work of breathing, no retractions or nasal flaring. Clear bilateral breath sounds Abdomen/GI: Soft, nontender Vital Signs: 10:28 BP 124 / 96; Pulse 111; Resp 16; Temp 98.7; Pulse Ox 100% on R/A; Weight 76.2 kg; iw Height 5 ft. 4 in. ; Pain 8/10; 10:51 Pulse 95; Resp 18; Pulse Ox 100% on R/A; mb9 12:02 BP 131 / 91; Pulse 97; Resp 18; Pulse Ox 100% on R/A; mb9 10:28 Body Mass Index 28.84 (76.20 kg, 162.56 cm) iw 10:28 Pain Scale: Adult iw MDM: 10:25 Patient medically screened. rn 12:18 Differential diagnosis: acute pericarditis, anxiety, chest wall pain, costochondritis, rn pleurisy, pneumonia, pneumothorax, pulmonary embolus. Data reviewed: vital signs, nurses notes, lab test result(s), EKG, radiologic studies, CT scan, ultrasound, and as a result, I will discharge patient. Counseling: I had a detailed discussion with the patient and/or guardian regarding the historical points, exam findings, and any diagnostic results supporting the discharge/admit diagnosis, lab results, radiology results, the need for outpatient follow up, to return to the emergency department if symptoms worsen or persist or if there are any questions or concerns that arise at home. Special discussion: I discussed with the patient/guardian in detail that at this point there is no indication for admission to the hospital. It is understood, however, that if the symptoms persist or worsen the patient needs to return immediately for re-evaluation. 12:18 ED course: I have personally reviewed all of the results, including but not limited to rn blood tests and imaging deemed necessary to safely discharge this patient at this time. All results given to and printed out for patient. I personally went over all the results with the patient and answered all questions. Patient will follow-up with PCP and or specialist as discussed. Return precautions given and understood.. 05/20 10:36 Order name: Basic Metabolic Panel; Complete Time: 11:47 rn 05/20 10:36 Order name: CBC with Diff; Complete Time: 11:47 rn 05/20 10:36 Order name: NT PRO-BNP; Complete Time: 11:47 rn 05/20 10:36 Order name: Troponin HS; Complete Time: 11:47 rn 05/20 10:36 Order name: Strep rn 05/20 11:31 Order name: Throat Culture EDMS 05/20 10:36 Order name: XRAY Chest (1 view); Complete Time: 11:47 rn 05/20 10:37 Order name: Extremity Venous Uni Ltd US; Complete Time: 11:47 rn 05/20 10:37 Order name: CT Chest For PE Angio; Complete Time: 11:47 rn 05/20 10:36 Order name: EKG; Complete Time: 10:37 rn 05/20 10:36 Order name: IV Start; Complete Time: 10:51 rn 05/20 10:36 Order name: Cardiac monitoring; Complete Time: 10:44 rn 05/20 10:36 Order name: EKG - Nurse/Tech; Complete Time: 10:44 rn 05/20 10:36 Order name: Labs collected and sent; Complete Time: 10:50 rn 05/20 10:36 Order name: O2 Per Protocol; Complete Time: 10:44 rn 05/20 10:36 Order name: O2 Sat Monitoring; Complete Time: 10:44 rn Administered Medications: 10:50 Drug: NS 0.9% IV 1000 ml IV at 1000 ml once Route: IV; Rate: 1000 ml; Site: left mb9 antecubital; 12:21 Follow up: Response: No adverse reaction; IV Status: Completed infusion mb9 12:00 Drug: Ondansetron IVP 4 mg IVP once; over 2 minutes Route: IVP; Site: left antecubital; mb9 12:21 Follow up: Response: No adverse reaction mb9 Disposition Summary: 05/20/23 12:21 Discharge Ordered Notes: Location: Home rn Problem: an ongoing problem rn Symptoms: are unchanged rn Condition: Stable rn Diagnosis - Chest pain, unspecified rn - Cough rn Followup: rn - With: Private Physician - When: As needed - Reason: Recheck today's complaints, Re-evaluation by your physician Discharge Instructions: - Discharge Summary Sheet rn - Nonspecific Chest Pain, Adult rn - Cough, Adult rn Forms: - Medication Reconciliation Form rn - Thank You Letter rn - Antibiotic turn out - Prescription Opioid Use rn - Patient Portal Instructions rn - Leadership Thank You Letter rn Prescriptions: - Zithromax Z-Zechariah 250 mg Oral Tablet - take 1 tablet ORAL route as directed for 5 days Day 1 - take two (2) tablets rn one time. Day 2, 3, 4 , 5 take one (1) tablet once daily.; 6 tablet; Refills: 0, Product Selection Permitted Signatures: Dispatcher [employer] Donna Miranda RN Mingo Wylie MD MD rn Breneman, Jana Gamble RN RN mb9 Corrections: (The following items were deleted from the chart) 10:43 10:26 Chest Pa And Lat (2 Views)+[email or web address] ordered. EDFL EDMS
[2023-05-20 13:18] VITALS: BP 131/91; TEMP 98.7; O2SAT 100
== END ==
LOC: ER 10:20
DX: R07.89 Other chest pain (principal)
CPT/HCPCS: 36415; 71045; 71275; 80048; 83880; 84484; 85025; 87070; 87081; 93005; 93971; 96361; 96374; 99285; Q9967

== ENCOUNTER 2024-02-17 19:03 | Emergency (ER) | payer SELFPAY ==
[2024-02-17 19:49] LABS: Absolute Eosinophils 0.2 K/uL (0-0.5); Absolute Lymphocytes (CBC) 1.8 K/uL (0.7-4.9); Absolute Monocytes 0.7 K/uL (0.1-1.3); Absolute Neutrophil 7.7 K/uL (1.8-8.0); Basophils % 0.3 % (0-1.3); Eosinophils % 1.8 % (0-4.4); Hematocrit 39.7 % (36.0-45.0); Hemoglobin 13.3 g/dL (12.0-15.0); Lymphocytes % 17.1 % (15.3-44.8); MCH 25.1 pg (27.0-35.0); MCHC 33.4 g/dL (32.0-36.0); MCV 75.1 fL (80-100); MPV 8.2 fL (7.6-11.3); Monocytes % 6.5 % (3.3-12.3); Neutrophils % 74.3 % (41.7-73.7); Nucleated RBC Absolute Count 0.1 (0-0); Nucleated Red Blood Cells % 0.5 % (0-0); Platelets 305 thou/uL (152-406); RBC Red Blood Cell Count 5.29 M/uL (3.86-4.86); Red Cell Distribution Width 16.5 % (12.1-15.2)
[2024-02-17 20:03] LABS: Anion Gap 8.6 mEq/L (5.0-15.0); Bilirubin Total 1.3 mg/dL (0.2-1.0); Globulin 4.1 g/dL (2.3-3.5); Potassium 3.6 mEq/L (3.5-5.1); Protein, Total 8.1 g/dL (6.4-8.2)
--- OUTSIDE RECORDS SUMMARY | 2024-02-17 20:09 | XMS REPORT | Continuity of Care Document ---
Author Name Unknown Address [address] [facility] [address] [place] [address] [facility] Address [address] [facility] [address] [place] [address] Care Team Providers Care Student Admissions Clerk Name Role Phone Alvarezyran IGNACIO Shanell Primary Care Physician [phone] Only, Gal Adult [facility] Test Attending Clinician Unav David Sandoval A Attending Clinician [phone] DAVID PARKER Attending Clinician Unavailable Doctor Unassigned, [place] Attending Clinician U navailTaina Lane Attending Clinician [phone] Stephanie Shahid Attending Clinician [phone] Payers Payer Name Policy Type Policy Number Effective Date Expirati on Date Source [facility] MEDICAID [id number] 2017 00:00:00 Problems Condition Name Condition Details Condition Category Status Onset Date Resolution Date Last Treatment Date Treating Clinician Comments Source Multigravi da, antepartum Multigravi da, antepartum Disease Active 07-18 00:00: 00 [facility] Obesity in , antepartum Obesity in , antepartum Disease Active 07-18 00:00: 00 [facility] High risk , antepartum High risk , antepartum Disease Active 07-18 00:00: 00 [facility] Allergies, Adverse Reactions, Alerts Allergy Name Allergy Type Status Severity Reaction(s) Onset Date Inactive Date Treating Clinician Comments Source NO KNOWN ALLERGIE S Drug Class Active [facility] Social History Social Habit Start Date Stop Date Quantity Comments Source Exposure to SARS-CoV-2 (event) Not sure [facility] Alcohol intake 2020-08-21 00:00:00 2020-08-21 00:00:00 Current non-drinker of alcohol (finding) [facility] Tobacco use and exposure 2017-07-18 00:00:00 2017-07-18 00:00:00 Never used [facility] Sex Assigned At 1990 00:00:00 1990 00:00:00 [facility] Smoking Status Start Date Stop Date Source Never smoker [facility] Medications Ordered Medication Name Filled Medication Name Start Date Stop Date Current Medication? Ordering Clinician Indication Dosage Frequency Signature (SIG) Comments Components Source trazodone 100 mg tablet - 00:00: 00 Yes mg Blake Cook Nexplanon 68 mg subdermal implant 09-22 00:00: 00 Yes 1mg Blake Cook trazodone 100 mg tablet 5- 00:00: 00 Yes mg Blake Cook trazodone 50 mg tablet 4-30 00:00: 00 Yes 12mg Blake Cook zolpidem 5 mg tablet -16 00:00: 00 Yes 1mg Blake Cook 1 TABLET PO QD- NO PLACEBO- THEN RESTART A NEW PACK EVERY 3 WEEKS - 00:00: 00 Yes 1530 Blake Cook LETY 1.5/30 TABLETS 3- 00:00: 00 Yes Blake Cook AZITHROMYCI N 250MG TABLETS 6-ULISES 1-16 00:00: 00 Yes Blake Cook CETIRIZINE 2022-05 0-02 00:00: 00 Yes Blake Cook CLINDAMYCIN GEL 1% 2022-05 0-02 00:00: 00 Yes 1 Blake Cook 1 TABLET PO QHS - 00:00: 00 Yes 50 Blake Cook APPLY AND GENTLY MASSAGE INTO AFFECTED AREA(S) ONCE DAILY. 01-10 00:00: 00 09-14 00:00 :00 No 1 Blake Cook APPLY SPARINGLY TO AFFECTED AREA(S) ONCE DAILY AT BEDTIME. 01-10 00:00: 00 09-14 00:00 :00 No 1 Blake Cook APPLY A THIN LAYER TO THE AFFECTED AREA BY TOPICAL ROUTE 2 TIMES PER DAY 01-10 00:00: 00 09-14 00:00 :00 No 10 Blake Cook 2 TABS AT BEDTIME QHS 01-10 00:00: 00 09-14 00:00 :00 No 100 Blake Cook PHENTERMINE 37.5MG TABLETS 12-10 00:00: 00 09-14 00:00 :00 No Blake Cook ONDANSETRON ODT 30 00:00: 00 Yes 4 Blake Cook PROMETHAZIN E 0 7-30 00:00: 00 Yes Blake Cook QUETIAPINE 0 6-19 00:00: 00 Yes Blake Cook CETIRIZINE 0 6-19 00:00: 00 Yes 10 Blake Cook TOPIRAMATE 0 5-24 00:00: 00 Yes Blake Cook JUNEL FE 1.530 0 5-24 00:00: 00 Yes Blake Cook SUMATRIPTAN 0 5-24 00:00: 00 Yes 25 Blake Cook QUETIAPINE 2022-0 5-24 00:00: 00 Yes 200 Blake Cook VENTOLIN HFA AER 0 5-24 00:00: 00 Yes 108 Blake Cook SUMATRIPTAN 2022-0 5-07 00:00: 00 Yes 25 Blake Cook FLUTICASONE SPR 2022-0 5-07 00:00: 00 Yes 50 Blake Cook DISSOLVE ONE TABLET BY MOUTH EVERY 8 HOURS NEEDED FOR NAUSEA AND VOMITING 2022-0 4-06 00:00: 00 Yes Blake Cook TAKE 1 TABLET BY MOUTH EVERY 6 HOURS NEEDED FOR NAUSEA 2022-0 4-06 00:00: 00 Yes Blake Cook PREDNISONE 3-0 3-15 00:00: 00 Yes Blake Cook FLUTICASONE SPR 2022-0 3-14 00:00: 00 Yes Blake Cook PREDNISONE 5MG TABLETS 2022-0 3-14 00:00: 00 Yes Blake Cook TAKE 1 TABLET BY MOUTH EVERY DAY 2022-0 3-14 00:00: 00 Yes Blake Cook VENTOLIN HFA AER 0 2-18 00:00: 00 Yes 108 Blake Cook CETIRIZINE 0 2-18 00:00: 00 Yes 10 Blake Cook QUETIAPINE 2022-0 2-18 00:00: 00 Yes 200 Blake Cook SUMATRIPTAN 0 2-18 00:00: 00 Yes 25 Blake Cook CETIRIZINE 0 1-14 00:00: 00 Yes 10 Blake Cook VENTOLIN HFA AER 2021-05 1-09 00:00: 00 Yes 108 Blake Cook SUMATRIPTAN 2021-05 1-05 00:00: 00 Yes 25 Blake Cook SYMBICORT AER 160-4.5 1 1-05 00:00: 00 Yes Blake Cook QUETIAPINE 1 1-05 00:00: 00 Yes 200 Blake Cook PROAIR HFA AER 2021-0 9-19 00:00: 00 Yes 108 Blake Cook TAMSULOSIN 2021-0 9-19 00:00: 00 Yes 4 Blake Cook SYMBICORT AER 160-4.5 0 9-19 00:00: 00 Yes Blake Cook CLINDAMYCIN GEL 1% 0 9-19 00:00: 00 05- 00:00 :00 No 1 Blake Cook SUMATRIPTAN 0 8-22 00:00: 00 Yes 25 Blake Cook TOPIRAMATE 2021-0 8-22 00:00: 00 Yes 25 Blake Cook INHALE 2 PUFFS BY MOUTH TWICE DAILY. RINSE AND SPIT AFTER USING 0 - 00:00: 00 Yes Blake Cook METRONIDAZO L 0 11-26 00:00: 00 Yes 500 Blake Cook CEFDINIR 2021-0 -20 00:00: 00 Yes 300 Blake Cook INHALE 1-2 PUFFS BY MOUTH EVERY 4 HOURS NEEDED 11-21 00:00: 00 Yes Blake Cook APPLY A THIN LAYER TO THE AFFECTED AREA EVERY NIGHT AT BEDTIME 11-21 00:00: 00 09-14 00:00 :00 No Blake Cook TOPIRAMATE 11-16 00:00: 00 Yes 25 Blake Cook ALLOPURINOL 10-13 00:00: 00 Yes 300 Blake Cook QUETIAPINE 10-13 00:00: 00 Yes 200 Blake Cook TAMSULOSIN 10-13 00:00: 00 Yes 4 Blake Cook CYCLOBENZAP R 10-13 00:00: 00 Yes 10 Blake Cook ESTARYLLA 0.25-35 10-13 00:00: 00 Yes Blake Cook TOPIRAMATE 10-13 00:00: 00 Yes 25 Blake Cook diphenhydrA MINE (BENADRYL) injection 50 mg 08-21 23:30: 00 08-21 22:28 :00 No 50mg 50 mg, Intramuscu lar, ONCE, 1 dose, Fri08/21/20 at 1830, STAT [facility] albuterol (VENTOLIN) inhaler 2 Puff 2019-05 00:45: 00 04-03 23:41 :00 No 2{puff} 2 Puff, Inhalation , ONCE, 1 dose, 04/03/20 at 1845, DEB
Is this order for a patient with suspected or confirmed COVID-19 infection? Yes [facility] ketorolac (TORADOL) injection 30 mg 2019-05 00:30: 00 04-03 23:31 :00 No 30mg 30 mg, Slow IV Push, ONCE, 1 dose, Fri04/03/20 at 1830, DEB
[facility] EMERGENCY ROOM, [facility] aspirin tablet 325 mg 2019-05 22:30: 00 04-03 23:09 :00 No 325mg 325 mg, Oral, ONCE, 1 dose, Fri04/03/20 at 1630, STAT [facility] benzonatate 100 mg capsule 2019-05 00:00: 00 Yes [id number] 100mg Take 1 capsule by mouth 3 (three) times daily as needed for Cough. [facility] acetaminoph en-codeine 300-30 mg tablet 2019-05 00:00: 00 04-03 00:00 :00 No [id number] 1{tbl} Take 1 tablet by mouth every 6 (six) hours as needed for Pain (scale 1-3) for up to 7 days. Indication s: acute pain [facility] albuterol 90 mcg/actuati on inhaler 2019-05 00:00: 00 04-03 00:00 :00 No [id number] 2{puff} Inhale 2 Puffs every 4 (four) hours as needed for Wheezing or Shortness of Breath. [facility] predniSONE 20 mg tablet 01-26 00:00: 00 Yes Take one tablet by mouth daily till all gone [facility] butalbital- acetaminoph en-caff 50-325-40 mg tablet 01-26 00:00: 00 Yes 1{tbl} Take 1 tablet by mouth every 6 (six) hours as needed for Headache (Headache) . [facility] vit 33-iron-fol ic-dha (SELECT-OB + DHA) 29 mg iron-1 mg -250 mg combo pack 08-22 00:00: 00 Yes [id number] 1{packe t} Take 1 Packet by mouth daily. [facility] Flagyl 500 mg tablet 2016-05 00:00: 00 Yes 1mg Blake F Joey Vital Signs Vital Name Observation Time Observation Value Comments S charlie Systolic blood pressure 2020-08-21 23:25:00 128 mm[Hg] [facility] Diastolic blood pressure 2020-08-21 23:25:00 80 mm[Hg] [facility] Heart rate 2020-08-21 23:25:00 88 /[facility] 2020-08-21 23:25:00 18 /min [facility] Oxygen saturation in Arterial blood by Pulse oximetry 2020-08-21 23:25:00 100 /min [facility] Body temperature 2020-08-21 21:51:00 36.61 Brenda [facility] Body weight 2020-08-21 21:51:00 71.215 kg [facility] BMI 2020-08-21 21:51:00 27.81 kg/m2 [facility] Systolic blood pressure 2020-08-21 23:25:00 128 mm[Hg] [facility] Diastolic blood pressure 2020-08-21 23:25:00 80 mm[Hg] [facility] Heart rate 2020-08-21 23:25:00 88 /min [facility] Respiratory rate 2020-08-21 23:25:00 18 /min [facility] Oxygen saturation in Arterial blood by Pulse oximetry 2020-08-21 23:25:00 100 /min [facility] Body temperature 2020-08-21 21:51:00 36.61 Brenda [facility] Body weight 2020-08-21 21:51:00 71.215 kg [facility] BMI 2020-08-21 21:51:00 27.81 kg/m2 [facility] Systolic blood pressure 2020-04-04 01:01:00 114 mm[Hg] [facility] Diastolic blood pressure 2020-04-04 01:01:00 79 mm[Hg] [facility] Heart rate 2020-04-04 01:01:00 80 /[facility] Respiratory rate 2020-04-04 01:01:00 18 /min [facility] Oxygen saturation in Arterial blood by Pulse oximetry 2020-04-04 01:01:00 99 /min [facility] Body temperature 2020-04-03 22:14:00 36.44 Brenda [facility] Body weight 2020-04-03 22:14:00 67.132 kg [facility] BMI 2020-04-03 22:14:00 26.22 kg/m2 [facility] Systolic blood pressure 2020-04-04 01:01:00 114 mm[Hg] [facility] Diastolic blood pressure 2020-04-04 01:01:00 79 mm[Hg] [facility] Heart rate 2020-04-04 01:01:00 80 /min [facility] Respiratory rate 2020-04-04 01:01:00 18 /min [facility] Oxygen saturation in Arterial blood by Pulse oximetry 2020-04-04 01:01:00 99 /min [facility] Body temperature 2020-04-03 22:14:00 36.44 Brenda [facility] Body weight 2020-04-03 22:14:00 67.132 kg [facility] BMI 2020-04-03 22:14:00 26.22 kg/m2 [facility] BP Systolic 2023-12-06 13:10:00 Step hen F Joey BP Diastolic 2023-12-06 13:10:00 [place] phen F Joey Weight Measured 2023-12-06 13:10:00 Blake Robbin Cook Height Measured 2023-12-06 13:10:00 Blake F Joey Body Temperature 2023-12-06 13:10:00 Blake F Joey Heart Rate 2023-12-06 13:10:00 Lyndsay en F Joey Respiratory Rate 2023-12-06 13:10:00 Blake F Joey BP Systolic 2023-10-24 16:53:00 Step hen F Joey BP Diastolic 2023-10-24 16:53:00 [place] phen F Joey Weight Measured 2023-10-24 16:53:00 Blake Robbin Cook Height Measured 2023-10-24 16:53:00 Blake F Joey Body Temperature 2023-10-24 16:53:00 Blake F Joey Heart Rate 2023-10-24 16:53:00 Lyndsay en F Joey Respiratory Rate 2023-10-24 16:53:00 Blake F Joey BP Systolic 2023-09-23 10:10:00 122 mm[Hg] Step hen F Joey BP Diastolic 2023-09-23 10:10:00 80 mm[Hg] [place] phen F Joey Weight Measured 2023-09-23 10:10:00 181.00 pounds Blakejohanny Cook Height Measured 2023-09-23 10:10:00 64.00 inches Blake F Joey Body Temperature 2023-09-23 10:10:00 97.70 degrees Blake F Joey Heart Rate 2023-09-23 10:10:00 93.00 /min Lyndsay en F Joey Respiratory Rate 2023-09-23 10:10:00 18.00 /min Blake F Joey BP Systolic 2023-09-09 07:56:00 116 mm[Hg] Step hen F Joey BP Diastolic 2023-09-09 07:56:00 74 mm[Hg] [place] phen F Joey Weight Measured 2023-09-09 07:56:00 180.00 pounds Blake F Joey Height Measured 2023-09-09 07:56:00 64.00 inches Blake F Joey Body Temperature 2023-09-09 07:56:00 98.20 degrees Blake F Joey Heart Rate 2023-09-09 07:56:00 93.00 /min Lyndsay en F Joey Respiratory Rate 2023-09-09 07:56:00 16.00 /min Blake F Joey Weight Measured 2023-08-19 13:25:00 183.00 pounds Blake F Joey Height Measured 2023-08-19 13:25:00 64.00 inches Blake F Joey Body Temperature 2023-08-19 13:25:00 98.40 degrees Blake F Joey Heart Rate 2023-08-19 13:25:00 108.00 /min Step hen F Joey Respiratory Rate 2023-08-19 13:25:00 16.00 /min Blake F Joey BP Systolic 2023-08-19 13:25:00 130 mm[Hg] Step hen F Joey BP Diastolic 2023-08-19 13:25:00 82 mm[Hg] [place] phen F Joey BP Systolic 2023-07-30 16:12:00 113 mm[Hg] Step hen F Joey BP Diastolic 2023-07-30 16:12:00 65 mm[Hg] [place] phen F Joey Weight Measured 2023-07-30 16:12:00 181.40 pounds Blake F Joey Height Measured 2023-07-30 16:12:00 64.00 inches Blake F Joey Body Temperature 2023-07-30 16:12:00 97.90 degrees Blake F Joey Heart Rate 2023-07-30 16:12:00 98.00 /min Lyndsay en F Joey Respiratory Rate 2023-07-30 16:12:00 18.00 /min Blake F Joey BP Systolic 2023-07-04 16:34:00 Step hen F Joey BP Diastolic 2023-07-04 16:34:00 [place] phen F Joey Weight Measured 2023-07-04 16:34:00 Blake F Joey Height Measured 2023-07-04 16:34:00 Blake F Joey Body Temperature 2023-07-04 16:34:00 Blake F Joey Heart Rate 2023-07-04 16:34:00 Lyndsay en F Joey Respiratory Rate 2023-07-04 16:34:00 Blake F Joey BP Systolic 2023-01-10 08:05:00 120 mm[Hg] Step hen F Joey BP Diastolic 2023-01-10 08:05:00 80 mm[Hg] [place] phen F Joey Weight Measured 2023-01-10 08:05:00 181.00 pounds Blake F Joey Height Measured 2023-01-10 08:05:00 64.00 inches Blake F Joey Body Temperature 2023-01-10 08:05:00 97.30 degrees Blake F Joey Heart Rate 2023-01-10 08:05:00 77.00 /min Lyndsay en F Joey Respiratory Rate 2023-01-10 08:05:00 18.00 /min Blake F Joey BP Systolic 2022-11-15 13:57:00 141 mm[Hg] Step hen F Joey BP Diastolic 2022-11-15 13:57:00 69 mm[Hg] [place] phen F Jeoy Weight Measured 2022-11-15 13:57:00 184.90 pounds Blake F Joey Height Measured 2022-11-15 13:57:00 64.00 inches Blake F Joey Body Temperature 2022-11-15 13:57:00 98.40 degrees Blake F Joey Heart Rate 2022-11-15 13:57:00 87.00 /min Lyndsay en F Joey Respiratory Rate 2022-11-15 13:57:00 18.00 /min Blake F Joey BP Systolic 2017-03-04 08:11:00 122 mm[Hg] Step hen F Joey BP Diastolic 2017-03-04 08:11:00 83 mm[Hg] [place] phen F Joey Weight Measured 2017-03-04 08:11:00 172.00 pounds Blake Cook Height Measured 2017-03-04 08:11:00 64.00 inches Blake Cook Body Temperature 2017-03-04 08:11:00 98.50 degrees Blake Cook Heart Rate 2017-03-04 08:11:00 90.00 /min Lyndsay Cook Respiratory Rate 2017-03-04 08:11:00 Blake Cook Procedures Procedure Date / Time Performed Performing Clinicia n Source NOTICE OF PRIVACY PRACTICES 2021-05-04 20:29:05 Doctor Unassigned, [place] [facility] NOTICE OF PRIVACY PRACTICES 2020-08-21 21:44:50 Doctor Unassigned, [place] [facility] CONSENT/REFUSAL FOR DIAGNOSIS AND TREATMENT 2020-08-21 21:44:32 Doctor Unassigned, [place] [facility] XR CHEST 1 VW 2020-04-04 00:41:21 Stephanie Bennett [facility] TEST, SERUM 2020-04-03 22:56:00 Lavonne Bennett [facility] TROPONIN I 2020-04-03 22:56:00 Stephanie Bennett [facility] HEPATIC FUNCTION PANEL ([id number]) (ALB,T.PRO,BILI T,BU/BC,ALT,AST,ALK PHOS) 2020-04-03 22:56:00 Stephanie Bennett [facility] BASIC METABOLIC PANEL (NA, K, CL, CO2, GLUCOSE, BUN, CREATININE, CA) 2020-04-03 22:56:00 Stephanie Bennett [facility] CBC WITH DIFF 2020-04-03 22:56:00 Stephanie Bennett [facility] D-DIMER 2020-04-03 22:56:00 Stephanie Bennett [facility] URINALYSIS 2020-04-03 22:56:00 Stephanie Bennett [facility] N-TERMINAL PRO-BNP 2020-04-03 22:56:00 Danielle Bennett [facility] Encounters Start Date/Time End Date/Time Encounter Type Admission Type Attending [facility] Care Facility Care Department Encounter ID Source 2021-03-04 13:55:32 Emergency [facility] [id number] [facility] 2021-03-03 08:18:11 Emergency [facility] [id number] [facility] 2023-12-06 13:10:02 2023-12-06 13:10:02 Outpatient [facility] S[facility] [id number] Blake Cook 2023-12-06 00:00:00 2023-12-06 00:00:00 Outpatient Visit SFA [id number] Blake Cook 2023-10-24 16:53:01 2023-10-24 16:53:01 Outpatient SFA SFA [id number] Blake Cook 2023-10-24 00:00:00 2023-10-24 00:00:00 Outpatient Visit SFA [id number] Blake Cook 2023-09-23 10:09:40 2023-09-23 10:09:40 Outpatient SFA SFA [id number] Blake Cook 2023-09-15 14:53:46 2023-09-15 14:53:46 Outpatient SFA SFA [id number] Blake Cook 2023-09-15 00:00:00 2023-09-15 00:00:00 Outpatient Visit SFA [id number] Blake Cook 2023-09-09 07:55:19 2023-09-09 07:55:19 Outpatient SFA SFA [id number] Blake Cook 2023-09-09 00:00:00 2023-09-09 00:00:00 Outpatient Visit SFA [id number] Blake Cook 2023-09-05 10:30:38 2023-09-05 10:30:38 Outpatient SFA SFA [id number] Blake Cook 2023-09-02 00:00:00 2023-09-02 00:00:00 Outpatient Visit SFA [id number] Blake Cook 2023-08-19 13:25:25 2023-08-19 13:25:25 Outpatient [facility] [id number] Blake Cook 2023-07-30 16:06:33 2023-07-30 16:06:33 Outpatient [facility] [id number] Blake Siegel Joey 2023-07-04 16:38:13 2023-07-04 16:38:13 Outpatient [facility] [id number] Blake Siegel Joey 2023-01-10 07:57:34 2023-01-10 07:57:34 Outpatient [facility] [id number] Blake Siegel Joey 2022-11-15 13:56:01 2022-11-15 13:56:01 Outpatient [facility] [id number] Blake Siegel Joey 2021-05-04 14:30:00 2021-05-04 14:45:00 Laboratory Only Only, Gal Adult Uc Test David Parker [facility] [place] [id number] [facility] 2021-05-04 14:30:00 2021-05-04 14:30:00 Outpatient DAVID MOSER [facility] [id number] [facility] 2021-05-04 00:00:00 2021-05-04 00:00:00 Orders Only Doctor Unassigned, [place] [facility] [id number] [facility] 2020-08-21 16:53:00 2020-08-21 18:31:00 Emergency Taina Mann [facility] [id number] 2020-08-21 16:53:00 2020-08-21 18:31:00 Emergency Taina Mann [facility] [id number] [facility] 2020-08-21 00:00:00 2020-08-21 00:00:00 Orders Only Doctor Unassigned, [place] [facility] [id number] 2020-08-21 00:00:00 2020-08-21 00:00:00 Orders Only Doctor Unassigned, [place] [facility] [id number] [facility] 2020-04-03 16:07:00 2020-04-03 19:36:00 Emergency [facility] [id number] 2020-04-03 16:07:00 2020-04-03 19:36:00 Emergency [facility] [id number] [facility] Results Test Description Test Time Test Comments Results Result Co mments Source [facility] [id number] 00:00:00* Test Item Value Reference Range Interpretation Comme nts WBC (test code = 1001) 9.8 K/UL RBC (test code = 1002) 3.39 M/UL HEMOGLOBIN (test code = 1003) 9.8 G/DL HEMATOCRIT (test code = 1004) 29.3 % MCV (test code = 1005) 86.4 fL MCH (test code = 1006) 28.9 PG MCHC (test code = 1007) 33.4 G/DL RDW (test code = 1038) 13.1 % NEUTROPHILS (test code = 1008) 64.5 % LYMPHOCYTES (test code = 1010) 28.2 % MONOCYTES (test code = 1011) 5.2 % EOSINOPHILS (test code = 1012) 1.3 % BASOPHILS (test code = 1013) 0.4 % IMMATURE GRANULOCYTES (test code = 1036) 0.4 % NUCLEATED RBCS (test code = 1065) 0.0 /100WBC'S PLATELET COUNT (test code = 1015) 297 K/UL ABSOLUTE NEUTROPHILS (test c ode = 1066) 6.29 K/UL ABSOLUTE LYMPHOCYTES (test c ode = 1067) 2.75 K/UL ABSOLUTE MONOCYTES (test cod e = 1068) 0.51 K/UL ABSOLUTE EOSINOPHILS (test c ode = 1040) 0.13 K/UL ABSOLUTE BASOPHILS (test cod e = 1069) 0.04 K/UL ABS IMMATURE GRANULOCYTES (t est code = 1020) 0.04 K/UL ABS NUCLEATED RBCS (test cod e = 67621) 0.00 K/UL Blake CookHCG, [id number] 00:00:00* Test Item Value Reference Range Interpretation Comme nts HCG, QUANTITATIVE (test code = 2506) 183 MIU/ML Blake CookCBC W/AUTO [id number] 00:00:00* Test Item Value Reference Range Interpretation Comme nts WBC (test code = 1001) 9.8 K/UL RBC (test code = 1002) 3.39 M/UL HEMOGLOBIN (test code = 1003) 9.8 G/DL HEMATOCRIT (test code = 1004) 29.3 % MCV (test code = 1005) 86.4 fL MCH (test code = 1006) 28.9 PG MCHC (test code = 1007) 33.4 G/DL RDW (test code = 1038) 13.1 % NEUTROPHILS (test code = 1008) 64.5 % LYMPHOCYTES (test code = 1010) 28.2 % MONOCYTES (test code = 1011) 5.2 % EOSINOPHILS (test code = 1012) 1.3 % BASOPHILS (test code = 1013) 0.4 % IMMATURE GRANULOCYTES (test code = 1036) 0.4 % NUCLEATED RBCS (test code = 1065) 0.0 /100WBC'S PLATELET COUNT (test code = 1015) 297 K/UL ABSOLUTE NEUTROPHILS (test c ode = 1066) 6.29 K/UL ABSOLUTE LYMPHOCYTES (test c ode = 1067) 2.75 K/UL ABSOLUTE MONOCYTES (test cod e = 1068) 0.51 K/UL ABSOLUTE EOSINOPHILS (test c ode = 1040) 0.13 K/UL ABSOLUTE BASOPHILS (test cod e = 1069) 0.04 K/UL ABS IMMATURE GRANULOCYTES (t est code = 1020) 0.04 K/UL ABS NUCLEATED RBCS (test cod e = 82879) 0.00 K/UL Blake CookHCG, [id number] 00:00:00* Test Item Value Reference Range Interpretation Comme nts HCG, QUANTITATIVE (test code = 2506) 183 MIU/ML Blake CookCBC W/AUTO [id number] 00:00:00* Test Item Value Reference Range Interpretation Comme nts WBC (test code = 1001) 9.8 K/UL RBC (test code = 1002) 3.39 M/UL HEMOGLOBIN (test code = 1003) 9.8 G/DL HEMATOCRIT (test code = 1004) 29.3 % MCV (test code = 1005) 86.4 fL MCH (test code = 1006) 28.9 PG MCHC (test code = 1007) 33.4 G/DL RDW (test code = 1038) 13.1 % NEUTROPHILS (test code = 1008) 64.5 % LYMPHOCYTES (test code = 1010) 28.2 % MONOCYTES (test code = 1011) 5.2 % EOSINOPHILS (test code = 1012) 1.3 % BASOPHILS (test code = 1013) 0.4 % IMMATURE GRANULOCYTES (test code = 1036) 0.4 % NUCLEATED RBCS (test code = 1065) 0.0 /100WBC'S PLATELET COUNT (test code = 1015) 297 K/UL ABSOLUTE NEUTROPHILS (test c ode = 1066) 6.29 K/UL ABSOLUTE LYMPHOCYTES (test c ode = 1067) 2.75 K/UL ABSOLUTE MONOCYTES (test cod e = 1068) 0.51 K/UL ABSOLUTE EOSINOPHILS (test c ode = 1040) 0.13 K/UL ABSOLUTE BASOPHILS (test cod e = 1069) 0.04 K/UL ABS IMMATURE GRANULOCYTES (t est code = 1020) 0.04 K/UL ABS NUCLEATED RBCS (test cod e = 37241) 0.00 K/UL Blake CookHCG, [id number] 00:00:00* Test Item Value Reference Range Interpretation Comme nts HCG, QUANTITATIVE (test code = 2506) 1092 MIU/ML Blake Siegel AustinHCG, [id number] 00:00:00* Test Item Value Reference Range Interpretation Comme nts HCG, QUANTITATIVE (test code = 2506) 1092 MIU/ML Blake Siegel AustinHCG, [id number] 00:00:00* Test Item Value Reference Range Interpretation Comme nts HCG, QUANTITATIVE (test code = 2506) 1092 MIU/ML Blake Siegel AustinHCG, [id number] 00:00:00* Test Item Value Reference Range Interpretation Comme nts HCG, QUANTITATIVE (test code = 2506) 1092 MIU/ML Blake Siegel AustinHCG, [id number] 00:00:00* Test Item Value Reference Range Interpretation Comme nts HCG, QUANTITATIVE (test code = 2506) 36651 MIU/ML Blake Siegel AustinHCG, [id number] 00:00:00* Test Item Value Reference Range Interpretation Comme nts HCG, QUANTITATIVE (test code = 2506) 97813 MIU/ML Blake F AustinHCG, [id number] 00:00:00* Test Item Value Reference Range Interpretation Comme nts HCG, QUANTITATIVE (test code = 2506) 15562 MIU/ML Blake F AustinHCG, [id number] 00:00:00* Test Item Value Reference Range Interpretation Comme nts HCG, QUANTITATIVE (test code = 2506) 93918 MIU/ML Blake Robbin AustinHCG, [id number] 00:00:00* Test Item Value Reference Range Interpretation Comme nts HCG, QUANTITATIVE (test code = 2506) 25461 MIU/ML Blake F AustinCBC W/AUTO [id number] 00:00:00* Test Item Value Reference Range Interpretation Comme nts WBC (test code = 1001) 10.3 K/UL RBC (test code = 1002) 4.82 M/UL HEMOGLOBIN (test code = 1003) 14.1 G/DL HEMATOCRIT (test code = 1004) 40.3 % MCV (test code = 1005) 83.6 fL MCH (test code = 1006) 29.3 PG MCHC (test code = 1007) 35.0 G/DL RDW (test code = 1038) 13.0 % NEUTROPHILS (test code = 1008) 69.0 % LYMPHOCYTES (test code = 1010) 23.0 % MONOCYTES (test code = 1011) 5.8 % EOSINOPHILS (test code = 1012) 1.2 % BASOPHILS (test code = 1013) 0.7 % IMMATURE GRANULOCYTES (test code = 1036) 0.3 % NUCLEATED RBCS (test code = 1065) 0.0 /100WBC'S PLATELET COUNT (test code = 1015) 320 K/UL ABSOLUTE NEUTROPHILS (test c ode = 1066) 7.09 K/UL ABSOLUTE LYMPHOCYTES (test c ode = 1067) 2.36 K/UL ABSOLUTE MONOCYTES (test cod e = 1068) 0.59 K/UL ABSOLUTE EOSINOPHILS (test c ode = 1040) 0.12 K/UL ABSOLUTE BASOPHILS (test cod e = 1069) 0.07 K/UL ABS IMMATURE GRANULOCYTES (t est code = 1020) 0.03 K/UL ABS NUCLEATED RBCS (test cod e = 73858) 0.00 K/UL Blake [id number] 00:00:00* Test Item Value Reference Range Interpretation Comme nts TSH, THIRD GENERATION (test code = 2821) 1.670 UIU/ML Blake CookCOMPREHENSIVE METABOLIC [id number] 00:00:00* Test Item Value Reference Range Interpretation Comme nts GLUCOSE (test code = 2217) 101 MG/DL BUN (test code = 2208) 13 MG/DL CREATININE (test code = 2214) 0.79 MG/DL eGFR (2020 CKD-EPI) (test code = 08429) 102 ML/MIN/1.73 CALC BUN/CREAT (test code = 2235) 16 RATIO SODIUM (test code = 2231) 141 MEQ/L POTASSIUM (test code = 2228) 4.1 MEQ/L CHLORIDE (test code = 2215) 104 MEQ/L CARBON DIOXIDE (test code = 2206) 25 MEQ/L CALCIUM (test code = 2209) 9.1 MG/DL PROTEIN, TOTAL (test code = 2229) 7.1 G/DL ALBUMIN (test code = 2201) 4.5 G/DL CALC GLOBULIN (test code = 2240) 2.6 G/DL CALC A/G RATIO (test code = 2234) 1.7 RATIO BILIRUBIN, TOTAL (test code = 2207) 1.0 MG/DL ALKALINE PHOSPHATASE (test code = 2204) 81 U/L AST (test code = 2218) 12 U/L ALT (test code = 2219) 11 U/L Blake CookCBC W/AUTO [id number] 00:00:00* Test Item Value Reference Range Interpretation Comme nts WBC (test code = 1001) 10.3 K/UL RBC (test code = 1002) 4.82 M/UL HEMOGLOBIN (test code = 1003) 14.1 G/DL HEMATOCRIT (test code = 1004) 40.3 % MCV (test code = 1005) 83.6 fL MCH (test code = 1006) 29.3 PG MCHC (test code = 1007) 35.0 G/DL RDW (test code = 1038) 13.0 % NEUTROPHILS (test code = 1008) 69.0 % LYMPHOCYTES (test code = 1010) 23.0 % MONOCYTES (test code = 1011) 5.8 % EOSINOPHILS (test code = 1012) 1.2 % BASOPHILS (test code = 1013) 0.7 % IMMATURE GRANULOCYTES (test code = 1036) 0.3 % NUCLEATED RBCS (test code = 1065) 0.0 /100WBC'S PLATELET COUNT (test code = 1015) 320 K/UL ABSOLUTE NEUTROPHILS (test c ode = 1066) 7.09 K/UL ABSOLUTE LYMPHOCYTES (test c ode = 1067) 2.36 K/UL ABSOLUTE MONOCYTES (test cod e = 1068) 0.59 K/UL ABSOLUTE EOSINOPHILS (test c ode = 1040) 0.12 K/UL ABSOLUTE BASOPHILS (test cod e = 1069) 0.07 K/UL ABS IMMATURE GRANULOCYTES (t est code = 1020) 0.03 K/UL ABS NUCLEATED RBCS (test cod e = 01765) 0.00 K/UL Blake [id number] 00:00:00* Test Item Value Reference Range Interpretation Comme nts TSH, THIRD GENERATION (test code = 2821) 1.670 UIU/ML Blake CookCOMPREHENSIVE METABOLIC [id number] 00:00:00* Test Item Value Reference Range Interpretation Comme nts GLUCOSE (test code = 2217) 101 MG/DL BUN (test code = 2208) 13 MG/DL CREATININE (test code = 2214) 0.79 MG/DL eGFR (2020 CKD-EPI) (test code = 69525) 102 ML/MIN/1.73 CALC BUN/CREAT (test code = 2235) 16 RATIO SODIUM (test code = 2231) 141 MEQ/L POTASSIUM (test code = 2228) 4.1 MEQ/L CHLORIDE (test code = 2215) 104 MEQ/L CARBON DIOXIDE (test code = 2206) 25 MEQ/L CALCIUM (test code = 2209) 9.1 MG/DL PROTEIN, TOTAL (test code = 2229) 7.1 G/DL ALBUMIN (test code = 2201) 4.5 G/DL CALC GLOBULIN (test code = 2240) 2.6 G/DL CALC A/G RATIO (test code = 2234) 1.7 RATIO BILIRUBIN, TOTAL (test code = 2207) 1.0 MG/DL ALKALINE PHOSPHATASE (test code = 2204) 81 U/L AST (test code = 2218) 12 U/L ALT (test code = 2219) 11 U/L Blake CookCBC W/AUTO [id number] 00:00:00* Test Item Value Reference Range Interpretation Comme nts WBC (test code = 1001) 10.3 K/UL RBC (test code = 1002) 4.82 M/UL HEMOGLOBIN (test code = 1003) 14.1 G/DL HEMATOCRIT (test code = 1004) 40.3 % MCV (test code = 1005) 83.6 fL MCH (test code = 1006) 29.3 PG MCHC (test code = 1007) 35.0 G/DL RDW (test code = 1038) 13.0 % NEUTROPHILS (test code = 1008) 69.0 % LYMPHOCYTES (test code = 1010) 23.0 % MONOCYTES (test code = 1011) 5.8 % EOSINOPHILS (test code = 1012) 1.2 % BASOPHILS (test code = 1013) 0.7 % IMMATURE GRANULOCYTES (test code = 1036) 0.3 % NUCLEATED RBCS (test code = 1065) 0.0 /100WBC'S PLATELET COUNT (test code = 1015) 320 K/UL ABSOLUTE NEUTROPHILS (test c ode = 1066) 7.09 K/UL ABSOLUTE LYMPHOCYTES (test c ode = 1067) 2.36 K/UL ABSOLUTE MONOCYTES (test cod e = 1068) 0.59 K/UL ABSOLUTE EOSINOPHILS (test c ode = 1040) 0.12 K/UL ABSOLUTE BASOPHILS (test cod e = 1069) 0.07 K/UL ABS IMMATURE GRANULOCYTES (t est code = 1020) 0.03 K/UL ABS NUCLEATED RBCS (test cod e = 36225) 0.00 K/UL Blake [id number] 00:00:00* Test Item Value Reference Range Interpretation Comme nts TSH, THIRD GENERATION (test code = 2821) 1.670 UIU/ML Blake Sigeel JoeyCOMPREHENSIVE METABOLIC [id number] 00:00:00* Test Item Value Reference Range Interpretation Comme nts GLUCOSE (test code = 2217) 101 MG/DL BUN (test code = 2208) 13 MG/DL CREATININE (test code = 2214) 0.79 MG/DL eGFR (2020 CKD-EPI) (test code = 83484) 102 ML/MIN/1.73 CALC BUN/CREAT (test code = 2235) 16 RATIO SODIUM (test code = 2231) 141 MEQ/L POTASSIUM (test code = 2228) 4.1 MEQ/L CHLORIDE (test code = 2215) 104 MEQ/L CARBON DIOXIDE (test code = 2206) 25 MEQ/L CALCIUM (test code = 2209) 9.1 MG/DL PROTEIN, TOTAL (test code = 2229) 7.1 G/DL ALBUMIN (test code = 2201) 4.5 G/DL CALC GLOBULIN (test code = 2240) 2.6 G/DL CALC A/G RATIO (test code = 2234) 1.7 RATIO BILIRUBIN, TOTAL (test code = 2207) 1.0 MG/DL ALKALINE PHOSPHATASE (test code = 2204) 81 U/L AST (test code = 2218) 12 U/L ALT (test code = 2219) 11 U/L Blake Siegel JoeyCBC W/AUTO [id number] 00:00:00* Test Item Value Reference Range Interpretation Comme nts WBC (test code = 1001) 10.3 K/UL RBC (test code = 1002) 4.82 M/UL HEMOGLOBIN (test code = 1003) 14.1 G/DL HEMATOCRIT (test code = 1004) 40.3 % MCV (test code = 1005) 83.6 fL MCH (test code = 1006) 29.3 PG MCHC (test code = 1007) 35.0 G/DL RDW (test code = 1038) 13.0 % NEUTROPHILS (test code = 1008) 69.0 % LYMPHOCYTES (test code = 1010) 23.0 % MONOCYTES (test code = 1011) 5.8 % EOSINOPHILS (test code = 1012) 1.2 % BASOPHILS (test code = 1013) 0.7 % IMMATURE GRANULOCYTES (test code = 1036) 0.3 % NUCLEATED RBCS (test code = 1065) 0.0 /100WBC'S PLATELET COUNT (test code = 1015) 320 K/UL ABSOLUTE NEUTROPHILS (test c ode = 1066) 7.09 K/UL ABSOLUTE LYMPHOCYTES (test c ode = 1067) 2.36 K/UL ABSOLUTE MONOCYTES (test cod e = 1068) 0.59 K/UL ABSOLUTE EOSINOPHILS (test c ode = 1040) 0.12 K/UL ABSOLUTE BASOPHILS (test cod e = 1069) 0.07 K/UL ABS IMMATURE GRANULOCYTES (t est code = 1020) 0.03 K/UL ABS NUCLEATED RBCS (test cod e = 25099) 0.00 K/UL Blake [id number] 00:00:00* Test Item Value Reference Range Interpretation Comme nts TSH, THIRD GENERATION (test code = 2821) 1.670 UIU/ML Blake CookCOMPREHENSIVE METABOLIC [id number] 00:00:00* Test Item Value Reference Range Interpretation Comme nts GLUCOSE (test code = 2217) 101 MG/DL BUN (test code = 2208) 13 MG/DL CREATININE (test code = 2214) 0.79 MG/DL eGFR (2020 CKD-EPI) (test code = 02695) 102 ML/MIN/1.73 CALC BUN/CREAT (test code = 2235) 16 RATIO SODIUM (test code = 2231) 141 MEQ/L POTASSIUM (test code = 2228) 4.1 MEQ/L CHLORIDE (test code = 2215) 104 MEQ/L CARBON DIOXIDE (test code = 2206) 25 MEQ/L CALCIUM (test code = 2209) 9.1 MG/DL PROTEIN, TOTAL (test code = 2229) 7.1 G/DL ALBUMIN (test code = 2201) 4.5 G/DL CALC GLOBULIN (test code = 2240) 2.6 G/DL CALC A/G RATIO (test code = 2234) 1.7 RATIO BILIRUBIN, TOTAL (test code = 2207) 1.0 MG/DL ALKALINE PHOSPHATASE (test code = 2204) 81 U/L AST (test code = 2218) 12 U/L ALT (test code = 2219) 11 U/L Blake Siegel [facility] [id number] 00:00:00* Test Item Value Reference Range Interpretation Comme nts WBC (test code = 1001) 10.3 K/UL RBC (test code = 1002) 4.82 M/UL HEMOGLOBIN (test code = 1003) 14.1 G/DL HEMATOCRIT (test code = 1004) 40.3 % MCV (test code = 1005) 83.6 fL MCH (test code = 1006) 29.3 PG MCHC (test code = 1007) 35.0 G/DL RDW (test code = 1038) 13.0 % NEUTROPHILS (test code = 1008) 69.0 % LYMPHOCYTES (test code = 1010) 23.0 % MONOCYTES (test code = 1011) 5.8 % EOSINOPHILS (test code = 1012) 1.2 % BASOPHILS (test code = 1013) 0.7 % IMMATURE GRANULOCYTES (test code = 1036) 0.3 % NUCLEATED RBCS (test code = 1065) 0.0 /100WBC'S PLATELET COUNT (test code = 1015) 320 K/UL ABSOLUTE NEUTROPHILS (test c ode = 1066) 7.09 K/UL ABSOLUTE LYMPHOCYTES (test c ode = 1067) 2.36 K/UL ABSOLUTE MONOCYTES (test cod e = 1068) 0.59 K/UL ABSOLUTE EOSINOPHILS (test c ode = 1040) 0.12 K/UL ABSOLUTE BASOPHILS (test cod e = 1069) 0.07 K/UL ABS IMMATURE GRANULOCYTES (t est code = 1020) 0.03 K/UL ABS NUCLEATED RBCS (test cod e = 82033) 0.00 K/UL Blake [id number] 00:00:00* Test Item Value Reference Range Interpretation Comme nts TSH, THIRD GENERATION (test code = 2821) 1.670 UIU/ML Blake CookCOMPREHENSIVE METABOLIC [id number] 00:00:00* Test Item Value Reference Range Interpretation Comme nts GLUCOSE (test code = 2217) 101 MG/DL BUN (test code = 2208) 13 MG/DL CREATININE (test code = 2214) 0.79 MG/DL eGFR (2020 CKD-EPI) (test code = 64358) 102 ML/MIN/1.73 CALC BUN/CREAT (test code = 2235) 16 RATIO SODIUM (test code = 2231) 141 MEQ/L POTASSIUM (test code = 2228) 4.1 MEQ/L CHLORIDE (test code = 2215) 104 MEQ/L CARBON DIOXIDE (test code = 2206) 25 MEQ/L CALCIUM (test code = 2209) 9.1 MG/DL PROTEIN, TOTAL (test code = 2229) 7.1 G/DL ALBUMIN (test code = 2201) 4.5 G/DL CALC GLOBULIN (test code = 2240) 2.6 G/DL CALC A/G RATIO (test code = 2234) 1.7 RATIO BILIRUBIN, TOTAL (test code = 2207) 1.0 MG/DL ALKALINE PHOSPHATASE (test code = 2204) 81 U/L AST (test code = 2218) 12 U/L ALT (test code = 2219) 11 U/L Blake You 1 [id number] 00:51:13No acute cardiopulmonary abnormality. Preliminary Report Dictated by Resident: Ambrose Cevallos MD., have reviewed this study and agree with theabove report.XR CHEST 1 VW HISTORY:COVID, SOB COMPARISON: None TECHNIQUE: AP radiograph of [...] seen.The cardiomediastinal silhouette is normal.No acute osseous abnormality.IMPRESSIONNo acute cardiopulmonary abnormality. Preliminary Report Dictated by Resident: Ambrose Lenz MD., have reviewed this study and agree with theabove report.[facility], Serum 2020-04-04 00:07:00* Test Item Value Reference Range Interpretation Comme nts PREG SERUM (test code = 8924161506) Negative LOLITA (test code = LOLITA) Less than 10 IU/L. ?If low titer or ectopic is suspected, resubmit specimen in 48-72 hours. [facility] CampusTroponin [id number] 23:31:00* Test Item Value Reference Range Interpretation Comme nts TROPONIN I (test code = 4762012993) <0.012 See_Comment [Automated message] The system which [...] biotin. ? Lab Interpretation (test code = 34360-3) Normal [facility] CampusUrinalysis2020-11-30 23:30:00* Test Item Value Reference Range Interpretation Comme nts APPEARANCE (test code = 3522893181) Clear Clear COLOR (test code = 0555540043) Yellow Yellow PH (test code = 5707807069) 4.8-8.0 SP GRAVITY (test code = 8050109086) 1.003-1.030 GLU U QUAL (test code = 9056379354) Negative Negative BLOOD (test code = 9665140959) Negative Negative KETONES (test code = 9626343892) Negative Negative PROTEIN (test code = 2887-8) Negative Negative UROBILIN (test code = 0839510871) 0.2 mg/dL See_Comment [Automated mytraxa ge] The system which generated this result transmitted reference range: 0-1.0 mg/dL. The reference range was not used to interpret this result as normal/abnormal. BILIRUBIN (test code = 0702559457) Negative Negative NITRITE (test code = 8509475244) Negative Negative LEUK MIKE (test code = 3281683172) Negative Negative RBC/HPF (test code = 2241345806) <1 See_Comment [Automated mytraxa ge] The system which generated this result transmitted reference range: 0 - 3 HPF. The reference range was not used to interpret this result as normal/abnormal. WBC/HPF (test code = 9204179541) See_Comment [Automated mytraxa ge] The system which generated this result transmitted reference range: 0 - 5 HPF. The reference range was not used to interpret this result as normal/abnormal. BACTERIA (test code = 7945462937) Negative Negative MUCOUS (test code = 5744873355) Slight Negative LPF A SQ EPITH (test code = 6389482480) HPF Lab Interpretation (test code = 00266-5) Abnormal [facility] CampusN-TERMINAL [id number] 23:28:00* Test Item Value Reference Range Interpretation Comme nts NT-proBNP (test code = 7407634319) 28 pg/mL See_Comment [Automated message] The system which generated this result transmitted reference range: <=125. The reference range was not used to interpret this result as normal/abnormal. LOLITA (test code = LOLITA) Biotin has been reported to cause a negative bias, interpret results relative to patient's use of biotin. Lab Interpretation (test code = 64680-4) Normal [facility] CampusD-[id number] 23:26:00* Test Item Value Reference Range Interpretation Comments D-DIMER (test code = 2628671332) <0.27 See_Comment [Automated message] The system which [...] a diagnosis. Lab Interpretation (test code = 41954-6) Normal [facility] CampusBasi Metabolic Panel (NA, K, CL, CO2, GLUCOSE, BUN, CREATININE, CA)2020-04-03 23:20:00* Test Item Value Reference Range Interpretation Comme nts NA (test code = 9489478332) 139 mmol/L 135-145 K (test code = 1265179809) 3.9 mmol/L 3.5-5 CL (test code = 3464059030) 103 mmol/L 98-108 CO2 TOTAL (test code = 1511154323) 28 mmol/L 23-31 AGAP (test code = 1967720935) 2-16 BUN (test code = 9026140155) 12 mg/dL 7-23 GLUCOSE (test code = 5111109900) 109 mg/dL 70-110 CREATININE (test code = 7756965427) 0.64 mg/dL 0.5-1.04 CALCIUM (test code = 9905838278) 9.3 mg/dL 8.6-10.6 eGFR Calculation (Non-) (test code = 5083745500) mL/min/1.73m2 eGFR Calculation () (test code = 1894969677) mL/min/1.73m2 LOLITA (test code = LOLITA) Association [...] or urine or abnormalities in imaging tests). [facility] CampusHepatic Function Panel (ALB, T.PRO, BILI T, BU/BC, ALT, AST, ALK PHOS)2020-04-03 23:19:00* Test Item Value Reference Range Interpretation Comme nts TOTAL BILI (test code = 2488983387) 0.7 mg/dL 0.1-1.1 BILI UNCON (test code = 1616493963) 0.7 mg/dL 0.1-1.1 BILI CONJ (test code = 2168151310) 0.0 mg/dL 0-0.3 T PROTEIN (test code = 2307452645) 7.7 g/dL 6.3-8.2 ALBUMIN (test code = 9634464047) 4.5 g/dL 3.5-5 ALK PHOS (test code = 0012197638) 67 U/L 34-122 ALTv (test code = 1742-6) 18 U/L 5-35 AST(SGOT) (test code = 9504971723) 21 U/L 13-40 Lab Interpretation (test cod e = 48191-4) Normal [facility] with [id number] 23:15:00* Test Item Value Reference Range Interpretation [...] 31.6 g/dL 31.6-35.1 RDW-SD (test code = 00115-9) 40.0 fL 39-49.9 RDW-CV (test code = 788-0) 14.6 % 12-15.5 PLT (test code = 777-3) See_Comment [Automated messa ge] The system which generated this result transmitted reference range: 166 - 358 10*3/?L. The reference range was not used to interpret this result as normal/abnormal. MPV (test code = 93184-9) 10.9 fL 9.5-12.9 NRBC/100 WBC (test code = 6151996024) See_Comment [Automated [employer] ssage] The system which generated this result transmitted reference range: 0.0 - 10.0 /100 WBCs. The reference range was not used to interpret this result as normal/abnormal. NRBC x10^3 (test code = 4176973212) <0.01 See_Comment [Automated messa ge] The system which generated this result transmitted reference range: 10*3/?L. The reference range was not used to interpret this result as normal/abnormal. GRAN MAT (NEUT) % (test code = 770-8) 58.2 % IMM GRAN % (test code = 0823441186) 0.40 % LYMPH % (test code = 736-9) 33.4 % MONO % (test code = 5905-5) 6.3 % EOS % (test code = 713-8) 1.3 % BASO % (test code = 706-2) 0.4 % GRAN MAT x10^3(ANC) (test code = 9521610247) 4.82 10*3/uL 1.88-7.09 IMM GRAN x10^3 (test code = 2861679028) 0.03 10*3/uL 0-0.06 LYMPH x10^3 (test code = 731-0) 2.76 10*3/uL 1.32-3.29 MONO x10^3 (test code = 742-7) 0.52 10*3/uL 0.33-0.92 EOS x10^3 (test code = 711-2) 0.11 10*3/uL 0.03-0.39 BASO x10^3 (test code = 704-7) 0.03 10*3/uL 0.01-0.07 Lab Interpretation (test code = 52829-7) Abnormal [facility] CampusHPV HIGH RISK WITH GENOTYPE, [id number] 00:00:00* Test Item Value Reference Range Interpretation Comme nts HPV HIGH RISK INTERP (test c ode = 06106) NEGATIVE HPV 16 (test code = 74799) NEGATIVE HPV 18 (test code = 54182) NEGATIVE HPV, HR, OTHER GENOTYPES (te st code = 63040) NEGATIVE Blake Robbin AustinPAP TEST, THINPREP, [id number] 00:00:00* Test Item Value Reference Range Interpretation Comme nts SOURCE: (test code = 8001) Cervical/Endocervical SLIDES: (test code = 8011) 1 LMP: (test code = 8021) 02/05/2017 SPECIMEN ADEQUACY: (test code = 36544) (NOTE) INTERPRETATION: (test code = 59953) NO EPITHELIAL ABNORMALITY SEE BELOW OTHER COMMENTS: (test code = 8081) (NOTE) ENTRY LEVEL ELECTRICAL ENGINEER: (test code = 8101) THOMAS Kingston(ASCP)IAC LOCATION: (test code = 37189) (NOTE) CPT: (test code = 8140) (NOTE) Blake F AustinHPV HIGH RISK WITH GENOTYPE, [id number] 00:00:00* Test Item Value Reference Range Interpretation Comme nts HPV HIGH RISK INTERP (test c ode = 55279) NEGATIVE HPV 16 (test code = 82716) NEGATIVE HPV 18 (test code = 78958) NEGATIVE HPV, HR, OTHER GENOTYPES (te st code = 58364) NEGATIVE Blake Siegel AustinPAP TEST, THINPREP, [id number] 00:00:00* Test Item Value Reference Range Interpretation Comme nts SOURCE: (test code = 8001) Cervical/Endocervical SLIDES: (test code = 8011) 1 LMP: (test code = 8021) 02/05/2017 SPECIMEN ADEQUACY: (test code = 24134) (NOTE) INTERPRETATION: (test code = 64154) NO EPITHELIAL ABNORMALITY SEE BELOW OTHER COMMENTS: (test code = 8081) (NOTE) ENTRY LEVEL ELECTRICAL ENGINEER: (test code = 8101) THOMAS Kingston(ASCP)IAC LOCATION: (test code = 80475) (NOTE) CPT: (test code = 8140) (NOTE) Blake Robbin AustinHPV HIGH RISK WITH GENOTYPE, [id number] 00:00:00* Test Item Value Reference Range Interpretation Comme nts HPV HIGH RISK INTERP (test c ode = 71642) NEGATIVE HPV 16 (test code = 86728) NEGATIVE HPV 18 (test code = 54288) NEGATIVE HPV, HR, OTHER GENOTYPES (te st code = 26182) NEGATIVE Blake F AustinPAP TEST, THINPREP, [id number] 00:00:00* Test Item Value Reference Range Interpretation Comme nts SOURCE: (test code = 8001) Cervical/Endocervical SLIDES: (test code = 8011) 1 LMP: (test code = 8021) 02/05/2017 SPECIMEN ADEQUACY: (test code = 44477) (NOTE) INTERPRETATION: (test code = 60904) NO EPITHELIAL ABNORMALITY SEE BELOW OTHER COMMENTS: (test code = 8081) (NOTE) ENTRY LEVEL ELECTRICAL ENGINEER: (test code = 8101) THOMAS Kingston(ASCP)IAC LOCATION: (test code = 59014) (NOTE) CPT: (test code = 8140) (NOTE) Blake F AustinHPV HIGH RISK WITH GENOTYPE, [id number] 00:00:00* Test Item Value Reference Range Interpretation Comme nts HPV HIGH RISK INTERP (test c ode = 53176) NEGATIVE HPV 16 (test code = 29802) NEGATIVE HPV 18 (test code = 15407) NEGATIVE HPV, HR, OTHER GENOTYPES (te st code = 46077) NEGATIVE Blake F AustinPAP TEST, THINPREP, [id number] 00:00:00* Test Item Value Reference Range Interpretation Comme nts SOURCE: (test code = 8001) Cervical/Endocervical SLIDES: (test code = 8011) 1 LMP: (test code = 8021) 02/05/2017 SPECIMEN ADEQUACY: (test code = 60645) (NOTE) INTERPRETATION: (test code = 58763) NO EPITHELIAL ABNORMALITY SEE BELOW OTHER COMMENTS: (test code = 8081) (NOTE) ENTRY LEVEL ELECTRICAL ENGINEER: (test code = 8101) THOMAS Kingston(ASCP)IAC LOCATION: (test code = 93502) (NOTE) CPT: (test code = 8140) (NOTE) Blake F AustinHPV HIGH RISK WITH GENOTYPE, [id number] 00:00:00* Test Item Value Reference Range Interpretation Comme nts HPV HIGH RISK INTERP (test c ode = 85117) NEGATIVE HPV 16 (test code = 61577) NEGATIVE HPV 18 (test code = 51297) NEGATIVE HPV, HR, OTHER GENOTYPES (te st code = 17761) NEGATIVE Blake F AustinPAP TEST, THINPREP, [id number] 00:00:00* Test Item Value Reference Range Interpretation Comme nts SOURCE: (test code = 8001) Cervical/Endocervical SLIDES: (test code = 8011) 1 LMP: (test code = 8021) 02/05/2017 SPECIMEN ADEQUACY: (test code = 35293) (NOTE) INTERPRETATION: (test code = 23628) NO EPITHELIAL ABNORMALITY SEE BELOW OTHER COMMENTS: (test code = 8081) (NOTE) ENTRY LEVEL ELECTRICAL ENGINEER: (test code = 8101) THOMAS Kingston(ASCP)IAC LOCATION: (test code = 12166) (NOTE) CPT: (test code = 8140) (NOTE) Blake Cook Notes Date/Time Note Provider Source Blake Vazquez [facility]2024-06-21 00:00:00 Blake Vazquez [facility]2024-05-13 00:00:00 Blake Vazquez [facility]2024-05-07 00:00:00 Blake Vazquez [facility]2024-04-30 00:00:00 [facility]
--- NOTE | 2024-02-17 21:29 | EDPHYS ---
Physician Documentation [facility] Name: Bree Farnsworth Age: 33 yrs Sex: Female : 1990 Arrival Date: 02/17/2024 Time: 19:03 Bed 15 Private MD: ED Physician Darin Barron HPI: 02/16 21:38 This 33 yrs old Female presents to ER via Ambulatory with complaints of Diarrhea, Fever.kb 21:38 Pt is a 33 year old female who presents for diarrhea that started yesterday with fever kb and abd pain that started today. No aggravating or alleviating factors. . Historical: - Allergies: 19:14 No Known Allergies; ap3 - PMHx: 19:14 None; ap3 - PSHx: 19:14 Cholecystectomy; ap3 - Immunization history:: Client reports receiving the 2nd dose of the Covid vaccine, Flu vaccine is not up to date. - Infectious Disease History:: Denies. - Social history:: Smoking status: Patient denies any tobacco usage or history of. Patient uses alcohol, occasionally. ROS: 21:38 Constitutional: As per HPI kb Exam: 21:37 Constitutional: This is a well developed, well nourished patient who is awake, alert, kb and in no acute distress. Head/Face: Normocephalic, atraumatic. ENT: Moist Mucous membranes Cardiovascular: Regular rate Respiratory: Respirations even and unlabored. No increased work of breathing. Talking in full sentences Skin: Warm, dry with normal turgor. Normal color. MS/ Extremity: Pulses equal, no cyanosis. Neurovascular intact. Full, normal range of motion. Neuro: Awake and alert, GCS 15, oriented to person, place, time, and situation. 21:37 Abdomen/GI: Inspection: abdomen appears normal, Bowel sounds: normal, Palpation: soft, kb in all quadrants, mild abdominal tenderness, in the right upper quadrant and right lower quadrant, Vital Signs: 19:12 BP 122 / 78; Pulse 102; Resp 17; Temp 98.2; Pulse Ox 99% on R/A; Weight 76.2 kg; Height ap3 5 ft. 4 in. ; Pain 7/10; 19:53 BP 122 / 78; Pulse 88; Resp 16; Pulse Ox 98% on R/A; jb4 21:00 BP 136 / 85; Pulse 90; Resp 16; Pulse Ox 97% on R/A; jb4 21:34 BP 121 / 81; Pulse 94; Resp 16; Temp 98.4; Pulse Ox 99% ; Pain 0/10; ty 19:12 Body Mass Index 28.84 (76.20 kg, 162.56 cm) ap3 19:12 Pain Scale: Adult ap3 21:34 Pain Scale: Adult ty MDM: 19:07 Medical Screening Exam initiated kb 21:36 Differential diagnosis: Nonspecific abd pain, appendicitis, diverticulitis, viral kb gastroenteritis. Data reviewed: vital signs, nurses notes. Counseling: I had a detailed discussion with the patient and/or guardian regarding the historical points, exam findings, and any diagnostic results supporting the discharge/admit diagnosis, lab results, the need for outpatient follow up, a family practitioner, to return to the emergency department if symptoms worsen or persist or if there are any questions or concerns that arise at home. 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 Pt educated on diagnostic results that were completed and return precautions. . 02/16 19:13 Order name: CBC with Diff; Complete Time: 19:54 kb 02/16 19:13 Order name: CMP; Complete Time: 20:04 kb 02/16 19:13 Order name: Lipase; Complete Time: 20:04 kb 02/16 19:13 Order name: IV Saline Lock; Complete Time: 19:44 kb 02/16 19:13 Order name: Labs collected and sent; Complete Time: 19:44 kb Administered Medications: 19:50 Drug: Ondansetron IVP 4 mg IVP once; over 2 minutes Route: IVP; Site: right antecubital;jb4 20:20 Follow up: Response: No adverse reaction; Marked relief of symptoms jb4 19:50 Drug: NS 0.9% IV 1000 ml IV at 1 bolus Per protocol; to be given as a bolus over 60 jb4 minutes Route: IV; Rate: 1 bolus; Site: right antecubital; 20:50 Follow up: Response: No adverse reaction; IV Status: Completed infusion; IV Intake: jb4 1000ml 19:51 Drug: TORadol - Ketorolac IVP 15 mg IVP once Route: IVP; Site: right antecubital; jb4 20:20 Follow up: Response: No adverse reaction; Marked relief of symptoms; Pain is decreased jb4 Disposition Summary: 02/17/24 21:28 Discharge Ordered Notes: Location: Home kb Condition: Stable kb Diagnosis - Abdominal pain, Generalized kb - Diarrhea, unspecified kb - Nausea with vomiting, unspecified kb Followup: kb - With: Emergency Department - When: As needed - Reason: Worsening of condition Followup: kb - With: Private Physician - When: 2 - 3 days - Reason: Recheck today's complaints, Continuance of care, Re-evaluation by your physician Discharge Instructions: - Discharge Summary Sheet kb - Viral Gastroenteritis, Adult, [id number] kb Forms: - Medication Reconciliation Form kb - Antibiotic Education kb - Prescription Opioid Use kb - Patient Portal Instructions kb - Leadership Thank You Letter kb Prescriptions: - Zofran 4 mg Oral tablet - take 1 tablet ORAL route every 6 hours As needed; 12 tablet; Refills: 0, kb Product Selection Permitted Signatures: Dispatcher [employer] EDElisha Vickers, SANDEE-C SANDEE-Ifeanyi Funes, RN RN jb4 Kimmie Lacy RN RN ap3 Corrections: (The following items were deleted from the chart) 19:13 19:13 CBC+H.LAB.BRZ ordered. EDMS EDMS 19:13 19:13 COMPREHENSIVE METABOLIC PANEL+C.LAB.BRZ ordered. EDMS EDMS 19:13 19:13 LIPASE+C.LAB.BRZ ordered. EDMS EDMS 19:13 19:13 Test, Urine+UC.LAB.BRZ ordered. EDMS EDMS 19:13 19:13 Urinalysis+U.LAB.BRZ ordered. EDMS EDMS 21:38 21:37 Constitutional: This is a well developed, well nourished patient who is awake, kb alert, and in no acute distress. kb
--- NOTE | 2024-02-17 21:29 | ER ---
Nurse's Notes [facility] Name: Bree Farnsworth Age: 33 yrs Sex: Female : 1990 Arrival Date: 02/17/2024 Time: 19:03 Bed 15 Private MD: Diagnosis: Abdominal pain, Generalized;Diarrhea, unspecified;Nausea with vomiting, unspecified Presentation: 02/16 19:12 Chief complaint: Patient states: she started having diarrhea yesterday and fever today. ap3 patient also complains of right lower abdominal pain of which she rates a 7/10 on the pain scale. Coronavirus screen: At this time, the client does not indicate any symptoms associated with coronavirus-19. Ebola Screen: No symptoms or risks identified at this time. Initial Sepsis Screen: Does the patient meet any 2 criteria? HR > 90 bpm. Does the patient have a suspected source of infection? No. Patient's initial sepsis screen is negative. Risk Assessment: Do you want to hurt yourself or someone else? Patient reports no desire to harm self or others. Onset of symptoms was February 15, 2024. 19:12 Method Of Arrival: Ambulatory ap3 19:12 Acuity: CLAUDIA 3 ap3 Triage Assessment: 19:14 General: Appears in no apparent distress. Behavior is calm, cooperative, appropriate ap3 for age. Pain: Complains of pain in right lower quadrant Pain currently is 7 out of 10 on a pain scale. Neuro: Level of Consciousness is awake, alert, obeys commands, Oriented to person, place, time, situation, Appropriate for age Gait is steady, Speech is normal. Cardiovascular: Patient's skin is warm and dry. Respiratory: Airway is patent Respiratory effort is even, unlabored, Respiratory pattern is regular, symmetrical. GI: Reports lower abdominal pain, diarrhea, nausea, vomiting. Historical: - Allergies: 19:14 No Known Allergies; ap3 - PMHx: 19:14 None; ap3 - PSHx: 19:14 Cholecystectomy; ap3 - Immunization history:: Client reports receiving the 2nd dose of the Covid vaccine, Flu vaccine is not up to date. - Infectious Disease History:: Denies. - Social history:: Smoking status: Patient denies any tobacco usage or history of. Patient uses alcohol, occasionally. Screenin:15 [facility] ED Fall Risk Assessment (Adult) History of falling in the last 3 months, ap3 including since admission No falls in past 3 months (0 pts) Confusion or Disorientation No (0 pts) Intoxicated or Sedated No (0 pts) Impaired Gait No (0 pts) Mobility Assist Device Used No (0 pt) Altered Elimination No (0 pt) Score/Fall Risk Level 0 - 2 = Low Risk Oriented to surroundings, Maintained a safe environment, Educated pt \T\ family on fall prevention, incl call for assistance when getting out of bed, Assessed \T\ reinforced patient's understanding of fall precautions, Hourly rounding (assess needs \T\ fall precautionary measures) done, Used ambulatory aids as needed (educated on \T\ assisted with), Used gait belt as appropriate. Abuse screen: Denies threats or abuse. Nutritional screening: No deficits noted. Tuberculosis screening: No symptoms or risk factors identified. Assessment: 19:53 General: Appears in no apparent distress. comfortable, Behavior is calm, cooperative, jb4 appropriate for age. Pain: Complains of pain in right lower quadrant Pain does not radiate. Pain currently is 7 out of 10 on a pain scale. Neuro: Level of Consciousness is awake, alert, obeys commands, Oriented to person, place, time, situation. Cardiovascular: Patient's skin is warm and dry. Respiratory: Airway is patent Respiratory effort is even, unlabored, Respiratory pattern is regular, symmetrical. GI: No signs and/or symptoms were reported involving the gastrointestinal system. : No signs and/or symptoms were reported regarding the genitourinary system. EENT: No signs and/or symptoms were reported regarding the EENT system. Derm: Skin is intact, Skin is pink, warm \T\ dry. Musculoskeletal: Circulation, motion, and sensation intact. Range of motion: intact in all extremities. 21:00 Reassessment: Patient appears in no apparent distress at this time. Patient and/or jb4 family updated on plan of care and expected duration. Pain level reassessed. Patient is alert, oriented x 3, equal unlabored respirations, skin warm/dry/pink. 21:50 Reassessment: Patient appears in no apparent distress at this time. Patient and/or jb4 family updated on plan of care and expected duration. Pain level reassessed. Patient is alert, oriented x 3, equal unlabored respirations, skin warm/dry/pink. Vital Signs: 19:12 BP 122 / 78; Pulse 102; Resp 17; Temp 98.2; Pulse Ox 99% on R/A; Weight 76.2 kg; Height ap3 5 ft. 4 in. ; Pain 7/10; 19:53 BP 122 / 78; Pulse 88; Resp 16; Pulse Ox 98% on R/A; jb4 21:00 BP 136 / 85; Pulse 90; Resp 16; Pulse Ox 97% on R/A; jb4 21:34 BP 121 / 81; Pulse 94; Resp 16; Temp 98.4; Pulse Ox 99% ; Pain 0/10; ty 19:12 Body Mass Index 28.84 (76.20 kg, 162.56 cm) ap3 19:12 Pain Scale: Adult ap3 21:34 Pain Scale: Adult ty ED Course: 19:05 Patient arrived in ED. mg5 19:07 [facility]isha Cooper [facility]-C [facility] kb 19:07 Darin Barron MD is Attending Physician. kb 19:13 Triage completed. ap3 19:15 Arm band placed on right wrist. ap3 19:15 Patient has correct armband on for positive identification. Call light in reach. Side ap3 rails up X 1. Provided Education on: fall risk and call light education. Pulse ox on. NIBP on. 19:37 Ifeanyi Rodriguez, CORY is Primary Nurse. jb4 19:43 Inserted saline lock: 22 gauge in right antecubital area, using aseptic technique. oe Blood collected. Flushed with 10 mL NS. 19:44 CBC with Diff Sent. oe 19:44 CMP Sent. oe 19:44 Lipase Sent. oe 19:53 No provider procedures requiring assistance completed. jb4 20:24 Radiology exam delayed due to test not completed at this time. nj 21:18 Radiology exam delayed due to test not completed at this time. nj 21:50 IV discontinued, intact, bleeding controlled, No redness/swelling at site. Pressure jb4 dressing applied. Administered Medications: 19:50 Drug: Ondansetron IVP 4 mg IVP once; over 2 minutes Route: IVP; Site: right antecubital;jb4 20:20 Follow up: Response: No adverse reaction; Marked relief of symptoms jb4 19:50 Drug: NS 0.9% IV 1000 ml IV at 1 bolus Per protocol; to be given as a bolus over 60 jb4 minutes Route: IV; Rate: 1 bolus; Site: right antecubital; 20:50 Follow up: Response: No adverse reaction; IV Status: Completed infusion; IV Intake: jb4 1000ml 19:51 Drug: TORadol - Ketorolac IVP 15 mg IVP once Route: IVP; Site: right antecubital; jb4 20:20 Follow up: Response: No adverse reaction; Marked relief of symptoms; Pain is decreased jb4 Medication: 19:53 VIS not applicable for this client. jb4 Intake: 20:50 IV: 1000ml; Total: 1000ml. jb4 Outcome: 21:28 Discharge ordered by MD. kb 21:50 Discharged to home ambulatory, jb4 21:50 Condition: stable 21:50 Discharge instructions given to patient, Instructed on discharge instructions, follow up and referral plans. medication usage, Demonstrated understanding of instructions, follow-up care, medications, Prescriptions given X 1, 21:51 Patient left the ED. jb4 Signatures: Elisha Cooper, COMMERCIAL ESTIMATOR-C COMMERCIAL ESTIMATOR-Hansb Ifeanyi Rodriguez, RN RN jb4 Kulwinder Villanueva Orlando oe Prokisch, Amanda, RN RN cristo3 Talia Jason mg5 Akbar Coy
[2024-02-18 05:13] VITALS: BP 121/81; TEMP 98.4; O2SAT 99
== END 2024-02-17 21:51 | disposition home or self-care (01) ==
LOC: ER 19:03
DX: R10.84 Generalized abdominal pain (principal); R19.7 Diarrhea, unspecified; R11.2 Nausea with vomiting, unspecified
CPT/HCPCS: 36415; 80053; 83690; 85025; 96361; 96374; 96375; 99284